=== PATIENT | female | born 1935 | race Caucasian/White ===

== ENCOUNTER → 2017-10-14 | Outpatient (CLI) | payer MEDICARE, BC ==
[2017-10-14 10:17] LABS: AUTOMATED NEUTROPHIL # 1.6 TH/MM3 (1.8-7.7); BASOPHIL % 0.6 % (0.0-2.0); EOSINOPHIL % 1.6 % (0.0-4.0); HEMATOCRIT 38.4 % (35.0-46.0); HEMOGLOBIN 13.1 GM/DL (11.6-15.3); LYMPH % 25.8 % (9.0-44.0); LYMPHOCYTE # 0.7 TH/MM3 (1.0-4.8); MEAN CELL VOLUME 90.5 FL (80.0-100.0); MEAN CORPUSCULAR HGB CONC 34.2 % (32.0-36.0); MEAN PLATELET VOLUME 8.3 FL (7.0-11.0); MONO % 12.9 % (0.0-8.0); MONOCYTE # 0.3 TH/MM3 (0-0.9); NEUT % 59.1 % (16.0-70.0); PLATELET COUNT 135 TH/MM3 (150-450); RED BLOOD COUNT 4.24 MIL/MM3 (4.00-5.30); RED CELL DISTRIBUTION WIDTH 13.3 % (11.6-17.2); WHITE BLOOD COUNT 2.7 TH/MM3 (4.0-11.0)
[2017-10-14 10:29] LABS: ALBUMIN 3.7 GM/DL (3.4-5.0); ALT (GPT) 13 U/L (10-53); AST (GOT) 15 U/L (15-37); BLOOD UREA NITROGEN 14 MG/DL (7-18); CALCIUM 8.9 MG/DL (8.5-10.1); CHLORIDE 104 MEQ/L (98-107); CHOLESTEROL 215 MG/DL (120-200); CREATININE 0.96 MG/DL (0.50-1.00); GLOMERULAR FILTRATION RATE 56 ML/MIN (>89); GLUCOSE,FASTING 84 MG/DL (74-99); SODIUM (NA) 139 MEQ/L (136-145)
[2017-10-14 10:38] LABS: ALKALINE PHOSPHATASE 90 U/L (45-117); CHOLESTEROL/ HDL RATIO 3.53 RATIO; FREE T4 1.04 NG/DL (0.76-1.46); HDL CHOLESTEROL 60.9 MG/DL (40.0-60.0); LDL CHOLESTEROL 134 MG/DL (0-99); TOTAL BILIRUBIN ADULT 0.6 MG/DL (0.2-1.0); TOTAL PROTEIN 7.5 GM/DL (6.4-8.2); TRIGLYCERIDES 101 MG/DL (42-150)
[2017-10-14 16:10] LABS: HEMOGLOBIN A1C 5.2 % (4.3-6.0)
== END ==
LOC: PLAB 06:58
PROVIDERS: ATTEND Family Medicine
DX: E78.2 Mixed hyperlipidemia (principal); I10 Essential (primary) hypertension; E03.8 Other specified hypothyroidism; E10.8 Type 1 diabetes mellitus with unspecified complications; Z79.899 Other long term (current) drug therapy
CPT/HCPCS: 36415; 80053; 80061; 83036; 84439; 84443; 84480; 84482; 85025

== ENCOUNTER 2017-11-09 13:27 | Inpatient (IN) | payer MEDICARE, BC ==
[2017-11-09] VITALS (8 sets, daily range): BP systolic 115–135; BP diastolic 80–95; PULSE 69–78; RESP 18; TEMP 97.6; O2SAT 95–99
[~2017-11-09] VITALS: Ht 154.9 cm; Wt 53.3 kg
[2017-11-09] MEDS ORDERED: ASPIRIN 81 MG CHEW TAB PO ONE (13:45)
[2017-11-09] MEDS ORDERED: SODIUM CHLORIDE 0.9% FLUSH 10 ML FLUSH IVF PRN (13:45)
--- NOTE | 2017-11-09 13:50 | RADRPT ---
EXAM DATE/TIME: 11/09/2017 13:39 [place] COMPARISON: No previous studies available for comparison. INDICATIONS : Chest pain MEDICAL HISTORY : Cardiovascular disease. A-fib SURGICAL HISTORY : CABG. ENCOUNTER: Initial ACUITY: 1 day PAIN SCORE: 0/10 LOCATION: chest FINDINGS: There is ill-defined non-consolidative infiltrate in the retrocardiac left lower lung. The right carlee g is clear. Both hemidiaphragms are well delineated. The heart is normal in size. Evidence of prio r median sternotomy with intact sternal wire sutures stop CONCLUSION: Non-consolidative infiltrates in the left lower lung. Franki Perez MD on November 09, 2017 at 13:47 Board Certified Radiologist. This report was verified electronically.
[2017-11-09 14:21] LABS: AUTOMATED NEUTROPHIL # 1.3 TH/MM3 (1.8-7.7); BASOPHIL % 0.4 % (0.0-2.0); EOSINOPHIL # 0.1 TH/MM3 (0-0.4); EOSINOPHIL % 2.6 % (0.0-4.0); HEMATOCRIT 33.1 % (35.0-46.0); HEMOGLOBIN 11.3 GM/DL (11.6-15.3); LYMPH % 43.1 % (9.0-44.0); LYMPHOCYTE # 1.4 TH/MM3 (1.0-4.8); MEAN CELL VOLUME 89.9 FL (80.0-100.0); MEAN CORPUSCULAR HEMOGLOBIN 30.7 PG (27.0-34.0); MEAN CORPUSCULAR HGB CONC 34.1 % (32.0-36.0); MEAN PLATELET VOLUME 8.1 FL (7.0-11.0); MONO % 13.7 % (0.0-8.0); MONOCYTE # 0.4 TH/MM3 (0-0.9); NEUT % 40.2 % (16.0-70.0); PLATELET COUNT 280 TH/MM3 (150-450); RED BLOOD COUNT 3.68 MIL/MM3 (4.00-5.30); RED CELL DISTRIBUTION WIDTH 13.5 % (11.6-17.2); WHITE BLOOD COUNT 3.2 TH/MM3 (4.0-11.0)
[2017-11-09 14:39] LABS: INTERNATIONAL NORMALIZED RATIO 1.6 RATIO; PROTHROMBIN TIME - PATIENT 16.1 SEC (9.8-11.6)
[2017-11-09 14:46] LABS: ALBUMIN 3.1 GM/DL (3.4-5.0); AST (GOT) 24 U/L (15-37); BICARBONATE 27.6 MEQ/L (21.0-32.0); BLOOD UREA NITROGEN 17 MG/DL (7-18); CALCIUM 8.3 MG/DL (8.5-10.1); CHLORIDE 105 MEQ/L (98-107); CREATININE 1.05 MG/DL (0.50-1.00); GLOMERULAR FILTRATION RATE 50 ML/MIN (>89); GLUCOSE,RANDOM 104 MG/DL (74-106); SODIUM (NA) 140 MEQ/L (136-145)
[2017-11-09 14:51] LABS: ALKALINE PHOSPHATASE 106 U/L (45-117); ALT (GPT) 23 U/L (10-53); TOTAL BILIRUBIN ADULT 0.4 MG/DL (0.2-1.0); TOTAL PROTEIN 6.8 GM/DL (6.4-8.2); TROPONIN I 0.27 NG/ML (0.02-0.05)
[2017-11-09] MEDS ORDERED: MORPHINE SULFATE 2 MG/ML SYRINGE IV PUSH ONE (15:45)
[2017-11-09] MEDS ORDERED: ENOXAPARIN SODIUM 60 MG/0.6 ML SYRINGE SQ ONE (15:45)
--- NOTE | 2017-11-09 16:07 | PD ---
HPI Chief Complaint: Cardiac Complaint Time Seen by Provider: 13:35 Travel History International Travel<30 days: No Contact w/Intl Traveler<30days: No Traveled to known affect area: No History of Present Illness HPI Patient is an 81 year old female who comes in complaining of chest pain. She says the pain started this morning and feels like a pressure in her chest. She was seen at [facility] last week and had a cardiac stent placed. She says she has been feeling fine since then and did not have this pain until this morning. She says she has had associated nausea and vomiting as well as diaphoresis. She denies any difficulty breathing. She denies cough or leg swelling. She took a Plavix prior to coming in, but no Aspirin. She was given nitro by EMS and says this improved her pain. Severity is moderate. PFSH Past Medical History Anemia: Yes Atrial Fibrillation: Yes Cardiac Catheterization: Yes High Cholesterol: Yes Hypertension: Yes Thyroid Disease: Yes Influenza Vaccination: Yes Past Surgical History Cardiac Surgery: Yes (stents, aortic valve replacement) Social History Alcohol Use: Yes (occas) Tobacco Use: No Substance Use: No Allergies-Medications (Allergen,Severity, Reaction): Coded Allergies: No Known Allergies (Unverified , 11/09/17) Reported Meds & Prescriptions Reported Meds & Active Scripts Active Reported Warfarin 5 Mg Tab 5 Mg PO DAILY Metoprolol Tartrate 25 Mg Tab 25 Mg PO BID Review of Systems Except as stated in HPI: all other systems reviewed are Neg General / Constitutional: No: Fever, Chills HENT: No: Headaches, Lightheadedness Cardiovascular: Positive: Chest Pain or Discomfort Respiratory: No: Shortness of Breath Gastrointestinal: Positive: Nausea, Vomiting, No: Abdominal Pain Musculoskeletal: No: Myalgias, Edema Skin: No Rash, No Change in Pigmentation Neurologic: No: Weakness, Dizziness Physical Exam Narrative GENERAL: Awake and alert, in no acute distress. SKIN: No wounds or signs of infection. HEAD: Atraumatic. Normocephalic. EYES: Pupils equal and round. No scleral icterus. ENT: Mucous membranes pink and moist. NECK: Trachea midline. No JVD. CARDIOVASCULAR: Regular rate and rhythm. RESPIRATORY: No accessory muscle use. Clear to auscultation. Breath sounds equal bilaterally. GASTROINTESTINAL: Abdomen soft, non-tender, nondistended. MUSCULOSKELETAL: Extremities without clubbing, cyanosis, or edema. No obvious deformities. NEUROLOGICAL: Awake and alert. No obvious cranial nerve deficits. Motor grossly within normal limits. Five out of 5 muscle strength in the arms and legs. Normal speech. PSYCHIATRIC: Appropriate mood and affect; insight and judgment normal. Data Data Last Documented VS Vital Signs Date Time Temp Pulse Resp B/P (MAP) Pulse Ox O2 Delivery O2 Flow Rate FiO2 11/09/17 13:29 69 18 125/88 (100) 97 Orders Orders Ckmb (Isoenzyme) Profile (11/09/17 13:35) Complete Blood Count With Diff (11/09/17 13:35) Comprehensive Metabolic Panel (11/09/17 13:35) Prothrombin Time / Inr (Pt) (11/09/17 13:35) Act Partial Throm Time (Ptt) (11/09/17 13:35) Troponin I (11/09/17 13:35) Chest, Single Ap (11/09/17 13:35) Ecg Monitoring (11/09/17 13:35) Bilateral Bp Monitoring (11/09/17 13:35) Iv Access Insert/Monitor (11/09/17 13:35) Oximetry (11/09/17 13:35) Oxygen Administration (11/09/17 13:35) Aspirin Chew (Aspirin Chew) (11/09/17 13:45) Sodium Chloride 0.9% Flush (Ns Flush) (11/09/17 13:45) Morphine Inj (Morphine Inj) (11/09/17 15:45) Enoxaparin Inj (Lovenox Inj) (11/09/17 15:45) Consult Cardiology (11/09/17 ) Electrocardiogram (11/09/17 13:33) (Hub Use Only)Inp Phy Cons/Ref (11/09/17 ) Admit Order (Ed Use Only) (11/09/17 ) Labs Laboratory Tests Test 11/09/17 13:42 White Blood Count 3.2 TH/MM3 Red Blood Count 3.68 MIL/MM3 Hemoglobin 11.3 GM/DL Hematocrit 33.1 % Mean Corpuscular Volume 89.9 FL Mean Corpuscular Hemoglobin 30.7 PG Mean Corpuscular Hemoglobin Concent 34.1 % Red Cell Distribution Width 13.5 % Platelet Count 280 TH/MM3 Mean Platelet Volume 8.1 FL Neutrophils (%) (Auto) 40.2 % Lymphocytes (%) (Auto) 43.1 % Monocytes (%) (Auto) 13.7 % Eosinophils (%) (Auto) 2.6 % Basophils (%) (Auto) 0.4 % Neutrophils # (Auto) 1.3 TH/MM3 Lymphocytes # (Auto) 1.4 TH/MM3 Monocytes # (Auto) 0.4 TH/MM3 Eosinophils # (Auto) 0.1 TH/MM3 Basophils # (Auto) 0.0 TH/MM3 CBC Comment DIFF FINAL Differential Comment Prothrombin Time 16.1 SEC Prothromb Time International Ratio 1.6 RATIO Activated Partial Thromboplast Time 29.6 SEC Blood Urea Nitrogen 17 MG/DL Creatinine 1.05 MG/DL Random Glucose 104 MG/DL Total Protein 6.8 GM/DL Albumin 3.1 GM/DL Calcium Level 8.3 MG/DL Alkaline Phosphatase 106 U/L Aspartate Amino Transf (AST/SGOT) 24 U/L Alanine Aminotransferase (ALT/SGPT) 23 U/L Total Bilirubin 0.4 MG/DL Sodium Level 140 MEQ/L Potassium Level 4.4 MEQ/L Chloride Level 105 MEQ/L Carbon Dioxide Level 27.6 MEQ/L Anion Gap 7 MEQ/L Estimat Glomerular Filtration Rate 50 ML/MIN Total Creatine Kinase 31 U/L Troponin I 0.27 NG/ML MDM Medical Decision Making Medical Screen Exam Complete: Yes Emergency Medical Condition: Yes Medical Record Reviewed: Yes Interpretation(s) ECG shows LBBB Differential Diagnosis ACS vs NSTEMI vs STEMI Narrative Course Patient is an 81 year old female who comes in complaining of chest pain. IV established, labs sent, patient connected to the social work therapist. Labs show a troponin of 0.27. Patient did recently have a cardiac cath and stenting, so it is unclear if this is new or improving. I spoke with Dr. Alexander of cardiology who looked up records from [facility] and said her Troponin was 2 while there, so this is likely improving. However, she suggests trending the troponin and giving Lovenox right now. Patient given Aspirin and Lovenox. Admitted to Dr. Hall, consult placed to Dr. Abrams (patient's mixer whipped topping). Diagnosis Primary Impression: Chest pain Qualified Codes: R07.9 - Chest pain, unspecified Additional Impression: Elevated troponin Admitting Information Admitting Physician Requests: Admit Tiffanie Naranjo MD November 09, 2017 16:07
[2017-11-09] MEDS ORDERED: MORPHINE SULFATE 4 MG/ML INJ IV PUSH ONE (16:30)
[2017-11-09] MEDS ORDERED: LACTULOSE SYRUP 20 GM/30 ML CUP PO PRN (16:45)
[2017-11-09] MEDS ORDERED: BISACODYL 10 MG SUPP RECTAL PRN (16:45)
[2017-11-09] MEDS ORDERED: MAGNESIUM HYDROXIDE SUSP 30 ML CUP PO PRN (16:45)
[2017-11-09] MEDS ORDERED: NALOXONE HCL 0.4 MG/ML AMP IV PUSH PRN (16:45)
[2017-11-09] MEDS ORDERED: SODIUM CHLORIDE 0.9% FLUSH 10 ML FLUSH IV FLUSH PRN (16:45)
[2017-11-09] MEDS ORDERED: SENNOSIDES 8.6 MG TAB PO PRN (16:45)
[2017-11-09] MEDS ORDERED: ENOXAPARIN SODIUM 60 MG/0.6 ML SYRINGE SQ SCH (17:00)
--- NOTE | 2017-11-09 17:46 | EKG ---
Date Performed: 11/09/2017 Time Performed: 13:33:46 PTAGE: 81 years EKG: Sinus rhythm WITH FIRST DEGREE AV BLOCK LEFT AXIS DEVIATION NONSPECIFIC INTRAVENTRICULAR CONDUCTION DELAY NONSPEC IFIC ST/T CHANGES ABNORMAL ECG NO PREVIOUS TRACING DOCTOR: Boyd Banks Interpretating Date/Time 11/09/2017 17:45:29
[2017-11-09] MEDS ORDERED: ONDANSETRON ODT 4 MG TAB PO ONE (18:45)
[2017-11-09] MEDS ORDERED: METO25TA3 PO (19:58)
[2017-11-09] MEDS ORDERED: WARF-23 PO (19:59)
[2017-11-09] MEDS ORDERED: PROP150T PO (20:01)
[2017-11-09] MEDS ORDERED: PLAV75TA29 PO (20:02)
[2017-11-09] MEDS ORDERED: NITROGLYCERIN 0.4 MG SL 25 TABS/BTL SL PRN (20:45)
[2017-11-09] MEDS ORDERED: MORPHINE SULFATE 4 MG/ML INJ IV PRN (21:00)
[2017-11-09] MEDS: PROPAFENONE HCL 150 MG TAB PO SCH (21:26)
[2017-11-09] MEDS: METOPROLOL TARTRATE 25 MG TAB PO SCH (21:26)
[2017-11-09] MEDS: DOCUSATE SODIUM 50 MG/SENNA 8.6 MG TAB PO SCH (21:26)
[2017-11-09] MEDS: SODIUM CHLORIDE 0.9% FLUSH 10 ML FLUSH IV FLUSH SCH (21:26)
[2017-11-10] VITALS (25 sets, daily range): BP systolic 88–128; BP diastolic 58–91; PULSE 68–80; RESP 16–18; TEMP 97.6–98; O2SAT 95–97
[2017-11-10] MEDS ORDERED: ENOXAPARIN SODIUM 60 MG/0.6 ML SYRINGE SQ SCH (04:00)
[2017-11-10 04:30] LABS: BASOPHIL % 0.4 % (0.0-2.0); EOSINOPHIL % 0.1 % (0.0-4.0); HEMATOCRIT 40.1 % (35.0-46.0); HEMOGLOBIN 13.5 GM/DL (11.6-15.3); LYMPHOCYTE # 0.7 TH/MM3 (1.0-4.8); MEAN CELL VOLUME 90.4 FL (80.0-100.0); MEAN CORPUSCULAR HEMOGLOBIN 30.4 PG (27.0-34.0); MEAN CORPUSCULAR HGB CONC 33.6 % (32.0-36.0); MEAN PLATELET VOLUME 8.1 FL (7.0-11.0); MONO % 7.4 % (0.0-8.0); MONOCYTE # 0.2 TH/MM3 (0-0.9); NEUT % 69.1 % (16.0-70.0); PLATELET COUNT 299 TH/MM3 (150-450); RED BLOOD COUNT 4.43 MIL/MM3 (4.00-5.30); RED CELL DISTRIBUTION WIDTH 13.5 % (11.6-17.2); WHITE BLOOD COUNT 2.9 TH/MM3 (4.0-11.0)
[2017-11-10 04:40] LABS: INTERNATIONAL NORMALIZED RATIO 1.6 RATIO; PROTHROMBIN TIME - PATIENT 16.3 SEC (9.8-11.6)
[2017-11-10 05:07] LABS: ALBUMIN 3.6 GM/DL (3.4-5.0); ALKALINE PHOSPHATASE 131 U/L (45-117); ALT (GPT) 34 U/L (10-53); AST (GOT) 258 U/L (15-37); BICARBONATE 24.5 MEQ/L (21.0-32.0); BLOOD UREA NITROGEN 26 MG/DL (7-18); CALCIUM 8.9 MG/DL (8.5-10.1); CHLORIDE 103 MEQ/L (98-107); CREATININE 1.11 MG/DL (0.50-1.00); GLOMERULAR FILTRATION RATE 47 ML/MIN (>89); GLUCOSE,RANDOM 103 MG/DL (74-106); SODIUM (NA) 138 MEQ/L (136-145); TOTAL BILIRUBIN ADULT 0.6 MG/DL (0.2-1.0)
[2017-11-10] MEDS: PROPAFENONE HCL 150 MG TAB PO SCH ×2 (06:51→14:25)
[2017-11-10] MEDS: ONDANSETRON ODT 4 MG TAB PO PRN (06:53)
[2017-11-10] MEDS ORDERED: HEPARIN SODIUM - IV 10,000 UNITS/10 ML VIAL ONE (07:27)
[2017-11-10] MEDS ORDERED: MIDAZOLAM HCL 2 MG/2 ML VIAL ONE (07:27)
[2017-11-10] MEDS ORDERED: HEPARIN-NS/PF INJ 500 ML ONE (07:36)
--- NOTE | 2017-11-10 08:00 | MB ---
cc: Eliel Abrams MD DATE: 11/10/2017 HISTORY OF PRESENT ILLNESS: Ms. Mcgill is an 79-year-old white female with a history of aortic valve replacement, recent anterior wall myocardial infarction and LAD stenting. She developed substernal chest pressure yesterday morning and was brought to [facility]. She had nausea, vomiting and diaphoresis. She took Plavix, but no aspirin prior to arrival. The patient's pain improved with nitroglycerin and was of moderate severity. She has had continuing chest discomfort and is ruling in for a myocardial infarction with significantly elevated troponin. PAST MEDICAL HISTORY: 1. Positive for aortic valve replacement for severe aortic insufficiency in 2014 using a bioprosthetic valve. 2. Recent anterior wall myocardial infarction and placement of a Resolute 2.5 x [address] Field at [facility]. 3. History of atrial fibrillation, dyslipidemia, hypertension, thyroid disease, anemia. MEDICATIONS: Include: 1. Metoprolol. 2. Warfarin. 3. Plavix. 4. Aspirin. ALLERGIES: NONE. SOCIAL HISTORY: The patient does not smoke. She drinks alcohol socially. FAMILY HISTORY: Positive for heart disease. REVIEW OF SYSTEMS: Otherwise negative. PHYSICAL EXAMINATION: VITAL SIGNS: Blood pressure 128/91, pulse 76 and regular. HEENT: Negative. NECK: 2+ carotid strokes. No bruits. LUNGS: Clear. HEART: Regular with a 1/6 systolic murmur. No gallop. ABDOMEN: Soft. No bruits. EXTREMITIES: Without edema. 2+ distal pulses. NEUROLOGIC: Grossly nonfocal. LABORATORY DATA: EKG was reviewed and showed sinus rhythm with left axis and first degree AV block and a bundle branch block. LABORATORY DATA: Hemoglobin 13.5, potassium 4.6, creatinine 1.1. Troponin 0.27, 5.69 and 32.1. DIAGNOSES: 1. Acute coronary syndrome. 2. Acute myocardial infarction. 3. Coronary artery disease, recent anterior wall myocardial infarction and LAD stenting. 4. Status post aortic valve replacement for aortic insufficiency. DISPOSITION: Ms. Mcgill will undergo emergent cardiac catheterization and coronary intervention. She understands the risks and benefits, and wishes to proceed. Eliel Abrams MD OQ/DL , 07:40 AM , 07:59 AM [facility]
--- NOTE | 2017-11-10 08:04 | EKG ---
Date Performed: 11/09/2017 Time Performed: 22:41:26 PTAGE: 81 years EKG: Sinus rhythm with borderline 1st degree A-V block Left axis deviation Nonspecific intraventricular conduction del ay Lateral T wave changes are nonspecific Diffuse nonspecific ST abnormality Abnormal ECG NO PREVIOUS TRACING DOCTOR: Boyd Banks Interpretating Date/Time 11/10/2017 08:02:30
[2017-11-10] MEDS: DOCUSATE SODIUM 50 MG/SENNA 8.6 MG TAB PO SCH ×2 (09:00→21:00)
[2017-11-10] MEDS: SODIUM CHLORIDE 0.9% FLUSH 10 ML FLUSH IV FLUSH SCH ×2 (09:00→22:02)
[2017-11-10] MEDS ORDERED: ASPIRIN EC 325 MG TABEC PO SCH (09:00)
[2017-11-10] MEDS ORDERED: CLOPIDOGREL 75 MG TAB PO SCH (09:00)
[2017-11-10] MEDS ORDERED: TIROFIBAN INFUSION INJ 250 ML IV ONE (09:40)
[2017-11-10] MEDS ORDERED: PRASUGREL 10 MG TAB ONE (09:40)
[2017-11-10] MEDS ORDERED: ASPIRIN 81 MG CHEW TAB ONE (09:47)
[2017-11-10] MEDS: TIROFIBAN INFUSION INJ 250 ML IV SCH (09:49)
[2017-11-10] MEDS ORDERED: ONDANSETRON HCL 4 MG/2 ML VIAL ONE (09:52)
[2017-11-10] MEDS: METOPROLOL TARTRATE 25 MG TAB PO SCH (10:22)
[2017-11-10] MEDS ORDERED: PRASUGREL 10 MG TAB PO ONE ×2 (11:15→12:30)
[2017-11-10] MEDS ORDERED: IOHEXOL 350 MG/ML 100 ML BTL (for Cath Lab) OTHER ONE (14:56)
[2017-11-10] MEDS ORDERED: WARFARIN SOD 5 MG TAB PO SCH (16:00)
--- NOTE | 2017-11-10 16:17 | CATHPROC ---
[employer] HIS Report Study Information Study Number Admission Scheduled Start Study Start [id number] Nov 09 2017 4:08PM 11/10/2017 Nov 10 2017 7:03AM [place] [facility] Cardiac Catheterization Admit Source Facility Department Emergency department [facility] - Medical Science Liaison Physician and Clinical Staff Initial Eliel Bills Investment Associate Vikash Casas,SABINE Recorder Rohini Argueta,ENGINEERING TECHNICIAN PARKING TECH2 Scrub Maira Guerra,RT(R) Procedures Performed Procedure Location (Site) Vessel Name Angiogram LV LV Ventricle Coronary Angiograms LCA Left Coronary Coronary Angiograms RCA Right Coronary PTCA DIAG1 Prox Left Coronary PTCA LAD Mid Left Coronary PTCA LAD Prox Left Coronary PTCA Lft Main Ost Left Coronary Wire insertion Fem Art (right) Femoral Art Equipment Time Sql Server Consultant Description Size Mfg Part Number Used/Scraped WIRE, BALANCE MIDDLEWEIGHT [id number] 07:55 [employer] 190CM Used 190CM *[id number] WIRE, HI TORQUE ALLSTAR [id number] 08:07 [employer] 190CM Used 190CM *[id number] WIRE, HI TORQUE ALLSTAR [id number] 08:12 [employer] 190CM Used 190CM *[id number] WIRE, WHISPER W/HYDROCOAT [id number] 08:30 [employer] 190CM Used 190CM *[id number] WIRE, WHISPER W/HYDROCOAT [id number] 08:58 [employer] 190CM Used 190CM *[id number] WIRE, WHISPER W/HYDROCOAT [id number] 08:42 [employer] 190CM Used 190CM *[id number] WIRE, WHISPER W/HYDROCOAT [id number] 08:45 [employer] 190CM Used 190CM *[id number] TRANSDUCER, TRUWAVE [id number] 07:06 HANNA AGUILAR * Used W/STOCKCOCK *[id number] 08:19 [employer] WIRE, LUGE 182CM 182CM Used *[id number] [phone] *9851315 534-545T *[id number] 534-548T *5670211 534-520T *2544615 534-552S *[id number] [phone] *[id number] [phone] *[id number] 09:32 DAIG/[facility] MEDICAL ANGIOSEAL, FR6 VIP FR 6 Used *[id number] [id number] 07:24 MALLINCKRODT SYRINGE, ANGIOMAT 150ML 150ML *[id number]/233437 Used 2SUB [id number] 07:06 MEDLINE IND[employer]RIES PACK, CCL CUSTOM * Used *[id number] 07:06 MEDLINE PACER PEN, SKIN DUAL W/ RULER * Used *[id number] 10:30 MEDTRONIC BALLOON, 1.5 X 12MM EUPHORA 12MM Used *[id number] 08:36 MEDTRONIC BALLOON, 1.5 X 6MM EUPHORA 6MM Used *4064834 [id number] 09:00 MEDTR[employer] BALLOON, 2.5 X 12MM EUPHORA 12MM Used *[id number] BALLOON, 2.75 X 12MM NC [id number] 09:13 MEDTRONIC 12MM Used EUPHORA *[id number] 08:53 [employer] MEDICAL 30 MARIA ELENA INDEFLATOR Used *[id number] 07:56 [employer] MEDICAL SHEATH, FR6.5 PRELUDE 11CM FR 6.5 038ACT Used *[id number] 07:06 [employer] MEDICAL WIRE, 3MMJ .035 180CM 180CM Used *5428789 [id number] 08:09 [employer] WIRE, 3MMJ .035 180CM 180CM Used *[id number] 09:28 [employer] WIRE, 3MMJ .035 180CM 180CM Used *[id number] PROBE COVER, STERILE [id number] 07:06 [employer] MEDICAL * Used ULTRASOUND W/ GEL *[id number] 07:06 NAMIC MANIFOLD, 4 PORT * Used *[id number] [id number] 07:06 NAMIC TUBING, HIGH PRESSURE 48" 48" Used *[id number] 07:06 NYCOMED OMNIPAQUE, 350 MG, 150ML 150ML [id number] Used 09:27 [employer]COMED OMNIPAQUE, 350 MG, 150ML 150ML [id number] Used 09:26 NYCOMED OMNIPAQUE, 350 MG, 50ML 50ML [id number] Used [id number] 07:06 [employer] BLANKET,WARM AIR CCL * Used *[id number] [id number] 07:06 [employer] MEDICAL SHEATH, FR5 TERUMO (10CM) FR 5 Used *[id number] WIRE, RUNTHROUGH NS FLOPPY [id number] 08:14 [employer] MEDICAL 180CM Used .014 180CM *[id number] EXPORTAP Scrap: Physician 07:54 MEDTRONIC CATHETER, EXPORT ASPIRATON *[id number] choice CATHETER, DUAL ACCESS/TWIN Scrap: Staff 08:51 V[employer]ULAR [employer]UTIONS * 5200 *[id number] PASS Error Equipment Model, Serial, Lot Number and Expiration Data Description Model Number Serial Number Lot Number Expiration Date ANGIOSEAL, FR6 VIP [id number] 04-22-2018 BALLOON, 2.75 X 12MM WI [id number] 08-29-2019 EUPHORA CATHETER, EXPORT ASPIRATON [id number] 06-11-2019 History: Current Medications Medication Dosage/Unit Route Frequency Last Date/Time Taken LOPRESSOR Coumadin History: Allergies Allergy Reaction No Known Allergies History: Risk Factors Family History of Hypertension Dyslipidemia Previous UT Previous Heart Failure Premature CAD Yes Yes Yes Yes No Prior Valve Prior PCI Prior PCIDate Prior CABG Surgery Yes Yes 10/29/2017 No Cerebrovascular Peripheral Artery Chronic Lung On Dialysis Diabetes Disease Disease Disease No No No No No History: Symptoms/Diagnosis Selection Items Chest pain History: CV Disease Selection Items Known CAD UT History: Stress Tests Stress or Imaging Studies Performed No History: Arrhythmias Selection Items Atrial fibrillation History: UT/CV Data Previous Valve Replacement Date 06/02/2015 History: Other Current Smoker No Labs Hgb (g/dl) Hct (%) WBC (l/cumm) Platelets (thousands) 11.60-17.00 35.00-51.00 4.00-11.00 150.00-450.00 13.5 40.1 2.9 299 Glucose (mg/dl) BUN (mg/dl) Creatinine (mg/dl) BUN:Creatinine (1:x) 74.00-106.00 7.00-18.00 0.50-1.30 10.00-20.00 103 26 1.1 23.6 Na (meq/l) K (meq/l) 136.00-145.00 3.50-5.10 138 4.6 PT (sec) INR (PTT:PT) 9.80-11.60 0.90-1.10 16.3 1.6 Troponin I (ng/ml) CPK (u/l) CPK-MB (ng/ML) 0.02-0.05 26.00-308.00 0.50-3.60 32.1 31 Not Drawn Medication Medication Total Dose (Bolus/Oral) Medication Total Dosage/Unit 1% XYLOCAINE 20 mL AGGRASTAT BOLUS 25 mL ASPIRIN 162 mg EFFIENT 60 mg FENTANYL 75 mcg HEPARIN 3000 units OXYGEN 2 l/min VERSED 2 mg Medications (Bolus/Oral) Medication Time Given Dosage/Unit Administered By Reason 1% XYLOCAINE 11/10/2017 7:43:48 AM 20 mL Eliel Abrams 20 mL 1% XYLOCAINE given in lab by Eliel Abrams in Right Groin via Subcutaneous. VERSED 11/10/2017 7:44:34 AM 1 mg Vikash Casas 1 mg VERSED given in lab by Vikash Casas RN in Left Antecubital via Peripheral IV. Ordered by Eliel Douglas. FENTANYL 11/10/2017 7:44:50 AM 50 mcg Vikash Casas 50 mcg FENTANYL given in lab by Vikash Casas RN in Left Antecubital via Peripheral IV. Ordered by Eliel Abrams. OXYGEN 11/10/2017 7:53:31 AM 2 l/min Vikash Casas 2 l/min OXYGEN given in lab by Vikash Casas RN via Nasal. Ordered by Eliel Abrams. HEPARIN 11/10/2017 7:54:26 AM 3000 units Vikash Casas 3000 units HEPARIN given in lab by Vikash Casas RN in Left Antecubital via Peripheral IV. Ordered by Eliel Abrams. VERSED 11/10/2017 8:09:12 AM 0.5 mg Vikash Casas 0.5 mg VERSED given in lab by Vikash Casas RN in Left Antecubital via Peripheral IV. Ordered by Eliel Vang. VERSED 11/10/2017 8:38:37 AM 0.5 mg Vikash Casas 0.5 mg VERSED given in lab by Vikash Casas RN in Left Antecubital via Peripheral IV. Ordered by Eliel Vang. FENTANYL 11/10/2017 8:39:53 AM 25 mcg Vikash Casas 25 mcg FENTANYL given in lab by Ferlitto, Vikash, RN in Left Antecubital via Peripheral IV. Ordered by Eliel Abrams. EFFIENT 11/10/2017 9:42:47 AM 60 mg Vikash Casas 60 mg EFFIENT given in lab by Vikash Casas RN via Oral. Ordered by Eliel Abrams. ASPIRIN 11/10/2017 9:43:55 AM 162 mg Vikash Casas 162 mg ASPIRIN given in lab by Vikash Casas RN via Oral. Ordered by Eliel Abrams. AGGRASTAT BOLUS 11/10/2017 9:48:12 AM 25 mL Viaksh Casas 25 mL AGGRASTAT BOLUS given in lab by Vikash Casas RN in Left Antecubital via Peripheral IV. Order ed by Eliel Abrams. Medication (Drip) Medication Time Given Dosage/Unit Concentration/Unit Diluent (ml) Solutio n AGGRASTAT DRIP 11/10/2017 9:49:50 AM 0.076 mcg/kg/min 12.5 mg 250 NaCl .9 0.076 mcg/kg/min AGGRASTAT DRIP given in lab by Vikash Casas RN in Left Antecubital via Peripheral IV. Pump/Drip Flow = 4.5 ml/hr using NaCl .9 with a concentration of 12.5 mg in 250 ml. Ordered by Eliel Abrams. renal dose Departed On. IV Solutions 11/10/2017 7:31:19 AM 0 mL (IV) 500 NaCl .9 Patient arrived on IV Solutions in Right Antecubital via Peripheral IV. Pump/Drip Flow = 20 ml/hr usi ng NaCl .9. Initial Case Assessment Cardiovascular HR Rhythm NIBP Chest Pain 77 sr 135/93 2 Circulatory - Right Pulses Dorsalis Pedis Femoral 2 3 Scale (0,1,2,3,4,d) Circulatory - Left Pulses Dorsalis Pedis Femoral 1 3 Scale (0,1,2,3,4,d) Neurological State Oriented to time-place- Alert Moves all extremities person Respiration - General Respiration Rate SpO2 (%) (B/min) 18 95 Final Case Assessment Cardiovascular HR Rhythm NIBP Chest Pain 72 sr 109/80 0 Circulatory - Right Pulses Dorsalis Pedis Femoral 2 3 Scale (0,1,2,3,4,d) Circulatory - Left Pulses Dorsalis Pedis Femoral 1 3 Scale (0,1,2,3,4,d) Neurological State Oriented to time-place- Alert Moves all extremities person Respiration - General Respiration Rate SpO2 (%) (B/min) 18 100 Chronological Log Time Study Chronological Log 7:23:36 Patient arrived via Bed. 7:23:37 Patient Name, D.O.B, / Armband Verified By R.N. 7:23:39 Consent signed by the physician and the patient and verified by the Medical Science Liaison staff. 7:23:40 Pre-op and post- op instructions given; patient acknowledges understanding of instructions. 7:23:41 Verbal Stimulation=2 Physical Stimulation=2 Airway=2 Respiration=2 TOTAL=8. (0=absent, 1=rivera ited, 2=present) 7:23:56 Presedation assessment performed by Medical Science Liaison RN. 7:23:59 Patient has been NPO for More than 6Hrs. 7:24:01 Skin Breakdown-none 7:24:40 [place] Prominences Protected Vitals capture started with the following parameters, Patient=Adult, Interval=5 min, Initial Pre mluye=393 mmHg, 7:27:18 Deflation Rate=5 mmHg, Cuff placed on Right Arm 7:28:25 HR=78 bpm, TYME=549/93 mmhg, SpO2=95.0 %, Resp=14 B/min 7:30:55 Reference ECG taken 7:31:18 A # 20 IV was noted in the Antecubital (left). Grade = 0 7:31:19 Patient arrived on IV Solutions in Right Antecubital via Peripheral IV. Pump/Drip Flow = 20 ml/hr using NaCl .9. 7:31:20 A # 20 IV was noted in the Forearm (left). Grade = 0 7:31:27 History and physical on the chart or being dictated. Assessment: Initial Case, HR=77 BPM, Rhythm=sr, IHXN=956/93 mmhg, Chest Pain=2 Right Pulses: Ed Ped=2, Femoral=3 7:31:28 Left Pulses: Ed Ped=1, Femoral=3 Neurological: State=Alert, Ox3, CRAIN Respiration: Resp=18 B/min, SpO2=95 % 7:32:50 HR=76 bpm, QTTV=922/84 mmhg, SpO2=96.0 %, Resp=15 B/min 7:33:23 MD arrived. 7:34:04 Bilateral groins prepped with 2% chlorhexidine, and draped after a 3 minute waiting time. 7:37:49 HR=77 bpm, SWUQ=055/89 mmhg, SpO2=95 %, Resp=11 B/min 7:42:48 HR=76 bpm, UKYU=510/80 mmhg, SpO2=94.0 %, Resp=15 B/min, Pain=2, Carranza=2 Time Out. Correct patient, correct procedure, correct physician, labs, allergies, and equipment verified with label paster 7:43:26 team present. Fire risk assesment completed (see hard stop sheet for coding). Time Out Concu rred by MD and individual staff in procedure. 7:43:46 Case Start 7:43:48 20 mL 1% XYLOCAINE given in lab by Eliel Abrams in Right Groin via Subcutaneous. 7:44:34 1 mg VERSED given in lab by Vikash Casas RN in Left Antecubital via Peripheral IV. Ordere d by Eliel Abrams. 7:44:45 Access site was Right Femoral Artery. 7:44:50 50 mcg FENTANYL given in lab by Vikash Casas, SABINE in Left Antecubital via Peripheral IV. Or dered by Eliel Abrams. A SHEATH, FR5 TERUMO (10CM) FR 5 was advanced into the Fem Art (right) using the Percutaneous te chnique. 7:44:55 Ultrasound guided access. 7:45:42 Activated Clotting Time Drawn A JL 4.0 INFINITI CATHETER FR 5 was advanced over a wire. OMNIPAQUE, 350 MG, 150ML 150ML was use d for 7:45:52 injections. Unable to cannulate. 7:47:51 HR=80 bpm, WXAP=707/75 mmhg, SpO2=96 %, Resp=12 B/min After removing the current catheter a AL 1 INFINITI CATHETER FR 5 was advanced over a WIRE, 3MMJ .035 180CM 7:48:00 180CM. 7:49:28 ACT (Normal Range 90-180) = 164 7:49:51 Pressure channel 1 zeroed. Recorded Pressure: Ao, HR=79, Condition=Condition 1 7:50:11 (Aorta) Ao 118/72/92 7:50:22 The LCA was injected and visualized at various angles. OMNIPAQUE, 350 MG, 150ML 150ML used. After removing the current catheter a AR MOD INFINITI CATHETER FR 5 was advanced over a WIRE, 3M MJ .035 180CM 7:51:36 180CM. 7:52:14 The RCA was injected and visualized at various angles. OMNIPAQUE, 350 MG, 150ML 150ML used. 7:52:46 HR=74 bpm, BLQI=136/80 mmhg, SpO2=93.0 %, Resp=13 B/min 7:53:01 Catheter was removed 7:53:31 2 l/min OXYGEN given in lab by Vikash Casas, SABINE via Nasal. Ordered by Eliel Abrams. 7:54:26 3000 units HEPARIN given in lab by Vikash Casas, ASBINE in Left Antecubital via Peripheral IV. Ordered by Eliel Abrams. A SHEATH, FR6.5 PRELUDE 11CM FR 6.5 was exchanged in the Fem Art (right). This was necessary in order to 7:55:46 accomodate a larger catheter. A XBLAD 3.5 GUIDE CATHETER FR 6 was advanced over a wire. OMNIPAQUE, 350 MG, 150ML 150ML was use d for 7:56:12 injections. 7:57:47 HR=80 bpm, LTZE=602/75 mmhg, SpO2=99.0 %, Resp=13 B/min 7:57:57 A WIRE, BALANCE MIDDLEWEIGHT 190CM 190CM was inserted via Fem Art (right). 8:02:48 HR=80 bpm, QJGZ=851/73 mmhg, SpO2=99.0 %, Resp=9 B/min 8:06:28 Wire removed 8:06:32 A WIRE, 3MMJ .035 180CM 180CM was inserted via Fem Art (right). 8:06:41 Wire removed 8:07:49 HR=79 bpm, HYWF=956/80 mmhg, YpW5=298.0 %, Resp=6 B/min After removing the current catheter a AL 1 GUIDE CATHETER FR 6 was advanced over a WIRE, 3MMJ .0 35 180CM 8:08:48 180CM. 8:09:12 0.5 mg VERSED given in lab by Vikash Casas, SABINE in Left Antecubital via Peripheral IV. Orde red by Eliel Abrams. 8:10:36 Catheter was removed A XBLAD 3.5 GUIDE CATHETER FR 6 was advanced over a wire. OMNIPAQUE, 350 MG, 150ML 150ML was use d for 8:10:44 injections. 8:12:32 A WIRE, HI TORQUE ALLSTAR 190CM 190CM was inserted via Fem Art (right). 8:12:48 HR=79 bpm, SLAJ=747/80 mmhg, SpO2=99.0 %, Resp=15 B/min 8:14:47 A WIRE, RUNTHROUGH NS FLOPPY .014 180CM 180CM was inserted via Fem Art (right). 8:17:26 Runthrough Wire removed for reshaping and readvanced. 8:17:47 HR=79 bpm, BWNI=587/82 mmhg, SpO2=98.0 %, Resp=12 B/min 8:18:47 Wire removed 8:19:13 A WIRE, LUGE 182CM 182CM was inserted via Fem Art (right). 8:21:01 Wire removed for reshaping and readvanced 8:22:50 HR=77 bpm, XMRY=164/80 mmhg, SpO2=98.0 %, Resp=14 B/min, Carranza=2 8:27:49 HR=77 bpm, MJLF=534/80 mmhg, SpO2=97.0 %, Resp=14 B/min 8:31:11 Wire removed 8:31:14 A WIRE, WHISPER W/HYDROCOAT 190CM 190CM was inserted via Fem Art (right). 8:32:50 HR=76 bpm, OZQE=781/80 mmhg, SpO2=97.0 %, Resp=13 B/min 8:37:51 HR=74 bpm, YGFU=289/84 mmhg, OuZ1=022.0 %, Resp=6 B/min 8:38:37 0.5 mg VERSED given in lab by Vikash Casas RN in Left Antecubital via Peripheral IV. Orde red by Eliel Abrams. 8:39:53 25 mcg FENTANYL given in lab by Vikash Casas RN in Left Antecubital via Peripheral IV. Or dered by Eliel Abrams. 8:41:47 Wire removed whisper 8:42:50 HR=77 bpm, VGMM=824/81 mmhg, SpO2=99.0 %, Resp=14 B/min 8:44:30 A WIRE, WHISPER W/HYDROCOAT 190CM 190CM was inserted via Fem Art (right). 8:47:54 HR=76 bpm, VATX=558/79 mmhg, SpO2=98.0 %, Resp=15 B/min A BALLOON, 1.5 X 12MM EUPHORA 12MM was inserted over WIRE, BALANCE MIDDLEWEIGHT 190CM 190CM via the 8:50:55 LAD Prox. A BALLOON, 1.5 X 12MM EUPHORA 12MM over a WIRE, WHISPER W/HYDROCOAT 190CM 190CM in the LAD Prox was 8:52:00 inflated using a 30 MARIA ELENA INDEFLATOR at 17 maria elena for 11 sec. A BALLOON, 1.5 X 12MM EUPHORA 12MM over a WIRE, WHISPER W/HYDROCOAT 190CM 190CM in the LAD Prox was 8:52:16 inflated using a 30 MARIA ELENA INDEFLATOR at 17 maria elena for 10 sec. A BALLOON, 1.5 X 12MM EUPHORA 12MM over a WIRE, WHISPER W/HYDROCOAT 190CM 190CM in the LAD Prox was 8:52:20 inflated using a 30 MARIA ELENA INDEFLATOR at 17 maria elena for 8 sec. A BALLOON, 1.5 X 12MM EUPHORA 12MM over a WIRE, WHISPER W/HYDROCOAT 190CM 190CM in the LAD Prox was 8:52:34 inflated using a 30 MARIA ELENA INDEFLATOR at 17 maria elena for 6 sec. 8:52:51 HR=73 bpm, ZXOH=834/79 mmhg, FsA0=365.0 %, Resp=12 B/min 8:52:58 Reperfusion noted. 8:53:37 Balloon Removed. A BALLOON, 2.5 X 12MM EUPHORA 12MM was inserted over WIRE, WHISPER W/HYDROCOAT 190CM 190CM via t he 8:54:48 LAD Prox. A BALLOON, 2.5 X 12MM EUPHORA 12MM over a WIRE, WHISPER W/HYDROCOAT 190CM 190CM in the LAD Prox was 8:54:49 inflated using a 30 MARIA ELENA INDEFLATOR at 12 maria elena for 15 sec. A BALLOON, 2.5 X 12MM EUPHORA 12MM over a WIRE, WHISPER W/HYDROCOAT 190CM 190CM in the LAD Prox was 8:55:31 inflated using a 30 MARIA ELENA INDEFLATOR at 12 maria elena for 11 sec. A BALLOON, 2.5 X 12MM EUPHORA 12MM over a WIRE, WHISPER W/HYDROCOAT 190CM 190CM in the LAD Prox was 8:57:40 inflated using a 30 MARIA ELENA INDEFLATOR at 17 maria elena for 12 sec. 8:57:54 HR=74 bpm, VFLA=465/81 mmhg, IyZ2=780.0 %, Resp=13 B/min 8:58:17 Balloon Removed. 8:58:36 A WIRE, WHISPER W/HYDROCOAT 190CM 190CM was inserted via Fem Art (right). Advanced to diag 8:58:40 Activated Clotting Time Drawn A BALLOON, 1.5 X 12MM EUPHORA 12MM was inserted over WIRE, WHISPER W/HYDROCOAT 190CM 190CM via t he 9:02:11 DIAG1 Prox. A BALLOON, 1.5 X 12MM EUPHORA 12MM over a WIRE, WHISPER W/HYDROCOAT 190CM 190CM in the DIAG1 Pro x 9:02:49 was inflated using a 30 MARIA ELENA INDEFLATOR at 17 maria elena for 13 sec. 9:02:55 HR=71 bpm, JPGN=016/79 mmhg, JyR3=659.0 %, Resp=16 B/min 9:03:26 Balloon Removed. A BALLOON, 2.5 X 12MM EUPHORA 12MM was inserted over WIRE, WHISPER W/HYDROCOAT 190CM 190CM via t he 9:04:13 DIAG1 Prox. A BALLOON, 2.5 X 12MM EUPHORA 12MM over a WIRE, WHISPER W/HYDROCOAT 190CM 190CM in the DIAG1 Pro x 9:04:44 was inflated using a 30 MARIA ELENA INDEFLATOR at 17 maria elena for 7 sec. A BALLOON, 2.5 X 12MM EUPHORA 12MM over a WIRE, WHISPER W/HYDROCOAT 190CM 190CM in the DIAG1 Pro x 9:05:15 was inflated using a 30 MARIA ELENA INDEFLATOR at 17 maria elena for 20 sec. A BALLOON, 2.5 X 12MM EUPHORA 12MM over a WIRE, WHISPER W/HYDROCOAT 190CM 190CM in the DIAG1 Pro x 9:07:23 was inflated using a 30 MARIA ELENA INDEFLATOR at 17 maria elena for 16 sec. A BALLOON, 2.5 X 12MM EUPHORA 12MM over a WIRE, WHISPER W/HYDROCOAT 190CM 190CM in the DIAG1 Pro x 9:07:43 was inflated using a 30 MARIA ELENA INDEFLATOR at 17 maria elena for 13 sec. 9:07:54 HR=71 bpm, OEZX=530/82 mmhg, OzD3=241.0 %, Resp=14 B/min 9:12:57 HR=71 bpm, EVXJ=122/75 mmhg, CtR0=855.0 %, Resp=10 B/min A BALLOON, 2.75 X 12MM NC EUPHORA 12MM was inserted over WIRE, WHISPER W/HYDROCOAT 190CM 190CM v ia 9:14:15 the Lft Main Ost. A BALLOON, 2.75 X 12MM NC EUPHORA 12MM over a WIRE, WHISPER W/HYDROCOAT 190CM 190CM in the Lft M ain 9:14:33 Ost was inflated using a 30 MARIA ELENA INDEFLATOR at 10 maria elena for 12 sec. A BALLOON, 2.75 X 12MM NC EUPHORA 12MM over a WIRE, WHISPER W/HYDROCOAT 190CM 190CM in the Lft M ain 9:15:58 Ost was inflated using a 30 MARIA ELENA INDEFLATOR at 25 maria elena for 25 sec. A BALLOON, 2.75 X 12MM NC EUPHORA 12MM over a WIRE, WHISPER W/HYDROCOAT 190CM 190CM in the LAD M id 9:17:03 was inflated using a 30 MARIA ELENA INDEFLATOR at 2 maria elena for 2 sec. A BALLOON, 2.75 X 12MM NC EUPHORA 12MM over a WIRE, WHISPER W/HYDROCOAT 190CM 190CM in the LAD M id 9:17:26 was inflated using a 30 MARIA ELENA INDEFLATOR at 2 maria elena for 7 sec. A BALLOON, 2.75 X 12MM NC EUPHORA 12MM over a WIRE, WHISPER W/HYDROCOAT 190CM 190CM in the LAD P luna 9:17:32 was inflated using a 30 MARIA ELENA INDEFLATOR at 2 maria elena for 3 sec. 9:18:35 HR=71 bpm, YOOZ=276/78 mmhg, KuD5=972.0 %, Resp=16 B/min A BALLOON, 2.75 X 12MM NC EUPHORA 12MM over a WIRE, WHISPER W/HYDROCOAT 190CM 190CM in the t M ain 9:18:46 Ost was inflated using a 30 MARIA ELENA INDEFLATOR at 25 maria elena for 15 sec. 9:22:57 HR=71 bpm, QPEU=027/82 mmhg, YaQ0=550.0 %, Resp=12 B/min 9:24:43 Balloon Removed. 9:24:59 Wires removed 9:25:21 Catheter was removed A PIGTAIL ANG. INFINITI CATHETER FR 5 was advanced over a wire. OMNIPAQUE, 350 MG, 50ML 50ML was used for 9:26:11 injections. 9:27:56 HR=71 bpm, PZOA=268/78 mmhg, TpK2=157.0 %, Resp=15 B/min 9:28:22 The previous wire was exchanged for a WIRE, 3MMJ .035 180CM 180CM. Recorded Pressure: LV, HR=75, Condition=Condition 1 9:30:03 (Left Ventricle) LV 110/20/26 9:31:11 The LV was injected at 10 cc/sec for a total of 30. OMNIPAQUE, 350 MG, 50ML 50ML used. Recorded Pressure: LV, Ao, HR=73, Condition=Condition 1 9:31:18 (Left Ventricle) LV 97/15/23, (Aorta) Ao 97/53/72 9:32:13 Catheter was removed 9:32:32 An injection in the Fem Art (right) was made through the SHEATH, FR6.5 PRELUDE 11CM FR 6.5. 9:32:42 Access site prepped with Betadine for closure device. 9:32:55 HR=73 bpm, JSRF=157/72 mmhg, RqC0=588.0 %, Resp=8 B/min 9:33:07 ANGIOSEAL, FR6 VIP FR 6 placement in the Fem Art (right) 9:34:51 Case End 9:37:56 HR=72 bpm, LTOH=663/80 mmhg, GgT2=858.0 %, Resp=18 B/min 9:42:47 60 mg EFFIENT given in lab by Vikash Casas RN via Oral. Ordered by Eliel Abrams. 9:43:55 162 mg ASPIRIN given in lab by Vikash Casas RN via Oral. Ordered by Eliel Abrams. Assessment: Final Case, HR=72 BPM, Rhythm=sr, KWFV=893/80 mmhg, Chest Pain=0 Right Pulses: Ed Ped=2, Femoral=3 9:45:31 Left Pulses: Ed Ped=1, Femoral=3 Neurological: State=Alert, Ox3, CRAIN Respiration: Resp=18 B/min, KhM9=242 % 9:45:39 Sterile dressing applied to site 9:45:40 No case complications noted. 9:45:41 Cine recording checked. 9:45:46 Implantable Device card placed in patient's chart. 25 mL AGGRASTAT BOLUS given in lab by Vikash Casas RN in Left Antecubital via Peripheral IV. Ordered by Aliza 9:48:12 Eliel. 0.076 mcg/kg/min AGGRASTAT DRIP given in lab by Vikash Casas RN in Left Antecubital via Perip heral IV. Pump/Drip 9:49:50 Flow = 4.5 ml/hr using NaCl .9 with a concentration of 12.5 mg in 250 ml. Ordered by Eliel Abrams. renal dose Departed On. 9:52:38 Patient moved to bed 9:52:38 Patient nauseated, vomited 9:59:09 Patient transported to [facility]. End Study - Contrast Media Used In Study Contrast Total Opened (mL) Total Used (mL) Total Wasted (mL) Omnipaque 200 200 0 End Study - Maximum Contrast Load Max Contrast Load (mL) 225.4 End Study - Radiation Exposure Fluoro Time (minutes) 46.4 End Study - Sheaths Sheaths Pulled By Sheath Hold Time (min) Eliel Abrams End Study - Patient Disposition Complications Transferred To Interventional Outcome No Telemetry Bed successful
[2017-11-10] MEDS ORDERED: TIROFIBAN BOLUS IV ONE (16:30)
[2017-11-10] MEDS ORDERED: MISC INFORMATION XX ONE (16:30)
--- NOTE | 2017-11-10 16:52 | MA ---
cc: Eliel Abrams MD DATE: 11/10/2017 INDICATIONS: 1. Acute coronary syndrome. 2. Non-ST elevation myocardial infarction, coronary artery disease, history of LAD stenting. 3. Class IV angina. PROCEDURES PERFORMED: 1. Retrograde left heart catheterization with left ventriculography and selective coronary angiography. 2. Angioplasty of the left anterior descending coronary artery (technically very difficult). 3. Angioplasty of the second diagonal artery. 4. Moderate sedation. ACCESS SITE: Right femoral artery. EQUIPMENT USED: 5-Mongolian pigtail catheter, 5-Mongolian JL4, 5-Mongolian AR1 coronary artery catheters, XB 3.5 LAD guide, All-Star wire, Whisper wire in the LAD and second diagonal branch, 1.5 mm balloon, 2.5 mm balloon, 2.75 x 12 mm noncompliant balloon at 25 atmospheres in-stent. MEDICATIONS: Versed IV, fentanyl IV, heparin IV, Aggrastat IV bolus and IV drip, Effient p.o. CONTRAST: Omnipaque 200 mL. COMPLICATIONS: None. ESTIMATED BLOOD LOSS: Less than 10 mL. METHOD OF HEMOSTASIS: Angio-Seal closure. RESULTS: A. HEMODYNAMICS: Heart rate 70 beats per minute. Left ventricular end-diastolic pressure 20 mmHg. Left ventricle 100/20. Aorta 100/53/72. B. LEFT VENTRICULOGRAPHY: Left ventricular ejection fraction: 75%. Wall Motion: Anterior apical and inferoapical akinesis, moderate to severe mitral regurgitation. C. CORONARY ANGIOGRAPHY: Left main coronary artery patent. Left anterior descending artery is totally occluded in-stent in the proximal portion. First diagonal artery totally occluded. Second diagonal artery totally occluded. Mid-LAD has 40% stenosis. Left circumflex artery is patent. OM1 patent. Right coronary artery is a dominant vessel, which is patent. PDA patent. PLV patent. RESULTS OF INTERVENTION: Stenosis in the LAD: 22 mm long, in-stent thrombosis. Pre FRANCHESKA. flow 0. Post FRANCHESKA flow 3. Post-stenosis 0. This was a type C lesion. Stenosis in the second diagonal artery: 100%, lesion length 5 mm. Pre FRANCHESKA flow 0. Post FRANCHESKA flow 3. Post-stenosis 0. Type C lesion. This procedure was extremely difficult given the patient's artificial valve, which made the cannulation of the left main coronary artery very difficult. The subsequent wiring of the totally occluded LAD was also extremely difficult. Multiple wires were tried before the LAD and second diagonal artery could be wired. DIAGNOSES: 1. Coronary artery disease with in-stent thrombosis of the proximal left anterior descending coronary artery. 2. Severe left ventricular dysfunction consistent with ischemic cardiomyopathy. 3. Difficult but successful angioplasty of the proximal left anterior descending coronary artery. 4. Successful angioplasty of the second diagonal artery. DISPOSITION: Ms. Mcgill will be monitored on telemetry after her procedure. We will continue platelet inhibition with Aggrastat, Effient and baby aspirin. We will continue post-TX care. We will continue therapy for her left ventricular systolic dysfunction. I will see her back for followup in our office after discharge. MD HARRY Varela/KATHIE , 04:08 PM , 04:51 PM JENS
--- NOTE | 2017-11-10 18:03 | HHI.HP ---
History of Present Illness Primary Care Physician Diomedes Hall, DO Admission Diagnosis Elevated troponin Diagnoses: (1) Chest pain History of Present Illness pt admitted with cp and sob 1week post stent Review of Systems Cardiovascular: COMPLAINS OF: Chest pain Past Family Social History Allergies: Coded Allergies: No Known Allergies (Unverified , 11/09/17) Past Medical History cad htn hld stent Past Surgical History stent AVR Reported Medications Reported Meds & Active Scripts Active Reported Plavix (Clopidogrel Bisulfate) 75 Mg Tab 75 Mg PO DAILY Propafenone (Propafenone HCl) 150 Mg Tab 150 Mg PO Q8HR Warfarin 5 Mg Tab 5 Mg PO DAILY Metoprolol Tartrate 25 Mg Tab 25 Mg PO BID Active Ordered Medications Inpatient Medications Aspirin (Aspirin Chew) 81 mg DAILY PO ; Start 11/11/17 at 09:00 Aspirin (Ecotrin Ec) 325 mg DAILY PO Last administered on 11/10/17at 10:22; Start 11/10/17 at 09:00; Stop 11/10/17 at 16:25; Status DC Bisacodyl (Dulcolax Supp) 10 mg DAILY PRN RECTAL SEVERE CONSITIPATION; Start at 16:45 Carvedilol (Coreg) 6.25 mg BID PO ; Start 11/10/17 at 21:00 Clopidogrel Bisulfate (Plavix) 75 mg DAILY PO Last administered on 11/10/17at 10 :22; Start 11/10/17 at 09:00; Stop 11/10/17 at 16:25; Status DC Enoxaparin Sodium (Lovenox Inj) 50 mg Q12H SQ Last administered on 11/10/17at 04 :24; Start 11/10/17 at 04:00; Stop 11/10/17 at 16:25; Status DC Lactulose (Lactulose Liq) 30 ml DAILY PRN PO SEVERE CONSITIPATION; Start at 16:45 Lisinopril (Prinivil) 2.5 mg DAILY PO ; Start 11/11/17 at 09:00 Magnesium Hydroxide (Milk Of Magnesia Liq) 30 ml Q12H PRN PO Mild constipation ; Start 11/09/17 at 16:45 Metoprolol Tartrate (Lopressor) 25 mg BID PO Last administered on 11/10/17at 10: 22; Start 11/09/17 at 21:00; Stop 11/10/17 at 16:28; Status DC Miscellaneous Information 1 ONCE ONCE XX ; Start 11/10/17 at 16:30; Stop at 16:36; Status DC Morphine Sulfate (Morphine Inj) 2 mg Q4H PRN IV ANGINA Last administered on at 21:11; Start 11/09/17 at 21:00 Naloxone HCl (Narcan Inj) 0.4 mg UNSCH PRN IV PUSH SEE LABEL COMMENTS; Start at 16:45 Nitroglycerin (Nitrostat Sl) 0.4 mg Q5M PRN SL CHEST PAIN; Start 11/09/17 at 20 :45 Ondansetron HCl (Zofran Odt) 4 mg Q6H PRN PO NAUSEA OR VOMITING Last administered on 11/10/17at 06:53; Start 11/10/17 at 06:45 Patient Medication Teaching (Coumadin Booklet) 1 ONCE ONCE OTHER Last administered on 11/09/17at 21:26; Start 11/09/17 at 20:45; Stop 11/09/17 at 20:46 ; Status DC Prasugrel (Effient) 5 mg DAILY PO ; Start 11/11/17 at 09:00 Pravastatin Sodium (Pravachol) 10 mg HS PO ; Start 11/10/17 at 21:00 Propafenone HCl (Rythmol) 150 mg Q8HR PO Last administered on 11/10/17at 14:25; Start 11/09/17 at 22:00; Stop 11/10/17 at 16:25; Status DC Senna/Docusate Sodium (Coretta-Colace) 1 tab BID PO Last administered on at 21:26; Start 11/09/17 at 21:00 Sennosides (Senokot) 17.2 mg Q12H PRN PO Moderate constipation; Start 11/09/17 at 16:45 Sodium Chloride (NS Flush) 2 ml BID IV FLUSH Last administered on 11/09/17at 21: 26; Start 11/09/17 at 21:00 Tirofiban/Sodium Chloride 250 ml @ 8.928 mls/ hr Q24H IV ; Start 11/10/17 at 16 :28 Tirofiban/Sodium Chloride 1250 mcg/ Syringe / Bag 25 ml @ 300 mls/hr BOLUS ONCE IV ; Start 11/10/17 at 16:30; Stop 11/10/17 at 16:37; Status DC Warfarin Sodium (Coumadin) 5 mg DAILY@1600 PO ; Start 11/10/17 at 16:00; Stop at 16:25; Status DC Family History both parents are Social History occasional drinker non smoker Physical Exam Vital Signs Vital Signs Date Time Temp Pulse Resp B/P (MAP) Pulse Ox O2 Delivery O2 Flow Rate FiO2 11/10/17 17:00 78 11/10/17 16:00 77 11/10/17 15:00 70 11/10/17 15:00 97.6 70 18 99/68 (78) 97 11/10/17 14:00 72 11/10/17 13:00 68 11/10/17 12:00 70 11/10/17 11:16 98.0 69 16 106/68 (81) 97 11/10/17 11:00 69 11/10/17 10:04 97.6 69 16 111/74 (86) 97 11/10/17 07:00 77 11/10/17 06:00 76 11/10/17 05:00 80 11/10/17 04:05 74 16 128/91 (103) 95 11/10/17 04:00 78 11/10/17 03:00 80 11/10/17 02:00 76 11/10/17 01:00 76 11/10/17 00:00 76 11/09/17 23:00 77 11/09/17 23:00 76 18 128/91 (103) 95 11/09/17 22:00 76 11/09/17 21:00 74 11/09/17 20:00 74 11/09/17 19:00 71 11/09/17 19:00 97.6 72 18 115/88 (97) 96 11/09/17 18:30 Physical Exam GENERAL: This is a well-nourished, well-developed patient, in no apparent distress. SKIN: No rashes, ecchymoses or lesions. Cool and dry. HEAD: Atraumatic. Normocephalic. No temporal or scalp tenderness. EYES: Pupils equal round and reactive. Extraocular motions intact. No scleral icterus. No injection or drainage. ENT: Nose without bleeding, purulent drainage or septal hematoma. Throat without erythema, tonsillar hypertrophy or exudate. Uvula midline. Airway patent. NECK: Trachea midline. No JVD or lymphadenopathy. Supple, nontender, no meningeal signs. CARDIOVASCULAR: ir Regular rate and rhythm without murmurs, gallops, or rubs. RESPIRATORY: Clear to auscultation. Breath sounds equal bilaterally. No wheezes , rales, or rhonchi. GASTROINTESTINAL: Abdomen soft, non-tender, nondistended. No hepato-splenomegaly , or palpable masses. No guarding. MUSCULOSKELETAL: Extremities without clubbing, cyanosis, or edema. No joint tenderness, effusion, or edema noted. No calf tenderness. Negative Homans sign bilaterally. NEUROLOGICAL: Awake and alert. Cranial nerves II through XII intact. Motor and sensory grossly within normal limits. Five out of 5 muscle strength in all muscle groups. Normal speech. Laboratory Laboratory Tests Test 11/09/17 21:40 11/10/17 04:19 Troponin I 5.69 32.10 White Blood Count 2.9 Red Blood Count 4.43 Hemoglobin 13.5 Hematocrit 40.1 Mean Corpuscular Volume 90.4 Mean Corpuscular Hemoglobin 30.4 Mean Corpuscular Hemoglobin Concent 33.6 Red Cell Distribution Width 13.5 Platelet Count 299 Mean Platelet Volume 8.1 Neutrophils (%) (Auto) 69.1 Lymphocytes (%) (Auto) 23.0 Monocytes (%) (Auto) 7.4 Eosinophils (%) (Auto) 0.1 Basophils (%) (Auto) 0.4 Neutrophils # (Auto) 2.0 Lymphocytes # (Auto) 0.7 Monocytes # (Auto) 0.2 Eosinophils # (Auto) 0.0 Basophils # (Auto) 0.0 CBC Comment DIFF FINAL Differential Comment Prothrombin Time 16.3 Prothromb Time International Ratio 1.6 Blood Urea Nitrogen 26 Creatinine 1.11 Random Glucose 103 Total Protein 8.0 Albumin 3.6 Calcium Level 8.9 Alkaline Phosphatase 131 Aspartate Amino Transf (AST/SGOT) 258 Alanine Aminotransferase (ALT/SGPT) 34 Total Bilirubin 0.6 Sodium Level 138 Potassium Level 4.6 Chloride Level 103 Carbon Dioxide Level 24.5 Anion Gap 11 Estimat Glomerular Filtration Rate 47 Result Diagram: 11/10/17 0419 11/10/17 0419 Imaging Last Impressions Chest X-Ray 11/09/17 0446 Signed Impressions: Service Date/Time: Thursday, November 09, 2017 13:39 - CONCLUSION: Non- consolidative infiltrates in the left lower lung. Franki Perez MD Course went to cath today for stent Caprini VTE Risk Assessment Caprini VTE Risk Assessment: No/Low Risk (score <= 1) Caprini Risk Assessment Model Point Value = 1 Point Value = 2 Point Value = 3 Point Value = 5 Age 41-60 Minor surgery BMI > 25 kg/m2 Swollen legs Varicose veins or History of unexplained or recurrent spontaneous Oral contraceptives or hormone replacement Sepsis (< 1 month) Serious lung disease, including pneumonia (< 1 month) Abnormal pulmonary function Acute myocardial infarction Congestive heart failure (< 1 month) History of inflammatory bowel disease Medical patient at bed rest Age 61-74 Arthroscopic surgery Major open surgery (> 45 min) Laparoscopic surgery (> 45 min) Malignancy Confined to bed (> 72 hours) Immobilizing plaster cast Central venous access Age >= 75 History of VTE Family history of VTE Factor V Leiden Prothrombin [id number] Lupus anticoagulant Anticardiolipin antibodies Elevated serum homocysteine Heparin-induced thrombocytopenia Other congenital or acquired thrombophilia Stroke (< 1 month) Elective arthroplasty Hip, pelvis, or leg fracture Acute spinal cord injury (< 1 month) Prophylaxis Regimen Total Risk Factor Score Risk Level Prophylaxis Regimen 0-1 Low Early ambulation 2 Moderate Order ONE of the following: *Sequential Compression Device (SCD) *Heparin 5000 units SQ BID 3-4 Higher Order ONE of the following medications: *Heparin 5000 units SQ TID *Enoxaparin/Lovenox 40 mg SQ daily (WT < 150 kg, CrCl > 30 mL/min) *Enoxaparin/Lovenox 30 mg SQ daily (WT < 150 kg, CrCl > 10-29 mL/min) *Enoxaparin/Lovenox 30 mg SQ BID (WT < 150 kg, CrCl > 30 mL/min) AND/OR *Sequential Compression Device (SCD) 5 or more Highest Order ONE of the following medications: *Heparin 5000 units SQ TID (Preferred with Epidurals) *Enoxaparin/Lovenox 40 mg SQ daily (WT < 150 kg, CrCl > 30 mL/min) *Enoxaparin/Lovenox 30 mg SQ daily (WT < 150 kg, CrCl > 10-29 mL/min) *Enoxaparin/Lovenox 30 mg SQ BID (WT < 150 kg, CrCl > 30 mL/min) AND *Sequential Compression Device (SCD) Assessment and Plan Assessment and Plan cad cp stented today will follow over night Discussed Condition With patient Diomedes Hall DO November 10, 2017 18:03
[2017-11-10 21:52] LABS: BASOPHIL % 0.3 % (0.0-2.0); HEMATOCRIT 36.2 % (35.0-46.0); LYMPH % 16.8 % (9.0-44.0); LYMPHOCYTE # 0.7 TH/MM3 (1.0-4.8); MEAN CELL VOLUME 90.3 FL (80.0-100.0); MEAN CORPUSCULAR HGB CONC 33.2 % (32.0-36.0); MEAN PLATELET VOLUME 8.5 FL (7.0-11.0); MONO % 9.7 % (0.0-8.0); MONOCYTE # 0.4 TH/MM3 (0-0.9); NEUT % 73.2 % (16.0-70.0); PLATELET COUNT 291 TH/MM3 (150-450); RED BLOOD COUNT 4.01 MIL/MM3 (4.00-5.30); RED CELL DISTRIBUTION WIDTH 13.3 % (11.6-17.2)
[2017-11-10] MEDS: PRAVASTATIN SOD 10 MG TAB PO SCH (22:00)
[2017-11-10] MEDS: CARVEDILOL 3.125 MG TAB PO SCH (22:01)
[2017-11-10] MEDS: ACETAMIN 325 MG/BUTALBITAL 50 MG/CAFFEINE 40 MG TAB PO PRN (22:02)
[2017-11-11] VITALS (24 sets, daily range): BP systolic 89–118; BP diastolic 54–76; PULSE 70–126; RESP 14–18; TEMP 97.6–98.6; O2SAT 95–100
[2017-11-11] MEDS ORDERED: DIGOXIN 0.5 MG/2 ML VIAL IV PUSH SCH (03:00)
[2017-11-11 06:32] LABS: AUTOMATED NEUTROPHIL # 2.9 TH/MM3 (1.8-7.7); BASOPHIL % 0.6 % (0.0-2.0); EOSINOPHIL % 0.6 % (0.0-4.0); HEMATOCRIT 29.7 % (35.0-46.0); LYMPH % 23.2 % (9.0-44.0); MEAN CORPUSCULAR HEMOGLOBIN 30.7 PG (27.0-34.0); MEAN CORPUSCULAR HGB CONC 33.7 % (32.0-36.0); MEAN PLATELET VOLUME 8.2 FL (7.0-11.0); MONO % 10.7 % (0.0-8.0); MONOCYTE # 0.5 TH/MM3 (0-0.9); NEUT % 64.9 % (16.0-70.0); PLATELET COUNT 237 TH/MM3 (150-450); RED BLOOD COUNT 3.27 MIL/MM3 (4.00-5.30); RED CELL DISTRIBUTION WIDTH 13.4 % (11.6-17.2); WHITE BLOOD COUNT 4.5 TH/MM3 (4.0-11.0)
[2017-11-11 07:21] LABS: CHOLESTEROL/ HDL RATIO 3.14 RATIO; CREATININE 1.04 MG/DL (0.50-1.00); HDL CHOLESTEROL 39.4 MG/DL (40.0-60.0)
[2017-11-11] MEDS: ACETAMIN 325 MG/BUTALBITAL 50 MG/CAFFEINE 40 MG TAB PO PRN (07:37)
[2017-11-11 07:41] LABS: INTERNATIONAL NORMALIZED RATIO 2.1 RATIO; PROTHROMBIN TIME - PATIENT 21.6 SEC (9.8-11.6)
--- NOTE | 2017-11-11 09:26 | HHI.PR ---
Subjective Remarks Todd CP, SOB, Dressing to right groin soft w/o drainage or redness. Objective Vital Signs Date Time Temp Pulse Resp B/P (MAP) Pulse Ox O2 Delivery O2 Flow Rate FiO2 11/11/17 07:43 98.6 81 14 106/71 (83) 100 11/11/17 07:00 77 11/11/17 04:00 78 16 95 11/11/17 04:00 72 11/11/17 02:00 70 11/11/17 01:00 70 11/11/17 00:00 72 11/11/17 00:00 72 16 11/11/17 00:00 72 11/10/17 23:28 16 11/10/17 23:00 76 11/10/17 22:00 76 11/10/17 21:00 72 11/10/17 20:42 73 16 88/58 (68) 95 91/64 (73) 11/10/17 20:00 74 11/10/17 20:00 70 11/10/17 19:00 68 11/10/17 18:00 77 11/10/17 17:00 78 11/10/17 16:00 77 11/10/17 15:00 70 11/10/17 15:00 97.6 70 18 99/68 (78) 97 11/10/17 14:00 72 11/10/17 13:00 68 11/10/17 12:00 70 11/10/17 11:16 98.0 69 16 106/68 (81) 97 11/10/17 11:00 69 11/10/17 10:04 97.6 69 16 111/74 (86) 97 I/O 11/10/17 11/10/17 11/10/17 11/11/17 11/11/17 11/11/17 07:00 15:00 23:00 07:00 15:00 23:00 Intake Total 200 ml 1200 ml 240 ml Output Total 300 ml 400 ml 200 ml Balance -100 ml 800 ml 40 ml Intake Oral 200 ml 1200 ml 240 ml Output Urine Total 300 ml 400 ml 200 ml # Bowel Movements 0 Result Diagram: 11/11/17 0625 11/11/17 0625 Imaging Last 72 hours Impressions Chest X-Ray 11/09/17 8335 Signed Impressions: Service Date/Time: Thursday, November 09, 2017 13:39 - CONCLUSION: Non- consolidative infiltrates in the left lower lung. Franki Perez MD Procedures Cardiac cath with stent on 11/10/17 Objective Remarks GENERAL: This is a well-nourished, well-developed patient, in no apparent distress. EYES: Pupils equal round and reactive ENT: Airway patent. NECK: Trachea midline. No JVD or lymphadenopathy. Supple, nontender CARDIOVASCULAR: Regular rate S1,S2 no murmurs, gallops, or rubs, no edema RESPIRATORY: Clear to auscultation. Breath sounds equal bilaterally. No wheezes , rales, or rhonchi. NEUROLOGICAL: Awake and alert ,Normal speech, CRAIN Medications and IVs Current Medications Medications (Trade) Dose Ordered Sig/Starla Route Start Time Stop Time Status Last Admin (NS Flush) 2 ml UNSCH PRN IV FLUSH 11/09/17 16:45 (NS Flush) 2 ml BID IV FLUSH 11/09/17 21:00 11/10/17 22:02 (Narcan Inj) 0.4 mg UNSCH PRN IV PUSH 11/09/17 16:45 (Coretta-Colace) 1 tab BID PO 11/09/17 21:00 11/09/17 21:26 (Milk Of Magnesia Liq) 30 ml Q12H PRN PO 11/09/17 16:45 (Senokot) 17.2 mg Q12H PRN PO 11/09/17 16:45 (Dulcolax Supp) 10 mg DAILY PRN RECTAL 11/09/17 16:45 (Lactulose Liq) 30 ml DAILY PRN PO 11/09/17 16:45 (Nitrostat Sl) 0.4 mg Q5M PRN SL 11/09/17 20:45 (Morphine Inj) 2 mg Q4H PRN IV 11/09/17 21:00 11/09/17 21:11 (Zofran Odt) 4 mg Q6H PRN PO 11/10/17 06:45 11/10/17 06:53 (Aspirin Chew) 81 mg DAILY PO 11/11/17 09:00 (Coreg) 6.25 mg BID PO 11/10/17 21:00 11/10/17 22:01 (Prinivil) 2.5 mg DAILY PO 11/11/17 09:00 (Pravachol) 10 mg HS PO 11/10/17 21:00 11/10/17 22:00 Tirofiban/Sodium Chloride 250 ml @ 8.928 mls/ hr Q24H IV 11/10/17 16:28 (Effient) 5 mg DAILY PO 11/11/17 09:00 (Fioricet 325-50-40) 2 tab Q4H PRN PO 11/10/17 21:45 11/11/17 07:37 Assessment and Plan Problem List: (1) Chest pain ICD Codes: R07.9 - Chest pain, unspecified Plan: S/P cardiac cath with angioplasty 11/10/17 Follw cardiology recommendations ASA. Effient, cardiac rehab consult. (2) Afib ICD Codes: I48.91 - Unspecified atrial fibrillation Plan: Rate controlled, Cont metoprolol (3) HTN (hypertension) ICD Codes: I10 - Essential (primary) hypertension Plan: Controlled, cont home medications Assessment and Plan 11/11/17- S/P cardiac cath for NSTEMI, Denies any CP, SOB, sat's maintained on room air. B/P controlled. DC in am if cleared by cardiology Kayleen Aranda November 11, 2017 09:26
[2017-11-11] MEDS: CARVEDILOL 3.125 MG TAB PO SCH ×3 (09:46→21:28)
[2017-11-11] MEDS: LISINOPRIL 5 MG TAB PO SCH (09:46)
[2017-11-11] MEDS: SODIUM CHLORIDE 0.9% FLUSH 10 ML FLUSH IV FLUSH SCH ×2 (09:46→20:34)
[2017-11-11] MEDS: PRASUGREL 5 MG TAB PO SCH (09:46)
[2017-11-11] MEDS: ASPIRIN 81 MG CHEW TAB PO SCH (09:46)
[2017-11-11] MEDS: DOCUSATE SODIUM 50 MG/SENNA 8.6 MG TAB PO SCH ×2 (09:46→20:33)
--- NOTE | 2017-11-11 16:16 | RADRPT ---
EXAM DATE: 11/11/2017 4:08 PM EDT AGE/SEX: 81 years / Female INDICATIONS: Altered mental status. CLINICAL DATA: This is the patient's initial encounter. Patient reports that signs and symptoms have been present for 1 day and indicates a pain score of 0/10. MEDICAL/SURGICAL HISTORY: Cardiovascular disease. Hypertension. Anemia. None. RADIATION DOSE: 56.35 CTDI (mGy) COMPARISON: No prior [facility] exams available for comparison. TECHNIQUE: CT of the head without contrast. Using automated exposure control and adjustment of the mA and/or kV according to patient size, radiation dose was kept as low as reasonably achievable to ob tain optimal diagnostic quality images. FINDINGS: Cerebrum: The CSF spaces are mildly enlarged. No evidence of midline shift, mass lesion, hemorrhage or acute infarction. No extraaxial fluid collections are seen. Posterior Fossa: The cerebellum and brainstem are intact. The 4th ventricle is midline. The cerebe llopontine angle is unremarkable. Extracranial: The visualized portion of the orbits is intact. Skull: The calvaria is intact. No evidence of skull fracture. CONCLUSION: No evidence of acute infarct, hemorrhage, mass or edema. Aging brain with volume loss. Electronically signed by: Fly Devries MD 11/11/2017 4:15 PM EDT
[2017-11-11] MEDS: TIROFIBAN INFUSION INJ 250 ML IV SCH (16:28)
--- NOTE | 2017-11-11 16:47 | EKG ---
Date Performed: 11/10/2017 Time Performed: 16:49:44 PTAGE: 81 years EKG: Sinus rhythm with borderline 1st degree A-V block. Left axis deviation IV conduction defect Possible anterior inf arct - age undetermined Abnormal ECG PREVIOUS TRACING : 11/09/2017 22.41 Since the previous tracing, no significant change noted DOCTOR: Venecia Vera Interpretating Date/Time 11/11/2017 16:46:38
--- NOTE | 2017-11-11 16:48 | EKG ---
Date Performed: 11/11/2017 Time Performed: 05:57:10 PTAGE: 81 years EKG: Sinus rhythm with borderline 1st degree A-V block Left axis deviation RBBB with left anterior fascicular block [place] t[place] T wave changes are nonspecific Abnormal ECG PREVIOUS TRACING : 11/10/2017 16.49 Since the previous tracing, no significant change noted DOCTOR: Venecia Vera Interpretating Date/Time 11/11/2017 16:46:51
--- NOTE | 2017-11-11 18:12 | PD.CARD.PN ---
Subjective Subjective Remarks No CP or SOB, ambulating in the room Objective Medications Current Medications Medications (Trade) Dose Ordered Sig/Starla Route Start Time Stop Time Status Last Admin (NS Flush) 2 ml UNSCH PRN IV FLUSH 11/09/17 16:45 (NS Flush) 2 ml BID IV FLUSH 11/09/17 21:00 11/11/17 09:46 (Narcan Inj) 0.4 mg UNSCH PRN IV PUSH 11/09/17 16:45 (Coretta-Colace) 1 tab BID PO 11/09/17 21:00 11/11/17 09:46 (Milk Of Magnesia Liq) 30 ml Q12H PRN PO 11/09/17 16:45 (Senokot) 17.2 mg Q12H PRN PO 11/09/17 16:45 (Dulcolax Supp) 10 mg DAILY PRN RECTAL 11/09/17 16:45 (Lactulose Liq) 30 ml DAILY PRN PO 11/09/17 16:45 (Nitrostat Sl) 0.4 mg Q5M PRN SL 11/09/17 20:45 (Morphine Inj) 2 mg Q4H PRN IV 11/09/17 21:00 11/09/17 21:11 (Zofran Odt) 4 mg Q6H PRN PO 11/10/17 06:45 11/10/17 06:53 (Aspirin Chew) 81 mg DAILY PO 11/11/17 09:00 11/11/17 09:46 (Coreg) 6.25 mg BID PO 11/10/17 21:00 11/11/17 09:46 (Prinivil) 2.5 mg DAILY PO 11/11/17 09:00 11/11/17 09:46 (Pravachol) 10 mg HS PO 11/10/17 21:00 11/10/17 22:00 Tirofiban/Sodium Chloride 250 ml @ 8.928 mls/ hr Q24H IV 11/10/17 16:28 (Effient) 5 mg DAILY PO 11/11/17 09:00 11/11/17 09:46 (Fioricet 325-50-40) 2 tab Q4H PRN PO 11/10/17 21:45 11/11/17 07:37 Vital Signs / I&O Vital Signs Date Time Temp Pulse Resp B/P (MAP) Pulse Ox O2 Delivery O2 Flow Rate FiO2 11/11/17 16:00 84 11/11/17 15:15 97.8 82 16 94/54 (67) 100 11/11/17 15:00 80 11/11/17 14:00 78 11/11/17 13:00 79 11/11/17 12:00 80 11/11/17 11:00 97.6 81 16 118/76 (90) 100 11/11/17 11:00 83 11/11/17 10:00 80 11/11/17 09:00 78 11/11/17 08:00 78 11/11/17 07:43 98.6 81 14 106/71 (83) 100 11/11/17 07:00 77 11/11/17 04:00 78 16 95 11/11/17 04:00 72 11/11/17 02:00 70 11/11/17 01:00 70 11/11/17 00:00 72 11/11/17 00:00 72 16 11/11/17 00:00 72 11/10/17 23:28 16 11/10/17 23:00 76 11/10/17 22:00 76 11/10/17 21:00 72 11/10/17 20:42 73 16 88/58 (68) 95 91/64 (73) 11/10/17 20:00 74 11/10/17 20:00 70 11/10/17 19:00 68 I/O 11/10/17 11/10/17 11/10/17 11/11/17 11/11/17 11/11/17 07:00 15:00 23:00 07:00 15:00 23:00 Intake Total 200 ml 1200 ml 240 ml Output Total 300 ml 400 ml 200 ml Balance -100 ml 800 ml 40 ml Intake Oral 200 ml 1200 ml 240 ml Output Urine Total 300 ml 400 ml 200 ml # Bowel Movements 0 Physical Exam GENERAL: In NAD. SKIN: Warm and dry. HEAD: Normocephalic. EYES: No scleral icterus. No injection or drainage. NECK: Supple, trachea midline. No JVD or lymphadenopathy. CARDIOVASCULAR: Regular rate and rhythm without murmurs, gallops, or rubs. RESPIRATORY: Breath sounds equal bilaterally. No accessory muscle use. GASTROINTESTINAL: Abdomen soft, non-tender, nondistended. MUSCULOSKELETAL: No cyanosis, or edema. Groin stable. Laboratory Laboratory Tests Test 11/10/17 21:13 11/11/17 06:25 11/11/17 07:22 White Blood Count 4.0 TH/MM3 4.5 TH/MM3 Red Blood Count 4.01 MIL/MM3 3.27 MIL/MM3 Hemoglobin 12.0 GM/DL 10.0 GM/DL Hematocrit 36.2 % 29.7 % Mean Corpuscular Volume 90.3 FL 91.0 FL Mean Corpuscular Hemoglobin 30.0 PG 30.7 PG Mean Corpuscular Hemoglobin Concent 33.2 % 33.7 % Red Cell Distribution Width 13.3 % 13.4 % Platelet Count 291 TH/MM3 237 TH/MM3 Mean Platelet Volume 8.5 FL 8.2 FL Neutrophils (%) (Auto) 73.2 % 64.9 % Lymphocytes (%) (Auto) 16.8 % 23.2 % Monocytes (%) (Auto) 9.7 % 10.7 % Eosinophils (%) (Auto) 0.0 % 0.6 % Basophils (%) (Auto) 0.3 % 0.6 % Neutrophils # (Auto) 3.0 TH/MM3 2.9 TH/MM3 Lymphocytes # (Auto) 0.7 TH/MM3 1.0 TH/MM3 Monocytes # (Auto) 0.4 TH/MM3 0.5 TH/MM3 Eosinophils # (Auto) 0.0 TH/MM3 0.0 TH/MM3 Basophils # (Auto) 0.0 TH/MM3 0.0 TH/MM3 CBC Comment DIFF FINAL DIFF FINAL Differential Comment Blood Urea Nitrogen 31 MG/DL Creatinine 1.04 MG/DL Random Glucose 90 MG/DL Calcium Level 8.0 MG/DL Sodium Level 138 MEQ/L Potassium Level 4.1 MEQ/L Chloride Level 107 MEQ/L Carbon Dioxide Level 23.0 MEQ/L Anion Gap 8 MEQ/L Estimat Glomerular Filtration Rate 51 ML/MIN Total Creatine Kinase 1372 U/L Creatine Kinase MB 120.8 NG/ML Creatine Kinase MB % 8.8 % Triglycerides Level 93 MG/DL Cholesterol Level 124 MG/DL LDL Cholesterol 66 MG/DL HDL Cholesterol 39.4 MG/DL Cholesterol/HDL Ratio 3.14 RATIO Prothrombin Time 21.6 SEC Prothromb Time International Ratio 2.1 RATIO Imaging Last [address] 11/11/17 0000 Signed Impressions: CONCLUSION: Assessment and Plan Problem List: (1) ACS (acute coronary syndrome) ICD Codes: I24.9 - Acute ischemic heart disease, unspecified (2) CAD (coronary artery disease) ICD Codes: I25.10 - Atherosclerotic heart disease of [place] coronary artery without angina pectoris (3) Coronary stent thrombosis ICD Codes: T82.867A - Thrombosis due to cardiac prosthetic devices, implants and grafts, initial encounter (4) Cardiomyopathy ICD Codes: I42.9 - Cardiomyopathy, unspecified (5) HTN (hypertension) ICD Codes: I10 - Essential (primary) hypertension Assessment and Plan Continue antiplatelet therapy with Prasugrel and baby ASA. Hold warfarin at this time, risk of recurrent stent thrombosis or major bleeding is much higher than the risk of ischemic stroke at this time. Continue tx for CHF. Increase activity, PT. Eliel Abrams MD November 11, 2017 18:12
[2017-11-11] MEDS: PRAVASTATIN SOD 10 MG TAB PO SCH (20:33)
[2017-11-11] MEDS ORDERED: SODIUM CHLORID 0.9% 500 ML INJ 500 ML IV ONE (23:15)
[2017-11-11] MEDS ORDERED: DIGOXIN 0.5 MG/2 ML VIAL IV PUSH ONE (23:15)
[2017-11-12] VITALS (28 sets, daily range): BP systolic 81–104; BP diastolic 48–78; PULSE 76–128; RESP 14–18; TEMP 97.7–98.8; O2SAT 96–100
[2017-11-12 02:52] LABS: INTERNATIONAL NORMALIZED RATIO 1.5 RATIO; PROTHROMBIN TIME - PATIENT 14.7 SEC (9.8-11.6)
[2017-11-12] MEDS: DIGOXIN 0.5 MG/2 ML VIAL IV PUSH SCH ×3 (03:51→11:00)
--- NOTE | 2017-11-12 07:24 | HHI.PR ---
Subjective Remarks Todd GUZMÁN, SOB this am Spouse at bedside. IV digoxin given for rapid rate. Objective Vital Signs Date Time Temp Pulse Resp B/P (MAP) Pulse Ox O2 Delivery O2 Flow Rate FiO2 11/12/17 05:52 124 11/12/17 05:00 120 11/12/17 04:00 115 11/12/17 04:00 98.0 120 18 81/54 (63) 98 11/12/17 04:00 Nasal Cannula 2.00 11/12/17 03:00 126 11/12/17 02:00 120 11/12/17 01:00 122 11/12/17 00:00 124 11/12/17 00:00 98.1 128 18 94/53 (67) 96 11/12/17 00:00 Nasal Cannula 2.00 11/11/17 23:00 122 11/11/17 22:00 122 11/11/17 21:26 92/58 (69) 11/11/17 21:00 126 11/11/17 20:00 118 11/11/17 20:00 Room Air 11/11/17 20:00 98.0 94 18 89/60 (70) 100 11/11/17 19:00 90 11/11/17 18:00 90 11/11/17 17:00 84 11/11/17 16:00 84 11/11/17 15:15 97.8 82 16 94/54 (67) 100 11/11/17 15:00 80 11/11/17 14:00 78 11/11/17 13:00 79 11/11/17 12:00 80 11/11/17 11:00 97.6 81 16 118/76 (90) 100 11/11/17 11:00 83 11/11/17 10:00 80 11/11/17 09:00 78 11/11/17 08:00 78 11/11/17 07:43 98.6 81 14 106/71 (83) 100 I/O 11/11/17 11/11/17 11/11/17 11/12/17 11/12/17 11/12/17 07:00 15:00 23:00 07:00 15:00 23:00 Intake Total 240 ml 800 ml Output Total 200 ml 300 ml Balance 40 ml 500 ml Intake Oral 240 ml 800 ml Output Urine Total 200 ml 300 ml Result Diagram: 11/11/1762411/11/17624 Procedures Cardiac cath with stent on 11/10/17 Objective Remarks GENERAL: This is a well-nourished, well-developed patient, in no apparent distress. EYES: Pupils equal round and reactive ENT: Airway patent. NECK: Trachea midline. No JVD or lymphadenopathy. Supple, nontender CARDIOVASCULAR: increased hr S1,S2 no murmurs, no edema RESPIRATORY: Clear to auscultation. Breath sounds equal bilaterally. No wheezes , rales, or rhonchi. NEUROLOGICAL: Awake and alert ,Normal speech, CRAIN Medications and IVs Current Medications Medications (Trade) Dose Ordered Sig/Starla Route Start Time Stop Time Status Last Admin (NS Flush) 2 ml UNSCH PRN IV FLUSH 11/09/17 16:45 (NS Flush) 2 ml BID IV FLUSH 11/09/17 21:00 11/11/17 20:34 (Narcan Inj) 0.4 mg UNSCH PRN IV PUSH 11/09/17 16:45 (Coretta-Colace) 1 tab BID PO 11/09/17 21:00 11/11/17 20:33 (Milk Of Magnesia Liq) 30 ml Q12H PRN PO 11/09/17 16:45 (Senokot) 17.2 mg Q12H PRN PO 11/09/17 16:45 (Dulcolax Supp) 10 mg DAILY PRN RECTAL 11/09/17 16:45 (Lactulose Liq) 30 ml DAILY PRN PO 11/09/17 16:45 (Nitrostat Sl) 0.4 mg Q5M PRN SL 11/09/17 20:45 (Morphine Inj) 2 mg Q4H PRN IV 11/09/17 21:00 11/09/17 21:11 (Zofran Odt) 4 mg Q6H PRN PO 11/10/17 06:45 11/10/17 06:53 (Aspirin Chew) 81 mg DAILY PO 11/11/17 09:00 11/11/17 09:46 (Coreg) 6.25 mg BID PO 11/10/17 21:00 11/11/17 21:28 (Prinivil) 2.5 mg DAILY PO 11/11/17 09:00 11/11/17 09:46 (Pravachol) 10 mg HS PO 11/10/17 21:00 11/11/17 20:33 Tirofiban/Sodium Chloride 250 ml @ 8.928 mls/ hr Q24H IV 11/10/17 16:28 (Effient) 5 mg DAILY PO 11/11/17 09:00 11/11/17 09:46 (Fioricet 325-50-40) 2 tab Q4H PRN PO 11/10/17 21:45 11/11/17 07:37 (Lanoxin Inj) 0.25 mg Q4H IV PUSH 11/12/17 03:00 11/12/17 11:01 11/12/17 06:08 Assessment and Plan Problem List: (1) Chest pain ICD Codes: R07.9 - Chest pain, unspecified Plan: S/P cardiac cath with angioplasty 11/10/17 Follw cardiology recommendations ASA. Effient, cardiac rehab consult. (2) Afib ICD Codes: I48.91 - Unspecified atrial fibrillation Plan: Coumadin stopped for now Metoprolol, Digoxin for rate control (3) HTN (hypertension) ICD Codes: I10 - Essential (primary) hypertension Plan: Controlled, cont home medications Assessment and Plan 11/11/17- S/P cardiac cath for NSTEMI, Denies any CP, SOB, sat's maintained on room air. B/P controlled. DC in am if cleared by cardiology 11/12/17- afib rvr HR in 120's this am. IV digoxin started. B/P little low this am. Had episode of some confusion yesterday, CT head negative. labs pending this am. Denies Cp, SOB. DC when cleared by cardiology Kayleen Aranda November 12, 2017 07:24
[2017-11-12] MEDS: DOCUSATE SODIUM 50 MG/SENNA 8.6 MG TAB PO SCH ×2 (09:00→21:11)
[2017-11-12] MEDS: SODIUM CHLORIDE 0.9% FLUSH 10 ML FLUSH IV FLUSH SCH ×2 (09:00→21:14)
[2017-11-12] MEDS: CARVEDILOL 3.125 MG TAB PO SCH ×2 (09:00→21:00)
[2017-11-12] MEDS: SODIUM CHLOR 0.9% 1000 ML INJ 1,000 ML IV SCH ×2 (09:00→23:00)
[2017-11-12 09:31] LABS: AUTOMATED NEUTROPHIL # 3.9 TH/MM3 (1.8-7.7); BASOPHIL % 0.2 % (0.0-2.0); EOSINOPHIL % 0.6 % (0.0-4.0); HEMATOCRIT 26.9 % (35.0-46.0); HEMOGLOBIN 9.1 GM/DL (11.6-15.3); LYMPH % 10.4 % (9.0-44.0); LYMPHOCYTE # 0.5 TH/MM3 (1.0-4.8); MEAN CELL VOLUME 91.3 FL (80.0-100.0); MEAN CORPUSCULAR HEMOGLOBIN 30.7 PG (27.0-34.0); MEAN CORPUSCULAR HGB CONC 33.7 % (32.0-36.0); MEAN PLATELET VOLUME 8.5 FL (7.0-11.0); MONO % 8.1 % (0.0-8.0); MONOCYTE # 0.4 TH/MM3 (0-0.9); NEUT % 80.7 % (16.0-70.0); PLATELET COUNT 177 TH/MM3 (150-450); RED BLOOD COUNT 2.95 MIL/MM3 (4.00-5.30); RED CELL DISTRIBUTION WIDTH 13.5 % (11.6-17.2); WHITE BLOOD COUNT 4.8 TH/MM3 (4.0-11.0)
[2017-11-12] MEDS: ASPIRIN 81 MG CHEW TAB PO SCH (09:38)
[2017-11-12] MEDS: AMIODARONE 200 MG TAB PO SCH ×2 (09:38→21:11)
[2017-11-12] MEDS: PRASUGREL 5 MG TAB PO SCH (09:38)
[2017-11-12 10:00] LABS: BICARBONATE 22.6 MEQ/L (21.0-32.0); CALCIUM 7.8 MG/DL (8.5-10.1); CREATININE 0.92 MG/DL (0.50-1.00); MAGNESIUM 2.1 MG/DL (1.5-2.5)
--- NOTE | 2017-11-12 14:56 | EKG ---
Date Performed: 11/11/2017 Time Performed: 22:48:30 PTAGE: 81 years EKG: Atrial fibrillation with rapid ventricular response Left anterior fascicular block Possible anterior infarct - age undetermined Left ventricular hypertrophy Lateral T wave changes are probably due to ventricular hypertrophy Abnormal ECG Compared to prior electrocardiogram, Atrial fibrillation has replaced Sinus rhythm . DOCTOR: Vidal Augustin Interpretating Date/Time 11/12/2017 14:54:44
--- NOTE | 2017-11-12 16:06 | PD.CARD.PN ---
Subjective Subjective Remarks No CP or SOB, new onset a fib w RVR, started on amio and dig Objective Medications Current Medications Medications (Trade) Dose Ordered Sig/Starla Route Start Time Stop Time Status Last Admin (NS Flush) 2 ml UNSCH PRN IV FLUSH 11/09/17 16:45 (NS Flush) 2 ml BID IV FLUSH 11/09/17 21:00 11/11/17 20:34 (Narcan Inj) 0.4 mg UNSCH PRN IV PUSH 11/09/17 16:45 (Coretta-Colace) 1 tab BID PO 11/09/17 21:00 11/11/17 20:33 (Milk Of Magnesia Liq) 30 ml Q12H PRN PO 11/09/17 16:45 (Senokot) 17.2 mg Q12H PRN PO 11/09/17 16:45 (Dulcolax Supp) 10 mg DAILY PRN RECTAL 11/09/17 16:45 (Lactulose Liq) 30 ml DAILY PRN PO 11/09/17 16:45 (Nitrostat Sl) 0.4 mg Q5M PRN SL 11/09/17 20:45 (Morphine Inj) 2 mg Q4H PRN IV 11/09/17 21:00 11/09/17 21:11 (Zofran Odt) 4 mg Q6H PRN PO 11/10/17 06:45 11/10/17 06:53 (Aspirin Chew) 81 mg DAILY PO 11/11/17 09:00 11/12/17 09:38 (Coreg) 6.25 mg BID PO 11/10/17 21:00 11/11/17 21:28 (Prinivil) 2.5 mg DAILY PO 11/11/17 09:00 Future hold 11/11/17 09:46 (Pravachol) 10 mg HS PO 11/10/17 21:00 11/11/17 20:33 Tirofiban/Sodium Chloride 250 ml @ 8.928 mls/ hr Q24H IV 11/10/17 16:28 (Effient) 5 mg DAILY PO 11/11/17 09:00 11/12/17 09:38 (Fioricet 325-50-40) 2 tab Q4H PRN PO 11/10/17 21:45 11/11/17 07:37 Sodium Chloride 1,000 ml @ 88 mls/hr [id number] IV 11/12/17 09:00 11/12/17 09:00 (Cordarone) 400 mg BID PO 11/12/17 09:00 11/17/17 08:59 11/12/17 09:38 (Cordarone) 200 mg DAILY PO 11/17/17 09:00 Vital Signs / I&O Vital Signs Date Time Temp Pulse Resp B/P (MAP) Pulse Ox O2 Delivery O2 Flow Rate FiO2 11/12/17 14:00 92 11/12/17 13:00 106 11/12/17 12:00 108 11/12/17 11:00 98.8 103 14 92/52 (65) 100 11/12/17 11:00 87 11/12/17 10:00 104 11/12/17 09:00 104 11/12/17 08:00 96 Room Air 11/12/17 08:00 78 11/12/17 07:15 98.7 100 18 83/48 (60) 96 11/12/17 07:00 78 11/12/17 05:52 124 11/12/17 05:00 120 11/12/17 04:00 115 11/12/17 04:00 98.0 120 18 81/54 (63) 98 11/12/17 04:00 Nasal Cannula 2.00 11/12/17 03:00 126 11/12/17 02:00 120 11/12/17 01:00 122 11/12/17 00:00 124 11/12/17 00:00 98.1 128 18 94/53 (67) 96 11/12/17 00:00 Nasal Cannula 2.00 11/11/17 23:00 122 11/11/17 22:00 122 11/11/17 21:26 92/58 (69) 11/11/17 21:00 126 11/11/17 20:00 118 11/11/17 20:00 Room Air 11/11/17 20:00 98.0 94 18 89/60 (70) 100 11/11/17 19:00 90 11/11/17 18:00 90 11/11/17 17:00 84 I/O 11/11/17 11/11/17 11/11/17 11/12/17 11/12/17 11/12/17 07:00 15:00 23:00 07:00 15:00 23:00 Intake Total 240 ml 800 ml Output Total 200 ml 300 ml Balance 40 ml 500 ml Intake Oral 240 ml 800 ml Output Urine Total 200 ml 300 ml Physical Exam GENERAL: In NAD. SKIN: Warm and dry. HEAD: Normocephalic. EYES: No scleral icterus. No injection or drainage. NECK: Supple, trachea midline. No JVD or lymphadenopathy. CARDIOVASCULAR: Irregular, without murmurs, gallops, or rubs. RESPIRATORY: Breath sounds equal bilaterally. No accessory muscle use. GASTROINTESTINAL: Abdomen soft, non-tender, nondistended. MUSCULOSKELETAL: No cyanosis, or edema. Groin stable. Laboratory Laboratory Tests Test 11/12/17 02:16 11/12/17 08:02 11/12/17 09:02 Prothrombin Time 14.7 SEC Prothromb Time International Ratio 1.5 RATIO Blood Urea Nitrogen 24 MG/DL Creatinine 0.92 MG/DL Random Glucose 115 MG/DL Calcium Level 7.8 MG/DL Magnesium Level 2.1 MG/DL Sodium Level 139 MEQ/L Potassium Level 3.7 MEQ/L Chloride Level 106 MEQ/L Carbon Dioxide Level 22.6 MEQ/L Anion Gap 10 MEQ/L Estimat Glomerular Filtration Rate 58 ML/MIN White Blood Count 4.8 TH/MM3 Red Blood Count 2.95 MIL/MM3 Hemoglobin 9.1 GM/DL Hematocrit 26.9 % Mean Corpuscular Volume 91.3 FL Mean Corpuscular Hemoglobin 30.7 PG Mean Corpuscular Hemoglobin Concent 33.7 % Red Cell Distribution Width 13.5 % Platelet Count 177 TH/MM3 Mean Platelet Volume 8.5 FL Neutrophils (%) (Auto) 80.7 % Lymphocytes (%) (Auto) 10.4 % Monocytes (%) (Auto) 8.1 % Eosinophils (%) (Auto) 0.6 % Basophils (%) (Auto) 0.2 % Neutrophils # (Auto) 3.9 TH/MM3 Lymphocytes # (Auto) 0.5 TH/MM3 Monocytes # (Auto) 0.4 TH/MM3 Eosinophils # (Auto) 0.0 TH/MM3 Basophils # (Auto) 0.0 TH/MM3 CBC Comment DIFF FINAL Differential Comment Assessment and Plan Problem List: (1) ACS (acute coronary syndrome) ICD Codes: I24.9 - Acute ischemic heart disease, unspecified (2) CAD (coronary artery disease) ICD Codes: I25.10 - Atherosclerotic heart disease of [place] coronary artery without angina pectoris (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 Continue amio loading and digoxin for rate control. Continue antiplatelet therapy with Prasugrel and baby ASA. Hold warfarin at this time, risk of recurrent stent thrombosis or major bleeding is much higher than the risk of ischemic stroke at this time. Continue tx for CHF, hold meds due to hypotension. Increase activity, PT. Eliel Abrams MD November 12, 2017 16:06
[2017-11-12] MEDS: TIROFIBAN INFUSION INJ 250 ML IV SCH (16:28)
[2017-11-12] MEDS: PRAVASTATIN SOD 10 MG TAB PO SCH (21:11)
[2017-11-13] VITALS (26 sets, daily range): BP systolic 100–116; BP diastolic 62–79; PULSE 74–94; RESP 16–19; TEMP 98–99; O2SAT 95–98
[2017-11-13] MEDS: SODIUM CHLOR 0.9% 1000 ML INJ 1,000 ML IV SCH ×2 (07:44→19:06)
--- NOTE | 2017-11-13 08:22 | HHI.PR ---
Subjective Remarks Todd CP, SOB, no reported event throughout night BP still on low side. Objective Vital Signs Date Time Temp Pulse Resp B/P (MAP) Pulse Ox O2 Delivery O2 Flow Rate FiO2 11/13/17 06:00 85 11/13/17 05:00 94 11/13/17 04:16 99.0 92 18 112/64 (80) 96 11/13/17 04:13 86 11/13/17 04:13 86 11/13/17 02:00 90 11/13/17 01:00 88 11/12/17 23:30 Room Air 11/12/17 23:02 98.0 85 16 104/72 (83) 98 11/12/17 22:43 85 11/12/17 22:00 Nasal Cannula 1.00 11/12/17 22:00 80 11/12/17 21:10 86/58 (67) 11/12/17 21:00 77 11/12/17 19:45 Nasal Cannula 2.00 11/12/17 19:45 97.7 77 18 92/53 (66) 100 11/12/17 18:00 78 11/12/17 17:00 76 11/12/17 16:01 76 11/12/17 15:00 98.6 78 16 95/48 (64) 100 11/12/17 15:00 80 11/12/17 14:00 92 11/12/17 13:00 106 11/12/17 12:00 108 11/12/17 11:00 98.8 103 14 92/52 (65) 100 11/12/17 11:00 87 11/12/17 10:00 104 11/12/17 09:00 104 I/O 11/12/17 11/12/17 11/12/17 11/13/17 11/13/17 11/13/17 07:00 15:00 23:00 07:00 15:00 23:00 Intake Total 360 ml 1532 ml Balance 360 ml 1532 ml Intake Oral 360 ml 240 ml IV Total 1292 ml # Voids 1 2 Result Diagram: 11/12/17 0902 11/12/17 0802 Imaging Last [address] 11/11/17 0000 Signed Impressions: CONCLUSION: No evidence of acute infarct, hemorrhage, mass or edema. Aging brain with volume loss. Procedures Cardiac cath with stent on 11/10/17 Objective Remarks GENERAL: This is a well-nourished, well-developed patient, in no apparent distress. EYES: Pupils equal round and reactive ENT: Airway patent. NECK: Trachea midline. No JVD or lymphadenopathy. Supple, nontender CARDIOVASCULAR: regular rate hr S1,S2 no murmurs, no edema RESPIRATORY: Clear to auscultation. Breath sounds equal bilaterally. No wheezes , rales, or rhonchi. NEUROLOGICAL: Awake and alert ,Normal speech, CRAIN Medications and IVs Current Medications Medications (Trade) Dose Ordered Sig/Starla Route Start Time Stop Time Status Last Admin (NS Flush) 2 ml UNSCH PRN IV FLUSH 11/09/17 16:45 (NS Flush) 2 ml BID IV FLUSH 11/09/17 21:00 11/12/17 21:14 (Narcan Inj) 0.4 mg UNSCH PRN IV PUSH 11/09/17 16:45 (Coretta-Colace) 1 tab BID PO 11/09/17 21:00 11/12/17 21:11 (Milk Of Magnesia Liq) 30 ml Q12H PRN PO 11/09/17 16:45 (Senokot) 17.2 mg Q12H PRN PO 11/09/17 16:45 (Dulcolax Supp) 10 mg DAILY PRN RECTAL 11/09/17 16:45 (Lactulose Liq) 30 ml DAILY PRN PO 11/09/17 16:45 (Nitrostat Sl) 0.4 mg Q5M PRN SL 11/09/17 20:45 (Morphine Inj) 2 mg Q4H PRN IV 11/09/17 21:00 11/09/17 21:11 (Zofran Odt) 4 mg Q6H PRN PO 11/10/17 06:45 11/10/17 06:53 (Aspirin Chew) 81 mg DAILY PO 11/11/17 09:00 11/12/17 09:38 (Coreg) 6.25 mg BID PO 11/10/17 21:00 11/11/17 21:28 (Prinivil) 2.5 mg DAILY PO 11/11/17 09:00 Future hold 11/11/17 09:46 (Pravachol) 10 mg HS PO 11/10/17 21:00 11/12/17 21:11 Tirofiban/Sodium Chloride 250 ml @ 8.928 mls/ hr Q24H IV 11/10/17 16:28 (Effient) 5 mg DAILY PO 11/11/17 09:00 11/12/17 09:38 (Fioricet 325-50-40) 2 tab Q4H PRN PO 11/10/17 21:45 11/11/17 07:37 Sodium Chloride 1,000 ml @ 88 mls/hr [id number] IV 11/12/17 09:00 11/12/17 23:00 (Cordarone) 400 mg BID PO 11/12/17 09:00 11/17/17 08:59 11/12/17 21:11 (Cordarone) 200 mg DAILY PO 11/17/17 09:00 Assessment and Plan Problem List: (1) Chest pain ICD Codes: R07.9 - Chest pain, unspecified Plan: S/P cardiac cath with angioplasty 11/10/17 Follw cardiology recommendations ASA. Effient, cardiac rehab consult. (2) Afib ICD Codes: I48.91 - Unspecified atrial fibrillation Plan: Coumadin stopped for now Metoprolol, Digoxin for rate control (3) HTN (hypertension) ICD Codes: I10 - Essential (primary) hypertension Plan: Controlled, cont home medications Assessment and Plan 11/11/17- S/P cardiac cath for NSTEMI, Denies any CP, SOB, sat's maintained on room air. B/P controlled. DC in am if cleared by cardiology 11/12/17- afib rvr HR in 120's this am. IV digoxin started. B/P little low this am. Had episode of some confusion yesterday, CT head negative. labs pending this am. Denies Cp, SOB. DC when cleared by cardiology 11/13/17- HR regular, she was started on Digoxin and amiodarone yesterday.B/P on low side, Meds adjusted with Bp parameters. IVF 88/hr will dc after bag complete information technology manager consulted for acute rehab, where she can have cardiac monitoring. PT OT eval. DC when cleared by cardiology and arrangements made. Kayleen Aranda November 13, 2017 08:22
[2017-11-13] MEDS: LISINOPRIL 5 MG TAB PO SCH (09:00)
[2017-11-13] MEDS: SODIUM CHLORIDE 0.9% FLUSH 10 ML FLUSH IV FLUSH SCH ×2 (09:00→21:32)
[2017-11-13] MEDS: PRASUGREL 5 MG TAB PO SCH (09:52)
[2017-11-13] MEDS: CARVEDILOL 3.125 MG TAB PO SCH ×2 (09:52→21:32)
[2017-11-13] MEDS: AMIODARONE 200 MG TAB PO SCH ×2 (09:53→21:32)
[2017-11-13] MEDS: DOCUSATE SODIUM 50 MG/SENNA 8.6 MG TAB PO SCH ×2 (09:53→21:32)
[2017-11-13] MEDS: ASPIRIN 81 MG CHEW TAB PO SCH (09:53)
--- NOTE | 2017-11-13 15:13 | PD.CARD.PN ---
Subjective Subjective Remarks No CP or SOB, new onset a fib w RVR, started on amio and dig, now converted to SR, mild fatigue Objective Medications Current Medications Medications (Trade) Dose Ordered Sig/Starla Route Start Time Stop Time Status Last Admin (NS Flush) 2 ml UNSCH PRN IV FLUSH 11/09/17 16:45 (NS Flush) 2 ml BID IV FLUSH 11/09/17 21:00 11/13/17 09:00 (Narcan Inj) 0.4 mg UNSCH PRN IV PUSH 11/09/17 16:45 (Coretta-Colace) 1 tab BID PO 11/09/17 21:00 11/13/17 09:53 (Milk Of Magnesia Liq) 30 ml Q12H PRN PO 11/09/17 16:45 (Senokot) 17.2 mg Q12H PRN PO 11/09/17 16:45 (Dulcolax Supp) 10 mg DAILY PRN RECTAL 11/09/17 16:45 (Lactulose Liq) 30 ml DAILY PRN PO 11/09/17 16:45 (Nitrostat Sl) 0.4 mg Q5M PRN SL 11/09/17 20:45 (Morphine Inj) 2 mg Q4H PRN IV 11/09/17 21:00 11/09/17 21:11 (Zofran Odt) 4 mg Q6H PRN PO 11/10/17 06:45 11/10/17 06:53 (Aspirin Chew) 81 mg DAILY PO 11/11/17 09:00 11/13/17 09:53 (Coreg) 6.25 mg BID PO 11/10/17 21:00 11/13/17 09:52 (Prinivil) 2.5 mg DAILY PO 11/11/17 09:00 Future hold 11/11/17 09:46 (Pravachol) 10 mg HS PO 11/10/17 21:00 11/12/17 21:11 Tirofiban/Sodium Chloride 250 ml @ 8.928 mls/ hr Q24H IV 11/10/17 16:28 (Effient) 5 mg DAILY PO 11/11/17 09:00 11/13/17 09:52 (Fioricet 325-50-40) 2 tab Q4H PRN PO 11/10/17 21:45 11/11/17 07:37 Sodium Chloride 1,000 ml @ 88 mls/hr [id number] IV 11/12/17 09:00 11/13/17 07:44 (Cordarone) 400 mg BID PO 11/12/17 09:00 11/17/17 08:59 11/13/17 09:53 (Cordarone) 200 mg DAILY PO 11/17/17 09:00 Vital Signs / I&O Vital Signs Date Time Temp Pulse Resp B/P (MAP) Pulse Ox O2 Delivery O2 Flow Rate FiO2 11/13/17 07:36 98.0 85 16 101/62 (75) 98 11/13/17 07:00 86 11/13/17 06:00 85 11/13/17 05:00 94 11/13/17 04:16 99.0 92 18 112/64 (80) 96 11/13/17 04:13 86 11/13/17 04:13 86 11/13/17 02:00 90 11/13/17 01:00 88 11/12/17 23:30 Room Air 11/12/17 23:02 98.0 85 16 104/72 (83) 98 11/12/17 22:43 85 11/12/17 22:00 Nasal Cannula 1.00 11/12/17 22:00 80 11/12/17 21:10 86/58 (67) 11/12/17 21:00 77 11/12/17 19:45 Nasal Cannula 2.00 11/12/17 19:45 97.7 77 18 92/53 (66) 100 11/12/17 18:00 78 11/12/17 17:00 76 11/12/17 16:01 76 I/O 11/12/17 11/12/17 11/12/17 11/13/17 11/13/17 11/13/17 07:00 15:00 23:00 07:00 15:00 23:00 Intake Total 360 ml 1532 ml Balance 360 ml 1532 ml Intake Oral 360 ml 240 ml IV Total 1292 ml # Voids 1 2 Physical Exam GENERAL: In NAD. SKIN: Warm and dry. HEAD: Normocephalic. EYES: No scleral icterus. No injection or drainage. NECK: Supple, trachea midline. No JVD or lymphadenopathy. CARDIOVASCULAR: Regular, without murmurs, gallops, or rubs. RESPIRATORY: Breath sounds equal bilaterally. No accessory muscle use. GASTROINTESTINAL: Abdomen soft, non-tender, nondistended. MUSCULOSKELETAL: No cyanosis, or edema. Groin stable. 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 Continue antiplatelet therapy with Prasugrel and baby ASA. Hold warfarin at this time, risk of recurrent stent thrombosis or major bleeding is much higher than the risk of ischemic stroke at this time. Continue tx for CHF; hold CHF meds due to hypotension if necessary. Increase activity, PT. Anticipate discharge soon if remains stable. Will schedule f/u with me soon after discharge. Eliel Abrams MD November 13, 2017 15:13
[2017-11-13] MEDS: TIROFIBAN INFUSION INJ 250 ML IV SCH (16:28)
[2017-11-13] MEDS: ONDANSETRON ODT 4 MG TAB PO PRN (19:13)
[2017-11-13] MEDS: PRAVASTATIN SOD 10 MG TAB PO SCH (21:31)
[2017-11-14] VITALS (25 sets, daily range): BP systolic 94–112; BP diastolic 61–73; PULSE 73–98; RESP 16–19; TEMP 97.8–98.8; O2SAT 96–99
[2017-11-14] MEDS: SODIUM CHLORIDE 0.9% FLUSH 10 ML FLUSH IV FLUSH SCH ×2 (09:00→20:59)
[2017-11-14] MEDS: PRASUGREL 5 MG TAB PO SCH ×2 (09:00→09:30)
--- NOTE | 2017-11-14 09:08 | HHI.PR ---
Subjective Remarks No reported event throughout night Todd CP, SOB Objective Vital Signs Date Time Temp Pulse Resp B/P (MAP) Pulse Ox O2 Delivery O2 Flow Rate FiO2 11/14/17 06:00 82 11/14/17 05:00 82 11/14/17 04:00 80 11/14/17 03:45 98.6 83 18 109/73 (85) 96 11/14/17 03:00 86 11/14/17 02:06 82 11/14/17 01:27 84 11/14/17 00:00 82 11/13/17 23:54 98.5 85 18 105/69 (81) 95 11/13/17 23:00 79 11/13/17 22:00 86 11/13/17 21:00 86 11/13/17 20:00 86 11/13/17 19:43 96 Room Air 11/13/17 19:43 98.7 83 19 116/79 (91) 96 11/13/17 19:00 84 11/13/17 18:00 86 11/13/17 17:00 90 11/13/17 16:00 82 11/13/17 15:00 86 11/13/17 15:00 98.8 82 16 100/64 (76) 95 11/13/17 14:00 76 11/13/17 13:00 74 11/13/17 12:00 76 11/13/17 11:00 86 11/13/17 10:00 88 I/O 11/13/17 11/13/17 11/13/17 11/14/17 11/14/17 11/14/17 07:00 15:00 23:00 07:00 15:00 23:00 Intake Total 1532 ml 850 ml 240 ml Output Total 620 ml 550 ml Balance 1532 ml 230 ml -310 ml Intake Oral 240 ml 850 ml 240 ml IV Total 1292 ml Output Urine Total 620 ml 550 ml # Voids 2 Result Diagram: 11/12/1790111/12/17801 Procedures Cardiac cath with stent on 11/10/17 Objective Remarks GENERAL: This is a well-nourished, well-developed patient, in no apparent distress. EYES: Pupils equal round and reactive ENT: Airway patent. NECK: Trachea midline. No JVD or lymphadenopathy. Supple, nontender CARDIOVASCULAR: regular rate hr S1,S2 no murmurs, no edema RESPIRATORY: Clear to auscultation. Breath sounds equal bilaterally. No wheezes , rales, or rhonchi. NEUROLOGICAL: Awake and alert ,Normal speech, CRAIN Medications and IVs Current Medications Medications (Trade) Dose Ordered Sig/Starla Route Start Time Stop Time Status Last Admin (NS Flush) 2 ml UNSCH PRN IV FLUSH 11/09/17 16:45 (NS Flush) 2 ml BID IV FLUSH 11/09/17 21:00 11/13/17 21:32 (Narcan Inj) 0.4 mg UNSCH PRN IV PUSH 11/09/17 16:45 (Coretta-Colace) 1 tab BID PO 11/09/17 21:00 11/13/17 21:32 (Milk Of Magnesia Liq) 30 ml Q12H PRN PO 11/09/17 16:45 11/13/17 19:13 (Senokot) 17.2 mg Q12H PRN PO 11/09/17 16:45 (Dulcolax Supp) 10 mg DAILY PRN RECTAL 11/09/17 16:45 (Lactulose Liq) 30 ml DAILY PRN PO 11/09/17 16:45 (Nitrostat Sl) 0.4 mg Q5M PRN SL 11/09/17 20:45 (Morphine Inj) 2 mg Q4H PRN IV 11/09/17 21:00 11/09/17 21:11 (Zofran Odt) 4 mg Q6H PRN PO 11/10/17 06:45 11/13/17 19:13 (Aspirin Chew) 81 mg DAILY PO 11/11/17 09:00 11/13/17 09:53 (Prinivil) 2.5 mg DAILY PO 11/11/17 09:00 Future hold 11/11/17 09:46 (Pravachol) 10 mg HS PO 11/10/17 21:00 11/13/17 21:31 Tirofiban/Sodium Chloride 250 ml @ 8.928 mls/ hr Q24H IV 11/10/17 16:28 (Effient) 5 mg DAILY PO 11/11/17 09:00 11/13/17 09:52 (Fioricet 325-50-40) 2 tab Q4H PRN PO 5/21/18 21:45 11/11/17 07:37 Sodium Chloride 1,000 ml @ 88 mls/hr [id number] IV 11/12/17 09:00 11/13/17 19:06 (Cordarone) 400 mg BID PO 11/12/17 09:00 11/17/17 08:59 11/13/17 21:32 (Cordarone) 200 mg DAILY PO 11/17/17 09:00 (Coreg) 3.125 mg BID PO 11/13/17 21:00 11/13/17 21:32 Assessment and Plan Problem List: (1) Chest pain ICD Codes: R07.9 - Chest pain, unspecified Plan: S/P cardiac cath with angioplasty 11/10/17 Follw cardiology recommendations ASA. Effient, cardiac rehab consult. (2) Afib ICD Codes: I48.91 - Unspecified atrial fibrillation Plan: Coumadin stopped for now Metoprolol, Digoxin for rate control (3) HTN (hypertension) ICD Codes: I10 - Essential (primary) hypertension Plan: Controlled, cont home medications Assessment and Plan 11/11/17- S/P cardiac cath for NSTEMI, Denies any CP, SOB, sat's maintained on room air. B/P controlled. DC in am if cleared by cardiology 11/12/17- afib rvr HR in 120's this am. IV digoxin started. B/P little low this am. Had episode of some confusion yesterday, CT head negative. labs pending this am. Denies Cp, SOB. DC when cleared by cardiology 11/13/17- HR regular, she was started on Digoxin and amiodarone yesterday.B/P on low side, Meds adjusted with Bp parameters. IVF 88/hr will dc after bag complete outlet manager consulted for acute rehab, where she can have cardiac monitoring. PT OT eval. DC when cleared by cardiology and arrangements made. 11/14/17- No complaints this am, VSS afebrile. NSR rate controlled. PT/OT eval complete referral to [facility]. DC once arrangement made and cleared with cardiology. Kayleen Aranda November 14, 2017 09:08
[2017-11-14] MEDS: LISINOPRIL 5 MG TAB PO SCH (09:25)
[2017-11-14] MEDS: ASPIRIN 81 MG CHEW TAB PO SCH (09:25)
[2017-11-14] MEDS: DOCUSATE SODIUM 50 MG/SENNA 8.6 MG TAB PO SCH ×2 (09:25→20:59)
[2017-11-14] MEDS: CARVEDILOL 3.125 MG TAB PO SCH ×2 (09:25→20:58)
[2017-11-14] MEDS: AMIODARONE 200 MG TAB PO SCH ×2 (09:25→20:58)
[2017-11-14] MEDS: SODIUM CHLOR 0.9% 1000 ML INJ 1,000 ML IV SCH ×2 (09:30→20:58)
[2017-11-14] MEDS: PRAVASTATIN SOD 10 MG TAB PO SCH (20:58)
[2017-11-15] VITALS (31 sets, daily range): BP systolic 98–117; BP diastolic 57–86; PULSE 77–104; RESP 16–18; TEMP 97.4–98.9; O2SAT 98–100
[2017-11-15] MEDS: SODIUM CHLOR 0.9% 1000 ML INJ 1,000 ML IV SCH ×2 (05:32→17:28)
--- NOTE | 2017-11-15 07:40 | HHI.PR ---
Subjective Remarks resting quietly pt had afib with rate 105-110 last pm Objective Vital Signs Date Time Temp Pulse Resp B/P (MAP) Pulse Ox O2 Delivery O2 Flow Rate FiO2 11/15/17 06:14 85 11/15/17 05:24 87 11/15/17 04:00 82 11/15/17 03:37 97.6 83 18 103/76 (85) 99 11/15/17 03:00 77 11/15/17 02:00 86 11/15/17 01:00 82 11/15/17 00:00 82 11/14/17 23:17 98.8 88 18 94/69 (77) 97 11/14/17 23:00 81 11/14/17 22:00 86 11/14/17 21:00 94 11/14/17 20:00 86 11/14/17 19:23 97.8 79 19 104/72 (83) 99 11/14/17 19:23 Room Air 11/14/17 19:00 82 11/14/17 15:00 98.7 98 16 109/61 (77) 98 11/14/17 14:00 74 11/14/17 13:00 86 11/14/17 12:00 76 11/14/17 11:00 80 11/14/17 11:00 98.6 79 16 109/65 (80) 98 11/14/17 10:00 84 11/14/17 09:00 84 11/14/17 08:00 84 I/O 11/14/17 11/14/17 11/14/17 11/15/17 11/15/17 11/15/17 07:00 15:00 23:00 07:00 15:00 23:00 Intake Total 240 ml 1720 ml 1240 ml Output Total 550 ml 900 ml 350 ml Balance -310 ml 820 ml 890 ml Intake Oral 240 ml 720 ml 240 ml IV Total 1000 ml 1000 ml Output Urine Total 550 ml 900 ml 350 ml # Bowel Movements 2 Result Diagram: 11/12/17 0902 11/12/17 0802 Imaging Last Impressions Head CT 11/11/17 0000 Signed Impressions: CONCLUSION: No evidence of acute infarct, hemorrhage, mass or edema. Aging brain with volume loss. Chest X-Ray 11/09/17 1335 Signed Impressions: Service Date/Time: Thursday, November 09, 2017 13:39 - CONCLUSION: Non- consolidative infiltrates in the left lower lung. Franki Perez MD Procedures Cardiac cath with stent on 11/10/17 Other Results GENERAL: Well-nourished, well-developed patient. SKIN: Warm and dry. HEAD: Normocephalic. EYES: No scleral icterus. No injection or drainage. NECK: Supple, trachea midline. No JVD or lymphadenopathy. CARDIOVASCULAR: Regular rate and rhythm without murmurs, gallops, or rubs. RESPIRATORY: Breath sounds equal bilaterally. No accessory muscle use. GASTROINTESTINAL: Abdomen soft, non-tender, nondistended. EXTREMITIES: No cyanosis, or edema. NEUROLOGICAL: Awake, alert, and oriented x 3. Non-foca mild confusion l. Objective Remarks GENERAL: Well-nourished, well-developed patient. SKIN: Warm and dry. HEAD: Normocephalic. EYES: No scleral icterus. No injection or drainage. NECK: Supple, trachea midline. No JVD or lymphadenopathy. CARDIOVASCULAR: Regular rate and rhythm without murmurs, gallops, or rubs. RESPIRATORY: Breath sounds equal bilaterally. No accessory muscle use. GASTROINTESTINAL: Abdomen soft, non-tender, nondistended. EXTREMITIES: No cyanosis, or edema. NEUROLOGICAL: Awake, alert, and oriented x 3. Non-focal.mild confusion Medications and IVs Inpatient Medications Acetaminophen/ Butalbital/ Caffeine (Fioricet 325-50-40) 2 tab Q4H PRN PO PAIN Last administered on 11/11/17at 07:37; Start 11/10/17 at 21:45 Amiodarone HCl (Cordarone) 200 mg DAILY PO ; Start 11/17/17 at 09:00 Aspirin (Aspirin Chew) 81 mg DAILY PO Last administered on 11/14/17at 09:25; Start 11/11/17 at 09:00 Aspirin (Ecotrin Ec) 325 mg DAILY PO Last administered on 11/10/17at 10:22; Start 11/10/17 at 09:00; Stop 11/10/17 at 16:25; Status DC Bisacodyl (Dulcolax Supp) 10 mg DAILY PRN RECTAL SEVERE CONSITIPATION; Start at 16:45 Carvedilol (Coreg) 3.125 mg BID PO Last administered on 11/14/17at 20:58; Start 11/13/17 at 21:00 Clopidogrel Bisulfate (Plavix) 75 mg DAILY PO Last administered on 11/10/17at 10 :22; Start 11/10/17 at 09:00; Stop 11/10/17 at 16:25; Status DC Digoxin (Lanoxin Inj) 0.25 mg Q4H IV PUSH Last administered on 11/12/17at 06:08 ; Start 11/12/17 at 03:00; Stop 11/12/17 at 11:03; Status DC Enoxaparin Sodium (Lovenox Inj) 50 mg Q12H SQ Last administered on 11/10/17at 04 :24; Start 11/10/17 at 04:00; Stop 11/10/17 at 16:25; Status DC Lactulose (Lactulose Liq) 30 ml DAILY PRN PO SEVERE CONSITIPATION Last administered on 11/14/17 09:26; Start 11/09/17 at 16:45 Lisinopril (Prinivil) 2.5 mg DAILY PO Last administered on 11/14/17at 09:25; Start 11/11/17 at 09:00; Status Future hold Magnesium Hydroxide (Milk Of Magnesia Liq) 30 ml Q12H PRN PO Mild constipation Last administered on 11/13/17at 19:13; Start 11/09/17 at 16:45 Metoprolol Tartrate (Lopressor) 25 mg BID PO Last administered on 11/10/17at 10: 22; Start 11/09/17 at 21:00; Stop 11/10/17 at 16:28; Status DC Miscellaneous Information 1 ONCE ONCE XX ; Start 11/10/17 at 16:30; Stop at 16:36; Status DC Morphine Sulfate (Morphine Inj) 2 mg Q4H PRN IV ANGINA Last administered on at 21:11; Start 11/09/17 at 21:00 Naloxone HCl (Narcan Inj) 0.4 mg UNSCH PRN IV PUSH SEE LABEL COMMENTS; Start at 16:45 Nitroglycerin (Nitrostat Sl) 0.4 mg Q5M PRN SL CHEST PAIN; Start 11/09/17 at 20 :45 Ondansetron HCl (Zofran Odt) 4 mg Q6H PRN PO NAUSEA OR VOMITING Last administered on 11/13/17 19:13; Start 11/10/17 at 06:45 Patient Medication Teaching (Coumadin Booklet) 1 ONCE ONCE OTHER Last administered on 11/09/17 21:26; Start 11/09/17 at 20:45; Stop 11/09/17 at 20:46 ; Status DC Prasugrel (Effient) 5 mg DAILY PO Last administered on 11/14/17 09:30; Start 11/11/17 at 09:00 Pravastatin Sodium (Pravachol) 10 mg HS PO Last administered on 11/14/17at 20:58 ; Start 11/10/17 at 21:00 Propafenone HCl (Rythmol) 150 mg Q8HR PO Last administered on 11/10/17at 14:25; Start 11/09/17 at 22:00; Stop 11/10/17 at 16:25; Status DC Senna/Docusate Sodium (Coretta-Colace) 1 tab BID PO Last administered on at 09:25; Start 11/09/17 at 21:00 Sennosides (Senokot) 17.2 mg Q12H PRN PO Moderate constipation; Start 11/09/17 at 16:45 Sodium Chloride 1,000 ml @ 88 mls/hr [id number] IV Last administered on at 05:32; Start 11/12/17 at 09:00 Sodium Chloride (NS Flush) 2 ml BID IV FLUSH Last administered on 11/13/17at 21: 32; Start 11/09/17 at 21:00 Tirofiban/Sodium Chloride 250 ml @ 8.928 mls/ hr Q24H IV ; Start 11/10/17 at 16 :28 Tirofiban/Sodium Chloride 1250 mcg/ Syringe / Bag 25 ml @ 300 mls/hr BOLUS ONCE IV ; Start 11/10/17 at 16:30; Stop 11/10/17 at 16:37; Status DC Warfarin Sodium (Coumadin) 5 mg DAILY@1600 PO ; Start 11/10/17 at 16:00; Stop at 16:25; Status DC Assessment and Plan Problem List: (1) Chest pain ICD Codes: R07.9 - Chest pain, unspecified Plan: asses inr will atempt placement to rehab with telemetry due to patients afib and rvr episodes Assessment and Plan cad cp stented today will follow over night Discharge Planning rehab with telemetry Diomedes Hall DO November 15, 2017 07:40
[2017-11-15] MEDS: SODIUM CHLORIDE 0.9% FLUSH 10 ML FLUSH IV FLUSH SCH ×2 (09:00→21:00)
[2017-11-15] MEDS: PRASUGREL 5 MG TAB PO SCH (09:27)
[2017-11-15] MEDS: DOCUSATE SODIUM 50 MG/SENNA 8.6 MG TAB PO SCH ×2 (09:27→21:00)
[2017-11-15] MEDS: ASPIRIN 81 MG CHEW TAB PO SCH (09:27)
[2017-11-15] MEDS: AMIODARONE 200 MG TAB PO SCH ×2 (09:27→21:23)
[2017-11-15] MEDS: CARVEDILOL 3.125 MG TAB PO SCH ×2 (09:27→21:23)
[2017-11-15] MEDS: LISINOPRIL 5 MG TAB PO SCH (09:28)
--- NOTE | 2017-11-15 10:38 | PD.CARD.PN ---
Subjective Subjective Remarks NO COMPLAINTS OF CHEST PAIN OR SOB Objective Medications Current Medications Medications (Trade) Dose Ordered Sig/Starla Route Start Time Stop Time Status Last Admin (NS Flush) 2 ml UNSCH PRN IV FLUSH 11/09/17 16:45 (NS Flush) 2 ml BID IV FLUSH 11/09/17 21:00 11/13/17 21:32 (Narcan Inj) 0.4 mg UNSCH PRN IV PUSH 11/09/17 16:45 (Coretta-Colace) 1 tab BID PO 11/09/17 21:00 11/15/17 09:27 (Milk Of Magnesia Liq) 30 ml Q12H PRN PO 11/09/17 16:45 11/13/17 19:13 (Senokot) 17.2 mg Q12H PRN PO 11/09/17 16:45 (Dulcolax Supp) 10 mg DAILY PRN RECTAL 11/09/17 16:45 (Lactulose Liq) 30 ml DAILY PRN PO 11/09/17 16:45 11/14/17 09:26 (Nitrostat Sl) 0.4 mg Q5M PRN SL 11/09/17 20:45 (Morphine Inj) 2 mg Q4H PRN IV 11/09/17 21:00 11/09/17 21:11 (Zofran Odt) 4 mg Q6H PRN PO 11/10/17 06:45 11/13/17 19:13 (Aspirin Chew) 81 mg DAILY PO 11/11/17 09:00 11/15/17 09:27 (Prinivil) 2.5 mg DAILY PO 11/11/17 09:00 Future hold 11/15/17 09:28 (Pravachol) 10 mg HS PO 11/10/17 21:00 11/14/17 20:58 Tirofiban/Sodium Chloride 250 ml @ 8.928 mls/ hr Q24H IV 11/10/17 16:28 (Effient) 5 mg DAILY PO 11/11/17 09:00 11/15/17 09:27 (Fioricet 325-50-40) 2 tab Q4H PRN PO 11/10/17 21:45 11/11/17 07:37 Sodium Chloride 1,000 ml @ 88 mls/hr [id number] IV 11/12/17 09:00 11/15/17 05:32 (Cordarone) 400 mg BID PO 11/12/17 09:00 11/17/17 08:59 11/15/17 09:27 (Cordarone) 200 mg DAILY PO 11/17/17 09:00 (Coreg) 3.125 mg BID PO 11/13/17 21:00 11/15/17 09:27 Vital Signs / I&O Vital Signs Date Time Temp Pulse Resp B/P (MAP) Pulse Ox O2 Delivery O2 Flow Rate FiO2 11/15/17 09:15 98.0 89 17 108/57 (74) 99 11/15/17 09:15 Room Air 98 11/15/17 06:14 85 11/15/17 05:24 87 11/15/17 04:00 82 11/15/17 03:37 97.6 83 18 103/76 (85) 99 11/15/17 03:00 77 11/15/17 02:00 86 11/15/17 01:00 82 11/15/17 00:00 82 11/14/17 23:17 98.8 88 18 94/69 (77) 97 11/14/17 23:00 81 11/14/17 22:00 86 11/14/17 21:00 94 11/14/17 20:00 86 11/14/17 19:23 97.8 79 19 104/72 (83) 99 11/14/17 19:23 Room Air 11/14/17 19:00 82 11/14/17 15:00 98.7 98 16 109/61 (77) 98 11/14/17 14:00 74 11/14/17 13:00 86 11/14/17 12:00 76 11/14/17 11:00 80 11/14/17 11:00 98.6 79 16 109/65 (80) 98 I/O 11/14/17 11/14/17 11/14/17 11/15/17 11/15/17 11/15/17 07:00 15:00 23:00 07:00 15:00 23:00 Intake Total 240 ml 1720 ml 1240 ml Output Total 550 ml 900 ml 350 ml Balance -310 ml 820 ml 890 ml Intake Oral 240 ml 720 ml 240 ml IV Total 1000 ml 1000 ml Output Urine Total 550 ml 900 ml 350 ml # Bowel Movements 2 Physical Exam NAD ANICTERIC FLAT JVD, NO BRUIT LUNGS CLEAR ABD SOFT EXTREMITIES WITHOUT EDEMA Assessment and Plan Problem List: (1) ACS (acute coronary syndrome) ICD Codes: I24.9 - Acute ischemic heart disease, unspecified Plan: STABLE CARDIAC STATUS S/P PCI LAD PLAN: OUTLINED BY DR. AMBRIZ. MEDICATIONS REVIEWED, CONTINUE SAME CHAIR, AMBULATE TOLERATED (2) CAD (coronary artery disease) ICD Codes: I25.10 - Atherosclerotic heart disease of [place] coronary artery without angina pectoris (3) Coronary stent thrombosis ICD Codes: T82.867A - Thrombosis due to cardiac prosthetic devices, implants and grafts, initial encounter (4) Cardiomyopathy ICD Codes: I42.9 - Cardiomyopathy, unspecified (5) HTN (hypertension) ICD Codes: I10 - Essential (primary) hypertension Brent Ivey MD November 15, 2017 10:38
[2017-11-15] MEDS: TIROFIBAN INFUSION INJ 250 ML IV SCH (16:28)
[2017-11-15] MEDS: PRAVASTATIN SOD 10 MG TAB PO SCH (21:23)
[2017-11-16] VITALS (16 sets, daily range): BP systolic 96–127; BP diastolic 63–83; PULSE 76–102; RESP 18; TEMP 97–97.8; O2SAT 97–99
[2017-11-16] MEDS: SODIUM CHLOR 0.9% 1000 ML INJ 1,000 ML IV SCH (03:56)
[2017-11-16 07:32] LABS: INTERNATIONAL NORMALIZED RATIO 1.1 RATIO; PROTHROMBIN TIME - PATIENT 10.9 SEC (9.8-11.6)
[2017-11-16] MEDS: DOCUSATE SODIUM 50 MG/SENNA 8.6 MG TAB PO SCH (07:59)
[2017-11-16] MEDS: PRASUGREL 5 MG TAB PO SCH (07:59)
[2017-11-16] MEDS: AMIODARONE 200 MG TAB PO SCH (07:59)
[2017-11-16] MEDS: LISINOPRIL 5 MG TAB PO SCH (08:00)
[2017-11-16] MEDS: ASPIRIN 81 MG CHEW TAB PO SCH (08:00)
[2017-11-16] MEDS: CARVEDILOL 3.125 MG TAB PO SCH (08:00)
[2017-11-16] MEDS: SODIUM CHLORIDE 0.9% FLUSH 10 ML FLUSH IV FLUSH SCH (08:02)
[2017-11-16] MEDS ORDERED: AMIO200T PO (09:05)
[2017-11-16] MEDS ORDERED: CARV3.125 PO (09:05)
[2017-11-16] MEDS ORDERED: ASPI81 PO (09:05)
[2017-11-16] MEDS ORDERED: LISI-519 PO (09:06)
[2017-11-16] MEDS ORDERED: PRAS5TAB PO (09:06)
[2017-11-16] MEDS ORDERED: PRAV10TA PO (09:06)
--- NOTE | 2017-11-16 09:11 | HHI.DS ---
Discharge Summary Admission Date November 09, 2017 at 16:08 Admitting Diagnosis Elevated troponin (1) CAD (coronary artery disease) ICD Codes: I25.10 - Atherosclerotic heart disease of [place] coronary artery without angina pectoris (2) Afib ICD Codes: I48.91 - Unspecified atrial fibrillation (3) Coronary stent thrombosis ICD Codes: T82.867A - Thrombosis due to cardiac prosthetic devices, implants and grafts, initial encounter Procedures Cardiac cath with stent on 11/10/17 Brief History pt admitted with cp and sob 1week post stent CBC/BMP: 11/12/17 0902 11/12/17 0802 Significant Findings Laboratory Tests Test 11/16/17 06:40 PE at Discharge GENERAL: Well-nourished, well-developed patient. SKIN: Warm and dry. HEAD: Normocephalic. EYES: No scleral icterus. No injection or drainage. NECK: Supple, trachea midline. No JVD or lymphadenopathy. CARDIOVASCULAR: Regular rate and rhythm without murmurs, gallops, or rubs. RESPIRATORY: Breath sounds equal bilaterally. No accessory muscle use. GASTROINTESTINAL: Abdomen soft, non-tender, nondistended. EXTREMITIES: No cyanosis, or edema. NEUROLOGICAL: Awake, alert, and oriented x 3. Non-focal.mild confusion Hospital Course pt admitted with chest pain cardiology consulted taken to cath where she was restented post proceedure she had a few bouts of afib rvr which have been controlled medicaly she will dc it inpatient hospital rehab with telemetry in stable condition Pt Condition on Discharge: Stable Discharge Disposition: Rehab Inpatient Discharge Instructions DIET: Follow Instructions for: Heart Healthy Diet Activities you can perform: Regular-No Restrictions Additional Activity Instructio: telemetry Diomedes Herrera DO November 16, 2017 09:11
--- NOTE | 2017-11-16 11:21 | PD.CARD.PN ---
Subjective Subjective Remarks FEELS BETTER. SOME NASAL CONGESTION NO COMPLAINTS OF CHEST PAIN OR SOB Objective Medications Current Medications Medications (Trade) Dose Ordered Sig/Starla Route Start Time Stop Time Status Last Admin (NS Flush) 2 ml UNSCH PRN IV FLUSH 11/09/17 16:45 (NS Flush) 2 ml BID IV FLUSH 11/09/17 21:00 11/16/17 08:02 (Narcan Inj) 0.4 mg UNSCH PRN IV PUSH 11/09/17 16:45 (Coretta-Colace) 1 tab BID PO 11/09/17 21:00 11/16/17 07:59 (Milk Of Magnesia Liq) 30 ml Q12H PRN PO 11/09/17 16:45 11/13/17 19:13 (Senokot) 17.2 mg Q12H PRN PO 11/09/17 16:45 (Dulcolax Supp) 10 mg DAILY PRN RECTAL 11/09/17 16:45 (Lactulose Liq) 30 ml DAILY PRN PO 11/09/17 16:45 11/14/17 09:26 (Nitrostat Sl) 0.4 mg Q5M PRN SL 11/09/17 20:45 (Morphine Inj) 2 mg Q4H PRN IV 11/09/17 21:00 11/09/17 21:11 (Zofran Odt) 4 mg Q6H PRN PO 11/10/17 06:45 11/13/17 19:13 (Aspirin Chew) 81 mg DAILY PO 11/11/17 09:00 11/16/17 08:00 (Prinivil) 2.5 mg DAILY PO 11/11/17 09:00 Future hold 11/16/17 08:00 (Pravachol) 10 mg HS PO 11/10/17 21:00 11/15/17 21:23 Tirofiban/Sodium Chloride 250 ml @ 8.928 mls/ hr Q24H IV 11/10/17 16:28 (Effient) 5 mg DAILY PO 11/11/17 09:00 11/16/17 07:59 (Fioricet 325-50-40) 2 tab Q4H PRN PO 11/10/17 21:45 11/11/17 07:37 Sodium Chloride 1,000 ml @ 88 mls/hr [id number] IV 11/12/17 09:00 11/16/17 03:56 (Cordarone) 400 mg BID PO 11/12/17 09:00 11/17/17 08:59 11/16/17 07:59 (Cordarone) 200 mg DAILY PO 11/17/17 09:00 (Coreg) 3.125 mg BID PO 11/13/17 21:00 11/16/17 08:00 Vital Signs / I&O Vital Signs Date Time Temp Pulse Resp B/P (MAP) Pulse Ox O2 Delivery O2 Flow Rate FiO2 11/16/17 08:01 97.0 102 18 127/63 (84) 99 11/16/17 08:01 99 Nasal Cannula 2.00 11/16/17 06:00 90 11/16/17 05:00 86 11/16/17 04:03 85 18 115/83 (94) 97 11/16/17 04:00 84 11/16/17 03:00 78 11/16/17 02:00 88 11/16/17 01:00 80 11/16/17 00:00 86 11/15/17 23:40 78 16 99/66 (77) 99 11/15/17 23:00 84 11/15/17 22:00 88 11/15/17 21:20 115/71 (86) 11/15/17 21:00 90 11/15/17 20:20 98.9 103 18 98/72 (81) 98 11/15/17 20:20 98 Room Air 11/15/17 20:00 84 11/15/17 19:00 104 11/15/17 18:00 96 11/15/17 17:00 80 11/15/17 16:00 86 11/15/17 15:31 97.9 98 17 117/86 (96) 100 11/15/17 15:00 86 11/15/17 14:00 86 11/15/17 13:00 86 11/15/17 12:00 82 11/15/17 11:47 97.4 82 17 113/77 (89) 99 I/O 11/15/17 11/15/17 11/15/17 11/16/17 11/16/17 11/16/17 07:00 15:00 23:00 07:00 15:00 23:00 Intake Total 1240 ml 1400 ml 1240 ml Output Total 350 ml 720 ml 800 ml Balance 890 ml 680 ml 440 ml Intake Oral 240 ml 420 ml 240 ml IV Total 1000 ml 980 ml 1000 ml Output Urine Total 350 ml 720 ml 800 ml # Bowel Movements 1 1 Physical Exam NAD ANICTERIC FLAT JVD, NO BRUIT LUNGS CLEAR ABD SOFT EXTREMITIES WITHOUT EDEMA Laboratory Laboratory Tests Test 11/16/17 06:40 Prothrombin Time 10.9 SEC Prothromb Time International Ratio 1.1 RATIO Assessment and Plan Problem List: (1) ACS (acute coronary syndrome) ICD Codes: I24.9 - Acute ischemic heart disease, unspecified (2) CAD (coronary artery disease) ICD Codes: I25.10 - Atherosclerotic heart disease of [place] coronary artery without angina pectoris (3) Coronary stent thrombosis ICD Codes: T82.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
[2017-11-17] MEDS ORDERED: AMIODARONE 200 MG TAB PO SCH (09:00)
== END 2017-11-16 13:13 | DRG 251 ==
LOC: NEPE 13:27 → NEDA 16:08 → HCIS 18:51
PROVIDERS: ADMIT Family Medicine; ATTEND Family Medicine
PROC: 4A023N7 Measurement of Cardiac Sampling and Pressure, Left Heart, Percutaneous Approach (ICD-10-PCS; 2017-11-10)
PROC: B2111ZZ Fluoroscopy of Multiple Coronary Arteries using Low Osmolar Contrast (ICD-10-PCS; 2017-11-10)
PROC: B2151ZZ Fluoroscopy of Left Heart using Low Osmolar Contrast (ICD-10-PCS; 2017-11-10)
PROC: 02713ZZ Dilation of Coronary Artery, Two Arteries, Percutaneous Approach (ICD-10-PCS; principal; 2017-11-10 07:45)
DX: I22.2 Subsequent non-ST elevation (NSTEMI) myocardial infarction (principal); I11.0 Hypertensive heart disease with heart failure; T82.867A Thrombosis due to cardiac prosthetic devices, implants and grafts, initial encounter; I50.9 Heart failure, unspecified; I48.91 Unspecified atrial fibrillation; D64.9 Anemia, unspecified; I34.0 Nonrheumatic mitral (valve) insufficiency; E07.9 Disorder of thyroid, unspecified; Z95.3 Presence of xenogenic heart valve; I21.09 ST elevation (STEMI) myocardial infarction involving other coronary artery of anterior wall; I25.119 Atherosclerotic heart disease of native coronary artery with unspecified angina pectoris; I25.5 Ischemic cardiomyopathy; E78.5 Hyperlipidemia, unspecified; E78.00 Pure hypercholesterolemia, unspecified; R09.81 Nasal congestion; Z95.5 Presence of coronary angioplasty implant and graft; Z79.01 Long term (current) use of anticoagulants
CPT/HCPCS: 70450; 71045; 80048; 80053; 80061; 82550; 82552; 83735; 84484; 85002; 85025; 85610; 85730; 92920; 93005; 93458; 99152; 99153; 99285; C1725; C1760; C1769; C1887; C1893; G0269; J1160; J1644; J1650; J2250; J2270; J2405; J3010; J3246; J7030; J7040; Q9967

== ENCOUNTER 2017-12-12 06:49 | Emergency (ER) | payer BC, MEDICARE ==
[~2017-12-12] VITALS: Ht 157.5 cm; Wt 50.0 kg
[~2017-12-12 06:49] MED LIST: AMIO200T PO; ASPI81 PO; CARV3.125 PO; LISI-519 PO; PRAS5TAB PO; PRAV10TA PO
[2017-12-12 06:58] VITALS: BP 135/89; PULSE 79; RESP 16; TEMP 97.5; O2SAT 97
[2017-12-12] MEDS ORDERED: SODIUM CHLORIDE 0.9% FLUSH 10 ML FLUSH IVF PRN (08:00)
--- NOTE | 2017-12-12 08:01 | PD ---
HPI Chief Complaint: Respiratory Symptoms Time Seen by Provider: 07:40 Travel History International Travel<30 days: No Contact w/Intl Traveler<30days: No Traveled to known affect area: No History of Present Illness HPI The patient was seen and examined in the presence of the nurse. This patient complains of shortness of breath. Duration is one day. Severity is moderate. She does not have any chest pain or pressure or tightness or heaviness. No fever or productive cough. She has a rare dry cough and occasional congestion in the nose. She had a recent cardiac stenting. She reports compliance of medications. No alleviating factors. No exacerbating factors. PFSH Past Medical History Anemia: Yes Atrial Fibrillation: Yes Cancer: No Cardiac Catheterization: Yes Cardiovascular Problems: Yes High Cholesterol: Yes Diabetes: No Endocrine: Yes Genitourinary: No Hypertension: Yes Immune Disorder: No Musculoskeletal: No Neurologic: No Psychiatric: No Reproductive: No Respiratory: No Thyroid Disease: Yes Past Surgical History Cardiac Surgery: Yes (stents, aortic valve replacement) Other Surgery: Yes Social History Alcohol Use: Yes (occas) Tobacco Use: No Substance Use: No Allergies-Medications (Allergen,Severity, Reaction): Coded Allergies: No Known Allergies (Unverified , 12/12/17) Reported Meds & Prescriptions Reported Meds & Active Scripts Active Lasix (Furosemide) 20 Mg Tab 20 Mg PO DAILY Pravastatin 10 Mg Tab 10 Mg PO HS MDD 10 mg 30 Days Effient (Prasugrel) 5 Mg Tab 5 Mg PO DAILY MDD 5 30 Days one daily Lisinopril 5 Mg Tab 2.5 Mg PO DAILY 30 Days one half daily Tgt Aspirin (Aspirin) 81 Mg Chw 81 Mg PO DAILY 30 Days one daily Coreg (Carvedilol) 3.125 Mg Tab 3.125 Mg PO BID MDD 6.250 30 Days Amiodarone (Amiodarone HCl) 200 Mg Tab 200 Mg PO DAILY MDD 200 30 Days Review of Systems General / Constitutional: No: Fever Eyes: No: Visual changes HENT: No: Headaches Cardiovascular: No: Chest Pain or Discomfort Respiratory: Positive: Shortness of Breath Gastrointestinal: No: Abdominal Pain Genitourinary: No: Dysuria Musculoskeletal: No: Pain Skin: No Rash Neurologic: No: Weakness Psychiatric: No: Depression Endocrine: No: Polydipsia Hematologic/Lymphatic: No: Easy Bruising Physical Exam Narrative GENERAL: Thin well-developed patient in no apparent distress. SKIN: Focused skin assessment reveals no rash and nodules. Skin is Warm and dry. HEAD: Atraumatic. Normocephalic. EYES: Pupils equal and round. No scleral icterus. No injection or drainage. ENT: No nasal bleeding or discharge. Mucous membranes pink and moist. NECK: Trachea midline. No JVD. CARDIOVASCULAR: Regular rate and rhythm. No murmur appreciated. RESPIRATORY: Slight accessory muscle use. Clear to auscultation. Breath sounds equal bilaterally. GASTROINTESTINAL: Abdomen soft, non-tender, nondistended. Hepatic and splenic margins not palpable. MUSCULOSKELETAL: No obvious deformities. No clubbing. No cyanosis. No pitting edema. NEUROLOGICAL: Awake and alert. No obvious cranial nerve deficits. Motor grossly within normal limits. Normal speech. PSYCHIATRIC: Appropriate mood and affect; insight and judgment normal. Data Data Last Documented VS Vital Signs Date Time Temp Pulse Resp B/P (MAP) Pulse Ox O2 Delivery O2 Flow Rate FiO2 12/12/17 12:00 75 16 130/84 (99) 95 Nasal Cannula 2.00 12/12/17 06:58 97.5 Orders Orders Complete Blood Count With Diff (12/12/17 07:54) Basic Metabolic Panel (Bmp) (12/12/17 07:54) Ckmb (Isoenzyme) Profile (12/12/17 07:54) Troponin I (12/12/17 07:54) Iv Access Insert/Monitor (12/12/17 07:54) Electrocardiogram (12/12/17 07:54) Ecg Monitoring (12/12/17 07:54) Oximetry (12/12/17 07:54) Chest, Single Ap (12/12/17 07:54) Sodium Chloride 0.9% Flush (Ns Flush) (12/12/17 08:00) Furosemide Inj (Lasix Inj) (12/12/17 11:45) Labs Laboratory Tests Test 12/12/17 08:00 White Blood Count 3.5 TH/MM3 Red Blood Count 3.75 MIL/MM3 Hemoglobin 11.7 GM/DL Hematocrit 35.4 % Mean Corpuscular Volume 94.4 FL Mean Corpuscular Hemoglobin 31.2 PG Mean Corpuscular Hemoglobin Concent 33.0 % Red Cell Distribution Width 16.8 % Platelet Count 161 TH/MM3 Mean Platelet Volume 10.2 FL Neutrophils (%) (Auto) 64.9 % Lymphocytes (%) (Auto) 21.1 % Monocytes (%) (Auto) 9.4 % Eosinophils (%) (Auto) 4.0 % Basophils (%) (Auto) 0.6 % Neutrophils # (Auto) 2.3 TH/MM3 Lymphocytes # (Auto) 0.7 TH/MM3 Monocytes # (Auto) 0.3 TH/MM3 Eosinophils # (Auto) 0.1 TH/MM3 Basophils # (Auto) 0.0 TH/MM3 CBC Comment AUTO DIFF Differential Comment AUTO DIFF CONFIRMED Platelet Estimate NORMAL Platelet Morphology Comment NORMAL Ovalocytes 1+ Acanthocytes OCC Blood Urea Nitrogen 31 MG/DL Creatinine 1.07 MG/DL Random Glucose 93 MG/DL Calcium Level 8.0 MG/DL Sodium Level 146 MEQ/L Potassium Level 4.5 MEQ/L Chloride Level 115 MEQ/L Carbon Dioxide Level 21.9 MEQ/L Anion Gap 9 MEQ/L Estimat Glomerular Filtration Rate 49 ML/MIN Total Creatine Kinase 64 U/L Troponin I 0.02 NG/ML MDM Medical Decision Making Medical Screen Exam Complete: Yes Emergency Medical Condition: Yes Medical Record Reviewed: Yes Differential Diagnosis Pulmonary edema, pneumonia, ACS Narrative Course I have reviewed the patient's electronic medical record. Reviewed her heart catheterization report as well as discharge summary from last month IV placed and labs sent I reviewed her EKG which shows sinus rhythm and no ST elevation I reviewed her chest X ray which shows a hint of pulmonary edema but mild She does have a bit of leg edema also mild She is on a diuretic and has from recent catheterization report cardiomyopathy She has had no chest symptoms in terms of tightness or pressure or heaviness to suggest ACS Cardiac enzymes are normal CBC and metabolic studies noted. Potassium is 4.5 She takes DAISHA inhibitor as well so I am going to give her low dose of Lasix for 1 week without potassium replacement Give her 40 mg IV Lasix here. She is diuresing a bit. Saturations are excellent on room air Stable for outpatient follow-up Diagnosis Primary Impression: Shortness of breath Additional Impression: Pulmonary edema Qualified Codes: J81.0 - Acute pulmonary edema Additional Instructions: The patient was advised to follow up with their physician and return if they worsen. Med/Other Pt SpecificInfo: Prescription(s) given Scripts Furosemide (Lasix) 20 Mg Tab 20 MG PO DAILY, #7 TAB 0 Refills Prov: Sreedhar Morris MD 12/12/17 Disposition: 01 DISCHARGE HOME Condition: Stable Sreedhar Morris MD Dec 12, 2017 08:01
[2017-12-12 08:06] VITALS: O2SAT 99
[2017-12-12 08:23] LABS: AUTOMATED NEUTROPHIL # 2.3 TH/MM3 (1.8-7.7); BASOPHIL % 0.6 % (0.0-2.0); EOSINOPHIL # 0.1 TH/MM3 (0-0.4); HEMATOCRIT 35.4 % (35.0-46.0); HEMOGLOBIN 11.7 GM/DL (11.6-15.3); LYMPH % 21.1 % (9.0-44.0); LYMPHOCYTE # 0.7 TH/MM3 (1.0-4.8); MEAN CELL VOLUME 94.4 FL (80.0-100.0); MEAN CORPUSCULAR HEMOGLOBIN 31.2 PG (27.0-34.0); MEAN PLATELET VOLUME 10.2 FL (7.0-11.0); MONO % 9.4 % (0.0-8.0); MONOCYTE # 0.3 TH/MM3 (0-0.9); NEUT % 64.9 % (16.0-70.0); PLATELET COUNT 161 TH/MM3 (150-450); RED BLOOD COUNT 3.75 MIL/MM3 (4.00-5.30); RED CELL DISTRIBUTION WIDTH 16.8 % (11.6-17.2); WHITE BLOOD COUNT 3.5 TH/MM3 (4.0-11.0)
--- NOTE | 2017-12-12 09:11 | RADRPT ---
EXAM DATE: 12/12/2017 8:29 AM EDT AGE/SEX: 82 years / Female INDICATIONS: Short of breath. CLINICAL DATA: This is the patient's initial encounter. Patient reports that signs and symptoms have been present for 3 days and indicates a pain score of 0/10. MEDICAL/SURGICAL HISTORY: . Cardiovascular disease. Hypertension. Anemia. CABG. COMPARISON: [facility] – [place], CHEST SINGLE AP, 11/09/2017. . FINDINGS: The patient is status post sternotomy. The heart size is normal. Increased density at the bases bilat erally being worse on the left. There is blunting of the left costophrenic angle. There is silhouetti ng of the left hemidiaphragm. There is some overall mild prominence of interstitium. CONCLUSION: Mild prominence of the interstitium likely related to pulmonary venous hypertension versus mild edema . Increased density at the bases bilaterally being worse at the left likely related to a combination of atelectasis and/or consolidation. Some degree of left effusion is likely present. Electronically signed by: Baljeet Todd MD 12/12/2017 9:10 AM EDT
[2017-12-12 09:20] LABS: ACANTHOCYTES OCC (NORMAL); OVALOCYTES 1+ (NORMAL)
[2017-12-12 10:00] VITALS: BP 128/80; PULSE 78; RESP 16; O2SAT 91
[2017-12-12 10:15] LABS: BICARBONATE 21.9 MEQ/L (21.0-32.0); CREATININE 1.07 MG/DL (0.50-1.00)
[2017-12-12 10:16] LABS: TROPONIN I 0.02 NG/ML (0.02-0.05)
[2017-12-12] MEDS ORDERED: FUROSEMIDE 40 MG/4 ML VIAL IV PUSH ONE (11:45)
[2017-12-12 12:00] VITALS: BP 130/84; PULSE 75; RESP 16; O2SAT 95
[2017-12-12] MEDS ORDERED: FURO1TAB62 PO (12:21)
--- NOTE | 2017-12-13 17:26 | EKG ---
Date Performed: 12/12/2017 Time Performed: 08:04:26 PTAGE: 82 years EKG: Normal Sinus rhythm Left axis deviation Nonspecific ST-T wave changes Compared to PREVIOUS TRACING , patient is no longer in atrial fibrillation. PREVIOUS TRACIN 018 22.48.30 DOCTOR: Camden Diego Interpretating Date/Time 12/13/2017 17:25:09
== END 2017-12-12 15:19 | disposition home or self-care (01) ==
LOC: NEPE 06:49
DX: J81.0 Acute pulmonary edema (principal); E78.00 Pure hypercholesterolemia, unspecified; I10 Essential (primary) hypertension
CPT/HCPCS: 71045; 80048; 82550; 84484; 85025; 93005; 96374; 99285; J1940

== ENCOUNTER 2018-02-02 11:04 | Inpatient (IN) ==
--- NOTE | 2018-02-02 11:41 | XR ---
EXAM DATE: 02/02/2018 11:38 AM EDT AGE/SEX: 82 years / Female INDICATIONS: Shortness of breath. CLINICAL DATA: This is the patient's initial encounter. Patient reports that signs and symptoms have been present for 1 day and indicates a pain score of 0/10. MEDICAL/SURGICAL HISTORY: . Cardiovascular disease. Hypertension. Anemia CABG. COMPARISON: [facility] – [place], CHEST SINGLE AP, 12/12/2017. . FINDINGS: A single AP view of the chest demonstrates the lungs to be symmetrically aerated without evidence of mass, infiltrate or effusion. Sternal wires previous bypass are noted. The cardiomediastinal contours are unremarkable. Osseous structures are intact. CONCLUSION: Negative for an acute process Electronically signed by: Uriel Guzman MD 02/02/2018 11:40 AM EDT
[2018-02-02] MEDS ORDERED: Vancomycin Inj 1,000 MG in Sodium Chlor 0.9% Inj 250 ML IV.SIG ONE (11:48)
[2018-02-02] MEDS ORDERED: Piperacil/Tazo 3.375 GM Premix 50 ML IV.SIG ONE (11:48)
--- NOTE | 2018-02-02 11:48 | ED ---
HPI General Chief complaint: Shortness of Breath/Dyspnea Stated complaint: sent by Physician/irr heart beat Time Seen by Provider: 02/02/18 11:19 History of Present Illness HPI narrative: Patient presents to the emergency department with a 2 day history of shortness of breath. Patient was at a routine cardiology appointment today and was sent down from the cardiology clinic secondary to dyspnea hypoxia. Had one episode of vomiting today, but denies chest pain, recent travel, lower extremity edema, abdominal pain, diarrhea, fever or chills. states the patient has had a slight cough over the past couple of days. Patient is a full code. Related Data Home Medications Medication Instructions Recorded Confirmed amiodarone 200 mg PO DAILY 02/02/18 02/02/18 carvedilol [Coreg] 6.25 mg PO BID 02/02/18 02/02/18 furosemide [Lasix] 20 mg PO DAILY 02/02/18 02/02/18 hydrochlorothiazide 12.5 mg PO DAILY 02/02/18 02/02/18 levothyroxine 50 mcg PO DAILY 02/02/18 02/02/18 lisinopril 5 mg PO DAILY 02/02/18 02/02/18 potassium chloride [Klor-Con 10] 10 meq PO BID 02/02/18 02/02/18 prasugrel 5 mg PO DAILY 02/02/18 02/02/18 pravastatin 20 mg PO BID 02/02/18 02/02/18 trazodone 50 mg PO DAILY 02/02/18 02/02/18 Allergies Allergy/AdvReac Type Severity Reaction Status Date / Time No Known Allergies Allergy Unverified 12/12/17 07:04 Review of Systems ROS: all other systems reviewed are negative [facility] Social History Social History Second Hand Smoke Exposure: Yes Smoking Status: Former smoker How Often Do You Have a Drink Containing Alcohol: Never Recent Travel in [facility] within the Last 8 Weeks: No Recent Out of Country Travel within the Last 8 Weeks: No Immunization History Tetanus Immunization: <5 Years Exam Narrative Exam Narrative: GENERAL: Respiratory distress SKIN: Focused skin assessment warm/dry. HEAD: Atraumatic. Normocephalic. EYES: Pupils equal and round. No scleral icterus. No injection or drainage. ENT: No nasal bleeding or discharge. Mucous membranes pink and moist. NECK: Trachea midline. No JVD. CARDIOVASCULAR: Regular rate and rhythm. No murmur appreciated. RESPIRATORY: Tachypnea. Clear to auscultation. Breath sounds equal bilaterally. GASTROINTESTINAL: Abdomen soft, non-tender, nondistended. Hepatic and splenic margins not palpable. MUSCULOSKELETAL: No obvious deformities. No clubbing. No cyanosis. No edema. NEUROLOGICAL: Awake and alert. No obvious cranial nerve deficits. Motor grossly within normal limits. Normal speech. PSYCHIATRIC: Appropriate mood and affect; insight and judgment normal. Course Initial Documented Vital Signs Temperature 96.8 F L 02/02/18 11:15 Pulse Rate 79 02/02/18 11:15 Respiratory Rate 20 02/02/18 11:15 Blood Pressure 102/66 02/02/18 11:15 Pulse Oximetry 94 L 02/02/18 11:15 Last Documented Vital Signs Temperature 98.3 F 02/02/18 16:00 Pulse Rate 72 02/02/18 16:00 Respiratory Rate 18 02/02/18 16:00 Blood Pressure 111/57 L 02/02/18 16:00 Pulse Oximetry 98 02/02/18 16:00 Critical Care Time Critical Care Time: Yes Total Critical Care Time: 35 Attestation: Aggregate critical care time was 35 minutes. Time to perform other separately billable procedures was not included in the critical care time. My time did not include minutes spent treating any other patients simultaneously or on activities that did not directly contribute to the patient's treatment. The services I provided to this patient were to treat and/or prevent clinically significant deterioration that could result in: , cardiac arrest, increased morbidity, respiratory failure I provided critical care services requiring my management, as noted below: Chart data review, documentation time, medication orders and management, vital sign assessments/reviewing monitor data, ordering and reviewing lab tests, ordering and interpreting/reviewing x-rays and diagnostic studies, care of the patient and discussion of the patient with the admitting physicians. Medical Decision Making MDM Narrative Medical decision making narrative: Patient presents to the emergency department with respiratory distress. Patient's room air O2 sat was reportedly in the 60s in triage. Patient placed on a dairy department manager, continuous pulse ox, and IV access was obtained. Respiratory was called immediately to place patient on BiPAP and her sats increased to 96-100% on 100 FiO2. Labs, EKG, chest x-ray and ABG ordered. While on BiPAP patient had an episode of vomiting was given 4 mg IV Zofran. Per nursing staff emesis was purplish in color, which patient attributed to taking Pepto. patient given 1gram IV vancomycin and 3.375g IV zosyn for possible sepsis. Labs: Increase BUN, Creatinine, lactate; cbc-decrease wbc, PLT; abg-Increased pH , decreased CO2, increased O2 CXR-No acute process 1320: ECHO at bedside. Repeat ECG done as first one was poor quality-> SR, rate 80, QTc 498, left axis, STD II, III, avF, V4-V6, TWI in I, avL 1326: Dr Abrams consulted, aware of patient; doesn't think it's ACS, believe she's dehydrated 2/2 stating she has had decrease po intake. Will come evaluate patient. 1400: Admitted to ICU, Dr Ramirez at bedside. CTA chest: CONCLUSION:1. Eccentric focal filling defect in an isolated left lower lobe proximal subsegmental pulmonary artery branch, this is most consistent with a subacute to chronic etiology.2. Mild positive fluid balance.3. Moderate coronary artery calcifications.4. Severe T8 compression fracture of unknown chronicity given lack of recent prior exams. Differential Diagnosis Differential Diagnosis: ACS, CHF, sepsis, pneumonia, pulmonary edema, pleural effusion, PE Lab Data Result diagrams: 02/02/18 11:23 02/02/18 11:23 Lab Results 02/02/18 02/02/18 02/02/18 Range/Units 11:23 11:23 11:23 WBC 3.4 L (4.0-11.0) th/mm3 RBC 4.21 (4.00-5.30) mil/mm3 Hgb 12.7 (11.6-15.3) gm/dL Hct 38.5 (35.0-46.0) % MCV 91.5 (80.0-100.0) fL MCH 30.2 (27.0-34.0) pg MCHC 33.0 (32.0-36.0) % RDW 15.4 (11.6-17.2) % Plt Count 148 L (150-450) th/mm3 MPV 8.9 (7.0-11.0) fL Neut % (Auto) 57.7 (16.0-70.0) % Lymph % (Auto) 28.5 (9.0-44.0) % [place] % (Auto) 12.5 H (0.0-8.0) % Eos % (Auto) 0.6 (0.0-4.0) % Baso % (Auto) 0.7 (0.0-2.0) % Neut # (Auto) 1.9 (1.8-7.7) th/mm3 Lymph # (Auto) 1.0 (1.0-4.8) th/mm3 [place] # (Auto) 0.4 (0.0-0.9) th/mm3 Eos # (Auto) 0.0 (0.0-0.4) th/mm3 Baso # (Auto) 0.0 (0.0-0.2) th/mm3 WBC Differential . Differential Comment Auto diff final PT 9.9 (9.8-11.6) sec INR 1.0 Ratio APTT 23.8 L (24.3-30.1) sec D-Dimer Quant (PE/DVT) 7.05 H (0.00-0.50) mg/L FEU Puncture Site Patient Temperature O2 Saturation (90-100) % ABG pH (7.380-7.420) ABG pCO2 (38-42) mmHg ABG pO2 (61-120) mmHg ABG HCO3 (22-26) mmol/L ABG O2 Content (12.0-20.0) Vol % ABG Base Excess (-2-2) mmol/L ABG Methemoglobin (0-2) % Mukund Test Hemoglobin (12.0-16.0) G/DL Carboxyhemoglobin (0-4) % O2 Delivery Device Liter Flow L/M Inspired O2 % Critical Value Sodium 138 (136-145) meq/L Potassium 3.8 (3.5-5.1) meq/L Chloride 104 (98-107) meq/L Carbon Dioxide 24.0 (21.0-32.0) meq/L Anion Gap 10 (5-15) meq/L BUN 29 H (7-18) mg/dL Creatinine 1.50 H (0.50-1.00) mg/dL Estimated GFR 33 L (>89) mL/min POC Glucose (68-110) mg/dl Random Glucose 117 H (74-106) mg/dL Lactic Acid (0.4-2.0) mmol/L Calcium 8.8 (8.5-10.1) mg/dL Magnesium 2.1 (1.5-2.5) mg/dL Total Bilirubin 0.5 (0.2-1.0) mg/dL AST 23 (15-37) U/L ALT 14 (10-53) U/L Alkaline Phosphatase 73 (45-117) U/L Total Creatine Kinase 33 (26-192) U/L Troponin I 0.04 (0.02-0.05) ng/mL B-Natriuretic Peptide (0-100) pg/mL Total Protein 7.2 (6.4-8.2) g/dL Albumin 3.5 (3.4-5.0) g/dL TSH (0.358-3.740) uIU/mL 02/02/18 02/02/18 02/02/18 Range/Units 11:23 11:30 12:07 WBC (4.0-11.0) th/mm3 RBC (4.00-5.30) mil/mm3 Hgb (11.6-15.3) gm/dL Hct (35.0-46.0) % MCV (80.0-100.0) fL MCH (27.0-34.0) pg MCHC (32.0-36.0) % RDW (11.6-17.2) % Plt Count (150-450) th/mm3 MPV (7.0-11.0) fL Neut % (Auto) (16.0-70.0) % Lymph % (Auto) (9.0-44.0) % [place] % (Auto) (0.0-8.0) % Eos % (Auto) (0.0-4.0) % Baso % (Auto) (0.0-2.0) % Neut # (Auto) (1.8-7.7) th/mm3 Lymph # (Auto) (1.0-4.8) th/mm3 [place] # (Auto) (0.0-0.9) th/mm3 Eos # (Auto) (0.0-0.4) th/mm3 Baso # (Auto) (0.0-0.2) th/mm3 WBC Differential Differential Comment PT (9.8-11.6) sec INR Ratio APTT (24.3-30.1) sec D-Dimer Quant (PE/DVT) (0.00-0.50) mg/L FEU Puncture Site Left brachial Patient Temperature 98.6 O2 Saturation 99 (90-100) % ABG pH 7.81 H* (7.380-7.420) ABG pCO2 11 L* (38-42) mmHg ABG pO2 262 H (61-120) mmHg ABG HCO3 18 L (22-26) mmol/L ABG O2 Content 17.2 (12.0-20.0) Vol % ABG Base Excess -1.3 (-2-2) mmol/L ABG Methemoglobin 0.4 (0-2) % Mukund Test Hemoglobin 12.0 (12.0-16.0) G/DL Carboxyhemoglobin 1.2 (0-4) % O2 Delivery Device Non rebreather mask Liter Flow 15.00 L/M Inspired O2 100 % Critical Value Yes Sodium (136-145) meq/L Potassium (3.5-5.1) meq/L Chloride (98-107) meq/L Carbon Dioxide (21.0-32.0) meq/L Anion Gap (5-15) meq/L BUN (7-18) mg/dL Creatinine (0.50-1.00) mg/dL Estimated GFR (>89) mL/min POC Glucose (68-110) mg/dl Random Glucose (74-106) mg/dL Lactic Acid 3.2 H (0.4-2.0) mmol/L Calcium (8.5-10.1) mg/dL Magnesium (1.5-2.5) mg/dL Total Bilirubin (0.2-1.0) mg/dL AST (15-37) U/L ALT (10-53) U/L Alkaline Phosphatase (45-117) U/L Total Creatine Kinase (26-192) U/L Troponin I (0.02-0.05) ng/mL B-Natriuretic Peptide 443 H (0-100) pg/mL Total Protein (6.4-8.2) g/dL Albumin (3.4-5.0) g/dL TSH (0.358-3.740) uIU/mL 02/02/18 02/02/18 02/02/18 Range/Units 15:48 16:21 16:21 WBC (4.0-11.0) th/mm3 RBC (4.00-5.30) mil/mm3 Hgb (11.6-15.3) gm/dL Hct (35.0-46.0) % MCV (80.0-100.0) fL MCH (27.0-34.0) pg MCHC (32.0-36.0) % RDW (11.6-17.2) % Plt Count (150-450) th/mm3 MPV (7.0-11.0) fL Neut % (Auto) (16.0-70.0) % Lymph % (Auto) (9.0-44.0) % [place] % (Auto) (0.0-8.0) % Eos % (Auto) (0.0-4.0) % Baso % (Auto) (0.0-2.0) % Neut # (Auto) (1.8-7.7) th/mm3 Lymph # (Auto) (1.0-4.8) th/mm3 [place] # (Auto) (0.0-0.9) th/mm3 Eos # (Auto) (0.0-0.4) th/mm3 Baso # (Auto) (0.0-0.2) th/mm3 WBC Differential Differential Comment PT (9.8-11.6) sec INR Ratio APTT (24.3-30.1) sec D-Dimer Quant (PE/DVT) (0.00-0.50) mg/L FEU Puncture Site Left brachial Patient Temperature 98.6 O2 Saturation 97 (90-100) % ABG pH 7.63 H* (7.380-7.420) ABG pCO2 19 L* (38-42) mmHg ABG pO2 154 H (61-120) mmHg ABG HCO3 20 L (22-26) mmol/L ABG O2 Content 14.3 (12.0-20.0) Vol % ABG Base Excess -1.5 (-2-2) mmol/L ABG Methemoglobin 1.3 (0-2) % Mukund Test Present Hemoglobin 10.2 L (12.0-16.0) G/DL Carboxyhemoglobin 0.9 (0-4) % O2 Delivery Device Nasal cannula Liter Flow 2.00 L/M Inspired O2 28 % Critical Value Yes Sodium (136-145) meq/L Potassium (3.5-5.1) meq/L Chloride (98-107) meq/L Carbon Dioxide (21.0-32.0) meq/L Anion Gap (5-15) meq/L BUN (7-18) mg/dL Creatinine (0.50-1.00) mg/dL Estimated GFR (>89) mL/min POC Glucose (68-110) mg/dl Random Glucose (74-106) mg/dL Lactic Acid 2.6 H (0.4-2.0) mmol/L Calcium (8.5-10.1) mg/dL Magnesium (1.5-2.5) mg/dL Total Bilirubin (0.2-1.0) mg/dL AST (15-37) U/L ALT (10-53) U/L Alkaline Phosphatase (45-117) U/L Total Creatine Kinase (26-192) U/L Troponin I (0.02-0.05) ng/mL B-Natriuretic Peptide (0-100) pg/mL Total Protein (6.4-8.2) g/dL Albumin (3.4-5.0) g/dL TSH 3.090 (0.358-3.740) uIU/mL 02/02/18 Range/Units 17:11 WBC (4.0-11.0) th/mm3 RBC (4.00-5.30) mil/mm3 Hgb (11.6-15.3) gm/dL Hct (35.0-46.0) % MCV (80.0-100.0) fL MCH (27.0-34.0) pg MCHC (32.0-36.0) % RDW (11.6-17.2) % Plt Count (150-450) th/mm3 MPV (7.0-11.0) fL Neut % (Auto) (16.0-70.0) % Lymph % (Auto) (9.0-44.0) % [place] % (Auto) (0.0-8.0) % Eos % (Auto) (0.0-4.0) % Baso % (Auto) (0.0-2.0) % Neut # (Auto) (1.8-7.7) th/mm3 Lymph # (Auto) (1.0-4.8) th/mm3 [place] # (Auto) (0.0-0.9) th/mm3 Eos # (Auto) (0.0-0.4) th/mm3 Baso # (Auto) (0.0-0.2) th/mm3 WBC Differential Differential Comment PT (9.8-11.6) sec INR Ratio APTT (24.3-30.1) sec D-Dimer Quant (PE/DVT) (0.00-0.50) mg/L FEU Puncture Site Patient Temperature O2 Saturation (90-100) % ABG pH (7.380-7.420) ABG pCO2 (38-42) mmHg ABG pO2 (61-120) mmHg ABG HCO3 (22-26) mmol/L ABG O2 Content (12.0-20.0) Vol % ABG Base Excess (-2-2) mmol/L ABG Methemoglobin (0-2) % Mukund Test Hemoglobin (12.0-16.0) G/DL Carboxyhemoglobin (0-4) % O2 Delivery Device Liter Flow L/M Inspired O2 % Critical Value Sodium (136-145) meq/L Potassium (3.5-5.1) meq/L Chloride (98-107) meq/L Carbon Dioxide (21.0-32.0) meq/L Anion Gap (5-15) meq/L BUN (7-18) mg/dL Creatinine (0.50-1.00) mg/dL Estimated GFR (>89) mL/min POC Glucose 90 (68-110) mg/dl Random Glucose (74-106) mg/dL Lactic Acid (0.4-2.0) mmol/L Calcium (8.5-10.1) mg/dL Magnesium (1.5-2.5) mg/dL Total Bilirubin (0.2-1.0) mg/dL AST (15-37) U/L ALT (10-53) U/L Alkaline Phosphatase (45-117) U/L Total Creatine Kinase (26-192) U/L Troponin I (0.02-0.05) ng/mL B-Natriuretic Peptide (0-100) pg/mL Total Protein (6.4-8.2) g/dL Albumin (3.4-5.0) g/dL TSH (0.358-3.740) uIU/mL Imaging Data Radiologist's impression: Venous Doppler Study 02/02/18 00:00 CONCLUSION: Negative exam. No sonographic or Doppler findings of deep venous thrombosis Chest X-Ray 02/02/18 11:19 CONCLUSION: Negative for an acute process Chest CTA 02/02/18 13:38 CONCLUSION: 1. Eccentric focal filling defect in an isolated left lower lobe proximal subsegmental pulmonary artery branch, this is most consistent with a subacute to chronic etiology. 2. Mild positive fluid balance. 3. Moderate coronary artery calcifications. 4. Severe T8 compression fracture of unknown chronicity given lack of recent prior exams. ECG Data Attestation: I personally reviewed and interpreted this ECG as follows: (poor quality ecg-Sinus rhythm, rate 79, indeterminate axis, biphasic T in V3, Q-wave in lead aVL, T-wave inversion in lead V2 through V6) Discharge Plan Discharge Disposition Patient Disposition: 30 Still Patient Discharge Condition Condition: Critical Discharge Details Diagnosis: Acute respiratory distress Physicians Team ED Provider: Naya Ortiz Primary Care Provider: Diomedes Hall Attending Provider: Ap Chun Other Providers: Eliel Abrams Status ED Status: Left Department Discharge Information Discharge Date/Time: 02/02/18 15:17
[2018-02-02 12:00] LABS: Baso % (Auto) 0.7 % (0.0-2.0); Eos % (Auto) 0.6 % (0.0-4.0); Hematocrit 38.5 % (35.0-46.0); Hemoglobin 12.7 gm/dL (11.6-15.3); Lymph % (Auto) 28.5 % (9.0-44.0); Mean Corpuscular Hemoglobin 30.2 pg (27.0-34.0); Mean Corpuscular Volume 91.5 fL (80.0-100.0); Mean Platelet Volume 8.9 fL (7.0-11.0); Mono # (Auto) 0.4 th/mm3 (0.0-0.9); Mono % (Auto) 12.5 % (0.0-8.0); Neut # (Auto) 1.9 th/mm3 (1.8-7.7); Neut % (Auto) 57.7 % (16.0-70.0); Platelet Count 148 th/mm3 (150-450); Red Blood Count 4.21 mil/mm3 (4.00-5.30); Red Cell Distribution Width 15.4 % (11.6-17.2); White Blood Count 3.4 th/mm3 (4.0-11.0)
[2018-02-02 12:18] LABS: Alanine Aminotransferase 14 U/L (10-53); Albumin 3.5 g/dL (3.4-5.0); Anion Gap 10 meq/L (5-15); Aspartate Aminotransferase 23 U/L (15-37); Blood Urea Nitrogen 29 mg/dL (7-18); Calcium 8.8 mg/dL (8.5-10.1); Chloride 104 meq/L (98-107); Glomerular Filtration Rate 33 mL/min (>89); Glucose,Random 117 mg/dL (74-106); Magnesium 2.1 mg/dL (1.5-2.5); Potassium 3.8 meq/L (3.5-5.1); Sodium 138 meq/L (136-145)
[2018-02-02 12:21] LABS: Activated Partial Thrombo Time 23.8 sec (24.3-30.1); Prothrombin Time 9.9 sec (9.8-11.6)
[2018-02-02 12:22] LABS: Alkaline Phosphatase 73 U/L (45-117); Total Protein 7.2 g/dL (6.4-8.2); Troponin I 0.04 ng/mL (0.02-0.05)
[2018-02-02 12:24] LABS: ABG Base Excess -1.3 mmol/L (-2-2); ABG PCO2 11 mmHg (38-42); ABG PO2 262 mmHg (61-120)
[2018-02-02 12:28] LABS: D-Dimer 7.05 mg/L FEU (0.00-0.50)
[2018-02-02 12:33] LABS: Creatine Kinase 33 U/L (26-192)
[2018-02-02] MEDS ORDERED: Sodium Chlor 0.9% Inj 250 ML IV.SIG ONE (12:55)
[2018-02-02] MEDS ORDERED: Sod Chloride 0.9% Inj 1,000 ML IV.SIG ONE (13:37)
[2018-02-02] MEDS ORDERED: Bisacodyl 10 MG Supp RECTAL PRN (13:48)
[2018-02-02] MEDS ORDERED: Dextrose 50% in Water 50 ML Vial IV.PUSH PRN (13:52)
--- NOTE | 2018-02-02 14:40 | ECHRPT ---
Indication: SOB CONCLUSIONS The left ventricular systolic function is mildly reduced with an estimated ejection fraction in the range of 45- 50%. Distal anteroseptal akinesis, otherwise no wall motion abnormalities Moderate mitral valve regurgitation. Mild aortic valve regurgitation. Mild elevation of aortic valve gradients, probable close to normal range for bioprosthetic. There is mild to moderate tricuspid valve regurgitation. BP: / HR: Rhythm: Sinus MEASUREMENTS (Male / Female) Normal Values Technical Quality:Fair 2D ECHO LV Diastolic Diameter PLAX 5.9 cm 4.2 - 5.9 / 3.9 - 5.3 cm LV Systolic Diameter PLAX 4.4 cm IVS Diastolic Thickness 0.7 cm 0.6 - 1.0 / 0.6 - 0.9 cm LVPW Diastolic Thickness 0.6 cm 0.6 - 1.0 / 0.6 - 0.9 cm LV Relative Wall Thickness 0.2 RV Internal Dim ED PLAX 2.3 cm LVOT Diameter 2.0 cm Aortic Root Diameter 3.2 cm LA Systolic Diameter LX 3.7 cm 3.0 - 4.0 / 2.7 - 3.8 cm DOPPLER AV Peak Velocity 261.0 cm/s AV Peak Gradient 27.2 mmHg AV Mean Gradient 15.0 mmHg AV Velocity Time Integral 58.0 cm AI Peak Velocity 262.0 cm/s AI Peak Gradient 27.5 mmHg AI Pressure Half Time 241.0 ms LVOT Peak Velocity 55.6 cm/s LVOT Peak Gradient 1.2 mmHg LVOT Velocity Time Integral 11.6 cm AV Area Cont Eq vti 0.6 cm AV Area Cont Eq pk 0.7 cm Mitral E Point Velocity 97.7 cm/s LV E' Lateral Velocity 4.2 cm/s Mitral E to LV E' Lateral Ratio 23.3 LV E' Septal Velocity 3.0 cm/s Mitral E to LV E' Septal Ratio 32.1 TR Peak Velocity 340.7 cm/s TR Peak Gradient 46.4 mmHg Right Atrial Pressure 10.0 mmHg Pulmonary Artery Systolic Pressu 56.4 mmHg Right Ventricular Systolic Press 56.4 mmHg PV Peak Velocity 46.6 cm/s PV Peak Gradient 0.9 mmHg FINDINGS LEFT VENTRICLE Normal left ventricular size. Wall thickness is normal. The left ventricular systolic function is mildly reduced with an estimated ejection fraction in the range of 45- 50%. Distal anteroseptal akinesis, otherwise no wall motion abnormalities RIGHT VENTRICLE Gross normal right ventricular size and systolic function. LEFT ATRIUM The left atrial size is [id number] dilated. RIGHT ATRIUM The right atrial size is mildly dilated. ATRIAL SEPTUM No atrial level shunt is demonstrated by color flow Doppler interrogation. AORTA The aortic root and proximal ascending aorta are normal in size on limited imaging. MITRAL VALVE Structurally normal mitral valve. Moderate mitral valve regurgitation. No mitral valve stenosis. AORTIC VALVE Aortic valve bioprosthesis not well visualized Mild aortic valve regurgitation. Mild elevation of gradients, probable close to normal range for bioprosthetic. TRICUSPID VALVE Grossly normal There is mild to moderate tricuspid valve regurgitation. The estimated pulmonary arterial pressure is 56.4 mmHg. PULMONARY VALVE No pulmonary valve regurgitation or stenosis. VESSELS The inferior vena cava is normal in size. PERICARDIUM No pericardial effusion. Brian Spence DO (Electronically Signed) Final Date:02 February 2018 14:39
--- NOTE | 2018-02-02 14:44 | CT ---
EXAM DATE: 02/02/2018 2:25 PM EDT AGE/SEX: 82 years / Female INDICATIONS: Shortness of breath. CLINICAL DATA: This is the patient's initial encounter. Patient reports that signs and symptoms have been present for 1 day and indicates a pain score of 0/10. MEDICAL/SURGICAL HISTORY: Cardiovascular disease. None. RADIATION DOSE: 5.73 CTDI (mGy) COMPARISON: POI, CTA CHEST, 02/02/2015. . TECHNIQUE: Volumetric scanning was performed using a multi-row detector CT scanner during bolus infu laila of 50 ml Visipaque 320 (iodixanol) nonionic water-soluble contrast as a single exam dose. The d kyler was post processed with a variety of visualization algorithms including full volume maximum inten sity projection and sliding thin slab reformation. Using automated exposure control and adjustment o f the mA and/or kV according to patient size, radiation dose was kept as low as reasonably achievable to obtain optimal diagnostic quality images. DICOM format image data is available electronically fo r review and comparison. FINDINGS: Pulmonary Arteries: There is an eccentric focal filling defect in an isolated left lower lobe proxim al subsegmental pulmonary artery branch. Remaining pulmonary artery branches are patent. Main pulmona ry artery is normal in caliber. Lung: Mild intralobular septal thickening particularly at the lung bases. Minimal groundglass opacit ies at the lung bases. Mild focal airspace consolidation in the medial left lung base. Pleura: Trace right-sided pleural effusion. Mediastinum: Moderate coronary artery calcifications. Heart is otherwise unremarkable. Subcentimeter right hilar lymph nodes and mediastinal lymph nodes. Osseous Structures: Severe T8 compression fracture of unknown chronicity given lack of recent prior e xams. Other: Small hiatal hernia in the upper abdomen. Some cortical scarring in the visualized left kidne y. CONCLUSION: 1. Eccentric focal filling defect in an isolated left lower lobe proximal subsegmental pulmonary art suzanne branch, this is most consistent with a subacute to chronic etiology. 2. Mild positive fluid balance. 3. Moderate coronary artery calcifications. 4. Severe T8 compression fracture of unknown chronicity given lack of recent prior exams. Electronically signed by: Johnathan Brooks MD 02/02/2018 2:42 PM EDT
--- NOTE | 2018-02-02 15:29 | ECG ---
Date Performed: 02/02/2018 Time Performed: 13:16:40 PTAGE: 82 years EKG: Sinus rhythm LEFT ANTERIOR FASCICULAR BLOCK LATERAL MYOCARDIAL INFARCTION ST DEPRESSION, CONSIDER SUBENDOCARDIAL INJURY ABNORMAL ECG Compared to prior electrocardiogram, ST T-wave changes are more marked. PREVIOUS TRACING : 12/12/2017 08.04 DOCTOR: Vidal Augustin Interpretating Date/Time 02/02/2018 15:28:13
--- NOTE | 2018-02-02 15:32 | US ---
EXAM DATE: 02/02/2018 3:14 PM EDT AGE/SEX: 82 years / Female INDICATIONS: Bilateral leg swelling. CLINICAL DATA: This is the patient's initial encounter. Patient reports that signs and symptoms have been present for 4 - 6 days and indicates a pain score of 2/10. MEDICAL/SURGICAL HISTORY: . Bilateral leg swelling. None. COMPARISON: No prior exams available for comparison. TECHNIQUE: Venous ultrasound of both lower extremities was performed from the inguinal ligament to t he proximal calf. Real-time, color Doppler and spectral tracing, compression and augmentation techni ques were used. FINDINGS: Right Leg: Normal compression of the deep venous system from the inguinal region to the proximal denise f. No echogenic clot is seen. Normal response of the venous system to augmentation and respiration. Left Leg: Normal compression of the deep venous system from the inguinal region to the proximal calf . No echogenic clot is seen. Normal response of the venous system to augmentation and respiration. Other: None. CONCLUSION: Negative exam. No sonographic or Doppler findings of deep venous thrombosis Electronically signed by: Dwian Babb MD 02/02/2018 3:31 PM EDT
[2018-02-02 16:07] LABS: ABG Base Excess -1.5 mmol/L (-2-2); ABG PCO2 19 mmHg (38-42); ABG PO2 154 mmHG (61-120)
--- NOTE | 2018-02-02 16:13 | MH ---
cc: Ap Chun MD DATE OF ADMISSION: 02/02/2018 HISTORY OF PRESENT ILLNESS: The patient is an 82-year-old female with a past medical history of aortic valve replacement, coronary artery disease, and hypertension, who was seen in cardiology clinic by Dr. Abrams today for a followup, and the patient became short of breath and had one episode of emesis. She denied any chest pain, orthopnea, PND, or edema of lower extremities. In addition, she denies any nausea, vomiting, or abdominal pain. She was sent to the ER for further evaluation and management of her symptoms. On arrival, she was hypotensive with a systolic blood pressure in the 80s, and her laboratory data significant for mild acute kidney injury with creatinine level 1.50, lactic acidosis with lactic acid level 3.2 and elevated BNP 443. The patient had an ABG done on a nonrebreather mask, which showed a pH of 7.81, CO2 of 11, PaO2 of 262, bicarbonate 18, saturations 99%. The patient was initially placed on BiPAP with improvement of her oxygenation, and she was weaned off BiPAP and placed on a nasal cannula with a saturation of 96% on 2 liters oxygen. A chest x-ray in the ED showed no acute disease. She also had an elevated D-dimer at 7.05. She underwent a CT angiogram of the chest, which showed eccentric focal-filling defect and isolated left lower lobe proximal subsegmental pulmonary artery branch consistent with subacute chronic etiology, moderate coronary artery calcifications, and severe T8 compression fracture with unknown chronicity. In the ED, she was given 1 liter bolus of normal saline, vancomycin, and Zosyn. Also, echocardiogram was performed, which showed an EF of 45% to 50%, moderate mitral valve regurgitation, mild to moderate tricuspid regurgitation, and a bioprosthetic valve. PAST MEDICAL HISTORY: Significant for coronary artery disease, hypertension, aortic valve replacement. PAST SURGICAL HISTORY: Previous cardiac catheterization, previous aortic valve replacement. ALLERGIES: NO KNOWN DRUG ALLERGIES. SOCIAL HISTORY: Nonsmoker, nondrinker. FAMILY HISTORY: Noncontributory to present illness. HOME MEDICATIONS: 1. Pravastatin. 2. Lisinopril. 3. Amiodarone. 4. Hydrochlorothiazide. 5. Coreg. 6. Lasix. 7. Potassium chloride. 8. Levothyroxine. 9. Prasugrel. REVIEW OF SYSTEMS: As per HPI. Rest of review of systems limited, as the patient is a poor historian. PHYSICAL EXAMINATION: GENERAL: An 82-year-old female lying in bed, in mild distress, with borderline low blood pressure. VITAL SIGNS: Temperature 96.8, pulse of 73, respiratory rate of 17, blood pressure 96/58, saturation 98-100% on 2 liters oxygen. HEENT: Atraumatic, normocephalic. Pupils are equal, round, reactive to light and accommodation. Extraocular muscles intact. Conjunctivae pink. Nonicteric sclerae. Oral mucosa within normal. NECK: Supple. No JVD. No thyromegaly. Trachea midline. CARDIOVASCULAR: Regular rate and rhythm. Normal S1, S2. No murmurs, rubs, or gallops noted. PULMONARY: Bilateral equal air entry. No rales or wheezing. ABDOMEN: Soft, nontender. No distention. Positive bowel sounds. EXTREMITIES: No cyanosis, clubbing, or edema. NEUROLOGIC: No focal sensory deficits. LABORATORY DATA: Sodium 138, potassium 3.8, chloride 104, CO2 of 24, BUN 29, creatinine 1.50, glucose 117. Lactic acid 3.2. LFTs within normal. Troponin 0.04. BNP 443. WBC 3.4, hemoglobin 12.7, hematocrit 38, platelet count 148,000. INR 1, PT 9.9, PTT 23.8. D-dimer 7.05. RADIOGRAPHIC STUDIES: A chest x-ray shows no acute disease. CT angiogram of the chest showed a concentric focal-filling defect in isolated left lower lobe proximal subsegmental pulmonary artery branch consistent with subacute chronic etiology, moderate coronary calcifications, severe T8 compression fracture. Echo showed EF of 45-50%, bioprosthetic aortic valve, mild to moderate TR, and moderate MR. ASSESSMENT: 1. Acute hypoxemic respiratory failure. 2. Status post aortic valve replacement. 3. History of coronary artery disease. 4. Hypertension. 5. Hypothyroidism. 6. Mild acute kidney injury. RECOMMENDATIONS: 1. Monitor neuro status closely and avoid any sedatives. 2. Continue with oxygen and maintain sats above 92%. 3. Bronchodilators in the form of DuoNeb q.4 plus q.2 p.r.n. for shortness of breath. 4. CTA of the chest reviewed. 5. Monitor heart rate and blood pressure closely, and maintain MAP greater than 65 mmHg. 6. Serial lactic acid. Monitor until clear. Consult Dr. Abrams. The patient is known to him. Hold antihypertensive medications for now. The patient is on lisinopril, amiodarone, hydrochlorothiazide, Coreg, and Lasix at home. Continue with Prasugrel 5 mg daily. 7. Echocardiogram showed an EF of 45%-50% bioprosthetic aortic valve. She was given 1 liter bolus of normal saline. We will place on an NSAID 75 mL an hour. 8. Start a p.o. cardiac diet. 9. Monitor renal function, I's and O's and electrolyte replacement per protocol. IV fluids as stated above. 10. The patient was given vancomycin and Zosyn in the ED. We will hold on any further antibiotics, as there are no signs of an infectious process. We will check urinalysis with culture, if indicated, and sputum culture. Followup on blood cultures. 11. Place on Protonix 40 mg for gastrointestinal prophylaxis. 12. Place on sliding scale insulin with Accu-Cheks for glycemic control. We will obtain a baseline TSH level in the presence of history of hypothyroidism. She is on Synthroid 50 mcg daily at home. 13. Monitor CBC and coags. 14. I will obtain Doppler ultrasound of lower extremity to rule out deep venous thrombosis. 15. Gastrointestinal prophylaxis with Pepcid and DVT prophylaxis with sequential compression devices and heparin subcutaneous. 16. Further recommendations will be based on hospital course. MD GILBERTO Glasgow/vinay , 02:59 PM , 03:14 PM
[2018-02-02] MEDS: Insulin NovoLIN Regular Correctional Sugar Inj SQ SCH (17:12)
[2018-02-02 21:16] LABS: ABG Base Excess -1.2 mmol/L (-2-2); ABG PCO2 31 mmHg (38-42); ABG PO2 100 mmHG (61-120)
[2018-02-02] MEDS: Sod Chloride 0.9% Inj 1,000 ML IV.CONT SCH (21:59)
[2018-02-02] MEDS: Senna/Docusate Sodium 8.6/50 MG Tablet PO SCH (21:59)
[2018-02-03] MEDS: Insulin NovoLIN Regular Correctional Sugar Inj SQ SCH ×4 (00:26→20:00)
[2018-02-03] MEDS ORDERED: Sodium Chlor 0.9% Inj 250 ML IV.SIG ONE (00:40)
[2018-02-03 01:22] LABS: Calcium 7.8 mg/dL (8.5-10.1); Carbon Dioxide 25.5 meq/L (21.0-32.0); Potassium 3.1 meq/L (3.5-5.1); Troponin I 0.07 ng/mL (0.02-0.05)
[2018-02-03 01:52] LABS: Bilirubin,Urine Negative (Negative); Clarity,Urine Clear (Clear); Color,Urine Yellow (Yellw/Straw); Glucose,Urine (UA) Negative (Negative); Hyaline Casts,Urine 1 /lpf (0-3); Leukocyte Esterase,Urine Negative (Negative); Nitrite,Urine Negative (Negative); Specific Gravity,Urine 1.032 (1.002-1.035)
[2018-02-03] MEDS ORDERED: Chlorhexidine Gluconate 2% 1 Pack (2 Cloths) TOPICAL PRN (04:00)
[2018-02-03] MEDS: Pantoprazole Inj 40 MG Vial IV.PUSH SCH ×2 (06:20→08:21)
[2018-02-03] MEDS: Sod Chloride 0.9% Inj 1,000 ML IV.CONT SCH (06:21)
[2018-02-03] MEDS: Chlorhexidine Gluconate 2% 1 Pack (2 Cloths) TOPICAL SCH (06:21)
[2018-02-03 07:47] LABS: Baso % (Auto) 0.8 % (0.0-2.0); Eos % (Auto) 1.7 % (0.0-4.0); Hematocrit 27.8 % (35.0-46.0); Hemoglobin 9.4 gm/dL (11.6-15.3); Lymph # (Auto) 0.7 th/mm3 (1.0-4.8); Lymph % (Auto) 29.6 % (9.0-44.0); Mean Corpuscular Hemoglobin 31.1 pg (27.0-34.0); Mean Corpuscular Volume 91.6 fL (80.0-100.0); Mean Platelet Volume 8.8 fL (7.0-11.0); Mono # (Auto) 0.3 th/mm3 (0.0-0.9); Mono % (Auto) 15.2 % (0.0-8.0); Neut # (Auto) 1.2 th/mm3 (1.8-7.7); Neut % (Auto) 52.7 % (16.0-70.0); Platelet Count 101 th/mm3 (150-450); Red Blood Count 3.03 mil/mm3 (4.00-5.30); Red Cell Distribution Width 15.7 % (11.6-17.2); White Blood Count 2.2 th/mm3 (4.0-11.0)
[2018-02-03] MEDS: Senna/Docusate Sodium 8.6/50 MG Tablet PO SCH ×2 (08:20→20:00)
[2018-02-03] MEDS ORDERED: Potassium Chloride 25 MEQ Effervescent Tablet PO PRN (09:23)
[2018-02-03] MEDS ORDERED: Potassium Chlor 40 mEq Premix 40 MEQ/100 ML PIGGYBACK IV.SIG PRN ×2 (09:23)
[2018-02-03] MEDS ORDERED: Potassium Phosphate 500 MG Soluble Tablet PO PRN ×2 (09:23)
[2018-02-03] MEDS ORDERED: Magnesium Oxide 400 MG Tablet PO PRN (09:23)
[2018-02-03] MEDS ORDERED: Potassium Phosphate Inj 30 MMOL in Sodium Chlor 0.9% Inj 250 ML IV.SIG PRN (09:23)
[2018-02-03] MEDS ORDERED: Magnesium Sulfate Inj 4 GM in Sodium Chlor 0.9% Inj 92 ML IV.SIG PRN (09:23)
[2018-02-03] MEDS ORDERED: Magnesium Sulfate Inj 2 GM in Sodium Chlor 0.9% Inj 96 ML IV.SIG PRN (09:23)
[2018-02-03] MEDS ORDERED: Sodium Phosphate Inj 30 MMOL in Sodium Chlor 0.9% Inj 250 ML IV.SIG PRN (09:23)
[2018-02-03] MEDS ORDERED: Potassium Chlor 20 mEq Premix 20 MEQ/100 ML PIGGYBACK IV.SIG PRN (09:23)
--- NOTE | 2018-02-03 09:38 | P.PNCC ---
Subjective Subjective Remarks/Hospital Course: The patient is an 82-year-old female with a past medical history of aortic valve replacement, coronary artery disease, and hypertension, who was seen in cardiology clinic by Dr. Abrams today for a followup, and the patient became short of breath and had one episode of emesis. She denied any chest pain, orthopnea, PND, or edema of lower extremities. In addition, she denies any nausea, vomiting, or abdominal pain. She was sent to the ER for further evaluation and management of her symptoms. On arrival, she was hypotensive with a systolic blood pressure in the 80s, and her laboratory data significant for mild acute kidney injury with creatinine level 1.50, lactic acidosis with lactic acid level 3.2 and elevated BNP 443. The patient had an ABG done on a nonrebreather mask, which showed a pH of 7.81, CO2 of 11, PaO2 of 262, bicarbonate 18, saturations 99%. The patient was initially placed on BiPAP with improvement of her oxygenation, and she was weaned off BiPAP and placed on a nasal cannula with a saturation of 96% on 2 liters oxygen. A chest x-ray in the ED showed no acute disease. She also had an elevated D-dimer at 7.05. She underwent a CT angiogram of the chest, which showed eccentric focal-filling defect and isolated left lower lobe proximal subsegmental pulmonary artery branch consistent with subacute chronic etiology , moderate coronary artery calcifications, and severe T8 compression fracture with unknown chronicity. In the ED, she was given 1 liter bolus of normal saline, vancomycin, and Zosyn. Also, echocardiogram was performed, which showed an EF of 45% to 50%, moderate mitral valve regurgitation, mild to moderate tricuspid regurgitation, and a bioprosthetic valve. 02/03 Patient is lying in be din NAD. Afebrile Objective Vital Signs / I&O: Vital Signs 02/02/18 11:15 02/02/18 11:22 02/02/18 11:44 Temperature 96.8 F L Pulse Rate 79 79 78 Respiratory Rate 20 18 18 Blood Pressure 102/66 102/66 Pulse Oximetry 94 L 98 98 02/02/18 12:20 02/02/18 12:50 02/02/18 13:37 Temperature Pulse Rate 78 72 Respiratory Rate 24 19 Blood Pressure 84/53 L 87/53 L Pulse Oximetry 98 100 100 02/02/18 14:07 02/02/18 14:42 02/02/18 15:30 Temperature 98.3 F Pulse Rate 75 73 73 Respiratory Rate 17 17 18 Blood Pressure 106/54 L 96/58 L 130/99 H Pulse Oximetry 98 100 99 02/02/18 16:00 02/02/18 17:00 02/02/18 18:00 Temperature 98.3 F Pulse Rate 72 106 H 102 H Respiratory Rate 18 16 18 Blood Pressure 111/57 L 101/65 101/66 Pulse Oximetry 98 94 L 96 02/02/18 19:00 02/02/18 20:00 02/02/18 21:00 Temperature 98.8 F Pulse Rate 77 76 79 Respiratory Rate 26 H 17 24 Blood Pressure 107/58 L 101/62 87/55 L Pulse Oximetry 100 100 100 02/02/18 21:22 02/02/18 22:00 02/02/18 23:00 Temperature Pulse Rate 77 77 74 Respiratory Rate 16 19 19 Blood Pressure 92/58 L 86/51 L Pulse Oximetry 100 100 100 02/03/18 00:00 02/03/18 01:00 02/03/18 02:00 Temperature 98.6 F Pulse Rate 73 70 74 Respiratory Rate 17 14 16 Blood Pressure 78/49 L 88/54 L 97/57 L Pulse Oximetry 100 100 100 02/03/18 03:00 02/03/18 04:00 02/03/18 05:00 Temperature 98.1 F Pulse Rate 70 69 69 Respiratory Rate 16 14 14 Blood Pressure 82/53 L 88/51 L 92/53 L Pulse Oximetry 100 100 100 02/03/18 06:00 02/03/18 07:00 02/03/18 08:00 Temperature 98.3 F Pulse Rate 69 70 68 Respiratory Rate 15 14 12 Blood Pressure 74/48 L 86/53 L 87/50 L Pulse Oximetry 100 100 100 02/03/18 08:22 Temperature Pulse Rate 70 Respiratory Rate 17 Blood Pressure Pulse Oximetry 98 Intake & Output 02/02/18 02/03/18 02/03/18 18:59 06:59 18:59 Output Total 350 / 350 Balance -350 / -350 Weight 52.163 kg 47.9 kg Output: Urine Amount (Catheter) 350 / 350 Straight 350 / 350 Other: # Bowel Movements 0 Result Diagrams: 02/03/18 04:50 02/03/18 00:19 Other Results: Laboratory Results - last 12 hr 02/03/18 02/03/18 02/03/18 00:19 00:20 01:00 WBC RBC Hgb Hct MCV MCH MCHC RDW Plt Count MPV Neut % (Auto) Lymph % (Auto) [place] % (Auto) Eos % (Auto) Baso % (Auto) Neut # (Auto) Lymph # (Auto) [place] # (Auto) Eos # (Auto) Baso # (Auto) WBC Differential Differential Comment Sodium 145 Potassium 3.1 L Chloride 111 H Carbon Dioxide 25.5 Anion Gap 9 BUN 27 H Creatinine 1.23 H Estimated GFR 42 L POC Glucose 86 Random Glucose 83 Calcium 7.8 L D Troponin I 0.07 H Urine Color Yellow Urine Clarity Clear Urine pH 6.0 Ur Specific [place] 1.032 Urine Protein Negative Urine Glucose (UA) Negative Urine Ketones Negative Urine Occult Blood Negative Urine Nitrate Negative Urine Bilirubin Negative Urine Urobilinogen Less than 2 Ur Leukocyte Esterase Negative Urine RBC 1 Urine WBC 1 Hyaline Casts 1 Micro UA Comment Cath-culture not ind Urine Culture Comments Cath-cult not ind 02/03/18 02/03/18 02/03/18 04:50 05:37 06:50 WBC 2.2 L RBC 3.03 L Hgb 9.4 L D Hct 27.8 L MCV 91.6 MCH 31.1 MCHC 34.0 RDW 15.7 Plt Count 101 L D MPV 8.8 Neut % (Auto) 52.7 Lymph % (Auto) 29.6 [place] % (Auto) 15.2 H Eos % (Auto) 1.7 Baso % (Auto) 0.8 Neut # (Auto) 1.2 L Lymph # (Auto) 0.7 L [place] # (Auto) 0.3 Eos # (Auto) 0.0 Baso # (Auto) 0.0 WBC Differential . Differential Comment Auto diff final Sodium Potassium Chloride Carbon Dioxide Anion Gap BUN Creatinine Estimated GFR POC Glucose 86 Random Glucose Calcium Troponin I 0.08 H Urine Color Urine Clarity Urine pH Ur Specific [place] Urine Protein Urine Glucose (UA) Urine Ketones Urine Occult Blood Urine Nitrate Urine Bilirubin Urine Urobilinogen Ur Leukocyte Esterase Urine RBC Urine WBC Hyaline Casts Micro UA Comment Urine Culture Comments Imaging: Venous Doppler Study 02/02/18 00:00 CONCLUSION: Negative exam. No sonographic or Doppler findings of deep venous thrombosis Chest X-Ray 02/02/18 11:19 CONCLUSION: Negative for an acute process Chest CTA 02/02/18 13:38 CONCLUSION: 1. Eccentric focal filling defect in an isolated left lower lobe proximal subsegmental pulmonary artery branch, this is most consistent with a subacute to chronic etiology. 2. Mild positive fluid balance. 3. Moderate coronary artery calcifications. 4. Severe T8 compression fracture of unknown chronicity given lack of recent prior exams. Objective Remarks: GENERAL: Patient is 82 yo lying in bed in NAD SKIN: Warm and dry. HEAD: Normocephalic. EYES: No scleral icterus. No injection or drainage. NECK: Supple, trachea midline. No JVD or lymphadenopathy. CARDIOVASCULAR: Regular rate and rhythm without murmurs, gallops, or rubs. RESPIRATORY: Breath sounds equal bilaterally. No accessory muscle use. GASTROINTESTINAL: Abdomen soft, non-tender, nondistended. MUSCULOSKELETAL: No cyanosis, or edema. Neuro: awake and alert Assessment and Plan - Assessment and Plan Plan: 1. Acute hypoxemic respiratory failure. 2. Status post aortic valve replacement. 3. History of coronary artery disease. 4. Hypertension. 5. Hypothyroidism. 6. Mild acute kidney injury. 7. Pancytopenia Plan Neuro: Monitor neuro status closely and avoid any sedatives. Pulm: Continue with oxygen and maintain sats above 92%. Bronchodilators CTA chest: Eccentric focal filling defect in an isolated left lower lobe proximal subsegmental pulmonary artery branch, this is most consistent with a subacute to chronic etiology. Doppler US LE negative for DVT CV: Monitor heart rate and blood pressure closely, and maintain MAP > 65 mmHg. Lactic acid: 2.6 yesterday from 3.[address] Abrams. Continue Prasugrel 5 mg daily, ASA 81mg daily. Echo: EF of 45%-50% bioprosthetic aortic valve. On NS@75ml/hr GI : On p.o. cardiac diet. on Protonix 40 mg for GI prophylaxis. : Monitor renal function, electrolytes replacement per protocol. Will need K replacement today. Renal function is improving with Cr: 1.23 from 1.50 Change IVF to 1/2NS@42ml/hr ID: Given vancomycin and Zosyn in the ED. Hold off on further abx- no signs of an infectious process. Followup on blood cultures 8/13: NGTD Endo: SSI with Accu-Cheks for glycemic TSH: 3.0 Heme: Monitor CBC and coags. Heme eval for pancytopenia GI prophylaxis with Pepcid DVT prophylaxis with SCD Level 2
[2018-02-03] MEDS ORDERED: Sodium Chloride 0.45 % Inj 1,000 ML IV.CONT SCH (09:45)
[2018-02-03] MEDS: Potassium Chlor 20 mEq Premix 20 MEQ/100 ML PIGGYBACK IV.SIG PRN ×4 (10:40→17:19)
[2018-02-03] MEDS ORDERED: Sodium Chlor 0.9% Inj 500 ML IV.SIG ONE ×2 (12:00→14:15)
--- NOTE | 2018-02-03 15:53 | P.CONCA ---
<Yohana Malave - Last Filed: 02/03/18 15:09> History of Present Illness Service: Cardiology Consult date: 02/03/18 Requesting Physician: Ap Chun Reason for Consult: Coronary artery disease, AVR Primary Care Provider: Diomedes Hall DO Chief Complaint: Hypotension, nausea & vomiting History of Present Illness: This is a very pleasant 82-year-old female known to Dr. Abrams. Patient was seen in office on 02-02-2018 for a hospital follow-up. On assessment she was hypotensive with shortness of breath, nausea and vomiting. 12-lead EKG was also done in office which showed patient to be in atrial fibrillation at a controlled rate. She was then brought down to the emergency department for further evaluation. She has a history of atrial fibrillation, coronary artery disease, shortness of breath, aortic valve replaced, aortic insufficiency, mitral regurgitation, hyperlipidemia, hypothyroidism and nonrheumatic tricuspid insufficiency. The history was obtained by reviewing medical records and speaking with the patient. While in the emergency department she received 1 L bolus of normal saline, vancomycin and Zosyn. 2D echo was also performed which showed an EF of 45-50%. She currently denies any chest pain, pressure, palpitations, dizziness or shortness of breath. She states that she is feeling much better now. Review of Systems General: Patient denies fevers, chills, and recent travel. HEENT: Patient denies headache, sore throat, difficulty swallowing. Cardiovascular: Patient denies chest pain, dizziness. Denies sensation of heart beating rapidly or irregularly. No syncope. Respiratory: Denies shortness of breath or inspirational chest discomfort. Denies coughing wheezing or hemoptysis. GI: Patient denies nausea, vomiting, diarrhea, abdominal pain, bloody stools. Musculoskeletal: Patient denies joint pain or edema. Denies calf pain or edema. Neurovascular: Patient denies numbness, tingling, weakness in extremities. Denies headache. Endocrine: Denies polyuria and polydipsia. Hematologic: Denies easy bruising. Skin: Denies rash or itching. PMFSH - History History Provided By: Patient - Medical History Medical History: Medical History (Last Updated 02/03/18 @ 15:33 by MAHESH Leon) Atrial fibrillation Cataract Chest pain High cholesterol Hypothyroidism Macular degeneration Mitral regurgitation - Family History Family History: Family History (Last Updated 02/03/18 @ 15:34 by MAHESH Leon) Father Family history of acute myocardial infarction - Tobacco History Second Hand Smoke Exposure: Yes Tobacco Use In Past 30 Days: No Smoking Status: Former smoker Tobacco Type: Cigarettes - Alcohol History How Often Do You Have a Drink Containing Alcohol: Monthly or less - Substance Use History Substance History: No History of Abuse - Travel History Recent Travel in the [place] Within the Last 8 Weeks: No Recent Travel Out of the Country Within the Last 8 Weeks: No - Immunization History Tetanus Immunization: <5 Years Medications and Allergies Allergies Allergy/AdvReac Type Severity Reaction Status Date / Time No Known Allergies Allergy Unverified 12/12/17 07:04 Home Medications Medication Instructions Recorded Confirmed Type amiodarone 200 mg PO DAILY 02/02/18 02/02/18 History carvedilol [Coreg] 6.25 mg PO BID 02/02/18 02/02/18 History furosemide [Lasix] 20 mg PO DAILY 02/02/18 02/02/18 History hydrochlorothiazide 12.5 mg PO DAILY 02/02/18 02/02/18 History levothyroxine 50 mcg PO DAILY 02/02/18 02/02/18 History lisinopril 5 mg PO DAILY 02/02/18 02/02/18 History potassium chloride [Klor-Con 10] 10 meq PO BID 02/02/18 02/02/18 History prasugrel 5 mg PO DAILY 02/02/18 02/02/18 History pravastatin 20 mg PO BID 02/02/18 02/02/18 History trazodone 50 mg PO DAILY 02/02/18 02/02/18 History Active Medications: Active Medications Al Hydroxide/Mg Hydroxide (Milk Of Magnhector Liq) 30 ml PO Q12H PRN PRN Reason: Mild Constipation Albuterol (Duoneb Neb (Prn)) 1 ampul NEB Q2HR NEB PRN PRN Reason: DYSPNEA Albuterol (Duoneb Neb (Starla)) 1 ampul NEB Q4HR NEB [facility] Last Admin: 02/03/18 12:14 Dose: 1 ampul Aspirin (Ecotrin) 81 mg PO DAILY [facility] Last Admin: 02/03/18 08:20 Dose: 81 mg Bisacodyl (Dulcolax Supp) 10 mg RECTAL DAILY PRN PRN Reason: SEVERE CONSITIPATION Chlorhexidine Gluconate (Chlorhexidine 2% Cloth) 3 pack TOPICAL DAILY@0400 [facility] Stop: 02/08/18 03:59 Last Admin: 02/03/18 06:21 Dose: Not Given Chlorhexidine Gluconate (Chlorhexidine 2% Cloth) 3 pack TOPICAL DAILY@0400 PRN PRN Reason: Extra cloth needed Stop: 02/08/18 03:59 Dextrose (D50w Vial) 50 ml IV.PUSH UNSCH PRN PRN Reason: PER HYPOGLYCEMIA PROTOCOL Glucagon (Glucagon Inj) 1 mg OTHER PRN PRN PRN Reason: for Hypoglycemia Protocol Magnesium Sulfate Inj 4 gm/ (Sodium Chloride) 100 mls @ 50 mls/hr IV.SIG UNSCH PRN PRN Reason: For Magnesium 0.9 - 1.1 mg/dL Magnesium Sulfate Inj 2 gm/ (Sodium Chloride) 100 mls @ 50 mls/hr IV.SIG UNSCH PRN PRN Reason: For Magnesium 1.2 - 1.6 mg/dL Potassium Chloride (Kcl 20 Meq Premix Inj) 20 meq in 100 mls @ 50 mls/hr IV.SIG Q2H PRN PRN Reason: For Potassium 3.3 - 3.5 mEq/L Potassium Chloride (Kcl 40 Meq Premix Inj) 40 meq in 100 mls @ 25 mls/hr IV.SIG UNSCH PRN PRN Reason: For Potassium 3.3 - 3.5 mEq/L Potassium Chloride (Kcl 20 Meq Premix Inj) 20 meq in 100 mls @ 50 mls/hr IV.SIG Q2H PRN PRN Reason: For Potassium 2.8 - 3.2 mEq/L Last Admin: 02/03/18 13:19 Dose: 50 mls/hr Sodium Phosphate 30 mmol/ (Sodium Chloride) 260 mls @ 42 mls/hr IV.SIG UNSCH PRN PRN Reason: For Phosphorus < 2.5 mg/dL Potassium Chloride (Kcl 40 Meq Premix Inj) 40 meq in 100 mls @ 25 mls/hr IV.SIG Q2H PRN PRN Reason: For Potassium 2.8 - 3.2 mEq/L Potassium Phosphate 30 mmol/ (Sodium Chloride) 260 mls @ 42 mls/hr IV.SIG UNSCH PRN PRN Reason: SEE LABEL COMMENTS Sodium Chloride (1/2 Normal Saline Inj) 1,000 mls @ 42 mls/hr IV.CONT .[id number] [facility] Last Admin: 02/03/18 10:40 Dose: 42 mls/hr Insulin Human Regular (Novolin R Correctional Sugar Inj) 0 units SQ Q6HR [facility]; Protocol Last Admin: 02/03/18 11:00 Dose: Not Given Lactulose (Lactulose Liq) 30 ml PO DAILY PRN PRN Reason: SEVERE CONSITIPATION Magnesium Oxide (Mag-Ox) 800 mg PO UNSCH PRN PRN Reason: For Magnesium 1.2 - 1.6 mg/dL Pantoprazole Sodium (Protonix Inj) 40 mg IV.PUSH DAILY [facility] Last Admin: 02/03/18 08:21 Dose: 40 mg Potassium Bicarb/Potassium Chloride (K-Lyte Cl Eff) 50 meq PO UNSCH PRN PRN Reason: For Potassium 3.3 - 3.5 mEq/L Potassium Phosphate (K-Phos Original) 2,000 mg PO Q4H PRN PRN Reason: Phosphorus Less Than 2.5 mg/dL Potassium Phosphate (K-Phos Original) 2,000 mg PO UNSCH PRN PRN Reason: SEE LABEL COMMENTS Prasugrel (Effient) 5 mg PO DAILY [facility] Last Admin: 02/03/18 08:20 Dose: 5 mg Senna/Docusate Sodium (Coretta-Colace) 1 tab PO BID [facility] Last Admin: 02/03/18 08:20 Dose: 1 tab Sennosides (Senokot) 17.2 mg PO Q12H PRN PRN Reason: Moderate Constipation Exam Vital signs: Vital Signs 02/02/18 15:30 02/02/18 16:00 02/02/18 17:00 Temperature 98.3 F 98.3 F Pulse Rate 73 72 106 H Respiratory Rate 18 18 16 Blood Pressure 130/99 H 111/57 L 101/65 Pulse Oximetry 99 98 94 L 02/02/18 18:00 02/02/18 19:00 02/02/18 20:00 Temperature 98.8 F Pulse Rate 102 H 77 76 Respiratory Rate 18 26 H 17 Blood Pressure 101/66 107/58 L 101/62 Pulse Oximetry 96 100 100 02/02/18 21:00 02/02/18 21:22 02/02/18 22:00 Temperature Pulse Rate 79 77 77 Respiratory Rate 24 16 19 Blood Pressure 87/55 L 92/58 L Pulse Oximetry 100 100 100 02/02/18 23:00 02/03/18 00:00 02/03/18 01:00 Temperature 98.6 F Pulse Rate 74 73 70 Respiratory Rate 19 17 14 Blood Pressure 86/51 L 78/49 L 88/54 L Pulse Oximetry 100 100 100 02/03/18 02:00 02/03/18 03:00 02/03/18 04:00 Temperature 98.1 F Pulse Rate 74 70 69 Respiratory Rate 16 16 14 Blood Pressure 97/57 L 82/53 L 88/51 L Pulse Oximetry 100 100 100 02/03/18 05:00 02/03/18 06:00 02/03/18 07:00 Temperature Pulse Rate 69 69 70 Respiratory Rate 14 15 14 Blood Pressure 92/53 L 74/48 L 86/53 L Pulse Oximetry 100 100 100 02/03/18 08:00 02/03/18 08:22 02/03/18 09:00 Temperature 98.3 F Pulse Rate 68 70 75 Respiratory Rate 12 17 22 Blood Pressure 87/50 L 80/50 L Pulse Oximetry 100 98 100 02/03/18 10:00 02/03/18 11:00 02/03/18 12:00 Temperature 98.2 F Pulse Rate 75 75 78 Respiratory Rate 17 19 22 Blood Pressure 86/53 L 82/51 L 86/56 L Pulse Oximetry 97 100 100 02/03/18 12:14 02/03/18 13:00 Temperature Pulse Rate 76 78 Respiratory Rate 15 23 Blood Pressure 101/68 Pulse Oximetry 99 Intake & Output 02/02/18 02/03/18 02/03/18 18:59 06:59 18:59 Intake Total 1100 / 1100 Output Total 350 / 350 Balance -350 / -350 1100 / 1100 Weight 52.163 kg 47.9 kg Intake: IV 1100 / 1100 NS Inj 1,000 ML @ 84 mls/hr IV. 1000 / 1000 CONT .[id number] [facility] Rx#:[id number] KCl 20 mEq Premix Inj 20 meq In 100 / 100 100 ml @ 50 mls/hr IV.SIG Q2H PRN Rx#:[id number] Output: Urine Amount (Catheter) 350 / 350 Straight 350 / 350 Other: # Bowel Movements 0 Narrative: GENERAL: Patient is in no apparent distress. Patient speaks in clear complete sentences. Patient is pleasant. HEENT: Head is atraumatic and normocephalic. Neck is supple without lymphadenopathy and trachea is midline. No JVD or carotid bruits. CARDIOVASCULAR: Regular rate and rhythm without murmurs, gallops, or rubs. RESPIRATORY: Clear to auscultation. Breath sounds equal bilaterally. No wheezes , rales, or rhonchi. Chest wall is nontender. No use of accessory muscles. GASTROINTESTINAL: Abdomen is nontender, nondistended. Abdomen soft. No obvious pulsatile mass or bruit. No CVA tenderness. Strong femoral pulses bilaterally. Normal bowel sounds in all quadrants. MUSCULOSKELETAL: Patient is moving upper and lower extremities freely. No calf tenderness or edema, no Homans sign. Strong pulses in upper and lower extremities. NEUROLOGICAL: Patient is alert and oriented. Cranial nerves 2-12 are grossly intact. No focal deficits and speech is clear. SKIN: No rash and turgor is normal. Results 02/03/18 04:50 02/03/18 00:19 Cardiac Enzymes 02/02/18 02/03/18 02/03/18 Range/Units 19:18 00:19 06:50 Troponin I 0.07 H 0.07 H 0.08 H (0.02-0.05) ng/mL CBC 02/03/18 Range/Units 04:50 WBC 2.2 L (4.0-11.0) th/mm3 RBC 3.03 L (4.00-5.30) mil/mm3 Hgb 9.4 L D (11.6-15.3) gm/dL Hct 27.8 L (35.0-46.0) % Plt Count 101 L D (150-450) th/mm3 Neut # (Auto) 1.2 L (1.8-7.7) th/mm3 Lymph # (Auto) 0.7 L (1.0-4.8) th/mm3 Dillon # (Auto) 0.3 (0.0-0.9) th/mm3 Eos # (Auto) 0.0 (0.0-0.4) th/mm3 Baso # (Auto) 0.0 (0.0-0.2) th/mm3 Comprehensive Metabolic Panel 02/03/18 Range/Units 00:19 Sodium 145 (136-145) meq/L Potassium 3.1 L (3.5-5.1) meq/L Chloride 111 H (98-107) meq/L Carbon Dioxide 25.5 (21.0-32.0) meq/L BUN 27 H (7-18) mg/dL Creatinine 1.23 H (0.50-1.00) mg/dL Calcium 7.8 L D (8.5-10.1) mg/dL Intake and Output 02/03/18 02/03/18 02/03/18 06:59 14:59 22:59 Intake Total 1100 / 1100 Output Total 350 / 350 Balance -350 / -350 1100 / 1100 Intake: IV 1100 / 1100 NS Inj 1,000 ML @ 84 mls/hr IV. 1000 / 1000 CONT .[id number] [facility] Rx#:[id number] KCl 20 mEq Premix Inj 20 meq In 100 / 100 100 ml @ 50 mls/hr IV.SIG Q2H PRN Rx#:[id number] Output: Urine Amount (Catheter) 350 / 350 Straight 350 / 350 Other: # Bowel Movements 0 Weight 47.9 kg - Imaging and Cardiology Echo: report reviewed - EKG Interpretation EKG: sinus rhythm Assessment and Plan - Assessment (1) Hypotension Code(s): I95.9 - Hypotension, unspecified Status: Acute (2) History of aortic valve replacement Code(s): Z95.2 - Presence of prosthetic heart valve Status: Acute (3) Acute kidney injury Code(s): N17.9 - Acute kidney failure, unspecified Status: Acute - Plan Patient no acute distress at this time. Patient sinus rhythm on monitor. Vital signs stable. 2D echo showed 45-50% EF, moderate mitral valve regurgitation, mild or aortic valve regurgitation and [id number] tricuspid valve regurgitation. Continue with current cardiac treatment plan. We will follow patient during hospitalization. Will follow up with patient in office after discharge. Patient was seen and evaluated by Dr. Abrams who participated in care, management and decision-making. <Eliel Abrams - Last Filed: 02/03/18 18:12> History of Present Illness Primary Care Provider: Diomedes Hall DO [facility] - Medical History Medical History: Medical History (Last Updated 02/03/18 @ 15:33 by MAHESH Leon) Atrial fibrillation Cataract Chest pain High cholesterol Hypothyroidism Macular degeneration Mitral regurgitation - Family History Family History: Family History (Last Updated 02/03/18 @ 15:34 by MAHESH Leon) Father Family history of acute myocardial infarction Medications and Allergies Active Medications: Active Medications Al Hydroxide/Mg Hydroxide (Milk Of Magnhector Liq) 30 ml PO Q12H PRN PRN Reason: Mild Constipation Albuterol (Duoneb Neb (Prn)) 1 ampul NEB Q2HR NEB PRN PRN Reason: DYSPNEA Albuterol (Duoneb Neb (Starla)) 1 ampul NEB Q4HR NEB [facility] Last Admin: 02/03/18 16:25 Dose: 1 ampul Aspirin (Ecotrin) 81 mg PO DAILY [facility] Last Admin: 02/03/18 08:20 Dose: 81 mg Bisacodyl (Dulcolax Supp) 10 mg RECTAL DAILY PRN PRN Reason: SEVERE CONSITIPATION Chlorhexidine Gluconate (Chlorhexidine 2% Cloth) 3 pack TOPICAL DAILY@0400 [facility] Stop: 02/08/18 03:59 Last Admin: 02/03/18 06:21 Dose: Not Given Chlorhexidine Gluconate (Chlorhexidine 2% Cloth) 3 pack TOPICAL DAILY@0400 PRN PRN Reason: Extra cloth needed Stop: 02/08/18 03:59 Dextrose (D50w Vial) 50 ml IV.PUSH UNSCH PRN PRN Reason: PER HYPOGLYCEMIA PROTOCOL Glucagon (Glucagon Inj) 1 mg OTHER PRN PRN PRN Reason: for Hypoglycemia Protocol Magnesium Sulfate Inj 4 gm/ (Sodium Chloride) 100 mls @ 50 mls/hr IV.SIG UNSCH PRN PRN Reason: For Magnesium 0.9 - 1.1 mg/dL Magnesium Sulfate Inj 2 gm/ (Sodium Chloride) 100 mls @ 50 mls/hr IV.SIG UNSCH PRN PRN Reason: For Magnesium 1.2 - 1.6 mg/dL Potassium Chloride (Kcl 20 Meq Premix Inj) 20 meq in 100 mls @ 50 mls/hr IV.SIG Q2H PRN PRN Reason: For Potassium 3.3 - 3.5 mEq/L Potassium Chloride (Kcl 40 Meq Premix Inj) 40 meq in 100 mls @ 25 mls/hr IV.SIG UNSCH PRN PRN Reason: For Potassium 3.3 - 3.5 mEq/L Potassium Chloride (Kcl 20 Meq Premix Inj) 20 meq in 100 mls @ 50 mls/hr IV.SIG Q2H PRN PRN Reason: For Potassium 2.8 - 3.2 mEq/L Last Admin: 02/03/18 17:19 Dose: 50 mls/hr Sodium Phosphate 30 mmol/ (Sodium Chloride) 260 mls @ 42 mls/hr IV.SIG UNSCH PRN PRN Reason: For Phosphorus < 2.5 mg/dL Potassium Chloride (Kcl 40 Meq Premix Inj) 40 meq in 100 mls @ 25 mls/hr IV.SIG Q2H PRN PRN Reason: For Potassium 2.8 - 3.2 mEq/L Potassium Phosphate 30 mmol/ (Sodium Chloride) 260 mls @ 42 mls/hr IV.SIG UNSCH PRN PRN Reason: SEE LABEL COMMENTS Sodium Chloride (1/2 Normal Saline Inj) 1,000 mls @ 42 mls/hr IV.CONT .[id number] [facility] Last Admin: 02/03/18 10:40 Dose: 42 mls/hr Insulin Human Regular (Novolin R Correctional Sugar Inj) 0 units SQ Q6HR [facility]; Protocol Last Admin: 02/03/18 11:00 Dose: Not Given Lactulose (Lactulose Liq) 30 ml PO DAILY PRN PRN Reason: SEVERE CONSITIPATION Magnesium Oxide (Mag-Ox) 800 mg PO UNSCH PRN PRN Reason: For Magnesium 1.2 - 1.6 mg/dL Pantoprazole Sodium (Protonix Inj) 40 mg IV.PUSH DAILY [facility] Last Admin: 02/03/18 08:21 Dose: 40 mg Potassium Bicarb/Potassium Chloride (K-Lyte Cl Eff) 50 meq PO UNSCH PRN PRN Reason: For Potassium 3.3 - 3.5 mEq/L Potassium Phosphate (K-Phos Original) 2,000 mg PO Q4H PRN PRN Reason: Phosphorus Less Than 2.5 mg/dL Potassium Phosphate (K-Phos Original) 2,000 mg PO UNSCH PRN PRN Reason: SEE LABEL COMMENTS Prasugrel (Effient) 5 mg PO DAILY [facility] Last Admin: 02/03/18 08:20 Dose: 5 mg Senna/Docusate Sodium (Coretta-Colace) 1 tab PO BID [facility] Last Admin: 02/03/18 08:20 Dose: 1 tab Sennosides (Senokot) 17.2 mg PO Q12H PRN PRN Reason: Moderate Constipation Exam Vital signs: Vital Signs 02/02/18 19:00 02/02/18 20:00 02/02/18 21:00 Temperature 98.8 F Pulse Rate 77 76 79 Respiratory Rate 26 H 17 24 Blood Pressure 107/58 L 101/62 87/55 L Pulse Oximetry 100 100 100 02/02/18 21:22 02/02/18 22:00 02/02/18 23:00 Temperature Pulse Rate 77 77 74 Respiratory Rate 16 19 19 Blood Pressure 92/58 L 86/51 L Pulse Oximetry 100 100 100 02/03/18 00:00 02/03/18 01:00 02/03/18 02:00 Temperature 98.6 F Pulse Rate 73 70 74 Respiratory Rate 17 14 16 Blood Pressure 78/49 L 88/54 L 97/57 L Pulse Oximetry 100 100 100 02/03/18 03:00 02/03/18 04:00 02/03/18 05:00 Temperature 98.1 F Pulse Rate 70 69 69 Respiratory Rate 16 14 14 Blood Pressure 82/53 L 88/51 L 92/53 L Pulse Oximetry 100 100 100 02/03/18 06:00 02/03/18 07:00 02/03/18 08:00 Temperature 98.3 F Pulse Rate 69 70 68 Respiratory Rate 15 14 12 Blood Pressure 74/48 L 86/53 L 87/50 L Pulse Oximetry 100 100 100 02/03/18 08:22 02/03/18 09:00 02/03/18 10:00 Temperature Pulse Rate 70 75 75 Respiratory Rate 17 22 17 Blood Pressure 80/50 L 86/53 L Pulse Oximetry 98 100 97 02/03/18 11:00 02/03/18 12:00 02/03/18 12:14 Temperature 98.2 F Pulse Rate 75 78 76 Respiratory Rate 19 22 15 Blood Pressure 82/51 L 86/56 L Pulse Oximetry 100 100 02/03/18 13:00 02/03/18 14:00 02/03/18 15:00 Temperature Pulse Rate 78 85 90 Respiratory Rate 23 20 19 Blood Pressure 101/68 95/65 L 95/62 L Pulse Oximetry 99 99 98 02/03/18 16:00 02/03/18 16:27 Temperature 98.3 F Pulse Rate 89 99 H Respiratory Rate 16 17 Blood Pressure 99/68 L Pulse Oximetry 98 Intake & Output 02/02/18 02/03/18 02/03/18 18:59 06:59 18:59 Intake Total 1300 / 1300 Output Total 350 / 350 Balance -350 / -350 1300 / 1300 Weight 115 lb 105 lb 9.623 oz Intake: IV 1300 / 1300 NS Inj 1,000 ML @ 84 mls/hr IV. 1000 / 1000 CONT .[id number] [facility] Rx#:[id number] KCl 20 mEq Premix Inj 20 meq In 300 / 300 100 ml @ 50 mls/hr IV.SIG Q2H PRN Rx#:[id number] Output: Urine Amount (Catheter) 350 / 350 Straight 350 / 350 Other: # Bowel Movements 0 Results 02/03/18 04:50 02/03/18 00:19 Cardiac Enzymes 02/02/18 02/03/18 02/03/18 Range/Units 19:18 00:19 06:50 Troponin I 0.07 H 0.07 H 0.08 H (0.02-0.05) ng/mL CBC 02/03/18 Range/Units 04:50 WBC 2.2 L (4.0-11.0) th/mm3 RBC 3.03 L (4.00-5.30) mil/mm3 Hgb 9.4 L D (11.6-15.3) gm/dL Hct 27.8 L (35.0-46.0) % Plt Count 101 L D (150-450) th/mm3 Neut # (Auto) 1.2 L (1.8-7.7) th/mm3 Lymph # (Auto) 0.7 L (1.0-4.8) th/mm3 Dillon # (Auto) 0.3 (0.0-0.9) th/mm3 Eos # (Auto) 0.0 (0.0-0.4) th/mm3 Baso # (Auto) 0.0 (0.0-0.2) th/mm3 Comprehensive Metabolic Panel 02/03/18 Range/Units 00:19 Sodium 145 (136-145) meq/L Potassium 3.1 L (3.5-5.1) meq/L Chloride 111 H (98-107) meq/L Carbon Dioxide 25.5 (21.0-32.0) meq/L BUN 27 H (7-18) mg/dL Creatinine 1.23 H (0.50-1.00) mg/dL Calcium 7.8 L D (8.5-10.1) mg/dL Intake and Output 02/03/18 02/03/18 02/03/18 06:59 14:59 22:59 Intake Total 1100 / 1100 200 / 200 Output Total 350 / 350 Balance -350 / -350 1100 / 1100 200 / 200 Intake: IV 1100 / 1100 200 / 200 NS Inj 1,000 ML @ 84 mls/hr IV. 1000 / 1000 CONT .[id number] [facility] Rx#:[id number] KCl 20 mEq Premix Inj 20 meq In 100 / 100 200 / 200 100 ml @ 50 mls/hr IV.SIG Q2H PRN Rx#:[id number] Output: Urine Amount (Catheter) 350 / 350 Straight 350 / 350 Other: # Bowel Movements 0 Weight 105 lb 9.623 oz Assessment and Plan - Assessment (1) Hypotension Code(s): I95.9 - Hypotension, unspecified Status: Acute (2) History of aortic valve replacement Code(s): Z95.2 - Presence of prosthetic heart valve Status: Acute (3) Acute kidney injury Code(s): N17.9 - Acute kidney failure, unspecified Status: Acute - Attending Attestation Patient seen and examined. I reviewed and agree with the evaluation and plan as presented. BP still low, overall symptoms improved. Cardiac enzymes unremarkable. Continue hydration, monitor renal fx. Continue monitoring in the ICU.
--- NOTE | 2018-02-03 19:07 | P.CON ---
History of Present Illness Service: Hematology/oncology Consult date: 02/03/18 Requesting Physician: Ap Chun Reason for Consult: Pancytopenia. Small volume pulmonary embolus. Primary Care Provider: Diomedes Hall DO Chief Complaint: Dizziness, difficulty breathing and nausea. History of Present Illness: Ms. 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 The patient presently lives at home in the [place] area with her second (they have been for 25 years). The patient has 3 adult daughters all of whom live in [place]. Ms. Mcgill reports having noticed progressive fatigue, dizziness and loss of appetite as well as unintended 15 pound weight loss over the past several weeks. She was scheduled to meet with her editorial intern on 02/02/2018. She tells me she woke up feeling weak and tired that morning but went in to see her physician on the insistence of her . Upon arrival at her editorial intern's office the patient was noted on vital sign assessment to have hypotension, she was evaluated by Dr. Abrams and was referred to the emergency department for further workup and management of what appeared to be hypotension and hypoxia. Upon arrival to the emergency department at [facility] the patient was noted indeed to have hypotension with systolic blood pressure in the 80s, she was also hypoxic, she was in respiratory acidosis and lactic acid levels were elevated as well. She was aggressively resuscitated with IV fluids and was treated empirically with IV antibiotics; vancomycin and Zosyn. She was transferred to the critical care unit for monitoring. At the time of presentation the patient was noted to have normal hemoglobin and platelet levels with a slight leukopenia (without neutropenia or lymphocytopenia). After hydration and resuscitation she was noted on CBC performed earlier this morning to have significant worsening of her leukocyte count as well as worsening anemia and thrombus cytopenia. The patient absolute neutrophil count was noted to be 1.2 and absolute lymphocyte count was less than 0.8. Additionally CT angiogram performed in the emergency department revealed no acute intraparenchymal abnormalities but the patient was found to have a little volume subsegmental pulmonary artery thrombosis involving the subsegmental distribution of the left lower lobe pulmonary artery. She was also found to have a subacute compression fracture (with essential flattening) of T8 vertebral body. She tells me she feels improved today. Review of Systems Constitutional: Reports anorexia, Reports body ache(s), Reports fatigue, Reports lack of energy, Reports malaise, Reports weakness, Reports weight loss, Denies chills, Denies weight gain Eyes: Denies blurry vision, Denies change in vision Ears, Nose, Mouth, and Throat: Denies abnormal hearing, Denies change in voice Cardiovascular: Reports leg swelling (When she stands for long present time.), Denies chest pain, Denies shortness of breath Respiratory: Denies change in phlegm color, Denies chest congestion, Denies cough, Denies coughing up blood, Denies shortness of breath, Denies shortness of breath with activity Gastrointestinal: Denies abdominal pain Genitourinary: Denies blood in urine Musculoskeletal: Reports back pain (Chronic back pain.), Denies abnormal walking Skin/Breast: Denies acne Neurologic: Denies abnormal hearing Psychiatric: Reports change in appetite (Loss of appetite), Denies anxiety, Denies behavioral changes Endocrine: Reports cold intolerance Hematologic/Lymphatic: Reports easy bleeding, Reports easy bruising Allergic/Immunologic: Denies GI upset with certain foods PMFSH - History History Provided By: Patient - Medical History Medical History: Medical History (Last Updated 02/03/18 @ 15:33 by MAHESH Leon) Atrial fibrillation Cataract Chest pain High cholesterol Hypothyroidism Macular degeneration Mitral regurgitation - Surgical History Surgical History: Surgical History (Last Updated 02/03/18 @ 19:01 by Gordy Bell MD) Bioprosthetic aortic valve replacement during current hospitalization H/O mitral valve repair History of coronary artery stent placement - Family History Family History: Family History (Last Updated 02/03/18 @ 15:34 by MAHESH Leon) Father Family history of acute myocardial infarction - Tobacco History Second Hand Smoke Exposure: Yes Tobacco Use In Past 30 Days: No Smoking Status: Former smoker Tobacco Type: Cigarettes - Alcohol History How Often Do You Have a Drink Containing Alcohol: Monthly or less - Substance Use History Substance History: No History of Abuse - Travel History Recent Travel in the [place] Within the Last 8 Weeks: No Recent Travel Out of the Country Within the Last 8 Weeks: No - Immunization History Tetanus Immunization: <5 Years Medications and Allergies Active Medications: Active Medications Al Hydroxide/Mg Hydroxide (Milk Of Magnesia Liq) 30 ml PO Q12H PRN PRN Reason: Mild Constipation Albuterol (Duoneb Neb (Prn)) 1 ampul NEB Q2HR NEB PRN PRN Reason: DYSPNEA Albuterol (Duoneb Neb (Starla)) 1 ampul NEB Q4HR NEB STARLA Last Admin: 02/03/18 16:25 Dose: 1 ampul Aspirin (Ecotrin) 81 mg PO DAILY STARLA Last Admin: 02/03/18 08:20 Dose: 81 mg Bisacodyl (Dulcolax Supp) 10 mg RECTAL DAILY PRN PRN Reason: SEVERE CONSITIPATION Chlorhexidine Gluconate (Chlorhexidine 2% Cloth) 3 pack TOPICAL DAILY@0400 STARLA Stop: 02/08/18 03:59 Last Admin: 02/03/18 06:21 Dose: Not Given Chlorhexidine Gluconate (Chlorhexidine 2% Cloth) 3 pack TOPICAL DAILY@0400 PRN PRN Reason: Extra cloth needed Stop: 02/08/18 03:59 Dextrose (D50w Vial) 50 ml IV.PUSH UNSCH PRN PRN Reason: PER HYPOGLYCEMIA PROTOCOL Glucagon (Glucagon Inj) 1 mg OTHER PRN PRN PRN Reason: for Hypoglycemia Protocol Magnesium Sulfate Inj 4 gm/ (Sodium Chloride) 100 mls @ 50 mls/hr IV.SIG UNSCH PRN PRN Reason: For Magnesium 0.9 - 1.1 mg/dL Magnesium Sulfate Inj 2 gm/ (Sodium Chloride) 100 mls @ 50 mls/hr IV.SIG UNSCH PRN PRN Reason: For Magnesium 1.2 - 1.6 mg/dL Potassium Chloride (Kcl 20 Meq Premix Inj) 20 meq in 100 mls @ 50 mls/hr IV.SIG Q2H PRN PRN Reason: For Potassium 3.3 - 3.5 mEq/L Potassium Chloride (Kcl 40 Meq Premix Inj) 40 meq in 100 mls @ 25 mls/hr IV.SIG UNSCH PRN PRN Reason: For Potassium 3.3 - 3.5 mEq/L Potassium Chloride (Kcl 20 Meq Premix Inj) 20 meq in 100 mls @ 50 mls/hr IV.SIG Q2H PRN PRN Reason: For Potassium 2.8 - 3.2 mEq/L Last Admin: 02/03/18 17:19 Dose: 50 mls/hr Sodium Phosphate 30 mmol/ (Sodium Chloride) 260 mls @ 42 mls/hr IV.SIG UNSCH PRN PRN Reason: For Phosphorus < 2.5 mg/dL Potassium Chloride (Kcl 40 Meq Premix Inj) 40 meq in 100 mls @ 25 mls/hr IV.SIG Q2H PRN PRN Reason: For Potassium 2.8 - 3.2 mEq/L Potassium Phosphate 30 mmol/ (Sodium Chloride) 260 mls @ 42 mls/hr IV.SIG UNSCH PRN PRN Reason: SEE LABEL COMMENTS Sodium Chloride (1/2 Normal Saline Inj) 1,000 mls @ 42 mls/hr IV.CONT .[id number] [facility] Last Admin: 02/03/18 10:40 Dose: 42 mls/hr Insulin Human Regular (Novolin R Correctional Sugar Inj) 0 units SQ Q6HR [facility]; Protocol Last Admin: 02/03/18 11:00 Dose: Not Given Lactulose (Lactulose Liq) 30 ml PO DAILY PRN PRN Reason: SEVERE CONSITIPATION Magnesium Oxide (Mag-Ox) 800 mg PO UNSCH PRN PRN Reason: For Magnesium 1.2 - 1.6 mg/dL Pantoprazole Sodium (Protonix Inj) 40 mg IV.PUSH DAILY [facility] Last Admin: 02/03/18 08:21 Dose: 40 mg Potassium Bicarb/Potassium Chloride (K-Lyte Cl Eff) 50 meq PO UNSCH PRN PRN Reason: For Potassium 3.3 - 3.5 mEq/L Potassium Phosphate (K-Phos Original) 2,000 mg PO Q4H PRN PRN Reason: Phosphorus Less Than 2.5 mg/dL Potassium Phosphate (K-Phos Original) 2,000 mg PO UNSCH PRN PRN Reason: SEE LABEL COMMENTS Prasugrel (Effient) 5 mg PO DAILY [facility] Last Admin: 02/03/18 08:20 Dose: 5 mg Senna/Docusate Sodium (Coretta-Colace) 1 tab PO BID [facility] Last Admin: 02/03/18 08:20 Dose: 1 tab Sennosides (Senokot) 17.2 mg PO Q12H PRN PRN Reason: Moderate Constipation Allergies Allergy/AdvReac Type Severity Reaction Status Date / Time No Known Allergies Allergy Unverified 12/12/17 07:04 Home Medications Medication Instructions Recorded Confirmed Type amiodarone 200 mg PO DAILY 02/02/18 02/02/18 History carvedilol [Coreg] 6.25 mg PO BID 02/02/18 02/02/18 History furosemide [Lasix] 20 mg PO DAILY 02/02/18 02/02/18 History hydrochlorothiazide 12.5 mg PO DAILY 02/02/18 02/02/18 History levothyroxine 50 mcg PO DAILY 02/02/18 02/02/18 History lisinopril 5 mg PO DAILY 02/02/18 02/02/18 History potassium chloride [Klor-Con 10] 10 meq PO BID 02/02/18 02/02/18 History prasugrel 5 mg PO DAILY 02/02/18 02/02/18 History pravastatin 20 mg PO BID 02/02/18 02/02/18 History trazodone 50 mg PO DAILY 02/02/18 02/02/18 History Physical Exam Vital signs: Vital Signs 02/02/18 19:00 02/02/18 20:00 02/02/18 21:00 Temperature 98.8 F Pulse Rate 77 76 79 Respiratory Rate 26 H 17 24 Blood Pressure 107/58 L 101/62 87/55 L Pulse Oximetry 100 100 100 02/02/18 21:22 02/02/18 22:00 02/02/18 23:00 Temperature Pulse Rate 77 77 74 Respiratory Rate 16 19 19 Blood Pressure 92/58 L 86/51 L Pulse Oximetry 100 100 100 02/03/18 00:00 02/03/18 01:00 02/03/18 02:00 Temperature 98.6 F Pulse Rate 73 70 74 Respiratory Rate 17 14 16 Blood Pressure 78/49 L 88/54 L 97/57 L Pulse Oximetry 100 100 100 02/03/18 03:00 02/03/18 04:00 02/03/18 05:00 Temperature 98.1 F Pulse Rate 70 69 69 Respiratory Rate 16 14 14 Blood Pressure 82/53 L 88/51 L 92/53 L Pulse Oximetry 100 100 100 02/03/18 06:00 02/03/18 07:00 02/03/18 08:00 Temperature 98.3 F Pulse Rate 69 70 68 Respiratory Rate 15 14 12 Blood Pressure 74/48 L 86/53 L 87/50 L Pulse Oximetry 100 100 100 02/03/18 08:22 02/03/18 09:00 02/03/18 10:00 Temperature Pulse Rate 70 75 75 Respiratory Rate 17 22 17 Blood Pressure 80/50 L 86/53 L Pulse Oximetry 98 100 97 02/03/18 11:00 02/03/18 12:00 02/03/18 12:14 Temperature 98.2 F Pulse Rate 75 78 76 Respiratory Rate 19 22 15 Blood Pressure 82/51 L 86/56 L Pulse Oximetry 100 100 02/03/18 13:00 02/03/18 14:00 02/03/18 15:00 Temperature Pulse Rate 78 85 90 Respiratory Rate 23 20 19 Blood Pressure 101/68 95/65 L 95/62 L Pulse Oximetry 99 99 98 02/03/18 16:00 02/03/18 16:27 02/03/18 17:00 Temperature 98.3 F Pulse Rate 89 99 H 97 H Respiratory Rate 16 17 20 Blood Pressure 99/68 L 100/66 Pulse Oximetry 98 97 02/03/18 18:00 Temperature Pulse Rate 106 H Respiratory Rate 24 Blood Pressure 104/70 Pulse Oximetry 95 Intake & Output 02/02/18 02/03/18 02/03/18 18:59 06:59 18:59 Intake Total 1900 / 1900 Output Total 350 / 350 400 / 400 Balance -350 / -350 1500 / 1500 Weight 52.163 kg 47.9 kg Intake: IV 1300 / 1300 NS Inj 1,000 ML @ 84 mls/hr IV. 1000 / 1000 CONT .[id number] [facility] Rx#:[id number] KCl 20 mEq Premix Inj 20 meq In 300 / 300 100 ml @ 50 mls/hr IV.SIG Q2H PRN Rx#:[id number] Oral 600 / 600 Output: Urine 400 / 400 Urine Amount (Catheter) 350 / 350 Straight 350 / 350 Other: # Bowel Movements 0 0 Narrative: General: Elderly lady, laying in bed, she appears to be somewhat frail. She is awake alert friendly. Appears to be somewhat pale. HEENT: Head atraumatic normal cephalic, conjunctivae are mildly pale, sclerae anicteric. Oral exam: No pharyngeal erythema no thrush, no blisters no masses. Neck: No JVD, no cervical lymphadenopathy. Respiratory: Good air movement bilaterally over the upper and middle lung zones , decreased bibasilar breath sounds. Poor inspiratory effort. Cardiac: Regular rate and rhythm, S1-S2, soft systolic murmur in the aortic area. Abdomen: Thin belly, soft nontender nondistended palpable organ enlargement. Musculoskeletal: Generally atrophic muscles. Skin: No large ecchymosis masses or rashes noted. B[employer]: Generally weak but no focal sensorimotor deficits. Lower extremities: No pretibial edema no calf tenderness. Extremities are generally cool to the touch. - Constitutional no acute distress - Urinary Catheter Management Straight Cath placed during this visit: no Assessment and Plan - Plan Ms. Mcgill is a very pleasant 82-year-old female with the above-noted medical comorbid conditions. She was sent into the emergency department from the office of her editorial intern for further workup and management of difficulty breathing, dizziness and hypotension. At presentation she was confirmed to have hypoxic respiratory failure, hypotension, lactic acidosis and elevated creatinine. She was treated with aggressive IV fluid hydration and empiric antibiotic therapy. Blood cultures are drawn, no growth to date. Hematology is been asked to see her for further workup and management of pancytopenia. Additionally she was found to have on CT angiogram of the thorax small volume pulmonary emboli involving the subsegmental distribution of the left lower lobe pulmonary arteries. Recommendations: 1. Pancytopenia: I requested the hematology lab to prepare a slight for my review. I would like to assess slight for dysplastic or dysmorphic findings. I will empirically order vitamin B12 level, folic acid level and serum protein electro pheresis. Check stool for occult blood and serum iron studies. 2. Low volume left lung pulmonary embolus: No evidence of lower extremity deep venous thrombosis. If there is no contraindication for anticoagulation this ought to be considered. I will discuss the case with the patient's editorial intern. Hematology service to follow along with you.
[2018-02-03 20:31] LABS: % Iron Saturation 12.6 % (20-50)
[2018-02-03 20:56] LABS: Folate 15.9 ng/mL (3.1-17.5)
--- NOTE | 2018-02-03 21:13 | MB ---
cc: Bowen Ibarra MD DATE: 02/03/2018 REASON FOR CONSULTATION: Respiratory insufficiency and respiratory alkalosis. HISTORY OF PRESENT ILLNESS: This is an 82-year-old lady who has had a prior history of coronary artery disease, history of aortic valve replacement and hypertension, was seen at Dr. Abrams's clinic for followup. The patient was noted to be short of breath and apparently had some nausea and vomiting and orthopnea and thus was advised to come to the emergency room. Upon arrival, she was evaluated with a chest x-ray, blood gas study and she was noted to be severely hypotensive and the creatinine was elevated as well as a BNP. The patient had a lactic acid level of 3.2. Blood gases showed a pCO2 of 11 with a pH of 7.8 and a pO2 of 262 on oxygen. She was placed on BiPAP for her dyspnea and this was subsequently weaned off and she has now been placed on oxygen at 2 liters. The patient had IV fluid infusion and she was given IV antibiotics including Zosyn and vancomycin. An echocardiogram was done, which showed evidence of an EF of 50% with moderate mitral valve regurgitation and tricuspid regurgitation with a bioprosthetic valve intact. She has now improved. She is breathing easier. Denies chest pain. No hemoptysis or wheezing. She is orthopneic and has had some leg swelling. PAST SURGICAL HISTORY: Includes cardiac catheterization, history of aortic valve replacement. PAST MEDICAL HISTORY: She has had coronary artery disease and a history of hypertension. No history of diabetes. SOCIAL HISTORY: The patient does not smoke. No history of alcohol use. ALLERGIES: NO DRUG ALLERGIES. SYSTEM REVIEW: The patient lost some weight. She has dizziness, postnasal drip, she has wheezing and orthopnea. She has epigastric distress and abdominal cramping. She has no urinary frequency. She has no joint pains or calf muscle pains and no skin lesions. MEDICATION LIST: Included: 1. Coreg. 2. Hydrochlorothiazide. 3. Lisinopril. 4. Pravastatin. 5. Lasix. 6. Levothyroxine. 7. Prasugrel. PHYSICAL EXAMINATION: GENERAL: This is an elderly averagely built white female in no distress. Mild pallor. No cyanosis or icterus. No clubbing or peripheral edema. VITAL SIGNS: Blood pressure 110/60, pulse is 80, respirations 22, and temperature is 97.2. HEENT: Head is normocephalic. Pupils reactive. Sclerae were injected. Ears, no inflammation. Throat was clear. NECK: No bruits a small venous distention at 45 degrees. Trachea midline. No thyroid enlargement. CHEST: Equal movements with distant breath sounds, occasional crackles at the right base. No wheezes. HEART: Sounds regular S1 and S2. No murmur. No S3. ABDOMEN: Soft, protuberant with mild epigastric tenderness. No organomegaly. Bowel sounds are active. EXTREMITIES: No edema or lesions. Peripheral pulses are diminished. Reflexes are 1 plus. No gross motor deficits NEUROLOGIC: Cranial nerves grossly intact. SKIN: Dry and cool. IMPRESSION: 1. Hypoxemic respiratory failure, resolved. 2. History of aortic valve replacement. 3. Hypertension. 4. History of hypothyroidism. 5. Basilar atelectasis. PLAN: The patient will be maintained on O2 at 2 liters, DuoNeb solution by nebulizer q.i.d. and p.r.n. added. The patient is on anticoagulation, which will be continued per cardiology. We will also get a repeat chest x-ray and a blood gas study in the a.m., a pulmonary function study when she is clinically stable. The patient will be maintained on IV fluids for hydration. Antibiotic therapy will be continued as ordered including Zosyn and vancomycin as started. A CBC done and blood cultures and monitor. Thank you Dr. Chun for this consultation. Bowen Ibarra MD VJD/ct , 07:51 PM , 08:03 PM
[2018-02-03 21:57] LABS: Magnesium 1.7 mg/dL (1.5-2.5); Phosphorus 2.2 mg/dL (2.5-4.9)
[2018-02-04] MEDS: Insulin NovoLIN Regular Correctional Sugar Inj SQ SCH ×4 (00:08→18:20)
[2018-02-04] MEDS: Chlorhexidine Gluconate 2% 1 Pack (2 Cloths) TOPICAL SCH (05:47)
[2018-02-04 07:17] LABS: Baso % (Auto) 0.6 % (0.0-2.0); Eos % (Auto) 1.7 % (0.0-4.0); Hematocrit 30.5 % (35.0-46.0); Hemoglobin 10.4 gm/dL (11.6-15.3); Lymph # (Auto) 0.7 th/mm3 (1.0-4.8); Lymph % (Auto) 24.1 % (9.0-44.0); Mean Corpuscular Hemoglobin 31.2 pg (27.0-34.0); Mean Corpuscular Volume 91.8 fL (80.0-100.0); Mean Platelet Volume 8.9 fL (7.0-11.0); Mono # (Auto) 0.3 th/mm3 (0.0-0.9); Mono % (Auto) 11.2 % (0.0-8.0); Neut # (Auto) 1.7 th/mm3 (1.8-7.7); Neut % (Auto) 62.4 % (16.0-70.0); Platelet Count 100 th/mm3 (150-450); Red Blood Count 3.33 mil/mm3 (4.00-5.30); Red Cell Distribution Width 15.6 % (11.6-17.2); White Blood Count 2.8 th/mm3 (4.0-11.0)
[2018-02-04 07:50] LABS: Calcium 8.2 mg/dL (8.5-10.1); Carbon Dioxide 20.9 meq/L (21.0-32.0)
[2018-02-04] MEDS: Pantoprazole Inj 40 MG Vial IV.PUSH SCH (08:58)
[2018-02-04] MEDS: Senna/Docusate Sodium 8.6/50 MG Tablet PO SCH ×2 (08:59→20:11)
--- NOTE | 2018-02-04 09:28 | P.PNCC ---
Subjective Subjective Remarks/Hospital Course: The patient is an 82-year-old female with a past medical history of aortic valve replacement, coronary artery disease, and hypertension, who was seen in cardiology clinic by Dr. Abrams today for a followup, and the patient became short of breath and had one episode of emesis. She denied any chest pain, orthopnea, PND, or edema of lower extremities. In addition, she denies any nausea, vomiting, or abdominal pain. She was sent to the ER for further evaluation and management of her symptoms. On arrival, she was hypotensive with a systolic blood pressure in the 80s, and her laboratory data significant for mild acute kidney injury with creatinine level 1.50, lactic acidosis with lactic acid level 3.2 and elevated BNP 443. The patient had an ABG done on a nonrebreather mask, which showed a pH of 7.81, CO2 of 11, PaO2 of 262, bicarbonate 18, saturations 99%. The patient was initially placed on BiPAP with improvement of her oxygenation, and she was weaned off BiPAP and placed on a nasal cannula with a saturation of 96% on 2 liters oxygen. A chest x-ray in the ED showed no acute disease. She also had an elevated D-dimer at 7.05. She underwent a CT angiogram of the chest, which showed eccentric focal-filling defect and isolated left lower lobe proximal subsegmental pulmonary artery branch consistent with subacute chronic etiology , moderate coronary artery calcifications, and severe T8 compression fracture with unknown chronicity. In the ED, she was given 1 liter bolus of normal saline, vancomycin, and Zosyn. Also, echocardiogram was performed, which showed an EF of 45% to 50%, moderate mitral valve regurgitation, mild to moderate tricuspid regurgitation, and a bioprosthetic valve. 02/03 Patient is lying in be din NAD. Afebrile 02/04 No events overnight. Awake and alert. Objective Vital Signs / I&O: Vital Signs 02/03/18 10:00 02/03/18 11:00 02/03/18 11:17 Temperature Pulse Rate 75 75 72 Respiratory Rate 17 19 18 Blood Pressure 82/51 L 80/50 L 81/52 L Pulse Oximetry 100 100 100 02/03/18 12:00 02/03/18 12:14 02/03/18 13:00 Temperature 98.2 F Pulse Rate 78 76 78 Respiratory Rate 22 15 23 Blood Pressure 86/56 L 101/68 Pulse Oximetry 100 99 02/03/18 13:03 02/03/18 14:00 02/03/18 15:00 Temperature Pulse Rate 86 86 90 Respiratory Rate 23 20 19 Blood Pressure 101/68 95/66 L 96/62 L Pulse Oximetry 97 99 98 02/03/18 16:00 02/03/18 16:27 02/03/18 17:00 Temperature 98.3 F Pulse Rate 90 99 H 97 H Respiratory Rate 20 17 20 Blood Pressure 99/68 L 100/66 Pulse Oximetry 99 97 02/03/18 18:00 02/03/18 18:01 02/03/18 19:00 Temperature Pulse Rate 106 H 108 H 102 H Respiratory Rate 27 H 27 H 23 Blood Pressure 104/70 104/70 128/78 Pulse Oximetry 93 L 91 L 96 02/03/18 20:00 02/03/18 20:04 02/03/18 21:00 Temperature 97.8 F Pulse Rate 104 H 104 H 102 H Respiratory Rate 37 H 30 H 28 H Blood Pressure 103/67 103/67 113/77 Pulse Oximetry 93 L 98 98 02/03/18 21:01 02/03/18 22:00 02/03/18 23:00 Temperature Pulse Rate 102 H 102 H 100 H Respiratory Rate 16 19 15 Blood Pressure 99/62 L 90/53 L Pulse Oximetry 97 93 L 94 L 02/04/18 00:00 02/04/18 01:00 02/04/18 02:00 Temperature 97.4 F L Pulse Rate 96 H 97 H 93 H Respiratory Rate 21 23 23 Blood Pressure 115/69 107/80 105/75 Pulse Oximetry 92 L 97 98 02/04/18 03:00 02/04/18 04:00 02/04/18 05:00 Temperature 97.8 F Pulse Rate 92 H 90 90 Respiratory Rate 22 22 19 Blood Pressure 106/70 110/73 104/72 Pulse Oximetry 97 95 97 02/04/18 06:00 02/04/18 07:00 02/04/18 08:13 Temperature Pulse Rate 84 81 80 Respiratory Rate 16 23 18 Blood Pressure 101/63 90/59 L Pulse Oximetry 97 96 98 Intake & Output 02/03/18 02/04/18 02/04/18 18:59 06:59 18:59 Intake Total 1900 / 1900 50 / 50 Output Total 400 / 400 300 / 300 Balance 1500 / 1500 -250 / -250 Weight 50.7 kg Intake: IV 1300 / 1300 NS Inj 1,000 ML @ 84 mls/hr IV. 1000 / 1000 CONT .[id number] TAL Rx#:[id number] KCl 20 mEq Premix Inj 20 meq In 300 / 300 100 ml @ 50 mls/hr IV.SIG Q2H PRN Rx#:[id number] Oral 600 / 600 50 / 50 Output: Urine 400 / 400 300 / 300 Other: # Bowel Movements 0 0 Result Diagrams: 02/04/18 06:22 02/04/18 06:22 Other Results: Laboratory Results - last 12 hr 02/03/18 02/04/18 02/04/18 19:27 00:08 01:00 WBC RBC Hgb Hct MCV MCH MCHC RDW Plt Count MPV Neut % (Auto) Lymph % (Auto) [place] % (Auto) Eos % (Auto) Baso % (Auto) Neut # (Auto) Lymph # (Auto) [place] # (Auto) Eos # (Auto) Baso # (Auto) WBC Differential Differential Comment Sodium Potassium Chloride Carbon Dioxide Anion Gap BUN Creatinine Estimated GFR POC Glucose 101 Random Glucose Lactic Acid 2.5 H Calcium Phosphorus 2.2 L Magnesium 1.7 02/04/18 02/04/18 02/04/18 01:00 05:47 06:22 WBC 2.8 L RBC 3.33 L Hgb 10.4 L Hct 30.5 L MCV 91.8 MCH 31.2 MCHC 34.0 RDW 15.6 Plt Count 100 L MPV 8.9 Neut % (Auto) 62.4 Lymph % (Auto) 24.1 [place] % (Auto) 11.2 H Eos % (Auto) 1.7 Baso % (Auto) 0.6 Neut # (Auto) 1.7 L Lymph # (Auto) 0.7 L [place] # (Auto) 0.3 Eos # (Auto) 0.0 Baso # (Auto) 0.0 WBC Differential . Differential Comment Auto diff final Sodium Potassium 4.2 Chloride Carbon Dioxide Anion Gap BUN Creatinine Estimated GFR POC Glucose 108 Random Glucose Lactic Acid Calcium Phosphorus Magnesium 02/04/18 06:22 WBC RBC Hgb Hct MCV MCH MCHC RDW Plt Count MPV Neut % (Auto) Lymph % (Auto) [place] % (Auto) Eos % (Auto) Baso % (Auto) Neut # (Auto) Lymph # (Auto) [place] # (Auto) Eos # (Auto) Baso # (Auto) WBC Differential Differential Comment Sodium 140 Potassium 4.0 Chloride 111 H Carbon Dioxide 20.9 L Anion Gap 8 BUN 22 H Creatinine 0.97 Estimated GFR 55 L POC Glucose Random Glucose 90 Lactic Acid Calcium 8.2 L Phosphorus Magnesium Imaging: Venous Doppler Study 02/02/18 00:00 CONCLUSION: Negative exam. No sonographic or Doppler findings of deep venous thrombosis Chest X-Ray 02/02/18 11:19 CONCLUSION: Negative for an acute process Chest CTA 02/02/18 13:38 CONCLUSION: 1. Eccentric focal filling defect in an isolated left lower lobe proximal subsegmental pulmonary artery branch, this is most consistent with a subacute to chronic etiology. 2. Mild positive fluid balance. 3. Moderate coronary artery calcifications. 4. Severe T8 compression fracture of unknown chronicity given lack of recent prior exams. Objective Remarks: GENERAL: Patient is 82 yo lying in bed in NAD SKIN: Warm and dry. HEAD: Normocephalic. EYES: No scleral icterus. No injection or drainage. NECK: Supple, trachea midline. No JVD or lymphadenopathy. CARDIOVASCULAR: Regular rate and rhythm without murmurs, gallops, or rubs. RESPIRATORY: Breath sounds equal bilaterally. No accessory muscle use. GASTROINTESTINAL: Abdomen soft, non-tender, nondistended. MUSCULOSKELETAL: No cyanosis, or edema. Neuro: awake and alert Assessment and Plan - Assessment and Plan Plan: 1. Acute hypoxemic respiratory failure. 2. Status post aortic valve replacement. 3. History of coronary artery disease. 4. Hypertension. 5. Hypothyroidism. 6. Mild acute kidney injury. 7. Pancytopenia Plan Neuro: Monitor neuro status closely and avoid any sedatives. Pulm: Continue with oxygen and maintain sats above 92%. Bronchodilators CTA chest: Eccentric focal filling defect in an isolated left lower lobe proximal subsegmental pulmonary artery branch, this is most consistent with a subacute to chronic etiology. Doppler US LE negative for DVT CV: Monitor heart rate and blood pressure closely, and maintain MAP > 65 mmHg. Lactic acid: 2.5 Consult, cards is following- Dr. Abrams, on Effient 5 mg daily, ASA 81mg daily. Echo: EF of 45%-50% bioprosthetic aortic valve. d/c IVF GI : On p.o. cardiac diet. on Protonix 40 mg for GI prophylaxis. : Monitor renal function, electrolytes replacement per protocol. Will need K replacement today. Renal function is improving with Cr:0.97 from 1.23 ID: Given vancomycin and Zosyn in the ED. Hold off on further abx- no signs of an infectious process. Followup on blood cultures 02/02: NGTD Endo: SSI with Accu-Cheks for glycemic TSH: 3.0 Heme: Monitor CBC and coags. Heme is following for pancytopenia-Dr. Bell B12, Folate , Iron studies, protein electrophoresis ordered by Marti. GI prophylaxis with Pepcid DVT prophylaxis with SCD Will sign off and transfer care to [facility] Level 2
--- NOTE | 2018-02-04 10:22 | P.PNCA ---
<FriedaYohana N - Last Filed: 02/04/18 10:19> Subjective Interval history: Patient denies any chest pain, pressure, palpitations, dizziness or shortness of breath. Patient sinus rhythm on monitor and states that she feels a lot better. Physical Exam Vital signs: Vital Signs 02/03/18 11:00 02/03/18 11:17 02/03/18 12:00 Temperature 98.2 F Pulse Rate 75 72 78 Respiratory Rate 19 18 22 Blood Pressure 80/50 L 81/52 L 86/56 L Pulse Oximetry 100 100 100 02/03/18 12:14 02/03/18 13:00 02/03/18 13:03 Temperature Pulse Rate 76 78 86 Respiratory Rate 15 23 23 Blood Pressure 101/68 101/68 Pulse Oximetry 99 97 02/03/18 14:00 02/03/18 15:00 02/03/18 16:00 Temperature 98.3 F Pulse Rate 86 90 90 Respiratory Rate 20 19 20 Blood Pressure 95/66 L 96/62 L 99/68 L Pulse Oximetry 99 98 99 02/03/18 16:27 02/03/18 17:00 02/03/18 18:00 Temperature Pulse Rate 99 H 97 H 106 H Respiratory Rate 17 20 27 H Blood Pressure 100/66 104/70 Pulse Oximetry 97 93 L 02/03/18 18:01 02/03/18 19:00 02/03/18 20:00 Temperature 97.8 F Pulse Rate 108 H 102 H 104 H Respiratory Rate 27 H 23 37 H Blood Pressure 104/70 128/78 103/67 Pulse Oximetry 91 L 96 93 L 02/03/18 20:04 02/03/18 21:00 02/03/18 21:01 Temperature Pulse Rate 104 H 102 H 102 H Respiratory Rate 30 H 28 H 16 Blood Pressure 103/67 113/77 Pulse Oximetry 98 98 97 02/03/18 22:00 02/03/18 23:00 02/04/18 00:00 Temperature 97.4 F L Pulse Rate 102 H 100 H 96 H Respiratory Rate 19 15 21 Blood Pressure 99/62 L 90/53 L 115/69 Pulse Oximetry 93 L 94 L 92 L 02/04/18 01:00 02/04/18 02:00 02/04/18 03:00 Temperature Pulse Rate 97 H 93 H 92 H Respiratory Rate 23 23 22 Blood Pressure 107/80 105/75 106/70 Pulse Oximetry 97 98 97 02/04/18 04:00 02/04/18 05:00 02/04/18 06:00 Temperature 97.8 F Pulse Rate 90 90 84 Respiratory Rate 22 19 16 Blood Pressure 110/73 104/72 101/63 Pulse Oximetry 95 97 97 02/04/18 07:00 02/04/18 08:00 02/04/18 08:13 Temperature 98.0 F Pulse Rate 81 83 80 Respiratory Rate 23 23 18 Blood Pressure 90/59 L 105/69 Pulse Oximetry 96 96 98 02/04/18 09:00 Temperature Pulse Rate 88 Respiratory Rate 29 H Blood Pressure 111/75 Pulse Oximetry Intake & Output 02/03/18 02/04/18 02/04/18 18:59 06:59 18:59 Intake Total 1900 / 1900 50 / 50 Output Total 400 / 400 300 / 300 Balance 1500 / 1500 -250 / -250 Weight 50.7 kg Intake: IV 1300 / 1300 NS Inj 1,000 ML @ 84 mls/hr IV. 1000 / 1000 CONT .[id number] TAL Rx#:[id number] KCl 20 mEq Premix Inj 20 meq In 300 / 300 100 ml @ 50 mls/hr IV.SIG Q2H PRN Rx#:[id number] Oral 600 / 600 50 / 50 Output: Urine 400 / 400 300 / 300 Other: # Bowel Movements 0 0 Narrative: GENERAL: This is a well-nourished, well-developed patient, in no apparent distress. Patient speaks in clear complete sentences. Patient is pleasant. HEENT: Head is atraumatic and normocephalic. Neck is supple without lymphadenopathy and trachea is midline. No JVD or carotid bruits. CARDIOVASCULAR: Regular rate and rhythm without murmurs, gallops, or rubs. RESPIRATORY: Clear to auscultation. Breath sounds equal bilaterally. No wheezes , rales, or rhonchi. Chest wall is nontender. No use of accessory muscles. GASTROINTESTINAL: Abdomen is nontender, nondistended. Abdomen soft. No obvious pulsatile mass or bruit. No CVA tenderness. Strong femoral pulses bilaterally. Normal bowel sounds in all quadrants. MUSCULOSKELETAL: Patient is moving upper and lower extremities freely. No calf tenderness or edema, no Homans sign. Strong pulses in upper and lower extremities. NEUROLOGICAL: Patient is alert and oriented. Cranial nerves 2-12 are grossly intact. No focal deficits and speech is clear. SKIN: No rash and turgor is normal. - Urinary Catheter Management Straight Cath placed during this visit: no Assessment and Plan - Assessment (1) Hypotension Code(s): I95.9 - Hypotension, unspecified Status: Acute (2) History of aortic valve replacement Code(s): Z95.2 - Presence of prosthetic heart valve Status: Acute (3) Acute kidney injury Code(s): N17.9 - Acute kidney failure, unspecified Status: Acute - Plan Patient no acute distress at this time. Encourage patient to drink fluids and remain hydrated. Okay to transfer out to stepdown from a cardiac standpoint. Increase activity with physical therapy. 2D echo showed 45-50% EF, moderate mitral valve regurgitation, mild or aortic valve regurgitation and [id number] tricuspid valve regurgitation. Continue with current cardiac treatment plan. We will follow patient during hospitalization. Will follow up with patient in office after discharge. Patient was seen and evaluated by Dr. Abrams who participated in care, management and decision-making. <Eliel Abrams - Last Filed: 02/04/18 16:05> Physical Exam Vital signs: Vital Signs 02/03/18 16:27 02/03/18 17:00 02/03/18 18:00 Temperature Pulse Rate 99 H 97 H 106 H Respiratory Rate 17 20 27 H Blood Pressure 100/66 104/70 Pulse Oximetry 97 93 L 02/03/18 18:01 02/03/18 19:00 02/03/18 20:00 Temperature 97.8 F Pulse Rate 108 H 102 H 104 H Respiratory Rate 27 H 23 37 H Blood Pressure 104/70 128/78 103/67 Pulse Oximetry 91 L 96 93 L 02/03/18 20:04 02/03/18 21:00 02/03/18 21:01 Temperature Pulse Rate 104 H 102 H 102 H Respiratory Rate 30 H 28 H 16 Blood Pressure 103/67 113/77 Pulse Oximetry 98 98 97 02/03/18 22:00 02/03/18 23:00 02/04/18 00:00 Temperature 97.4 F L Pulse Rate 102 H 100 H 96 H Respiratory Rate 19 15 21 Blood Pressure 99/62 L 90/53 L 115/69 Pulse Oximetry 93 L 94 L 92 L 02/04/18 01:00 02/04/18 02:00 02/04/18 03:00 Temperature Pulse Rate 97 H 93 H 92 H Respiratory Rate 23 23 22 Blood Pressure 107/80 105/75 106/70 Pulse Oximetry 97 98 97 02/04/18 04:00 02/04/18 05:00 02/04/18 06:00 Temperature 97.8 F Pulse Rate 90 90 84 Respiratory Rate 22 19 16 Blood Pressure 110/73 104/72 101/63 Pulse Oximetry 95 97 97 02/04/18 07:00 02/04/18 08:00 02/04/18 08:13 Temperature 98.0 F Pulse Rate 81 83 80 Respiratory Rate 23 23 18 Blood Pressure 90/59 L 105/69 Pulse Oximetry 96 96 98 02/04/18 09:00 02/04/18 10:00 02/04/18 10:34 Temperature Pulse Rate 88 93 H 85 Respiratory Rate 29 H 24 18 Blood Pressure 111/75 113/75 Pulse Oximetry 99 02/04/18 11:00 02/04/18 11:01 02/04/18 12:00 Temperature 98.3 F Pulse Rate 86 87 98 H Respiratory Rate 26 H 28 H 27 H Blood Pressure 104/71 104/71 133/83 Pulse Oximetry 88 L 98 97 02/04/18 12:01 02/04/18 13:00 02/04/18 13:19 Temperature Pulse Rate 101 H 92 H 93 H Respiratory Rate 28 H 25 H 25 H Blood Pressure 133/83 108/71 108/71 Pulse Oximetry 99 91 L 88 L 02/04/18 14:00 02/04/18 15:00 02/04/18 15:38 Temperature Pulse Rate 90 88 86 Respiratory Rate 22 17 18 Blood Pressure 103/65 107/83 Pulse Oximetry 100 100 Intake & Output 02/03/18 02/04/18 02/04/18 18:59 06:59 18:59 Intake Total 1900 / 1900 50 / 50 Output Total 400 / 400 300 / 300 Balance 1500 / 1500 -250 / -250 Weight 111 lb 12.39 oz Intake: IV 1300 / 1300 NS Inj 1,000 ML @ 84 mls/hr IV. 1000 / 1000 CONT .[id number] [facility] Rx#:[id number] KCl 20 mEq Premix Inj 20 meq In 300 / 300 100 ml @ 50 mls/hr IV.SIG Q2H PRN Rx#:[id number] Oral 600 / 600 50 / 50 Output: Urine 400 / 400 300 / 300 Other: # Bowel Movements 0 0 - Urinary Catheter Management Straight Cath placed during this visit: no Assessment and Plan - Assessment (1) Hypotension Code(s): I95.9 - Hypotension, unspecified Status: Acute (2) History of aortic valve replacement Code(s): Z95.2 - Presence of prosthetic heart valve Status: Acute (3) Acute kidney injury Code(s): N17.9 - Acute kidney failure, unspecified Status: Acute - Attending Attestation Patient seen and examined. I reviewed and agree with the evaluation and plan as presented. Overall improvement. Transfer out of ICU. Increase activity, PT.
--- NOTE | 2018-02-04 18:42 | P.PN ---
Subjective Interval history: She is feeling better. Off O2 sat 96. Off pressors. No chest pains or fever Physical Exam Vital signs: Vital Signs 02/03/18 19:00 02/03/18 20:00 02/03/18 20:04 Temperature 97.8 F Pulse Rate 102 H 104 H 104 H Respiratory Rate 23 37 H 30 H Blood Pressure 128/78 103/67 103/67 Pulse Oximetry 96 93 L 98 02/03/18 21:00 02/03/18 21:01 02/03/18 22:00 Temperature Pulse Rate 102 H 102 H 102 H Respiratory Rate 28 H 16 19 Blood Pressure 113/77 99/62 L Pulse Oximetry 98 97 93 L 02/03/18 23:00 02/04/18 00:00 02/04/18 01:00 Temperature 97.4 F L Pulse Rate 100 H 96 H 97 H Respiratory Rate 15 21 23 Blood Pressure 90/53 L 115/69 107/80 Pulse Oximetry 94 L 92 L 97 02/04/18 02:00 02/04/18 03:00 02/04/18 04:00 Temperature 97.8 F Pulse Rate 93 H 92 H 90 Respiratory Rate 23 22 22 Blood Pressure 105/75 106/70 110/73 Pulse Oximetry 98 97 95 02/04/18 05:00 02/04/18 06:00 02/04/18 07:00 Temperature Pulse Rate 90 84 81 Respiratory Rate 19 16 23 Blood Pressure 104/72 101/63 90/59 L Pulse Oximetry 97 97 96 02/04/18 08:00 02/04/18 08:13 02/04/18 09:00 Temperature 98.0 F Pulse Rate 83 80 88 Respiratory Rate 23 18 29 H Blood Pressure 105/69 111/75 Pulse Oximetry 96 98 02/04/18 10:00 02/04/18 10:34 02/04/18 11:00 Temperature Pulse Rate 93 H 85 86 Respiratory Rate 24 18 26 H Blood Pressure 113/75 104/71 Pulse Oximetry 99 88 L 02/04/18 11:01 02/04/18 12:00 02/04/18 12:01 Temperature 98.3 F Pulse Rate 87 98 H 101 H Respiratory Rate 28 H 27 H 28 H Blood Pressure 104/71 133/83 133/83 Pulse Oximetry 98 97 99 02/04/18 13:00 02/04/18 13:19 02/04/18 14:00 Temperature Pulse Rate 92 H 93 H 90 Respiratory Rate 25 H 25 H 22 Blood Pressure 108/71 108/71 103/65 Pulse Oximetry 91 L 88 L 100 02/04/18 15:00 02/04/18 15:38 02/04/18 16:00 Temperature 97.9 F Pulse Rate 88 86 86 Respiratory Rate 17 18 16 Blood Pressure 107/83 122/76 Pulse Oximetry 100 99 02/04/18 17:00 02/04/18 18:00 Temperature Pulse Rate 90 99 H Respiratory Rate 14 26 H Blood Pressure 117/89 135/81 Pulse Oximetry 97 98 Intake & Output 02/03/18 02/04/18 02/04/18 18:59 06:59 18:59 Intake Total 1900 / 1900 50 / 50 480 / 480 Output Total 400 / 400 300 / 300 Balance 1500 / 1500 -250 / -250 480 / 480 Weight 50.7 kg Intake: IV 1300 / 1300 NS Inj 1,000 ML @ 84 mls/hr IV. 1000 / 1000 CONT .[id number] TAL Rx#:[id number] KCl 20 mEq Premix Inj 20 meq In 300 / 300 100 ml @ 50 mls/hr IV.SIG Q2H PRN Rx#:[id number] Oral 600 / 600 50 / 50 480 / 480 Output: Urine 400 / 400 300 / 300 Other: # Voids 3 # Bowel Movements 0 0 0 Narrative: GENERAL: This is a well-nourished, elderly female patient, in no apparent distress. HEENT: Head is atraumatic and normocephalic. Neck is supple without lymphadenopathy and trachea is midline. No JVD or carotid bruits. CARDIOVASCULAR: Regular rate and rhythm without murmurs, gallops, or rubs. RESPIRATORY: Clear to auscultation. Breath sounds equal bilaterally. No wheezes , rales, or rhonchi. Chest wall is nontender. No use of accessory muscles. GASTROINTESTINAL: Abdomen is nontender, nondistended. Abdomen soft. No obvious pulsatile mass or bruit. No CVA tenderness. Strong femoral pulses bilaterally. Normal bowel sounds in all quadrants. MUSCULOSKELETAL: Patient is moving upper and lower extremities freely. No calf tenderness or edema, no Homans sign. Strong pulses in upper and lower extremities. NEUROLOGICAL: Patient is alert and oriented. Cranial nerves 2-12 are grossly intact. No focal deficits and speech is clear. SKIN: No rash and turgor is normal. - Urinary Catheter Management Straight Cath placed during this visit: no Results - Labs CBC & Chem 7: 02/04/18 06:22 02/04/18 06:22 Laboratory Results - last 24 hr 02/03/18 02/03/18 02/03/18 19:27 19:27 19:27 WBC RBC Hgb Hct MCV MCH MCHC RDW Plt Count MPV Neut % (Auto) Lymph % (Auto) [place] % (Auto) Eos % (Auto) Baso % (Auto) Neut # (Auto) Lymph # (Auto) [place] # (Auto) Eos # (Auto) Baso # (Auto) WBC Differential Differential Comment Sodium Potassium 4.2 D Chloride Carbon Dioxide Anion Gap BUN Creatinine Estimated GFR POC Glucose Random Glucose Lactic Acid Calcium Phosphorus 2.2 L Magnesium 1.7 Iron 37 L TIBC 293 % Saturation 12.6 L Ferritin 81 Total Protein (PEP) 6.2 L Vitamin B12 241 Folate 15.9 02/04/18 02/04/18 02/04/18 00:08 01:00 01:00 WBC RBC Hgb Hct MCV MCH MCHC RDW Plt Count MPV Neut % (Auto) Lymph % (Auto) [place] % (Auto) Eos % (Auto) Baso % (Auto) Neut # (Auto) Lymph # (Auto) [place] # (Auto) Eos # (Auto) Baso # (Auto) WBC Differential Differential Comment Sodium Potassium 4.2 Chloride Carbon Dioxide Anion Gap BUN Creatinine Estimated GFR POC Glucose 101 Random Glucose Lactic Acid 2.5 H Calcium Phosphorus Magnesium Iron TIBC % Saturation Ferritin Total Protein (PEP) Vitamin B12 Folate 02/04/18 02/04/18 02/04/18 05:47 06:22 06:22 WBC 2.8 L RBC 3.33 L Hgb 10.4 L Hct 30.5 L MCV 91.8 MCH 31.2 MCHC 34.0 RDW 15.6 Plt Count 100 L MPV 8.9 Neut % (Auto) 62.4 Lymph % (Auto) 24.1 [place] % (Auto) 11.2 H Eos % (Auto) 1.7 Baso % (Auto) 0.6 Neut # (Auto) 1.7 L Lymph # (Auto) 0.7 L [place] # (Auto) 0.3 Eos # (Auto) 0.0 Baso # (Auto) 0.0 WBC Differential . Differential Comment Auto diff final Sodium 140 Potassium 4.0 Chloride 111 H Carbon Dioxide 20.9 L Anion Gap 8 BUN 22 H Creatinine 0.97 Estimated GFR 55 L POC Glucose 108 Random Glucose 90 Lactic Acid Calcium 8.2 L Phosphorus Magnesium Iron TIBC % Saturation Ferritin Total Protein (PEP) Vitamin B12 Folate 02/04/18 02/04/18 11:42 17:45 WBC RBC Hgb Hct MCV MCH MCHC RDW Plt Count MPV Neut % (Auto) Lymph % (Auto) [place] % (Auto) Eos % (Auto) Baso % (Auto) Neut # (Auto) Lymph # (Auto) [place] # (Auto) Eos # (Auto) Baso # (Auto) WBC Differential Differential Comment Sodium Potassium Chloride Carbon Dioxide Anion Gap BUN Creatinine Estimated GFR POC Glucose 121 H 90 Random Glucose Lactic Acid Calcium Phosphorus Magnesium Iron TIBC % Saturation Ferritin Total Protein (PEP) Vitamin B12 Folate Microbiology 02/02/18 11:23 Blood - Peripheral Aerobic Blood Culture - Preliminary No growth in 2 days 02/02/18 11:23 Blood - Peripheral Anaerobic Blood Culture - Preliminary No growth in 2 days 02/02/18 11:23 Blood - Peripheral Aerobic Blood Culture - Preliminary No growth in 2 days 02/02/18 11:23 Blood - Peripheral Anaerobic Blood Culture - Preliminary No growth in 2 days Assessment and Plan - Assessment (1) Hyperventilation Code(s): R06.4 - Hyperventilation Status: Acute (2) Acute respiratory distress Code(s): R06.03 - Acute respiratory distress Status: Acute (3) Hypotension Code(s): I95.9 - Hypotension, unspecified Status: Acute (4) History of aortic valve replacement Code(s): Z95.2 - Presence of prosthetic heart valve Status: Acute (5) Acute kidney injury Code(s): N17.9 - Acute kidney failure, unspecified Status: Acute - Plan 1. Will use O2 2 L PRN. 2. Continue antibiotics as ordered 3. Duoneb nebs tid PRN 4. Continue ASA and Effient 5. PFT when stable. 6. Transfer to [facility] if OK with cardiology
[2018-02-04] MEDS: Metoprolol Inj 5 MG/5 ML Vial IV.PUSH PRN (22:52)
[2018-02-04 23:59] LABS: Calcium 8.2 mg/dL (8.5-10.1); Carbon Dioxide 20.5 meq/L (21.0-32.0); Magnesium 1.8 mg/dL (1.5-2.5); Phosphorus 2.2 mg/dL (2.5-4.9); Potassium 3.7 meq/L (3.5-5.1)
[2018-02-05] MEDS: Insulin NovoLIN Regular Correctional Sugar Inj SQ SCH ×4 (00:21→20:20)
[2018-02-05] MEDS ORDERED: dilTIAZem 30 MG Tablet PO SCH (04:00)
[2018-02-05 04:20] LABS: Baso % (Auto) 0.5 % (0.0-2.0); Eos # (Auto) 0.1 th/mm3 (0.0-0.4); Eos % (Auto) 1.6 % (0.0-4.0); Hematocrit 30.8 % (35.0-46.0); Hemoglobin 10.6 gm/dL (11.6-15.3); Lymph # (Auto) 0.6 th/mm3 (1.0-4.8); Lymph % (Auto) 15.6 % (9.0-44.0); Mean Corpuscular HGB Conc 34.5 % (32.0-36.0); Mean Corpuscular Hemoglobin 31.1 pg (27.0-34.0); Mean Corpuscular Volume 90.2 fL (80.0-100.0); Mean Platelet Volume 8.8 fL (7.0-11.0); Mono # (Auto) 0.4 th/mm3 (0.0-0.9); Mono % (Auto) 10.9 % (0.0-8.0); Neut # (Auto) 2.7 th/mm3 (1.8-7.7); Neut % (Auto) 71.4 % (16.0-70.0); Platelet Count 105 th/mm3 (150-450); Red Blood Count 3.42 mil/mm3 (4.00-5.30); Red Cell Distribution Width 15.6 % (11.6-17.2); White Blood Count 3.8 th/mm3 (4.0-11.0)
[2018-02-05 04:44] LABS: Calcium 8.3 mg/dL (8.5-10.1); Carbon Dioxide 17.5 meq/L (21.0-32.0); Phosphorus 2.1 mg/dL (2.5-4.9); Potassium 3.9 meq/L (3.5-5.1)
[2018-02-05] MEDS: Chlorhexidine Gluconate 2% 1 Pack (2 Cloths) TOPICAL SCH (05:32)
[2018-02-05] MEDS: Senna/Docusate Sodium 8.6/50 MG Tablet PO SCH (08:13)
[2018-02-05] MEDS: Pantoprazole Inj 40 MG Vial IV.PUSH SCH (08:13)
[2018-02-05] MEDS: Metoprolol Tartrate 25 MG Tablet PO SCH ×2 (08:14→20:11)
[2018-02-05] MEDS: Metoprolol Inj 5 MG/5 ML Vial IV.PUSH PRN ×2 (11:25→15:45)
--- NOTE | 2018-02-05 11:50 | P.PNCA ---
<Yohana Malave N - Last Filed: 02/05/18 11:46> Subjective Interval history: Patient denies any chest pain, pressure, palpitations, or dizziness. Patient does complain of mild shortness of breath and not feeling well. Currently patient is is in atrial fibrillation from sinus rhythm. Patient stated that her made her very upset this morning and this is when this occurred. Physical Exam Vital signs: Vital Signs 02/04/18 12:00 02/04/18 12:01 02/04/18 13:00 Temperature 98.3 F Pulse Rate 98 H 101 H 92 H Respiratory Rate 27 H 28 H 25 H Blood Pressure 133/83 133/83 108/71 Pulse Oximetry 97 99 91 L 02/04/18 13:19 02/04/18 14:00 02/04/18 15:00 Temperature Pulse Rate 93 H 90 88 Respiratory Rate 25 H 22 17 Blood Pressure 108/71 103/65 107/83 Pulse Oximetry 88 L 100 100 02/04/18 15:38 02/04/18 16:00 02/04/18 17:00 Temperature 97.9 F Pulse Rate 86 86 90 Respiratory Rate 18 16 14 Blood Pressure 122/76 117/89 Pulse Oximetry 99 97 02/04/18 18:00 02/04/18 19:00 02/04/18 20:00 Temperature 97.9 F Pulse Rate 99 H 94 H 96 H Respiratory Rate 26 H 25 H 24 Blood Pressure 135/81 125/88 123/88 Pulse Oximetry 98 99 98 02/04/18 20:54 02/04/18 21:00 02/04/18 22:00 Temperature Pulse Rate 97 H 125 H 144 H Respiratory Rate 16 25 H 30 H Blood Pressure 119/90 103/82 Pulse Oximetry 97 99 93 L 02/04/18 23:00 02/05/18 00:00 02/05/18 01:00 Temperature 97.6 F Pulse Rate 103 H 97 H 94 H Respiratory Rate 26 H 22 26 H Blood Pressure 103/82 103/65 104/70 Pulse Oximetry 93 L 100 98 02/05/18 02:00 02/05/18 03:00 02/05/18 04:00 Temperature 98.1 F Pulse Rate 120 H 116 H 118 H Respiratory Rate 24 26 H 24 Blood Pressure 125/72 108/80 Pulse Oximetry 99 98 100 02/05/18 05:00 02/05/18 06:00 02/05/18 07:00 Temperature Pulse Rate 115 H 112 H 122 H Respiratory Rate 22 26 H 16 Blood Pressure 110/70 112/78 Pulse Oximetry 98 99 99 02/05/18 11:27 Temperature Pulse Rate 103 H Respiratory Rate 16 Blood Pressure Pulse Oximetry Intake & Output 02/04/18 02/05/18 02/05/18 18:59 06:59 18:59 Intake Total 480 / 480 650 / 650 Output Total 300 / 300 Balance 480 / 480 350 / 350 Weight 51.4 kg Intake: IV 600 / 600 KCl 20 mEq Premix Inj 20 meq In 100 / 100 100 ml @ 50 mls/hr IV.SIG Q2H PRN Rx#:[id number] Oral 480 / 480 50 / 50 Output: Urine 300 / 300 Other: # Voids 3 4 # Bowel Movements 0 0 - Constitutional mild distress - Routine HEENT Exam Head: Present: normocephalic Eye: Present: PERRL ENT: Present: mucous membranes moist - Routine Neck Exam Present: full ROM - Routine Respiratory Exam Present: CTA bilaterally - Routine Cardiovascular Exam Present: irregular rhythm. Absent: murmur, gallop, rubs - Routine Abdominal Exam Present: soft, normoactive bowel sounds - Routine Extremities Exam Present: full ROM, pulses intact, normal capillary refill. Absent: edema - Routine Skin Exam Present: intact - Routine Neurological Exam Present: alert, oriented X3 - Detailed Neurological Exam: Coma Scale Eye Opening: Spontaneous Verbal Response: Oriented Motor Response: Obey commands Leeann Coma Scale Total: 15 - Routine Psychiatric Exam Present: normal affect - Urinary Catheter Management Straight Cath placed during this visit: no Assessment and Plan - Assessment (1) Hypotension Code(s): I95.9 - Hypotension, unspecified Status: Acute (2) History of aortic valve replacement Code(s): Z95.2 - Presence of prosthetic heart valve Status: Acute (3) Acute kidney injury Code(s): N17.9 - Acute kidney failure, unspecified Status: Acute - Plan Encourage patient to drink fluids and remain hydrated. Patient currently in atrial fibrillation, continue metoprolol. Increase activity with physical therapy. 2D echo showed 45-50% EF, moderate mitral valve regurgitation, mild or aortic valve regurgitation and qcqs-oh-eaehlaav tricuspid valve regurgitation. Continue with current cardiac treatment plan. We will follow patient during hospitalization. Will follow up with patient in office after discharge. Patient was seen and evaluated by Dr. Abrams who participated in care, management and decision-making. <Eliel Abrams - Last Filed: 02/05/18 18:56> Physical Exam Vital signs: Vital Signs 02/04/18 19:00 02/04/18 20:00 02/04/18 20:54 Temperature 97.9 F Pulse Rate 94 H 96 H 97 H Respiratory Rate 25 H 24 16 Blood Pressure 125/88 123/88 Pulse Oximetry 99 98 97 02/04/18 21:00 02/04/18 22:00 02/04/18 23:00 Temperature Pulse Rate 125 H 144 H 103 H Respiratory Rate 25 H 30 H 26 H Blood Pressure 119/90 103/82 103/82 Pulse Oximetry 99 93 L 93 L 02/05/18 00:00 02/05/18 00:01 02/05/18 01:00 Temperature 97.6 F Pulse Rate 97 H 97 H 94 H Respiratory Rate 22 24 26 H Blood Pressure 103/65 103/65 104/70 Pulse Oximetry 100 99 98 02/05/18 02:00 02/05/18 02:03 02/05/18 03:00 Temperature Pulse Rate 120 H 123 H 116 H Respiratory Rate 24 25 H 26 H Blood Pressure 125/72 125/72 108/80 Pulse Oximetry 99 98 02/05/18 04:00 02/05/18 04:31 02/05/18 05:00 Temperature 98.1 F Pulse Rate 118 H 113 H 115 H Respiratory Rate 24 34 H 22 Blood Pressure 100/78 110/70 Pulse Oximetry 100 100 98 02/05/18 06:00 02/05/18 07:00 02/05/18 08:00 Temperature 98.2 F Pulse Rate 112 H 113 H 132 H Respiratory Rate 26 H 21 29 H Blood Pressure 112/78 112/82 124/76 Pulse Oximetry 99 95 98 02/05/18 09:00 02/05/18 09:01 02/05/18 10:00 Temperature Pulse Rate 122 H 122 H 102 H Respiratory Rate 27 H 29 H 22 Blood Pressure 126/94 H 126/94 H 97/73 L Pulse Oximetry 92 L 94 L 100 02/05/18 10:01 02/05/18 11:00 02/05/18 11:01 Temperature Pulse Rate 102 H 105 H 103 H Respiratory Rate 26 H 24 25 H Blood Pressure 97/73 L 108/68 108/68 Pulse Oximetry 92 L 97 99 02/05/18 11:27 02/05/18 12:00 02/05/18 13:00 Temperature 98.4 F Pulse Rate 103 H 111 H 116 H Respiratory Rate 16 32 H 23 Blood Pressure 105/82 113/82 Pulse Oximetry 92 L 02/05/18 13:15 02/05/18 14:00 02/05/18 14:23 Temperature Pulse Rate 118 H 120 H 116 H Respiratory Rate 24 30 H 31 H Blood Pressure 113/82 131/101 H 131/101 H Pulse Oximetry 69 L 87 L 02/05/18 14:25 02/05/18 15:00 02/05/18 15:41 Temperature Pulse Rate 120 H 122 H 133 H Respiratory Rate 29 H 30 H 20 Blood Pressure 106/86 114/60 Pulse Oximetry 90 L 02/05/18 16:00 02/05/18 16:20 02/05/18 17:00 Temperature 98.3 F Pulse Rate 131 H 124 H 100 H Respiratory Rate 34 H 27 H 35 H Blood Pressure 99/75 L 146/94 H Pulse Oximetry 02/05/18 17:13 02/05/18 18:00 Temperature Pulse Rate 98 H 99 H Respiratory Rate 27 H 28 H Blood Pressure 123/74 117/89 Pulse Oximetry Intake & Output 02/04/18 02/05/18 02/05/18 18:59 06:59 18:59 Intake Total 480 / 480 650 / 650 350 / 350 Output Total 300 / 300 Balance 480 / 480 350 / 350 350 / 350 Weight 113 lb 5.082 oz Intake: IV 600 / 600 KCl 20 mEq Premix Inj 20 meq In 100 / 100 100 ml @ 50 mls/hr IV.SIG Q2H PRN Rx#:[id number] Oral 480 / 480 50 / 50 350 / 350 Output: Urine 300 / 300 Other: # Voids 3 4 3 Date of Last Bowel Movement 02/05/18 # Bowel Movements 0 0 # Incontinent Bowel Movements 6 - Urinary Catheter Management Straight Cath placed during this visit: no Assessment and Plan - Assessment (1) Hypotension Code(s): I95.9 - Hypotension, unspecified Status: Acute (2) History of aortic valve replacement Code(s): Z95.2 - Presence of prosthetic heart valve Status: Acute (3) Acute kidney injury Code(s): N17.9 - Acute kidney failure, unspecified Status: Acute - Attending Attestation Patient seen and examined. I reviewed and agree with the evaluation and plan as presented. Back in AF, continue rate control. Recommend to continue baby ASA and Effient since she suffered acute stent thrombosis in 10/2017. Full anticoagulation with warfarin or NOAC would likely have higher risk than benefit. Continue hydration, monitor renal fx. Increase activity, PT.
--- NOTE | 2018-02-05 12:18 | ECG ---
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
--- NOTE | 2018-02-05 13:25 | P.PNONC ---
Subjective Interval history: Afebrile Patient curled up in bed on left side. She complains of being cold Denies chest pain or shortness of breath Objective Vital Signs/Intake & Output: Vital Signs 02/04/18 14:00 02/04/18 15:00 02/04/18 15:38 Temperature Pulse Rate 90 88 86 Respiratory Rate 22 17 18 Blood Pressure 103/65 107/83 Pulse Oximetry 100 100 02/04/18 16:00 02/04/18 17:00 02/04/18 18:00 Temperature 97.9 F Pulse Rate 86 90 99 H Respiratory Rate 16 14 26 H Blood Pressure 122/76 117/89 135/81 Pulse Oximetry 99 97 98 02/04/18 19:00 02/04/18 20:00 02/04/18 20:54 Temperature 97.9 F Pulse Rate 94 H 96 H 97 H Respiratory Rate 25 H 24 16 Blood Pressure 125/88 123/88 Pulse Oximetry 99 98 97 02/04/18 21:00 02/04/18 22:00 02/04/18 23:00 Temperature Pulse Rate 125 H 144 H 103 H Respiratory Rate 25 H 30 H 26 H Blood Pressure 119/90 103/82 103/82 Pulse Oximetry 99 93 L 93 L 02/05/18 00:00 02/05/18 01:00 02/05/18 02:00 Temperature 97.6 F Pulse Rate 97 H 94 H 120 H Respiratory Rate 22 26 H 24 Blood Pressure 103/65 104/70 125/72 Pulse Oximetry 100 98 99 02/05/18 03:00 02/05/18 04:00 02/05/18 05:00 Temperature 98.1 F Pulse Rate 116 H 118 H 115 H Respiratory Rate 26 H 24 22 Blood Pressure 108/80 110/70 Pulse Oximetry 98 100 98 02/05/18 06:00 02/05/18 07:00 02/05/18 11:27 Temperature Pulse Rate 112 H 122 H 103 H Respiratory Rate 26 H 16 16 Blood Pressure 112/78 Pulse Oximetry 99 99 Intake & Output 02/04/18 02/05/18 02/05/18 18:59 06:59 18:59 Intake Total 480 / 480 650 / 650 Output Total 300 / 300 Balance 480 / 480 350 / 350 Weight 113 lb 5.082 oz Intake: IV 600 / 600 KCl 20 mEq Premix Inj 20 meq In 100 / 100 100 ml @ 50 mls/hr IV.SIG Q2H PRN Rx#:[id number] Oral 480 / 480 50 / 50 Output: Urine 300 / 300 Other: # Voids 3 4 # Bowel Movements 0 0 Result Diagrams: 02/05/18 03:36 02/05/18 03:36 Laboratory Results: Laboratory Results - last 24 hr 02/03/18 02/04/18 02/04/18 19:27 17:45 23:04 WBC RBC Hgb Hct MCV MCH MCHC RDW Plt Count MPV Neut % (Auto) Lymph % (Auto) Johnston % (Auto) Eos % (Auto) Baso % (Auto) Neut # (Auto) Lymph # (Auto) Johnston # (Auto) Eos # (Auto) Baso # (Auto) WBC Differential Differential Comment Sodium 142 Potassium 3.7 Chloride 110 H Carbon Dioxide 20.5 L Anion Gap 12 BUN 19 H Creatinine 1.01 H Estimated GFR 52 L POC Glucose 90 Random Glucose 122 H Calcium 8.2 L Phosphorus 2.2 L Magnesium 1.8 Albumin (PEP) 3.45 L Albumin/Globulin Ratio 1.26 L Oayai-4-Aviaabsdm 0.27 Jvmri-9-Ivhyuivch 0.80 Beta Globulins 0.69 Gamma Globulins 0.99 02/05/18 02/05/18 02/05/18 00:20 03:36 03:36 WBC 3.8 L RBC 3.42 L Hgb 10.6 L Hct 30.8 L MCV 90.2 MCH 31.1 MCHC 34.5 RDW 15.6 Plt Count 105 L MPV 8.8 Neut % (Auto) 71.4 H Lymph % (Auto) 15.6 Johnston % (Auto) 10.9 H Eos % (Auto) 1.6 Baso % (Auto) 0.5 Neut # (Auto) 2.7 Lymph # (Auto) 0.6 L Johnston # (Auto) 0.4 Eos # (Auto) 0.1 Baso # (Auto) 0.0 WBC Differential . Differential Comment Auto diff final Sodium 140 Potassium 3.9 Chloride 110 H Carbon Dioxide 17.5 L Anion Gap 13 BUN 20 H Creatinine 0.98 Estimated GFR 54 L POC Glucose 114 H Random Glucose 131 H Calcium 8.3 L Phosphorus 2.1 L Magnesium 2.0 Albumin (PEP) Albumin/Globulin Ratio Ceiac-0-Levhgabzg Xrwoh-4-Wpyyswudj Beta Globulins Gamma Globulins 02/05/18 02/05/18 05:34 12:07 WBC RBC Hgb Hct MCV MCH MCHC RDW Plt Count MPV Neut % (Auto) Lymph % (Auto) Johnston % (Auto) Eos % (Auto) Baso % (Auto) Neut # (Auto) Lymph # (Auto) Johnston # (Auto) Eos # (Auto) Baso # (Auto) WBC Differential Differential Comment Sodium Potassium Chloride Carbon Dioxide Anion Gap BUN Creatinine Estimated GFR POC Glucose 128 H 113 H Random Glucose Calcium Phosphorus Magnesium Albumin (PEP) Albumin/Globulin Ratio Gkcmh-3-Olwftcija Cwxbw-9-Pqsdyobkl Beta Globulins Gamma Globulins Culture Results: Microbiology 02/02/18 11:23 Aerobic Blood Culture - Preliminary Blood - Peripheral No growth in 3 days Anaerobic Blood Culture - Preliminary No growth in 3 days 02/02/18 11:23 Aerobic Blood Culture - Preliminary Blood - Peripheral No growth in 3 days Anaerobic Blood Culture - Preliminary No growth in 3 days Medications: Active Medications Generic Name Dose Route Start Last Admin Trade Name Freq PRN Reason Stop Dose Admin Al Hydroxide/Mg Hydroxide 30 ml 02/02/18 13:48 02/05/18 06:44 Milk Of Magnesia Liq PO 30 ml Q12H PRN Administration Mild Constipation Albuterol 1 ampul 02/02/18 16:00 02/05/18 11:25 Duoneb Neb (Starla) NEB 1 ampul Q4HR NEB STARLA Administration Aspirin 81 mg 02/02/18 16:00 02/05/18 08:13 Ecotrin PO 81 mg DAILY STARLA Administration Bisacodyl 10 mg 02/02/18 13:48 02/05/18 10:00 Dulcolax Supp RECTAL 10 mg DAILY PRN Administration SEVERE CONSITIPATION Chlorhexidine Gluconate 3 pack 02/03/18 04:00 02/05/18 05:32 Chlorhexidine 2% Cloth TOPICAL 02/08/18 03:59 3 pack DAILY@0400 STARLA Administration Potassium Chloride 20 meq in 100 mls @ 50 mls/hr 02/03/18 09:23 02/04/18 22: 07 Kcl 20 Meq Premix Inj IV.SIG Infused Q2H PRN Infusion For Potassium 2.8 - 3.2 mEq/L Insulin Human Regular 0 units 02/02/18 18:00 08/16/18 05:34 Novolin R Correctional Sugar Inj SQ Not Given Q6HR [facility] Protocol Lactulose 30 ml 02/02/18 13:48 02/05/18 10:00 Lactulose Liq PO 30 ml DAILY PRN Administration SEVERE CONSITIPATION Metoprolol Tartrate 5 mg 02/04/18 22:36 02/05/18 11:25 Lopressor Inj IV.PUSH 5 mg Q4H PRN Administration heart rate >110 Metoprolol Tartrate 12.5 mg 02/05/18 09:00 02/05/18 08:14 Lopressor PO 12.5 mg BID STARLA Administration Pantoprazole Sodium 40 mg 02/02/18 14:00 02/05/18 08:13 Protonix Inj IV.PUSH 40 mg DAILY STARLA Administration Potassium Phosphate 2,000 mg 02/03/18 09:23 02/05/18 08:14 K-Phos Original PO 2,000 mg Q4H PRN Administration Phosphorus Less Than 2.5 mg/dL Prasugrel 5 mg 02/02/18 15:15 02/05/18 08:13 Effient PO 5 mg DAILY STARLA Administration Senna/Docusate Sodium 1 tab 02/02/18 21:00 02/05/18 08:13 Coretta-Colace PO 1 tab BID TSARLA Administration Sennosides 17.2 mg 02/02/18 13:48 02/05/18 06:44 Senokot PO 17.2 mg Q12H PRN Administration Moderate Constipation Objective Remarks: GENERAL: Frail elderly female resting in bed in no acute distress SKIN: Warm and dry. HEAD: Normocephalic. EYES: No scleral icterus. No injection or drainage. NECK: Supple, trachea midline. No JVD or lymphadenopathy. CARDIOVASCULAR: Irregular rhythm RESPIRATORY: Clear but diminished posteriorly GASTROINTESTINAL: Abdomen soft, non-tender, nondistended. EXTREMITIES: No cyanosis, or edema. MUSCULOSKELETAL: Generalized weakness NEUROLOGICAL: Awake and alert. Moving all extremities. No obvious focal deficit. Assessment/Plan (1) Pulmonary embolism Code(s): I26.99 - Other pulmonary embolism without acute cor pulmonale Status : Acute - Plan 82-year-old female admitted with progressive fatigue, weight loss and dizziness admitted with a small burden pulmonary embolism. She also has some pancytopenia. 1. Blood counts improving. The patient overall feels better. Dr. Ray as discussed with Dr. 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 Adding a third anticoagulant would give her an extremely high risk of bleeding. In the current clinical situation it would be best to continue with the current course as she has a relatively small PE clot burden. 2. Continue to monitor blood counts.
[2018-02-05 16:41] LABS: ABG Base Excess -8.6 mmol/L (-2-2); ABG PCO2 21 mmHg (38-42); ABG PO2 94 mmHG (61-120)
--- NOTE | 2018-02-05 16:47 | XR ---
EXAM DATE: 02/05/2018 4:45 PM EDT AGE/SEX: 82 years / Female INDICATIONS: Short of breath. CLINICAL DATA: This is the patient's initial encounter. Patient reports that signs and symptoms have been present for 1 day and indicates a pain score of Nonresponsive. MEDICAL/SURGICAL HISTORY: Non-responsive. Non-responsive. COMPARISON: [facility] [place], CHEST 1V SINGLE AP, 02/02/2018. . FINDINGS: Bibasilar infiltrates are present. Likely associated mild layering effusion. Cardiac contours are anthony ssly unchanged. Sternotomy wires are present. CONCLUSION: Bibasilar infiltrates and effusions. Electronically signed by: Baljeet Cortes MD 02/05/2018 4:46 PM EDT
--- NOTE | 2018-02-05 16:49 | P.PNCC ---
Subjective Subjective Remarks/Hospital Course: The patient is an 82-year-old female with a past medical history of aortic valve replacement, coronary artery disease, and hypertension, who was seen in cardiology clinic by Dr. Abrams today for a followup, and the patient became short of breath and had one episode of emesis. She denied any chest pain, orthopnea, PND, or edema of lower extremities. In addition, she denies any nausea, vomiting, or abdominal pain. She was sent to the ER for further evaluation and management of her symptoms. On arrival, she was hypotensive with a systolic blood pressure in the 80s, and her laboratory data significant for mild acute kidney injury with creatinine level 1.50, lactic acidosis with lactic acid level 3.2 and elevated BNP 443. The patient had an ABG done on a nonrebreather mask, which showed a pH of 7.81, CO2 of 11, PaO2 of 262, bicarbonate 18, saturations 99%. The patient was initially placed on BiPAP with improvement of her oxygenation, and she was weaned off BiPAP and placed on a nasal cannula with a saturation of 96% on 2 liters oxygen. A chest x-ray in the ED showed no acute disease. She also had an elevated D-dimer at 7.05. She underwent a CT angiogram of the chest, which showed eccentric focal-filling defect and isolated left lower lobe proximal subsegmental pulmonary artery branch consistent with subacute chronic etiology , moderate coronary artery calcifications, and severe T8 compression fracture with unknown chronicity. In the ED, she was given 1 liter bolus of normal saline, vancomycin, and Zosyn. Also, echocardiogram was performed, which showed an EF of 45% to 50%, moderate mitral valve regurgitation, mild to moderate tricuspid regurgitation, and a bioprosthetic valve. 02/03 Patient is lying in be din NAD. Afebrile 02/04 No events overnight. Awake and alert. SUBJECTIVE: 02/05: Episode of atrial fibrillation with rapid ventricular response after bowel movement. Going on more short of breath. ABG revealed an acute respiratory alkalosis. Laboratory's pain. Denies abdominal pain. Claims to be short of breath denies chest pain. Objective Vital Signs / I&O: Vital Signs 02/04/18 17:00 02/04/18 18:00 02/04/18 19:00 Temperature Pulse Rate 90 99 H 94 H Respiratory Rate 14 26 H 25 H Blood Pressure 117/89 135/81 125/88 Pulse Oximetry 97 98 99 02/04/18 20:00 02/04/18 20:54 02/04/18 21:00 Temperature 97.9 F Pulse Rate 96 H 97 H 125 H Respiratory Rate 24 16 25 H Blood Pressure 123/88 119/90 Pulse Oximetry 98 97 99 02/04/18 22:00 02/04/18 23:00 02/05/18 00:00 Temperature 97.6 F Pulse Rate 144 H 103 H 97 H Respiratory Rate 30 H 26 H 22 Blood Pressure 103/82 103/82 103/65 Pulse Oximetry 93 L 93 L 100 02/05/18 01:00 02/05/18 02:00 02/05/18 03:00 Temperature Pulse Rate 94 H 120 H 116 H Respiratory Rate 26 H 24 26 H Blood Pressure 104/70 125/72 108/80 Pulse Oximetry 98 99 98 02/05/18 04:00 02/05/18 05:00 02/05/18 06:00 Temperature 98.1 F Pulse Rate 118 H 115 H 112 H Respiratory Rate 24 22 26 H Blood Pressure 110/70 112/78 Pulse Oximetry 100 98 99 02/05/18 07:00 02/05/18 11:27 02/05/18 15:41 Temperature Pulse Rate 122 H 103 H 133 H Respiratory Rate 16 16 20 Blood Pressure Pulse Oximetry 99 Intake & Output 02/04/18 02/05/18 02/05/18 18:59 06:59 18:59 Intake Total 480 / 480 650 / 650 Output Total 300 / 300 Balance 480 / 480 350 / 350 Weight 51.4 kg Intake: IV 600 / 600 KCl 20 mEq Premix Inj 20 meq In 100 / 100 100 ml @ 50 mls/hr IV.SIG Q2H PRN Rx#:[id number] Oral 480 / 480 50 / 50 Output: Urine 300 / 300 Other: # Voids 3 4 Date of Last Bowel Movement 02/05/18 # Bowel Movements 0 0 Result Diagrams: 02/05/18 03:36 02/05/18 03:36 Other Results: Microbiology 02/02/18 11:23 Blood - Peripheral Aerobic Blood Culture - Preliminary No growth in 3 days 02/02/18 11:23 Blood - Peripheral Anaerobic Blood Culture - Preliminary No growth in 3 days 02/02/18 11:23 Blood - Peripheral Aerobic Blood Culture - Preliminary No growth in 3 days 02/02/18 11:23 Blood - Peripheral Anaerobic Blood Culture - Preliminary No growth in 3 days Imaging: Venous Doppler Study 02/02/18 00:00 CONCLUSION: Negative exam. No sonographic or Doppler findings of deep venous thrombosis Chest X-Ray 02/02/18 11:19 CONCLUSION: Negative for an acute process Chest CTA 02/02/18 13:38 CONCLUSION: 1. Eccentric focal filling defect in an isolated left lower lobe proximal subsegmental pulmonary artery branch, this is most consistent with a subacute to chronic etiology. 2. Mild positive fluid balance. 3. Moderate coronary artery calcifications. 4. Severe T8 compression fracture of unknown chronicity given lack of recent prior exams. Objective Remarks: GENERAL: Patient is 82 yo lying in bed in NAD SKIN: Warm and dry. HEAD: Normocephalic. EYES: No scleral icterus. No injection or drainage. NECK: Supple, trachea midline. No JVD or lymphadenopathy. CARDIOVASCULAR: Currently in normal sinus rhythm heart rate 99. S1, S2 no surgery 2/6 systolic murmur RESPIRATORY: Breath sounds equal bilaterally. + accessory muscle use. No wheezes rales rhonchi GASTROINTESTINAL: Abdomen soft, slightly tender to palpation epigastric. No guarding rigidity. MUSCULOSKELETAL: No cyanosis, or edema. Neuro: awake and alert Assessment and Plan - Assessment and Plan Plan: 1. Acute hypoxemic respiratory failure. 2. Status post aortic valve replacement. 3. History of coronary artery disease. History of in stents thrombosis 4. Hypertension. 5. Hypothyroidism. 6. Left lower lobe pulmonary embolism/small 7. Pancytopenia 8. Moderate MR/TR 9. Hypophosphatemia 10. Insomnia Plan Neuro: Monitor neuro status closely and avoid any sedatives. Currently holding trazodone 50 mg at night/home medication. Acetaminophen 650 p.o. every 6 hours as needed fever Pulm: Continue with oxygen and maintain sats above 92%. Currently on 2 L Bronchodilators with albuterol/ipratropium aerosols every 4 hours with albuterol aerosols every 2 hours as needed for dyspnea CTA chest: Eccentric focal filling defect in an isolated left lower lobe proximal subsegmental pulmonary artery branch, this is most consistent with a subacute to chronic etiology. Doppler US LE negative for DVT CV: Monitor heart rate and blood pressure closely, and maintain MAP > 65 mmHg. Lactic acid: 2.5 Consult, cards is following- Dr. Abrams, on Prasugrel 5 mg daily, ASA 81mg daily. Echo: EF of 45%-50% distal kinesis. Bioprosthetic aortic valve. BNP, EKG troponin and CPK are pending. EKG showed A. fib with RVR. Incomplete left anterior fascicular block. GI : On p.o. cardiac diet. on pantoprazole 40 mg for GI prophylaxis. : Monitor renal function, electrolytes replacement per protocol. Will need phosphorus replacement today. Renal function normalizing ID: Given vancomycin and piperacillin/tazobactam in the ED. Hold off on further abx- no signs of an infectious process. Check C. difficile Followup on blood cultures 02/02: NGTD Endo: SSI with Accu-Cheks for glycemic TSH: 3.0. Resume levothyroxine 50 emiliana grams daily/home medication Heme: Monitor CBC and coags. Heme is following for pancytopenia-Dr. Bell B12, Folate , Iron studies, protein electrophoresis essentially within normal limits GI prophylaxis with pantoprazole DVT prophylaxis with SCD Per discussion with cardiology and hematology no anticoagulation with heparin/ TSOAC secondary to high bleeding risk. Continue prasugrel 5 mg daily and aspirin 81 mg daily. Level 2 Code Status: Full code Discussed Condition With: Patient. Care plan discussed and all questions answered.
[2018-02-05] MEDS ORDERED: Potassium Chlor 20 mEq Premix 20 MEQ/100 ML PIGGYBACK IV.SIG PRN ×2 (16:51)
[2018-02-05] MEDS ORDERED: Potassium Chlor 40 mEq Premix 40 MEQ/100 ML PIGGYBACK IV.SIG PRN ×2 (16:51)
[2018-02-05] MEDS ORDERED: Potassium Phosphate 500 MG Soluble Tablet PO PRN ×2 (16:51)
[2018-02-05] MEDS ORDERED: Magnesium Sulfate Inj 4 GM in Sodium Chlor 0.9% Inj 92 ML IV.SIG PRN (16:51)
[2018-02-05] MEDS ORDERED: Magnesium Oxide 400 MG Tablet PO PRN (16:51)
[2018-02-05] MEDS ORDERED: Sodium Phosphate Inj 30 MMOL in Sodium Chlor 0.9% Inj 250 ML IV.SIG PRN (16:51)
[2018-02-05] MEDS ORDERED: Potassium Chloride 25 MEQ Effervescent Tablet PO PRN (16:51)
[2018-02-05] MEDS ORDERED: Magnesium Sulfate Inj 2 GM in Sodium Chlor 0.9% Inj 96 ML IV.SIG PRN (16:51)
[2018-02-05] MEDS ORDERED: Potassium Phosphate Inj 30 MMOL in Sodium Chlor 0.9% Inj 250 ML IV.SIG PRN (16:51)
[2018-02-05] MEDS ORDERED: Digoxin Inj 500 MCG/2 ML Ampul IV.PUSH ONE (17:30)
[2018-02-05] MEDS ORDERED: Amiodarone 200 MG Tablet PO ONE (17:30)
[2018-02-05 17:42] LABS: Hematocrit 37.5 % (35.0-46.0); Hemoglobin 12.6 gm/dL (11.6-15.3); Mean Corpuscular HGB Conc 33.5 % (32.0-36.0); Mean Corpuscular Hemoglobin 30.7 pg (27.0-34.0); Mean Corpuscular Volume 91.7 fL (80.0-100.0); Mean Platelet Volume 9.3 fL (7.0-11.0); Platelet Count 151 th/mm3 (150-450); Red Blood Count 4.09 mil/mm3 (4.00-5.30); Red Cell Distribution Width 15.6 % (11.6-17.2)
[2018-02-05] MEDS ORDERED: Sodium Phosphate Inj 30 MMOL in Sodium Chlor 0.9% Inj 250 ML IV.SIG ONE (18:00)
[2018-02-05 18:05] LABS: Calcium 8.5 mg/dL (8.5-10.1); Carbon Dioxide 19.8 meq/L (21.0-32.0); Phosphorus 3.8 mg/dL (2.5-4.9); Potassium 4.9 meq/L (3.5-5.1)
--- NOTE | 2018-02-05 18:28 | P.PN ---
Subjective Interval history: Had an Episode of Atrial Fib and now HR is at 100. Off O2 sat 97.. No chest pains. Physical Exam Vital signs: Vital Signs 02/04/18 19:00 02/04/18 20:00 02/04/18 20:54 Temperature 97.9 F Pulse Rate 94 H 96 H 97 H Respiratory Rate 25 H 24 16 Blood Pressure 125/88 123/88 Pulse Oximetry 99 98 97 02/04/18 21:00 02/04/18 22:00 02/04/18 23:00 Temperature Pulse Rate 125 H 144 H 103 H Respiratory Rate 25 H 30 H 26 H Blood Pressure 119/90 103/82 103/82 Pulse Oximetry 99 93 L 93 L 02/05/18 00:00 02/05/18 01:00 02/05/18 02:00 Temperature 97.6 F Pulse Rate 97 H 94 H 120 H Respiratory Rate 22 26 H 24 Blood Pressure 103/65 104/70 125/72 Pulse Oximetry 100 98 99 02/05/18 03:00 02/05/18 04:00 02/05/18 05:00 Temperature 98.1 F Pulse Rate 116 H 118 H 115 H Respiratory Rate 26 H 24 22 Blood Pressure 108/80 110/70 Pulse Oximetry 98 100 98 02/05/18 06:00 02/05/18 07:00 02/05/18 11:27 Temperature Pulse Rate 112 H 122 H 103 H Respiratory Rate 26 H 16 16 Blood Pressure 112/78 Pulse Oximetry 99 99 02/05/18 15:41 Temperature Pulse Rate 133 H Respiratory Rate 20 Blood Pressure Pulse Oximetry Intake & Output 02/04/18 02/05/18 02/05/18 18:59 06:59 18:59 Intake Total 480 / 480 650 / 650 Output Total 300 / 300 Balance 480 / 480 350 / 350 Weight 51.4 kg Intake: IV 600 / 600 KCl 20 mEq Premix Inj 20 meq In 100 / 100 100 ml @ 50 mls/hr IV.SIG Q2H PRN Rx#:[id number] Oral 480 / 480 50 / 50 Output: Urine 300 / 300 Other: # Voids 3 4 Date of Last Bowel Movement 02/05/18 # Bowel Movements 0 0 Narrative: GENERAL: This is a well-nourished, elderly female patient, in no apparent distress. HEENT: Head is atraumatic and normocephalic. Neck is supple without lymphadenopathy and trachea is midline. No JVD or carotid bruits. CARDIOVASCULAR: Irregularly Irregular rate and rhythm without murmurs, gallops , or rubs. RESPIRATORY: Breath sounds equal bilaterally.Occ wheezes and Chest wall is nontender. No use of accessory muscles. GASTROINTESTINAL: Abdomen is nontender, nondistended. Abdomen soft. No obvious pulsatile mass or bruit. No CVA tenderness. Strong femoral pulses bilaterally. Normal bowel sounds in all quadrants. MUSCULOSKELETAL: Patient is moving upper and lower extremities freely. No calf tenderness or edema, no Homans sign. NEUROLOGICAL: Patient is alert and oriented. Cranial nerves 2-12 are grossly intact. No focal deficits and speech is clear. SKIN: No rash and turgor is normal. - Urinary Catheter Management Straight Cath placed during this visit: no Results - Labs CBC & Chem 7: 02/05/18 17:21 02/05/18 17:21 Laboratory Results - last 24 hr 02/03/18 02/04/18 02/05/18 19:27 23:04 00:20 WBC RBC Hgb Hct MCV MCH MCHC RDW Plt Count MPV Neut % (Auto) Lymph % (Auto) [place] % (Auto) Eos % (Auto) Baso % (Auto) Neut # (Auto) Lymph # (Auto) [place] # (Auto) Eos # (Auto) Baso # (Auto) WBC Differential Differential Comment Puncture Site Patient Temperature O2 Saturation ABG pH ABG pCO2 ABG pO2 ABG HCO3 ABG O2 Content ABG Base Excess ABG Methemoglobin Mukund Test Hemoglobin Carboxyhemoglobin O2 Delivery Device Liter Flow Inspired O2 Critical Value Sodium 142 Potassium 3.7 Chloride 110 H Carbon Dioxide 20.5 L Anion Gap 12 BUN 19 H Creatinine 1.01 H Estimated GFR 52 L POC Glucose 114 H Random Glucose 122 H Lactic Acid Calcium 8.2 L Phosphorus 2.2 L Magnesium 1.8 Total Creatine Kinase Troponin I B-Natriuretic Peptide Albumin (PEP) 3.45 L Albumin/Globulin Ratio 1.26 L Sufxu-9-Yxgphvdwg 0.27 Yfmoj-6-Zuuwmtfer 0.80 Beta Globulins 0.69 Gamma Globulins 0.99 PEP Pathologist Comment 02/05/18 02/05/18 02/05/18 03:36 03:36 05:34 WBC 3.8 L RBC 3.42 L Hgb 10.6 L Hct 30.8 L MCV 90.2 MCH 31.1 MCHC 34.5 RDW 15.6 Plt Count 105 L MPV 8.8 Neut % (Auto) 71.4 H Lymph % (Auto) 15.6 [place] % (Auto) 10.9 H Eos % (Auto) 1.6 Baso % (Auto) 0.5 Neut # (Auto) 2.7 Lymph # (Auto) 0.6 L [place] # (Auto) 0.4 Eos # (Auto) 0.1 Baso # (Auto) 0.0 WBC Differential . Differential Comment Auto diff final Puncture Site Patient Temperature O2 Saturation ABG pH ABG pCO2 ABG pO2 ABG HCO3 ABG O2 Content ABG Base Excess ABG Methemoglobin Mukund Test Hemoglobin Carboxyhemoglobin O2 Delivery Device Liter Flow Inspired O2 Critical Value Sodium 140 Potassium 3.9 Chloride 110 H Carbon Dioxide 17.5 L Anion Gap 13 BUN 20 H Creatinine 0.98 Estimated GFR 54 L POC Glucose 128 H Random Glucose 131 H Lactic Acid Calcium 8.3 L Phosphorus 2.1 L Magnesium 2.0 Total Creatine Kinase Troponin I B-Natriuretic Peptide Albumin (PEP) Albumin/Globulin Ratio Tfnic-8-Jjajofroe Yhozx-4-Tebbzzixp Beta Globulins Gamma Globulins PEP Pathologist Comment 02/05/18 02/05/18 02/05/18 12:07 16:33 17:21 WBC RBC Hgb Hct MCV MCH MCHC RDW Plt Count MPV Neut % (Auto) Lymph % (Auto) [place] % (Auto) Eos % (Auto) Baso % (Auto) Neut # (Auto) Lymph # (Auto) [place] # (Auto) Eos # (Auto) Baso # (Auto) WBC Differential Differential Comment Puncture Site Left femoral Patient Temperature 98.6 O2 Saturation 95 ABG pH 7.45 H ABG pCO2 21 L* ABG pO2 94 ABG HCO3 15 L* ABG O2 Content 15.0 ABG Base Excess -8.6 L ABG Methemoglobin 1.3 Mukund Test Present Hemoglobin 11.1 L Carboxyhemoglobin 0.9 O2 Delivery Device Nasal cannula Liter Flow 2.00 Inspired O2 21 Critical Value Yes Sodium Potassium Chloride Carbon Dioxide Anion Gap BUN Creatinine Estimated GFR POC Glucose 113 H Random Glucose Lactic Acid Calcium Phosphorus Magnesium Total Creatine Kinase 59 Troponin I B-Natriuretic Peptide Albumin (PEP) Albumin/Globulin Ratio Abfdw-1-Rettjtuxl Flech-2-Gddwvnema Beta Globulins Gamma Globulins PEP Pathologist Comment 02/05/18 02/05/18 02/05/18 17:21 17:21 17:21 WBC 9.0 D RBC 4.09 Hgb 12.6 D Hct 37.5 MCV 91.7 MCH 30.7 MCHC 33.5 RDW 15.6 Plt Count 151 D MPV 9.3 Neut % (Auto) Lymph % (Auto) [place] % (Auto) Eos % (Auto) Baso % (Auto) Neut # (Auto) Lymph # (Auto) [place] # (Auto) Eos # (Auto) Baso # (Auto) WBC Differential Differential Comment Puncture Site Patient Temperature O2 Saturation ABG pH ABG pCO2 ABG pO2 ABG HCO3 ABG O2 Content ABG Base Excess ABG Methemoglobin Mukund Test Hemoglobin Carboxyhemoglobin O2 Delivery Device Liter Flow Inspired O2 Critical Value Sodium Potassium Chloride Carbon Dioxide Anion Gap BUN Creatinine Estimated GFR POC Glucose Random Glucose Lactic Acid Calcium Phosphorus Magnesium Total Creatine Kinase Troponin I 0.06 H B-Natriuretic Peptide 4941 H Albumin (PEP) Albumin/Globulin Ratio Ydcqs-8-Wzaonfogs Vjrct-2-Dolyqbycl Beta Globulins Gamma Globulins PEP Pathologist Comment 02/05/18 02/05/18 17:21 17:21 WBC RBC Hgb Hct MCV MCH MCHC RDW Plt Count MPV Neut % (Auto) Lymph % (Auto) [place] % (Auto) Eos % (Auto) Baso % (Auto) Neut # (Auto) Lymph # (Auto) [place] # (Auto) Eos # (Auto) Baso # (Auto) WBC Differential Differential Comment Puncture Site Patient Temperature O2 Saturation ABG pH ABG pCO2 ABG pO2 ABG HCO3 ABG O2 Content ABG Base Excess ABG Methemoglobin Mukund Test Hemoglobin Carboxyhemoglobin O2 Delivery Device Liter Flow Inspired O2 Critical Value Sodium 140 Potassium 4.9 D Chloride 109 H Carbon Dioxide 19.8 L Anion Gap 11 BUN 24 H Creatinine 1.15 H Estimated GFR 45 L POC Glucose Random Glucose 167 H Lactic Acid 3.6 H Calcium 8.5 Phosphorus 3.8 D Magnesium 2.0 Total Creatine Kinase Troponin I B-Natriuretic Peptide Albumin (PEP) Albumin/Globulin Ratio Dpmfr-4-Fvinvhuda Pvlqg-7-Dcddwibqr Beta Globulins Gamma Globulins PEP Pathologist Comment Microbiology 02/02/18 11:23 Blood - Peripheral Aerobic Blood Culture - Preliminary No growth in 3 days 02/02/18 11:23 Blood - Peripheral Anaerobic Blood Culture - Preliminary No growth in 3 days 02/02/18 11:23 Blood - Peripheral Aerobic Blood Culture - Preliminary No growth in 3 days 02/02/18 11:23 Blood - Peripheral Anaerobic Blood Culture - Preliminary No growth in 3 days - Imaging Impressions Chest X-Ray 02/05/18 16:24 CONCLUSION: Bibasilar infiltrates and effusions. Assessment and Plan - Assessment (1) Hyperventilation Code(s): R06.4 - Hyperventilation Status: Acute (2) Acute respiratory distress Code(s): R06.03 - Acute respiratory distress Status: Acute (3) Hypotension Code(s): I95.9 - Hypotension, unspecified Status: Acute (4) History of aortic valve replacement Code(s): Z95.2 - Presence of prosthetic heart valve Status: Acute (5) Acute kidney injury Code(s): N17.9 - Acute kidney failure, unspecified Status: Acute - Plan 1. Will use O2 2 L PRN. 2. Lasix 20 mg PO 3. Duoneb nebs tid PRN 4. Continue ASA and Effient 5. Chest Xray in am. 6. Amiodarone per Cardiology.
[2018-02-06] MEDS: Chlorhexidine Gluconate 2% 1 Pack (2 Cloths) TOPICAL SCH (03:20)
[2018-02-06 04:39] LABS: Baso % (Auto) 0.3 % (0.0-2.0); Eos % (Auto) 0.1 % (0.0-4.0); Hematocrit 27.4 % (35.0-46.0); Hemoglobin 9.3 gm/dL (11.6-15.3); Lymph # (Auto) 0.7 th/mm3 (1.0-4.8); Lymph % (Auto) 10.1 % (9.0-44.0); Mean Corpuscular Hemoglobin 31.1 pg (27.0-34.0); Mean Corpuscular Volume 91.4 fL (80.0-100.0); Mean Platelet Volume 8.8 fL (7.0-11.0); Mono # (Auto) 0.6 th/mm3 (0.0-0.9); Mono % (Auto) 7.9 % (0.0-8.0); Neut # (Auto) 5.8 th/mm3 (1.8-7.7); Neut % (Auto) 81.6 % (16.0-70.0); Platelet Count 100 th/mm3 (150-450); White Blood Count 7.1 th/mm3 (4.0-11.0)
[2018-02-06 05:11] LABS: Alanine Aminotransferase 23 U/L (10-53); Albumin 2.4 g/dL (3.4-5.0); Alkaline Phosphatase 72 U/L (45-117); Anion Gap 12 meq/L (5-15); Aspartate Aminotransferase 26 U/L (15-37); Blood Urea Nitrogen 21 mg/dL (7-18); Calcium 7.5 mg/dL (8.5-10.1); Carbon Dioxide 19.4 meq/L (21.0-32.0); Chloride 109 meq/L (98-107); Glomerular Filtration Rate 58 mL/min (>89); Glucose,Random 116 mg/dL (74-106); Potassium 3.1 meq/L (3.5-5.1); Sodium 140 meq/L (136-145); Total Protein 5.2 g/dL (6.4-8.2)
[2018-02-06] MEDS: Levothyroxine 50 MCG Tablet PO SCH (05:48)
[2018-02-06] MEDS: Potassium Chlor 20 mEq Premix 20 MEQ/100 ML PIGGYBACK IV.SIG SCH ×2 (05:49→16:34)
--- NOTE | 2018-02-06 07:14 | P.PNCC ---
Subjective Subjective Remarks/Hospital Course: The patient is an 82-year-old female with a past medical history of aortic valve replacement, coronary artery disease, and hypertension, who was seen in cardiology clinic by Dr. Abrams today for a followup, and the patient became short of breath and had one episode of emesis. She denied any chest pain, orthopnea, PND, or edema of lower extremities. In addition, she denies any nausea, vomiting, or abdominal pain. She was sent to the ER for further evaluation and management of her symptoms. On arrival, she was hypotensive with a systolic blood pressure in the 80s, and her laboratory data significant for mild acute kidney injury with creatinine level 1.50, lactic acidosis with lactic acid level 3.2 and elevated BNP 443. The patient had an ABG done on a nonrebreather mask, which showed a pH of 7.81, CO2 of 11, PaO2 of 262, bicarbonate 18, saturations 99%. The patient was initially placed on BiPAP with improvement of her oxygenation, and she was weaned off BiPAP and placed on a nasal cannula with a saturation of 96% on 2 liters oxygen. A chest x-ray in the ED showed no acute disease. She also had an elevated D- dimer at 7.05. She underwent a CT angiogram of the chest, which showed eccentric focal-filling defect and isolated left lower lobe proximal subsegmental pulmonary artery branch consistent with subacute chronic etiology , moderate coronary artery calcifications, and severe T8 compression fracture with unknown chronicity. In the ED, she was given 1 liter bolus of normal saline, vancomycin, and Zosyn. Also, echocardiogram was performed, which showed an EF of 45% to 50%, moderate mitral valve regurgitation, mild to moderate tricuspid regurgitation, and a bioprosthetic valve. 02/03 Patient is lying in be din NAD. Afebrile 02/04 No events overnight. Awake and alert. 02/05: Episode of atrial fibrillation with rapid ventricular response after bowel movement. Going on more short of breath. ABG revealed an acute respiratory alkalosis. Laboratory's pain. Denies abdominal pain. Claims to be short of breath denies chest pain. SUBJECTIVE: 02/06: Afebrile. Currently normal sinus rhythm. Lactic acid cleared. Replacing potassium currently. Complaining of burning infusion set of potassium chloride. We will give more p.o. the present time. Recheck this afternoon. Objective Vital Signs / I&O: Vital Signs 02/05/18 08:00 02/05/18 09:00 02/05/18 09:01 Temperature 98.2 F Pulse Rate 132 H 122 H 122 H Respiratory Rate 29 H 27 H 29 H Blood Pressure 124/76 126/94 H 126/94 H Pulse Oximetry 98 92 L 94 L 02/05/18 10:00 02/05/18 10:01 02/05/18 11:00 Temperature Pulse Rate 102 H 102 H 105 H Respiratory Rate 22 26 H 24 Blood Pressure 97/73 L 97/73 L 108/68 Pulse Oximetry 100 92 L 97 02/05/18 11:01 02/05/18 11:27 02/05/18 12:00 Temperature 98.4 F Pulse Rate 103 H 103 H 111 H Respiratory Rate 25 H 16 32 H Blood Pressure 108/68 105/82 Pulse Oximetry 99 92 L 02/05/18 13:00 02/05/18 13:15 02/05/18 14:00 Temperature Pulse Rate 116 H 118 H 120 H Respiratory Rate 23 24 30 H Blood Pressure 113/82 113/82 131/101 H Pulse Oximetry 69 L 02/05/18 14:23 02/05/18 14:25 02/05/18 15:00 Temperature Pulse Rate 116 H 120 H 122 H Respiratory Rate 31 H 29 H 30 H Blood Pressure 131/101 H 106/86 114/60 Pulse Oximetry 87 L 90 L 02/05/18 15:41 02/05/18 16:00 02/05/18 16:20 Temperature 98.3 F Pulse Rate 133 H 131 H 124 H Respiratory Rate 20 34 H 27 H Blood Pressure 99/75 L 146/94 H Pulse Oximetry 02/05/18 17:00 02/05/18 17:13 02/05/18 18:00 Temperature Pulse Rate 100 H 98 H 99 H Respiratory Rate 35 H 27 H 28 H Blood Pressure 123/74 117/89 Pulse Oximetry 02/05/18 19:00 02/05/18 19:48 02/05/18 19:53 Temperature Pulse Rate 92 H 92 H Respiratory Rate 29 H 18 Blood Pressure 117/75 Pulse Oximetry 98 93 L 02/05/18 20:00 02/05/18 21:00 02/05/18 22:00 Temperature 98.5 F Pulse Rate 90 92 H 87 Respiratory Rate 24 30 H 27 H Blood Pressure 93/62 L 107/68 102/60 Pulse Oximetry 93 L 94 L 94 L 02/05/18 23:00 02/05/18 23:08 02/06/18 00:00 Temperature 98.1 F Pulse Rate 82 83 81 Respiratory Rate 19 20 20 Blood Pressure 90/65 L 95/64 L Pulse Oximetry 96 94 L 02/06/18 01:00 02/06/18 02:00 02/06/18 03:00 Temperature Pulse Rate 79 81 76 Respiratory Rate 22 24 20 Blood Pressure 90/57 L 90/58 L 94/63 L Pulse Oximetry 95 98 99 02/06/18 04:00 02/06/18 05:00 02/06/18 06:00 Temperature 98.8 F Pulse Rate 73 70 80 Respiratory Rate 17 17 29 H Blood Pressure 92/57 L 92/57 L 101/63 Pulse Oximetry 99 100 99 Intake & Output 02/05/18 02/06/18 02/06/18 18:59 06:59 18:59 Intake Total 350 / 350 740 / 740 Output Total 775 / 775 Balance 350 / 350 -35 / -35 Weight 50.3 kg Intake: IV 260 / 260 Sodium Phosphate Inj 30 MMOL In 260 / 260 NS Inj 250 ML @ 40 mls/hr IV. SIG ONCE ONE Rx#:[id number] Oral 350 / 350 480 / 480 Output: Urine 775 / 775 Other: # Voids 3 Date of Last Bowel Movement 02/05/18 02/06/18 # Bowel Movements 3 # Incontinent Bowel Movements 6 0 Result Diagrams: 02/06/18 04:22 02/06/18 04:22 Other Results: Microbiology 02/02/18 11:23 Blood - Peripheral Aerobic Blood Culture - Preliminary No growth in 3 days 02/02/18 11:23 Blood - Peripheral Anaerobic Blood Culture - Preliminary No growth in 3 days 02/02/18 11:23 Blood - Peripheral Aerobic Blood Culture - Preliminary No growth in 3 days 02/02/18 11:23 Blood - Peripheral Anaerobic Blood Culture - Preliminary No growth in 3 days Imaging: Venous Doppler Study 02/02/18 00:00 CONCLUSION: Negative exam. No sonographic or Doppler findings of deep venous thrombosis Chest X-Ray 02/02/18 11:19 CONCLUSION: Negative for an acute process Chest CTA 02/02/18 13:38 CONCLUSION: 1. Eccentric focal filling defect in an isolated left lower lobe proximal subsegmental pulmonary artery branch, this is most consistent with a subacute to chronic etiology. 2. Mild positive fluid balance. 3. Moderate coronary artery calcifications. 4. Severe T8 compression fracture of unknown chronicity given lack of recent prior exams. Chest X-Ray 02/05/18 16:24 CONCLUSION: Bibasilar infiltrates and effusions. Objective Remarks: GENERAL: Patient is 82 yo lying in bed in NAD SKIN: Warm and dry. HEAD: Normocephalic. EYES: No scleral icterus. No injection or drainage. NECK: Supple, trachea midline. No JVD or lymphadenopathy. CARDIOVASCULAR: Currently in normal sinus rhythm S1, S2 no S4. 2/6 systolic murmur RESPIRATORY: Breath sounds equal bilaterally. - accessory muscle use. No wheezes rales rhonchi GASTROINTESTINAL: Abdomen soft, slightly tender to palpation epigastric. No guarding rigidity. MUSCULOSKELETAL: No cyanosis, or edema. Neuro: awake and alert Assessment and Plan - Assessment and Plan Plan: 1. Acute hypoxemic respiratory failure. 2. Status post aortic valve replacement. 3. History of coronary artery disease. History of in stents thrombosis 4. Hypertension. 5. Hypothyroidism. 6. Left lower lobe pulmonary embolism/small 7. Pancytopenia 8. Moderate MR/TR 9. Insomnia 10. Hypopotassemia Plan Neuro: Monitor neuro status closely and avoid any sedatives. Currently holding trazodone 50 mg at night/home medication. Acetaminophen 650 p.o. every 6 hours as needed fever Pulm: Continue with oxygen and maintain sats above 92%. Currently on 2 L Bronchodilators with albuterol/ipratropium aerosols every 4 hours with albuterol aerosols every 2 hours as needed for dyspnea CTA chest: Eccentric focal filling defect in an isolated left lower lobe proximal subsegmental pulmonary artery branch, this is most consistent with a subacute to chronic etiology. Doppler US LE negative for DVT CV: Monitor heart rate and blood pressure closely, and maintain MAP > 65 mmHg. Lactic acid: 2.5 Consult, cards is following- Dr. Abrams, on Prasugrel 5 mg daily, ASA 81mg daily. Echo: EF of 45%-50% distal kinesis. Bioprosthetic aortic valve. BNP, EKG troponin and CPK are pending. EKG showed A. fib with RVR. Incomplete left anterior fascicular block. Continue amiodarone 200 mg daily and metoprolol tartrate 20 mg twice daily GI : On p.o. cardiac diet. on pantoprazole 40 mg for GI prophylaxis. : Monitor renal function, electrolytes replacement per protocol. Will need potassium replacement today. Renal function normalizing ID: Given vancomycin and piperacillin/tazobactam in the ED. Hold off on further abx- no signs of an infectious process. Check C. difficile Followup on blood cultures 02/02: NGTD Endo: SSI with Accu-Cheks for glycemic TSH: 3.0. Resume levothyroxine 50 emiliana grams daily/home medication Heme: Monitor CBC and coags. Heme is following for pancytopenia-Dr. Bell B12, Folate , Iron studies, protein electrophoresis essentially within normal limits GI prophylaxis with pantoprazole DVT prophylaxis with SCD Per discussion with cardiology and hematology no anticoagulation with heparin/ TSOAC secondary to high bleeding risk. Continue prasugrel 5 mg daily and aspirin 81 mg daily. Level 2 follow-up. Patient is stable from a critical care medicine standpoint. Assign care to primary care physician. Will sign off. Call if questions arise.
[2018-02-06] MEDS: Furosemide 20 MG Tablet PO SCH (08:52)
[2018-02-06] MEDS ORDERED: Amiodarone 200 MG Tablet PO SCH (09:00)
--- NOTE | 2018-02-06 10:37 | P.HPFP ---
History of Present Illness Service: Family medicine Primary Care Physician: Diomedes Hall DO Chief Complaint: Dizziness, difficulty breathing and nausea. History of Present Illness: Patient presents to the emergency department with a 2 day history of shortness of breath. Patient was at a routine cardiology appointment and was sent down from the cardiology clinic secondary to dyspnea hypoxia. Had one episode of vomiting b - Diagnosis (1) Acute respiratory distress (2) A-fib (3) History of aortic valve replacement (4) CAD (coronary artery disease) (5) HTN (hypertension) Inpatient Certification: I certify that the inpatient services were ordered in accordance with Medicare regulations governing the order. This includes certification that hospital inpatient services are reasonable and necessary and in the case of services not specified as inpatient-only under 42 CFR 419.22(n), that they are appropriately provided as inpatient services in accordance to with the 2-midnight benchmark under 43 CFR 412.3(e) Estimated Total Length of Stay (Days): 4 Plans for Post Hospital Care: Not yet determined PMFSH - History History Provided By: Patient - Medical History Medical History: Medical History (Last Updated 02/03/18 @ 15:33 by MAHESH Leon) Atrial fibrillation Cataract Chest pain High cholesterol Hypothyroidism Macular degeneration Mitral regurgitation - Surgical History Surgical History: Surgical History (Last Updated 02/03/18 @ 19:01 by Gordy Bell MD) Bioprosthetic aortic valve replacement during current hospitalization H/O mitral valve repair History of coronary artery stent placement - Family History Family History: Family History (Last Updated 02/03/18 @ 15:34 by MAHESH Leon) Father Family history of acute myocardial infarction - Tobacco History Second Hand Smoke Exposure: Yes Tobacco Use In Past 30 Days: No Smoking Status: Former smoker Tobacco Type: Cigarettes - Alcohol History How Often Do You Have a Drink Containing Alcohol: Monthly or less - Substance Use History Substance History: No History of Abuse - Travel History Recent Travel in the [place] Within the Last 8 Weeks: No Recent Travel Out of the Country Within the Last 8 Weeks: No - Immunization History Tetanus Immunization: <5 Years Medications and Allergies Active Medications: Active Medications Acetaminophen (Tylenol Liq) 650 mg PO Q6H PRN PRN Reason: FEVER Al Hydroxide/Mg Hydroxide (Milk Of Magnesia Liq) 30 ml PO Q12H PRN PRN Reason: Mild Constipation Last Admin: 02/05/18 06:44 Dose: 30 ml Albuterol (Duoneb Neb (Prn)) 1 ampul NEB Q2HR NEB PRN PRN Reason: DYSPNEA Albuterol (Duoneb Neb (Starla)) 1 ampul NEB Q6HR WHILE AWAKE NEB [facility] Last Admin: 02/06/18 09:58 Dose: 1 ampul Amiodarone HCl (Cordarone) 200 mg PO DAILY [facility] Last Admin: 02/06/18 08:52 Dose: 200 mg Aspirin (Ecotrin) 81 mg PO DAILY [facility] Last Admin: 02/06/18 08:51 Dose: 81 mg Bisacodyl (Dulcolax Supp) 10 mg RECTAL DAILY PRN PRN Reason: SEVERE CONSITIPATION Last Admin: 02/05/18 10:00 Dose: 10 mg Chlorhexidine Gluconate (Chlorhexidine 2% Cloth) 3 pack TOPICAL DAILY@0400 [facility] Stop: 02/08/18 03:59 Last Admin: 02/06/18 03:20 Dose: 3 pack Chlorhexidine Gluconate (Chlorhexidine 2% Cloth) 3 pack TOPICAL DAILY@0400 PRN PRN Reason: Extra cloth needed Stop: 02/08/18 03:59 Dextrose (D50w Vial) 50 ml IV.PUSH UNSCH PRN PRN Reason: PER HYPOGLYCEMIA PROTOCOL Furosemide (Lasix) 20 mg PO DAILY [facility] Last Admin: 02/06/18 08:52 Dose: 20 mg Glucagon (Glucagon Inj) 1 mg OTHER PRN PRN PRN Reason: for Hypoglycemia Protocol Magnesium Sulfate Inj 4 gm/ (Sodium Chloride) 100 mls @ 50 mls/hr IV.SIG UNSCH PRN PRN Reason: For Magnesium 0.9 - 1.1 mg/dL Magnesium Sulfate Inj 2 gm/ (Sodium Chloride) 100 mls @ 50 mls/hr IV.SIG UNSCH PRN PRN Reason: For Magnesium 1.2 - 1.6 mg/dL Potassium Chloride (Kcl 40 Meq Premix Inj) 40 meq in 100 mls @ 25 mls/hr IV.SIG Q2H PRN PRN Reason: For Potassium 2.8 - 3.2 mEq/L Potassium Chloride (Kcl 20 Meq Premix Inj) 20 meq in 100 mls @ 50 mls/hr IV.SIG Q2H PRN PRN Reason: For Potassium 3.3 - 3.5 mEq/L Potassium Chloride (Kcl 40 Meq Premix Inj) 40 meq in 100 mls @ 25 mls/hr IV.SIG UNSCH PRN PRN Reason: For Potassium 3.3 - 3.5 mEq/L Potassium Chloride (Kcl 20 Meq Premix Inj) 20 meq in 100 mls @ 50 mls/hr IV.SIG Q2H PRN PRN Reason: For Potassium 2.8 - 3.2 mEq/L Potassium Phosphate 30 mmol/ (Sodium Chloride) 260 mls @ 42 mls/hr IV.SIG UNSCH PRN PRN Reason: SEE LABEL COMMENTS Sodium Phosphate 30 mmol/ (Sodium Chloride) 260 mls @ 42 mls/hr IV.SIG UNSCH PRN PRN Reason: For Phosphorus < 2.5 mg/dL Potassium Chloride (Kcl 20 Meq Premix Inj) 20 meq in 100 mls @ 50 mls/hr IV.SIG Q2H [facility] Stop: 02/06/18 10:59 Last Admin: 02/06/18 05:49 Dose: 50 mls/hr Insulin Human Regular (Novolin R Correctional Sugar Inj) 0 units SQ ACHS [facility]; Protocol Last Admin: 02/05/18 20:20 Dose: Not Given Lactulose (Lactulose Liq) 30 ml PO DAILY PRN PRN Reason: SEVERE CONSITIPATION Last Admin: 02/05/18 10:00 Dose: 30 ml Levothyroxine Sodium (Synthroid) 50 mcg PO DAILY@0600 [facility] Last Admin: 02/06/18 05:48 Dose: 50 mcg Magnesium Oxide (Mag-Ox) 800 mg PO UNSCH PRN PRN Reason: For Magnesium 1.2 - 1.6 mg/dL Metoprolol Tartrate (Lopressor) 12.5 mg PO BID [facility] Last Admin: 02/05/18 20:11 Dose: Not Given Miscellaneous (Pill Splitter) 1 each OTHER UNSCH PRN PRN Reason: SEE LABEL COMMENTS Potassium Bicarb/Potassium Chloride (K-Lyte Cl Eff) 50 meq PO UNSCH PRN PRN Reason: For Potassium 3.3 - 3.5 mEq/L Potassium Chloride (Klor-Con 10) 40 meq PO ONCE ONE Stop: 02/06/18 07:07 Potassium Chloride (Klor-Con 10) 10 meq PO BID [facility] Last Admin: 02/06/18 08:52 Dose: 10 meq Potassium Phosphate (K-Phos Original) 2,000 mg PO Q4H PRN PRN Reason: Phosphorus Less Than 2.5 mg/dL Potassium Phosphate (K-Phos Original) 2,000 mg PO UNSCH PRN PRN Reason: SEE LABEL COMMENTS Prasugrel (Effient) 5 mg PO DAILY [facility] Last Admin: 02/06/18 08:51 Dose: 5 mg Pravastatin Sodium (Pravachol) 20 mg PO HS [facility] Last Admin: 02/05/18 20:11 Dose: 20 mg Sennosides (Senokot) 17.2 mg PO Q12H PRN PRN Reason: Moderate Constipation Last Admin: 02/05/18 06:44 Dose: 17.2 mg Allergies Allergy/AdvReac Type Severity Reaction Status Date / Time No Known Allergies Allergy Unverified 12/12/17 07:04 Home Medications Medication Instructions Recorded Confirmed Type amiodarone 200 mg PO DAILY 02/02/18 02/02/18 History carvedilol [Coreg] 6.25 mg PO BID 02/02/18 02/02/18 History furosemide [Lasix] 20 mg PO DAILY 02/02/18 02/02/18 History hydrochlorothiazide 12.5 mg PO DAILY 02/02/18 02/02/18 History levothyroxine 50 mcg PO DAILY 02/02/18 02/02/18 History lisinopril 5 mg PO DAILY 02/02/18 02/02/18 History potassium chloride [Klor-Con 10] 10 meq PO BID 02/02/18 02/02/18 History prasugrel 5 mg PO DAILY 02/02/18 02/02/18 History pravastatin 20 mg PO BID 02/02/18 02/02/18 History trazodone 50 mg PO DAILY 02/02/18 02/02/18 History Exam Vital signs: Vital Signs 02/05/18 11:00 02/05/18 11:01 02/05/18 11:27 Temperature Pulse Rate 105 H 103 H 103 H Respiratory Rate 24 25 H 16 Blood Pressure 108/68 108/68 Pulse Oximetry 97 99 02/05/18 12:00 02/05/18 13:00 02/05/18 13:15 Temperature 98.4 F Pulse Rate 111 H 116 H 118 H Respiratory Rate 32 H 23 24 Blood Pressure 105/82 113/82 113/82 Pulse Oximetry 92 L 02/05/18 14:00 02/05/18 14:23 02/05/18 14:25 Temperature Pulse Rate 120 H 116 H 120 H Respiratory Rate 30 H 31 H 29 H Blood Pressure 131/101 H 131/101 H 106/86 Pulse Oximetry 69 L 87 L 90 L 02/05/18 15:00 02/05/18 15:41 02/05/18 16:00 Temperature 98.3 F Pulse Rate 122 H 133 H 131 H Respiratory Rate 30 H 20 34 H Blood Pressure 114/60 99/75 L Pulse Oximetry 02/05/18 16:20 02/05/18 17:00 02/05/18 17:13 Temperature Pulse Rate 124 H 100 H 98 H Respiratory Rate 27 H 35 H 27 H Blood Pressure 146/94 H 123/74 Pulse Oximetry 02/05/18 18:00 02/05/18 19:00 02/05/18 19:48 Temperature Pulse Rate 99 H 92 H 92 H Respiratory Rate 28 H 29 H 18 Blood Pressure 117/89 117/75 Pulse Oximetry 98 02/05/18 19:53 02/05/18 20:00 02/05/18 21:00 Temperature 98.5 F Pulse Rate 90 92 H Respiratory Rate 24 30 H Blood Pressure 93/62 L 107/68 Pulse Oximetry 93 L 93 L 94 L 02/05/18 22:00 02/05/18 23:00 02/05/18 23:08 Temperature Pulse Rate 87 82 83 Respiratory Rate 27 H 19 20 Blood Pressure 102/60 90/65 L Pulse Oximetry 94 L 96 02/06/18 00:00 02/06/18 01:00 02/06/18 02:00 Temperature 98.1 F Pulse Rate 81 79 81 Respiratory Rate 20 22 24 Blood Pressure 95/64 L 90/57 L 90/58 L Pulse Oximetry 94 L 95 98 02/06/18 03:00 02/06/18 04:00 02/06/18 05:00 Temperature 98.8 F Pulse Rate 76 73 70 Respiratory Rate 20 17 17 Blood Pressure 94/63 L 92/57 L 92/57 L Pulse Oximetry 99 99 100 02/06/18 06:00 02/06/18 09:59 Temperature Pulse Rate 80 79 Respiratory Rate 29 H 16 Blood Pressure 101/63 Pulse Oximetry 99 Intake & Output 02/05/18 02/06/18 02/06/18 18:59 06:59 18:59 Intake Total 350 / 350 740 / 740 Output Total 775 / 775 Balance 350 / 350 -35 / -35 Weight 50.3 kg Intake: IV 260 / 260 Sodium Phosphate Inj 30 MMOL In 260 / 260 NS Inj 250 ML @ 40 mls/hr IV. SIG ONCE ONE Rx#:[id number] Oral 350 / 350 480 / 480 Output: Urine 775 / 775 Other: # Voids 3 Date of Last Bowel Movement 02/05/18 02/06/18 # Bowel Movements 3 # Incontinent Bowel Movements 6 0 - Constitutional no acute distress - Routine HEENT Exam Head: Present: normocephalic Eye: Present: PERRL ENT: Present: mucous membranes moist - Routine Neck Exam Present: supple - Routine Respiratory Exam Present: CTA bilaterally - Routine Cardiovascular Exam Present: S1, S2 - Routine Abdominal Exam Present: soft, normoactive bowel sounds - Routine Skin Exam Present: dry, warm - Routine Neurological Exam Present: alert Oriented, has periods of confusion Results - Labs Result diagrams: 02/06/18 04:22 02/06/18 04:22 Abnormal lab results 02/03/18 02/05/18 02/05/18 Range/Units 19:27 12:07 16:33 RBC (4.00-5.30) mil/mm3 Hgb (11.6-15.3) gm/dL Hct (35.0-46.0) % Plt Count (150-450) th/mm3 Neut % (Auto) (16.0-70.0) % Lymph # (Auto) (1.0-4.8) th/mm3 ABG pH 7.45 H (7.380-7.420) ABG pCO2 21 L* (38-42) mmHg ABG HCO3 15 L* (22-26) mmol/L ABG Base Excess -8.6 L (-2-2) mmol/L Hemoglobin 11.1 L (12.0-16.0) G/DL Potassium (3.5-5.1) meq/L Chloride (98-107) meq/L Carbon Dioxide (21.0-32.0) meq/L BUN (7-18) mg/dL Creatinine (0.50-1.00) mg/dL Estimated GFR (>89) mL/min POC Glucose 113 H (68-110) mg/dl Random Glucose (74-106) mg/dL Lactic Acid (0.4-2.0) mmol/L Calcium (8.5-10.1) mg/dL Troponin I (0.02-0.05) ng/mL B-Natriuretic Peptide (0-100) pg/mL Total Protein (6.4-8.2) g/dL Albumin (3.4-5.0) g/dL Albumin (PEP) 3.45 L (3.50-5.00) gm/dL Albumin/Globulin Ratio 1.26 L (1.39-2.23) 02/05/18 02/05/18 02/05/18 Range/Units 17:21 17:21 17:21 RBC (4.00-5.30) mil/mm3 Hgb (11.6-15.3) gm/dL Hct (35.0-46.0) % Plt Count (150-450) th/mm3 Neut % (Auto) (16.0-70.0) % Lymph # (Auto) (1.0-4.8) th/mm3 ABG pH (7.380-7.420) ABG pCO2 (38-42) mmHg ABG HCO3 (22-26) mmol/L ABG Base Excess (-2-2) mmol/L Hemoglobin (12.0-16.0) G/DL Potassium (3.5-5.1) meq/L Chloride 109 H (98-107) meq/L Carbon Dioxide 19.8 L (21.0-32.0) meq/L BUN 24 H (7-18) mg/dL Creatinine 1.15 H (0.50-1.00) mg/dL Estimated GFR 45 L (>89) mL/min POC Glucose (68-110) mg/dl Random Glucose 167 H (74-106) mg/dL Lactic Acid (0.4-2.0) mmol/L Calcium (8.5-10.1) mg/dL Troponin I 0.06 H (0.02-0.05) ng/mL B-Natriuretic Peptide 4941 H (0-100) pg/mL Total Protein (6.4-8.2) g/dL Albumin (3.4-5.0) g/dL Albumin (PEP) (3.50-5.00) gm/dL Albumin/Globulin Ratio (1.39-2.23) 02/05/18 02/05/18 02/06/18 Range/Units 17:21 20:18 04:22 RBC 3.00 L (4.00-5.30) mil/mm3 Hgb 9.3 L D (11.6-15.3) gm/dL Hct 27.4 L (35.0-46.0) % Plt Count 100 L D (150-450) th/mm3 Neut % (Auto) 81.6 H (16.0-70.0) % Lymph # (Auto) 0.7 L (1.0-4.8) th/mm3 ABG pH (7.380-7.420) ABG pCO2 (38-42) mmHg ABG HCO3 (22-26) mmol/L ABG Base Excess (-2-2) mmol/L Hemoglobin (12.0-16.0) G/DL Potassium (3.5-5.1) meq/L Chloride (98-107) meq/L Carbon Dioxide (21.0-32.0) meq/L BUN (7-18) mg/dL Creatinine (0.50-1.00) mg/dL Estimated GFR (>89) mL/min POC Glucose 141 H (68-110) mg/dl Random Glucose (74-106) mg/dL Lactic Acid 3.6 H (0.4-2.0) mmol/L Calcium (8.5-10.1) mg/dL Troponin I (0.02-0.05) ng/mL B-Natriuretic Peptide (0-100) pg/mL Total Protein (6.4-8.2) g/dL Albumin (3.4-5.0) g/dL Albumin (PEP) (3.50-5.00) gm/dL Albumin/Globulin Ratio (1.39-2.23) 02/06/18 Range/Units 04:22 RBC (4.00-5.30) mil/mm3 Hgb (11.6-15.3) gm/dL Hct (35.0-46.0) % Plt Count (150-450) th/mm3 Neut % (Auto) (16.0-70.0) % Lymph # (Auto) (1.0-4.8) th/mm3 ABG pH (7.380-7.420) ABG pCO2 (38-42) mmHg ABG HCO3 (22-26) mmol/L ABG Base Excess (-2-2) mmol/L Hemoglobin (12.0-16.0) G/DL Potassium 3.1 L D (3.5-5.1) meq/L Chloride 109 H (98-107) meq/L Carbon Dioxide 19.4 L (21.0-32.0) meq/L BUN 21 H (7-18) mg/dL Creatinine (0.50-1.00) mg/dL Estimated GFR 58 L (>89) mL/min POC Glucose (68-110) mg/dl Random Glucose 116 H (74-106) mg/dL Lactic Acid (0.4-2.0) mmol/L Calcium 7.5 L D (8.5-10.1) mg/dL Troponin I (0.02-0.05) ng/mL B-Natriuretic Peptide (0-100) pg/mL Total Protein 5.2 L D (6.4-8.2) g/dL Albumin 2.4 L (3.4-5.0) g/dL Albumin (PEP) (3.50-5.00) gm/dL Albumin/Globulin Ratio (1.39-2.23) Short CBC 02/05/18 02/06/18 Range/Units 17:21 04:22 WBC 9.0 D 7.1 (4.0-11.0) th/mm3 Hgb 12.6 D 9.3 L D (11.6-15.3) gm/dL Hct 37.5 27.4 L (35.0-46.0) % Plt Count 151 D 100 L D (150-450) th/mm3 BMP 02/05/18 02/06/18 17:21 04:22 Sodium 140 140 Potassium 4.9 D 3.1 L D Chloride 109 H 109 H Carbon Dioxide 19.8 L 19.4 L BUN 24 H 21 H Creatinine 1.15 H 0.92 Calcium 8.5 7.5 L D Cardiac Enzymes 02/05/18 02/05/18 Range/Units 17:21 17:21 Total Creatine Kinase 59 (26-192) U/L Troponin I 0.06 H (0.02-0.05) ng/mL Liver Function 02/06/18 Range/Units 04:22 Total Bilirubin 0.6 (0.2-1.0) mg/dL AST 26 (15-37) U/L ALT 23 (10-53) U/L Alkaline Phosphatase 72 (45-117) U/L Albumin 2.4 L (3.4-5.0) g/dL - Imaging Impressions Chest X-Ray 02/05/18 16:24 CONCLUSION: Bibasilar infiltrates and effusions. Caprini VTE Risk Assessment Caprini VTE Risk Assessment: Moderate/High Risk (score >= 2) Caprini Risk Assessment Model: Point Value = 1 Point Value = 2 Point Value = 3 Point Value = 5 Age 41-60 Minor surgery BMI > 25 kg/m2 Swollen legs Varicose veins or History of unexplained or recurrent spontaneous Oral contraceptives or hormone replacement Sepsis (< 1 month) Serious lung disease, including pneumonia (< 1 month) Abnormal pulmonary function Acute myocardial infarction Congestive heart failure (< 1 month) History of inflammatory bowel disease Medical patient at bed rest Age 61-74 Arthroscopic surgery Major open surgery (> 45 min) Laparoscopic surgery (> 45 min) Malignancy Confined to bed (> 72 hours) Immobilizing plaster cast Central venous access Age >= 75 History of VTE Family history of VTE Factor V Leiden Prothrombin [id number] Lupus anticoagulant Anticardiolipin antibodies Elevated serum homocysteine Heparin-induced thrombocytopenia Other congenital or acquired thrombophilia Stroke (< 1 month) Elective arthroplasty Hip, pelvis, or leg fracture Acute spinal cord injury (< 1 month) Prophylaxis Regimen: Total Risk Factor Score Risk Level Prophylaxis Regimen 0-1 Low Early ambulation 2 Moderate Order ONE of the following: *Sequential Compression Device (SCD) *Heparin 5000 units SQ BID 3-4 Higher Order ONE of the following medications: *Heparin 5000 units SQ TID *Enoxaparin/Lovenox 40 mg SQ daily (WT < 150 kg, CrCl > 30 mL/min) *Enoxaparin/Lovenox 30 mg SQ daily (WT < 150 kg, CrCl > 10-29 mL/min) *Enoxaparin/Lovenox 30 mg SQ BID (WT < 150 kg, CrCl > 30 mL/min) AND/OR *Sequential Compression Device (SCD) 5 or more Highest Order ONE of the following medications: *Heparin 5000 units SQ TID (Preferred with Epidurals) *Enoxaparin/Lovenox 40 mg SQ daily (WT < 150 kg, CrCl > 30 mL/min) *Enoxaparin/Lovenox 30 mg SQ daily (WT < 150 kg, CrCl > 10-29 mL/min) *Enoxaparin/Lovenox 30 mg SQ BID (WT < 150 kg, CrCl > 30 mL/min) AND *Sequential Compression Device (SCD) Assessment and Plan - Assessment (1) Acute respiratory distress Code(s): R06.03 - Acute respiratory distress Status: Acute Plan: Sat's maintained on ra, Cont w/ bronchodilators, Pulmonary on case, follow rec's (2) A-fib Code(s): I48.91 - Unspecified atrial fibrillation Plan: Followed by Cardiology Amiodarone,Lopressor- SR currently. Rate controlled asa (3) History of aortic valve replacement Code(s): Z95.2 - Presence of prosthetic heart valve Status: Chronic Plan: Cardiology on case (4) CAD (coronary artery disease) Code(s): I25.10 - Atherosclerotic heart disease of [place] coronary artery without angina pectoris Status: Acute Plan: Hx of stents, cardiology following Effient, asa (5) HTN (hypertension) Code(s): I10 - Essential (primary) hypertension Status: Acute Plan: Cont home medications, Monitor, titrate as needed H&P: Quality - VTE Deep Vein Thrombosis/Pulmonary Embolism Present on Admission: No
--- NOTE | 2018-02-06 12:12 | P.PNCA ---
<MatthewrichardYohana N - Last Filed: 02/06/18 13:04> Subjective Interval history: Patient denies any chest pain, pressure, palpitations, dizziness or edema. She does complain of mild shortness of breath that is improving. Physical Exam Vital signs: Vital Signs 02/05/18 13:00 02/05/18 13:15 02/05/18 14:00 Temperature Pulse Rate 116 H 118 H 120 H Respiratory Rate 23 24 30 H Blood Pressure 113/82 113/82 131/101 H Pulse Oximetry 69 L 02/05/18 14:23 02/05/18 14:25 02/05/18 15:00 Temperature Pulse Rate 116 H 120 H 122 H Respiratory Rate 31 H 29 H 30 H Blood Pressure 131/101 H 106/86 114/60 Pulse Oximetry 87 L 90 L 02/05/18 15:41 02/05/18 16:00 02/05/18 16:20 Temperature 98.3 F Pulse Rate 133 H 131 H 124 H Respiratory Rate 20 34 H 27 H Blood Pressure 99/75 L 146/94 H Pulse Oximetry 02/05/18 17:00 02/05/18 17:13 02/05/18 18:00 Temperature Pulse Rate 100 H 98 H 99 H Respiratory Rate 35 H 27 H 28 H Blood Pressure 123/74 117/89 Pulse Oximetry 02/05/18 19:00 02/05/18 19:48 02/05/18 19:53 Temperature Pulse Rate 92 H 92 H Respiratory Rate 29 H 18 Blood Pressure 117/75 Pulse Oximetry 98 93 L 02/05/18 20:00 02/05/18 21:00 02/05/18 22:00 Temperature 98.5 F Pulse Rate 90 92 H 87 Respiratory Rate 24 30 H 27 H Blood Pressure 93/62 L 107/68 102/60 Pulse Oximetry 93 L 94 L 94 L 02/05/18 23:00 02/05/18 23:08 02/06/18 00:00 Temperature 98.1 F Pulse Rate 82 83 81 Respiratory Rate 19 20 20 Blood Pressure 90/65 L 95/64 L Pulse Oximetry 96 94 L 02/06/18 01:00 02/06/18 02:00 02/06/18 03:00 Temperature Pulse Rate 79 81 76 Respiratory Rate 22 24 20 Blood Pressure 90/57 L 90/58 L 94/63 L Pulse Oximetry 95 98 99 02/06/18 04:00 02/06/18 05:00 02/06/18 06:00 Temperature 98.8 F Pulse Rate 73 70 80 Respiratory Rate 17 17 29 H Blood Pressure 92/57 L 92/57 L 101/63 Pulse Oximetry 99 100 99 02/06/18 09:59 Temperature Pulse Rate 79 Respiratory Rate 16 Blood Pressure Pulse Oximetry Intake & Output 02/05/18 02/06/18 02/06/18 18:59 06:59 18:59 Intake Total 350 / 350 740 / 740 Output Total 775 / 775 Balance 350 / 350 -35 / -35 Weight 50.3 kg Intake: IV 260 / 260 Sodium Phosphate Inj 30 MMOL In 260 / 260 NS Inj 250 ML @ 40 mls/hr IV. SIG ONCE ONE Rx#:[id number] Oral 350 / 350 480 / 480 Output: Urine 775 / 775 Other: # Voids 3 Date of Last Bowel Movement 02/05/18 02/06/18 # Bowel Movements 3 # Incontinent Bowel Movements 6 0 - Constitutional no acute distress - Routine HEENT Exam Head: Present: normocephalic Eye: Present: PERRL - Routine Neck Exam Present: full ROM - Routine Respiratory Exam Present: CTA bilaterally - Routine Cardiovascular Exam Present: S1, S2, murmur. Absent: gallop, rubs - Routine Abdominal Exam Present: soft - Routine Extremities Exam Present: full ROM, pulses intact, normal capillary refill. Absent: cyanosis, clubbing, edema - Routine Skin Exam Present: intact - Routine Neurological Exam Present: oriented X3 - Detailed Neurological Exam: Coma Scale Eye Opening: Spontaneous Verbal Response: Oriented Motor Response: Obey commands [place] Coma Scale Total: 15 - Routine Psychiatric Exam Present: normal affect - Urinary Catheter Management Straight Cath placed during this visit: no Assessment and Plan - Assessment (1) Hypotension Code(s): I95.9 - Hypotension, unspecified Status: Acute (2) History of aortic valve replacement Code(s): Z95.2 - Presence of prosthetic heart valve Status: Chronic (3) Acute kidney injury Code(s): N17.9 - Acute kidney failure, unspecified Status: Acute - Plan Continue to rehydrate. Patient converted back into sinus rhythm, continue metoprolol.. Increase activity with physical therapy. Continue with current cardiac treatment plan and adjust as needed. We will follow patient during hospitalization and follow-up in office post discharge. Patient was seen and evaluated by Dr. Abrams who participated in care, management and decision-making. <Eliel Abrams - Last Filed: 02/06/18 15:14> Physical Exam Vital signs: Vital Signs 02/05/18 15:41 02/05/18 16:00 02/05/18 16:20 Temperature 98.3 F Pulse Rate 133 H 131 H 124 H Respiratory Rate 20 34 H 27 H Blood Pressure 99/75 L 146/94 H Pulse Oximetry 02/05/18 17:00 02/05/18 17:13 02/05/18 18:00 Temperature Pulse Rate 100 H 98 H 99 H Respiratory Rate 35 H 27 H 28 H Blood Pressure 123/74 117/89 Pulse Oximetry 02/05/18 19:00 02/05/18 19:22 02/05/18 19:48 Temperature Pulse Rate 92 H 96 H 92 H Respiratory Rate 31 H 35 H 18 Blood Pressure 117/75 117/75 Pulse Oximetry 98 02/05/18 19:53 02/05/18 20:00 02/05/18 20:43 Temperature 98.5 F Pulse Rate 90 90 Respiratory Rate 24 26 H Blood Pressure 93/62 L 95/68 L Pulse Oximetry 93 L 93 L 02/05/18 21:00 02/05/18 22:00 02/05/18 23:00 Temperature Pulse Rate 92 H 87 82 Respiratory Rate 33 H 27 H 19 Blood Pressure 107/68 102/60 90/65 L Pulse Oximetry 94 L 94 L 96 02/05/18 23:08 02/05/18 23:10 02/06/18 00:00 Temperature 98.1 F Pulse Rate 83 81 81 Respiratory Rate 20 26 H 20 Blood Pressure 90/65 L 95/64 L Pulse Oximetry 94 L 02/06/18 01:00 02/06/18 02:00 02/06/18 03:00 Temperature Pulse Rate 79 81 76 Respiratory Rate 22 24 20 Blood Pressure 90/57 L 90/58 L 94/63 L Pulse Oximetry 95 98 99 02/06/18 04:00 02/06/18 05:00 02/06/18 06:00 Temperature 98.8 F Pulse Rate 73 70 80 Respiratory Rate 17 17 29 H Blood Pressure 92/57 L 92/57 L 101/63 Pulse Oximetry 99 100 99 02/06/18 07:00 02/06/18 08:00 02/06/18 08:58 Temperature Pulse Rate 75 87 74 Respiratory Rate 21 25 H 23 Blood Pressure 103/68 83/62 L Pulse Oximetry 98 100 02/06/18 09:00 02/06/18 09:59 02/06/18 10:00 Temperature Pulse Rate 75 79 82 Respiratory Rate 26 H 16 34 H Blood Pressure 88/59 L Pulse Oximetry 02/06/18 11:00 02/06/18 12:00 02/06/18 13:00 Temperature 97.8 F Pulse Rate 82 82 83 Respiratory Rate 20 27 H 23 Blood Pressure 88/55 L 94/58 L 96/66 L Pulse Oximetry 100 100 100 02/06/18 14:00 Temperature Pulse Rate 85 Respiratory Rate 25 H Blood Pressure 103/67 Pulse Oximetry Intake & Output 02/05/18 02/06/18 02/06/18 18:59 06:59 18:59 Intake Total 350 / 350 740 / 740 100 / 100 Output Total 775 / 775 Balance 350 / 350 -35 / -35 100 / 100 Weight 110 lb 14.28 oz Intake: IV 260 / 260 100 / 100 KCl 20 mEq Premix Inj 20 meq In 100 / 100 100 ml @ 50 mls/hr IV.SIG Q2H TAL Rx#:[id number] Sodium Phosphate Inj 30 MMOL In 260 / 260 NS Inj 250 ML @ 40 mls/hr IV. SIG ONCE ONE Rx#:[id number] Oral 350 / 350 480 / 480 Output: Urine 775 / 775 Other: # Voids 3 Date of Last Bowel Movement 02/05/18 02/06/18 02/06/18 # Bowel Movements 3 # Incontinent Bowel Movements 6 0 - Urinary Catheter Management Straight Cath placed during this visit: no Assessment and Plan - Assessment (1) Hypotension Code(s): I95.9 - Hypotension, unspecified Status: Acute (2) History of aortic valve replacement Code(s): Z95.2 - Presence of prosthetic heart valve Status: Chronic (3) Acute kidney injury Code(s): N17.9 - Acute kidney failure, unspecified Status: Acute - Attending Attestation Patient seen and examined. I reviewed and agree with the evaluation and plan as presented. Back in SR, load with amio to maintain SR. Stay off metoprolol due to hypotension. Full anticoagulation would likely have too high risk of bleeding since we need to continue Effient and baby ASA due to recent LAD stent thrombosis. OK to transfer to tele.
--- NOTE | 2018-02-06 12:50 | ECG ---
Date Performed: 02/05/2018 Time Performed: 16:12:48 PTAGE: 82 years EKG: Atrial fibrillation with rapid ventricular response. Left axis deviation Left anterior fasc icular block Abnormal ECG Since PREVIOUS TRACING , no significant change noted PREVIOUS TRACING DOCTOR: Camden Diego Interpretating Date/Time 02/06/2018 12:49:53
[2018-02-06] MEDS: Metoprolol Tartrate 25 MG Tablet PO SCH (13:02)
[2018-02-06] MEDS: Insulin NovoLIN Regular Correctional Sugar Inj SQ SCH ×4 (13:02→22:58)
[2018-02-06 18:16] LABS: Potassium 4.4 meq/L (3.5-5.1)
[2018-02-06 18:17] LABS: Magnesium 1.8 mg/dL (1.5-2.5)
--- NOTE | 2018-02-06 18:34 | P.PN ---
Subjective Interval history: She is better. Now in sinus Rythm. Off O2 Good output. Physical Exam Vital signs: Vital Signs 02/05/18 19:00 02/05/18 19:22 02/05/18 19:48 Temperature Pulse Rate 92 H 96 H 92 H Respiratory Rate 31 H 35 H 18 Blood Pressure 117/75 117/75 Pulse Oximetry 98 02/05/18 19:53 02/05/18 20:00 02/05/18 20:43 Temperature 98.5 F Pulse Rate 90 90 Respiratory Rate 24 26 H Blood Pressure 93/62 L 95/68 L Pulse Oximetry 93 L 93 L 02/05/18 21:00 02/05/18 22:00 02/05/18 23:00 Temperature Pulse Rate 92 H 87 82 Respiratory Rate 33 H 27 H 19 Blood Pressure 107/68 102/60 90/65 L Pulse Oximetry 94 L 94 L 96 02/05/18 23:08 02/05/18 23:10 02/06/18 00:00 Temperature 98.1 F Pulse Rate 83 81 81 Respiratory Rate 20 26 H 20 Blood Pressure 90/65 L 95/64 L Pulse Oximetry 94 L 02/06/18 01:00 02/06/18 02:00 02/06/18 03:00 Temperature Pulse Rate 79 81 76 Respiratory Rate 22 24 20 Blood Pressure 90/57 L 90/58 L 94/63 L Pulse Oximetry 95 98 99 02/06/18 04:00 02/06/18 05:00 02/06/18 06:00 Temperature 98.8 F Pulse Rate 73 70 80 Respiratory Rate 17 17 29 H Blood Pressure 92/57 L 92/57 L 101/63 Pulse Oximetry 99 100 99 02/06/18 07:00 02/06/18 08:00 02/06/18 08:58 Temperature Pulse Rate 75 87 74 Respiratory Rate 21 25 H 23 Blood Pressure 103/68 83/62 L Pulse Oximetry 98 100 02/06/18 09:00 02/06/18 09:59 02/06/18 10:00 Temperature Pulse Rate 75 79 82 Respiratory Rate 26 H 16 34 H Blood Pressure 88/59 L Pulse Oximetry 02/06/18 11:00 02/06/18 12:00 02/06/18 13:00 Temperature 97.8 F Pulse Rate 82 82 83 Respiratory Rate 20 27 H 23 Blood Pressure 88/55 L 94/58 L 96/66 L Pulse Oximetry 100 100 100 02/06/18 14:00 02/06/18 15:00 02/06/18 16:00 Temperature 98.0 F Pulse Rate 85 83 86 Respiratory Rate 25 H 20 24 Blood Pressure 103/67 90/60 L 92/53 L Pulse Oximetry 100 100 Intake & Output 02/05/18 02/06/18 02/06/18 18:59 06:59 18:59 Intake Total 350 / 350 740 / 740 100 / 100 Output Total 775 / 775 Balance 350 / 350 -35 / -35 100 / 100 Weight 50.3 kg Intake: IV 260 / 260 100 / 100 KCl 20 mEq Premix Inj 20 meq In 100 / 100 100 ml @ 50 mls/hr IV.SIG Q2H TAL Rx#:[id number] Sodium Phosphate Inj 30 MMOL In 260 / 260 NS Inj 250 ML @ 40 mls/hr IV. SIG ONCE ONE Rx#:[id number] Oral 350 / 350 480 / 480 Output: Urine 775 / 775 Other: # Voids 3 Date of Last Bowel Movement 02/05/18 02/06/18 02/06/18 # Bowel Movements 3 # Incontinent Bowel Movements 6 0 Narrative: GENERAL: This is a well-nourished, elderly female patient, in no apparent distress. HEENT: Head is atraumatic and normocephalic. Neck is supple without lymphadenopathy and trachea is midline. No JVD or carotid bruits. CARDIOVASCULAR: Regular rate and rhythm without murmurs, gallops, or rubs. RESPIRATORY: Breath sounds equal bilaterally.Chest wall is nontender. No use of accessory muscles. GASTROINTESTINAL: Abdomen is nontender, nondistended. No organomegaly. Abdomen soft. No CVA tenderness. Strong femoral pulses bilaterally. Normal bowel sounds in all quadrants. MUSCULOSKELETAL: Patient is moving upper and lower extremities freely. No calf tenderness or edema, no Homans sign. NEUROLOGICAL: Patient is alert and oriented. Cranial nerves 2-12 are grossly intact. No focal deficits and speech is clear. SKIN: No rash and turgor is normal. - Urinary Catheter Management Straight Cath placed during this visit: no Results - Labs CBC & Chem 7: 02/06/18 04:22 02/06/18 17:23 Laboratory Results - last 24 hr 02/05/18 02/05/18 02/06/18 20:18 21:00 04:14 WBC RBC Hgb Hct MCV MCH MCHC RDW Plt Count MPV Neut % (Auto) Lymph % (Auto) [place] % (Auto) Eos % (Auto) Baso % (Auto) Neut # (Auto) Lymph # (Auto) [place] # (Auto) Eos # (Auto) Baso # (Auto) WBC Differential Differential Comment Sodium Potassium Chloride Carbon Dioxide Anion Gap BUN Creatinine Estimated GFR POC Glucose 141 H Random Glucose Lactic Acid 1.4 Calcium Magnesium Total Bilirubin AST ALT Alkaline Phosphatase Total Protein Albumin Stl C.difficile Tox PCR Negative St C. diff Tox Epid 027 Negative 02/06/18 02/06/18 02/06/18 04:22 04:22 16:39 WBC 7.1 RBC 3.00 L Hgb 9.3 L D Hct 27.4 L MCV 91.4 MCH 31.1 MCHC 34.0 RDW 15.0 Plt Count 100 L D MPV 8.8 Neut % (Auto) 81.6 H Lymph % (Auto) 10.1 [place] % (Auto) 7.9 Eos % (Auto) 0.1 Baso % (Auto) 0.3 Neut # (Auto) 5.8 Lymph # (Auto) 0.7 L [place] # (Auto) 0.6 Eos # (Auto) 0.0 Baso # (Auto) 0.0 WBC Differential . Differential Comment Auto diff final Sodium 140 Potassium 3.1 L D Chloride 109 H Carbon Dioxide 19.4 L Anion Gap 12 BUN 21 H Creatinine 0.92 Estimated GFR 58 L POC Glucose 114 H Random Glucose 116 H Lactic Acid Calcium 7.5 L D Magnesium Total Bilirubin 0.6 AST 26 ALT 23 Alkaline Phosphatase 72 Total Protein 5.2 L D Albumin 2.4 L Stl C.difficile Tox PCR St C. diff Tox Epid 027 02/06/18 17:23 WBC RBC Hgb Hct MCV MCH MCHC RDW Plt Count MPV Neut % (Auto) Lymph % (Auto) [place] % (Auto) Eos % (Auto) Baso % (Auto) Neut # (Auto) Lymph # (Auto) [place] # (Auto) Eos # (Auto) Baso # (Auto) WBC Differential Differential Comment Sodium Potassium 4.4 D Chloride Carbon Dioxide Anion Gap BUN Creatinine Estimated GFR POC Glucose Random Glucose Lactic Acid Calcium Magnesium 1.8 Total Bilirubin AST ALT Alkaline Phosphatase Total Protein Albumin Stl C.difficile Tox PCR St C. diff Tox Epid 027 Microbiology 02/02/18 11:23 Blood - Peripheral Aerobic Blood Culture - Preliminary No growth in 4 days 02/02/18 11:23 Blood - Peripheral Anaerobic Blood Culture - Preliminary No growth in 4 days 02/02/18 11:23 Blood - Peripheral Aerobic Blood Culture - Preliminary No growth in 4 days 02/02/18 11:23 Blood - Peripheral Anaerobic Blood Culture - Preliminary No growth in 4 days Assessment and Plan - Assessment (1) Hyperventilation Code(s): R06.4 - Hyperventilation Status: Acute (2) Acute respiratory distress Code(s): R06.03 - Acute respiratory distress Status: Acute (3) Hypotension Code(s): I95.9 - Hypotension, unspecified Status: Acute (4) History of aortic valve replacement Code(s): Z95.2 - Presence of prosthetic heart valve Status: Chronic (5) Acute kidney injury Code(s): N17.9 - Acute kidney failure, unspecified Status: Acute - Plan 1. Will D/C O2 2. Labs in am 3. D/C Duoneb nebs 4. Continue ASA and Effient 5. Transfer to tele 6. Up with help.
[2018-02-06] MEDS: Amiodarone 200 MG Tablet PO SCH (19:59)
[2018-02-07] MEDS: Chlorhexidine Gluconate 2% 1 Pack (2 Cloths) TOPICAL SCH (05:58)
[2018-02-07 06:20] LABS: Baso % (Auto) 0.3 % (0.0-2.0); Eos # (Auto) 0.1 th/mm3 (0.0-0.4); Eos % (Auto) 2.6 % (0.0-4.0); Hematocrit 29.6 % (35.0-46.0); Hemoglobin 10.1 gm/dL (11.6-15.3); Lymph # (Auto) 0.7 th/mm3 (1.0-4.8); Lymph % (Auto) 13.5 % (9.0-44.0); Mean Corpuscular HGB Conc 34.1 % (32.0-36.0); Mean Corpuscular Hemoglobin 31.3 pg (27.0-34.0); Mean Corpuscular Volume 91.9 fL (80.0-100.0); Mean Platelet Volume 9.1 fL (7.0-11.0); Mono # (Auto) 0.4 th/mm3 (0.0-0.9); Mono % (Auto) 7.5 % (0.0-8.0); Neut # (Auto) 3.8 th/mm3 (1.8-7.7); Neut % (Auto) 76.1 % (16.0-70.0); Platelet Count 109 th/mm3 (150-450); Red Blood Count 3.22 mil/mm3 (4.00-5.30); Red Cell Distribution Width 15.5 % (11.6-17.2)
[2018-02-07 06:43] LABS: Alanine Aminotransferase 24 U/L (10-53); Albumin 2.5 g/dL (3.4-5.0); Alkaline Phosphatase 78 U/L (45-117); Anion Gap 10 meq/L (5-15); Aspartate Aminotransferase 28 U/L (15-37); Blood Urea Nitrogen 23 mg/dL (7-18); Calcium 7.8 mg/dL (8.5-10.1); Carbon Dioxide 19.5 meq/L (21.0-32.0); Chloride 112 meq/L (98-107); Glomerular Filtration Rate 54 mL/min (>89); Glucose,Random 85 mg/dL (74-106); Magnesium 1.9 mg/dL (1.5-2.5); Phosphorus 2.2 mg/dL (2.5-4.9); Potassium 4.7 meq/L (3.5-5.1); Sodium 141 meq/L (136-145); Total Protein 5.9 g/dL (6.4-8.2)
[2018-02-07] MEDS: Levothyroxine 50 MCG Tablet PO SCH (06:50)
[2018-02-07] MEDS: Amiodarone 200 MG Tablet PO SCH ×2 (09:14→20:53)
[2018-02-07] MEDS: Furosemide 20 MG Tablet PO SCH (09:15)
[2018-02-07] MEDS: Insulin NovoLIN Regular Correctional Sugar Inj SQ SCH ×4 (09:15→20:46)
--- NOTE | 2018-02-07 11:06 | P.PNFP ---
Subjective Interval history: She tells me breathing is improved and no C/O chest pain this AM. Results - Labs Result diagrams: 02/07/18 05:42 02/07/18 05:42 Abnormal lab results 02/06/18 02/07/18 02/07/18 Range/Units 16:39 05:42 05:42 RBC 3.22 L (4.00-5.30) mil/mm3 Hgb 10.1 L (11.6-15.3) gm/dL Hct 29.6 L (35.0-46.0) % Plt Count 109 L (150-450) th/mm3 Neut % (Auto) 76.1 H (16.0-70.0) % Lymph # (Auto) 0.7 L (1.0-4.8) th/mm3 Chloride 112 H (98-107) meq/L Carbon Dioxide 19.5 L (21.0-32.0) meq/L BUN 23 H (7-18) mg/dL Estimated GFR 54 L (>89) mL/min POC Glucose 114 H (68-110) mg/dl Calcium 7.8 L (8.5-10.1) mg/dL Phosphorus 2.2 L D (2.5-4.9) mg/dL Total Protein 5.9 L D (6.4-8.2) g/dL Albumin 2.5 L (3.4-5.0) g/dL Short CBC 02/07/18 Range/Units 05:42 WBC 5.0 (4.0-11.0) th/mm3 Hgb 10.1 L (11.6-15.3) gm/dL Hct 29.6 L (35.0-46.0) % Plt Count 109 L (150-450) th/mm3 [facility] 02/06/18 02/07/18 17:23 05:42 Sodium 141 Potassium 4.4 D 4.7 Chloride 112 H Carbon Dioxide 19.5 L BUN 23 H Creatinine 0.98 Calcium 7.8 L Liver Function 02/07/18 Range/Units 05:42 Total Bilirubin 0.5 (0.2-1.0) mg/dL AST 28 (15-37) U/L ALT 24 (10-53) U/L Alkaline Phosphatase 78 (45-117) U/L Albumin 2.5 L (3.4-5.0) g/dL Physical Exam Vital signs: Vital Signs 02/06/18 12:00 02/06/18 13:00 02/06/18 14:00 Temperature 97.8 F Pulse Rate 82 83 85 Respiratory Rate 27 H 23 25 H Blood Pressure 94/58 L 96/66 L 103/67 Pulse Oximetry 100 100 02/06/18 15:00 02/06/18 16:00 02/06/18 17:00 Temperature 98.0 F Pulse Rate 83 86 84 Respiratory Rate 20 24 29 H Blood Pressure 90/60 L 92/53 L Pulse Oximetry 100 100 100 02/06/18 17:13 02/06/18 18:00 02/06/18 19:00 Temperature Pulse Rate 85 86 86 Respiratory Rate 20 24 24 Blood Pressure 88/55 L 91/68 L 112/71 Pulse Oximetry 100 99 100 02/06/18 19:38 02/06/18 20:00 02/06/18 21:00 Temperature 98.8 F Pulse Rate 89 89 87 Respiratory Rate 18 26 H 22 Blood Pressure 101/63 96/65 L Pulse Oximetry 96 100 100 02/06/18 22:00 02/06/18 23:00 02/07/18 00:00 Temperature Pulse Rate 86 85 85 Respiratory Rate 16 22 21 Blood Pressure 97/64 L 98/67 L 109/69 Pulse Oximetry 100 99 100 02/07/18 01:00 02/07/18 02:00 02/07/18 03:00 Temperature Pulse Rate 85 84 82 Respiratory Rate 21 19 15 Blood Pressure 106/71 108/74 97/62 L Pulse Oximetry 100 99 99 02/07/18 04:00 02/07/18 05:00 02/07/18 06:00 Temperature 98.3 F Pulse Rate 82 81 81 Respiratory Rate 13 11 L 28 H Blood Pressure 105/71 105/69 102/67 Pulse Oximetry 100 100 100 02/07/18 06:38 02/07/18 07:00 02/07/18 08:00 Temperature 97.8 F Pulse Rate 83 81 91 H Respiratory Rate 25 H 23 31 H Blood Pressure 102/67 107/72 106/80 Pulse Oximetry 100 100 100 02/07/18 08:43 02/07/18 09:00 Temperature Pulse Rate 84 Respiratory Rate 21 Blood Pressure 104/69 Pulse Oximetry 100 100 Intake & Output 02/06/18 02/07/18 02/07/18 18:59 06:59 18:59 Intake Total 580 / 580 300 / 300 Output Total 1200 / 1200 1000 / 1000 Balance -620 / -620 -700 / -700 Weight 50.5 kg Intake: IV 100 / 100 100 / 100 KCl 20 mEq Premix Inj 20 meq In 100 / 100 100 ml @ 50 mls/hr IV.SIG Q2H TAL Rx#:[id number] Oral 480 / 480 200 / 200 Output: Urine 1200 / 1200 1000 / 1000 Other: # Voids 4 4 Date of Last Bowel Movement 02/06/18 02/07/18 02/06/18 # Bowel Movements 4 2 # Incontinent Bowel Movements 0 - Constitutional no acute distress - Routine HEENT Exam Head: Present: normocephalic Eye: Present: PERRL, normal accommodation ENT: Present: mucous membranes moist - Routine Neck Exam Present: supple, full ROM - Routine Respiratory Exam Present: CTA bilaterally - Routine Cardiovascular Exam Present: RRR, S1, S2 - Routine Abdominal Exam Present: soft, normoactive bowel sounds - Routine Skin Exam Present: intact - Routine Neurological Exam Present: alert, oriented X3 - Detailed Neurological Exam: Coma Scale Eye Opening: Spontaneous Verbal Response: Oriented Motor Response: Obey commands [place] Coma Scale Total: 15 - Routine Psychiatric Exam Present: normal affect - Urinary Catheter Management Straight Cath placed during this visit: no Assessment and Plan - Assessment (1) Acute respiratory distress Code(s): R06.03 - Acute respiratory distress Status: Acute Plan: Sat's maintained on ra, Cont w/ bronchodilators, Pulmonary on case, follow rec's. Said to be moving to tele today. (2) A-fib Code(s): I48.91 - Unspecified atrial fibrillation Plan: Followed by Cardiology Amiodarone,Lopressor- SR currently. Rate controlled, on asa (3) History of aortic valve replacement Code(s): Z95.2 - Presence of prosthetic heart valve Status: Chronic Plan: Cardiology on case (4) CAD (coronary artery disease) Code(s): I25.10 - Atherosclerotic heart disease of [place] coronary artery without angina pectoris Status: Acute Plan: Hx of stents, cardiology following, on Effient, asa (5) HTN (hypertension) Code(s): I10 - Essential (primary) hypertension Status: Acute Plan: Cont home medications, Monitor, titrate as needed. Well controlled today. - Assessment and Plan Cont to F/U recommendations from Cards and Pulmonary. She is back in NSR and Pulmonary indicates she is stable to move out of ICU. Will monitor closely and make no changes in her regimen here today.
--- NOTE | 2018-02-07 12:54 | P.PNONC ---
Subjective Interval history: Patient reports that she her breathing has improved, still with cough. No other complaints at this time. Objective Vital Signs/Intake & Output: Vital Signs 02/06/18 13:00 02/06/18 14:00 02/06/18 15:00 Temperature Pulse Rate 83 85 83 Respiratory Rate 23 25 H 20 Blood Pressure 96/66 L 103/67 90/60 L Pulse Oximetry 100 100 02/06/18 16:00 02/06/18 17:00 02/06/18 17:13 Temperature 98.0 F Pulse Rate 86 84 85 Respiratory Rate 24 29 H 20 Blood Pressure 92/53 L 88/55 L Pulse Oximetry 100 100 100 02/06/18 18:00 02/06/18 19:00 02/06/18 19:38 Temperature Pulse Rate 86 86 89 Respiratory Rate 24 24 18 Blood Pressure 91/68 L 112/71 Pulse Oximetry 99 100 96 02/06/18 20:00 02/06/18 21:00 02/06/18 22:00 Temperature 98.8 F Pulse Rate 89 87 86 Respiratory Rate 26 H 22 16 Blood Pressure 101/63 96/65 L 97/64 L Pulse Oximetry 100 100 100 02/06/18 23:00 02/07/18 00:00 02/07/18 01:00 Temperature Pulse Rate 85 85 85 Respiratory Rate 22 21 21 Blood Pressure 98/67 L 109/69 106/71 Pulse Oximetry 99 100 100 02/07/18 02:00 02/07/18 03:00 02/07/18 04:00 Temperature 98.3 F Pulse Rate 84 82 82 Respiratory Rate 19 15 13 Blood Pressure 108/74 97/62 L 105/71 Pulse Oximetry 99 99 100 02/07/18 05:00 02/07/18 06:00 02/07/18 06:38 Temperature Pulse Rate 81 81 83 Respiratory Rate 11 L 28 H 25 H Blood Pressure 105/69 102/67 102/67 Pulse Oximetry 100 100 100 02/07/18 07:00 02/07/18 08:00 02/07/18 08:43 Temperature 97.8 F Pulse Rate 81 91 H Respiratory Rate 23 31 H Blood Pressure 107/72 106/80 Pulse Oximetry 100 100 100 02/07/18 09:00 02/07/18 10:00 02/07/18 11:00 Temperature Pulse Rate 84 89 91 H Respiratory Rate 21 18 20 Blood Pressure 104/69 101/68 104/65 Pulse Oximetry 100 100 100 02/07/18 12:00 02/07/18 12:06 Temperature 97.9 F Pulse Rate 92 H 92 H Respiratory Rate 28 H 18 Blood Pressure 106/73 Pulse Oximetry 92 L Intake & Output 02/06/18 02/07/18 02/07/18 18:59 06:59 18:59 Intake Total 580 / 580 300 / 300 Output Total 1200 / 1200 1000 / 1000 Balance -620 / -620 -700 / -700 Weight 50.5 kg Intake: IV 100 / 100 100 / 100 KCl 20 mEq Premix Inj 20 meq In 100 / 100 100 ml @ 50 mls/hr IV.SIG Q2H STARLA Rx#:[id number] Oral 480 / 480 200 / 200 Output: Urine 1200 / 1200 1000 / 1000 Other: # Voids 4 4 Date of Last Bowel Movement 02/06/18 02/07/18 02/06/18 # Bowel Movements 4 2 # Incontinent Bowel Movements 0 Result Diagrams: 02/07/18 05:42 02/07/18 05:42 Laboratory Results: Laboratory Results - last 24 hr 02/06/18 02/06/18 02/07/18 16:39 17:23 05:42 WBC 5.0 RBC 3.22 L Hgb 10.1 L Hct 29.6 L MCV 91.9 MCH 31.3 MCHC 34.1 RDW 15.5 Plt Count 109 L MPV 9.1 Neut % (Auto) 76.1 H Lymph % (Auto) 13.5 [place] % (Auto) 7.5 Eos % (Auto) 2.6 Baso % (Auto) 0.3 Neut # (Auto) 3.8 Lymph # (Auto) 0.7 L [place] # (Auto) 0.4 Eos # (Auto) 0.1 Baso # (Auto) 0.0 WBC Differential . Differential Comment Auto diff final Sodium Potassium 4.4 D Chloride Carbon Dioxide Anion Gap BUN Creatinine Estimated GFR POC Glucose 114 H Random Glucose Calcium Phosphorus Magnesium 1.8 Total Bilirubin AST ALT Alkaline Phosphatase Total Protein Albumin 02/07/18 05:42 WBC RBC Hgb Hct MCV MCH MCHC RDW Plt Count MPV Neut % (Auto) Lymph % (Auto) [place] % (Auto) Eos % (Auto) Baso % (Auto) Neut # (Auto) Lymph # (Auto) [place] # (Auto) Eos # (Auto) Baso # (Auto) WBC Differential Differential Comment Sodium 141 Potassium 4.7 Chloride 112 H Carbon Dioxide 19.5 L Anion Gap 10 BUN 23 H Creatinine 0.98 Estimated GFR 54 L POC Glucose Random Glucose 85 Calcium 7.8 L Phosphorus 2.2 L D Magnesium 1.9 Total Bilirubin 0.5 AST 28 ALT 24 Alkaline Phosphatase 78 Total Protein 5.9 L D Albumin 2.5 L Culture Results: Microbiology 02/02/18 11:23 Aerobic Blood Culture - Final Blood - Peripheral No growth in 5 days Anaerobic Blood Culture - Final No growth in 5 days 02/02/18 11:23 Aerobic Blood Culture - Final Blood - Peripheral No growth in 5 days Anaerobic Blood Culture - Final No growth in 5 days Medications: Active Medications Generic Name Dose Route Start Last Admin Trade Name Freq PRN Reason Stop Dose Admin Al Hydroxide/Mg Hydroxide 30 ml 02/02/18 13:48 02/05/18 06:44 Milk Of Magnesia Liq PO 30 ml Q12H PRN Administration Mild Constipation Albuterol 1 ampul 02/06/18 08:00 02/07/18 09:15 Duoneb Neb (Starla) NEB 1 ampul Q6HR WHILE AWAKE NEB STARLA Administration Amiodarone HCl 200 mg 02/06/18 21:00 02/07/18 09:14 Cordarone PO 200 mg Q12HR STARLA Administration Aspirin 81 mg 02/02/18 16:00 02/07/18 09:15 Ecotrin PO 81 mg DAILY STARLA Administration Bisacodyl 10 mg 02/02/18 13:48 02/05/18 10:00 Dulcolax Supp RECTAL 10 mg DAILY PRN Administration SEVERE CONSITIPATION Chlorhexidine Gluconate 3 pack 02/03/18 04:00 02/07/18 05:58 Chlorhexidine 2% Cloth TOPICAL 02/08/18 03:59 3 pack DAILY@0400 STARLA Administration Furosemide 20 mg 02/06/18 09:00 02/07/18 09:15 Lasix PO 20 mg DAILY STARLA Administration Insulin Human Regular 0 units 02/05/18 21:00 02/07/18 09:15 Novolin R Correctional Sugar Inj SQ Not Given ACHS STARLA Protocol Lactulose 30 ml 02/02/18 13:48 02/05/18 10:00 Lactulose Liq PO 30 ml DAILY PRN Administration SEVERE CONSITIPATION Levothyroxine Sodium 50 mcg 02/06/18 06:00 02/07/18 06:50 Synthroid PO 50 mcg DAILY@0600 STARLA Administration Potassium Chloride 10 meq 02/06/18 09:00 02/07/18 09:15 Klor-Con 10 PO 10 meq BID STARLA Administration Prasugrel 5 mg 02/02/18 15:15 02/07/18 09:14 Effient PO 5 mg DAILY STARLA Administration Pravastatin Sodium 20 mg 02/05/18 21:00 02/06/18 19:59 Pravachol PO 20 mg HS STARLA Administration Sennosides 17.2 mg 02/02/18 13:48 02/05/18 06:44 Senokot PO 17.2 mg Q12H PRN Administration Moderate Constipation Objective Remarks: GENERAL: Elderly female patient, lying in bed, in no acute distress. SKIN: Pale, warm and dry. HEAD: Normocephalic. EYES: No scleral icterus. No injection or drainage. NECK: Supple, trachea midline. No JVD. CARDIOVASCULAR: Regular rate and rhythm without murmurs. RESPIRATORY: Posterior breath sounds with scattered rhonchi, equal bilaterally. No accessory muscle use. + Intermittent cough. GASTROINTESTINAL: Abdomen soft, non-tender, nondistended. EXTREMITIES: No cyanosis, or edema. MUSCULOSKELETAL: Adequate muscle tone. NEUROLOGICAL: No obvious focal deficit. Awake, alert, and oriented x3. PSYCHIATRIC: Appropriate mood and affect; insight and judgment normal. Assessment/Plan (1) Pulmonary embolism Code(s): I26.99 - Other pulmonary embolism without acute cor pulmonale Status : Acute - Plan 82-year-old female admitted with progressive fatigue, weight loss and dizziness admitted with a small burden pulmonary embolism. She also has some pancytopenia. 1. Blood counts continue to improve. Dr. Bell discussed with Dr. 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 Adding a third anticoagulant would give her an extremely high risk of bleeding. In the current clinical situation it would be best to continue with the current course as she has a relatively small PE clot burden. 2. Continue to monitor CBC. 3. Continue supportive care. - Attending Statement The exam, history, and the medical decision-making described in the above note were completed with the assistance of the mid-level provider. I reviewed and agree with the findings presented. I attest that I had a [id number] encounter with the patient on the same day, and personally performed and documented my assessment and findings in the medical record. 82 yoF with PE and pancytopenia. Currently on ASA/effient due to history of occluded stent. Too high risk for dual antiplatelet therapy and full intensity systemic anticoagulation. Low vitamin B12 initiated oral replacement
--- NOTE | 2018-02-07 14:50 | P.PN ---
Subjective Interval history: Awake and no distress. c/O incontinence. Off O2 . No chest pains. Physical Exam Vital signs: Vital Signs 02/06/18 15:00 02/06/18 16:00 02/06/18 17:00 Temperature 98.0 F Pulse Rate 83 86 84 Respiratory Rate 20 24 29 H Blood Pressure 90/60 L 92/53 L Pulse Oximetry 100 100 100 02/06/18 17:13 02/06/18 18:00 02/06/18 19:00 Temperature Pulse Rate 85 86 86 Respiratory Rate 20 24 24 Blood Pressure 88/55 L 91/68 L 112/71 Pulse Oximetry 100 99 100 02/06/18 19:38 02/06/18 20:00 02/06/18 21:00 Temperature 98.8 F Pulse Rate 89 89 87 Respiratory Rate 18 26 H 22 Blood Pressure 101/63 96/65 L Pulse Oximetry 96 100 100 02/06/18 22:00 02/06/18 23:00 02/07/18 00:00 Temperature Pulse Rate 86 85 85 Respiratory Rate 16 22 21 Blood Pressure 97/64 L 98/67 L 109/69 Pulse Oximetry 100 99 100 02/07/18 01:00 02/07/18 02:00 02/07/18 03:00 Temperature Pulse Rate 85 84 82 Respiratory Rate 21 19 15 Blood Pressure 106/71 108/74 97/62 L Pulse Oximetry 100 99 99 02/07/18 04:00 02/07/18 05:00 02/07/18 06:00 Temperature 98.3 F Pulse Rate 82 81 81 Respiratory Rate 13 11 L 28 H Blood Pressure 105/71 105/69 102/67 Pulse Oximetry 100 100 100 02/07/18 06:38 02/07/18 07:00 02/07/18 08:00 Temperature 97.8 F Pulse Rate 83 81 91 H Respiratory Rate 25 H 23 31 H Blood Pressure 102/67 107/72 106/80 Pulse Oximetry 100 100 100 02/07/18 08:43 02/07/18 09:00 02/07/18 10:00 Temperature Pulse Rate 84 89 Respiratory Rate 21 18 Blood Pressure 104/69 101/68 Pulse Oximetry 100 100 100 02/07/18 11:00 02/07/18 12:00 02/07/18 12:06 Temperature 97.9 F Pulse Rate 91 H 92 H 92 H Respiratory Rate 20 28 H 18 Blood Pressure 104/65 106/73 Pulse Oximetry 100 92 L 02/07/18 13:00 02/07/18 14:00 Temperature Pulse Rate 96 H 92 H Respiratory Rate 26 H 20 Blood Pressure 122/85 98/60 L Pulse Oximetry 83 L Intake & Output 02/06/18 02/07/18 02/07/18 18:59 06:59 18:59 Intake Total 580 / 580 300 / 300 Output Total 1200 / 1200 1000 / 1000 Balance -620 / -620 -700 / -700 Weight 50.5 kg Intake: IV 100 / 100 100 / 100 KCl 20 mEq Premix Inj 20 meq In 100 / 100 100 ml @ 50 mls/hr IV.SIG Q2H TAL Rx#:[id number] Oral 480 / 480 200 / 200 Output: Urine 1200 / 1200 1000 / 1000 Other: # Voids 4 4 Date of Last Bowel Movement 02/06/18 02/07/18 02/06/18 # Bowel Movements 4 2 # Incontinent Bowel Movements 0 Narrative: GENERAL: This is a well-nourished, elderly female patient, in no apparent distress. HEENT: Head is atraumatic and normocephalic. Neck is supple without lymphadenopathy and trachea is midline. No JVD or carotid bruits. CARDIOVASCULAR: Regular rate and rhythm without murmurs, gallops, or rubs. RESPIRATORY: Breath sounds equal bilaterally.Occ wheeze . No use of accessory muscles. GASTROINTESTINAL: Abdomen is nontender, nondistended. No organomegaly. Abdomen soft. No CVA tenderness. Strong femoral pulses bilaterally. Normal bowel sounds in all quadrants. MUSCULOSKELETAL: Patient is moving upper and lower extremities freely. No calf tenderness or edema, no Homans sign. NEUROLOGICAL: Patient is alert and oriented. Cranial nerves 2-12 are grossly intact. No focal deficits and speech is clear. SKIN: No rash and turgor is normal. - Urinary Catheter Management Straight Cath placed during this visit: no Results - Labs CBC & Chem 7: 02/07/18 05:42 02/07/18 05:42 Laboratory Results - last 24 hr 02/06/18 02/06/18 02/07/18 16:39 17:23 05:42 WBC 5.0 RBC 3.22 L Hgb 10.1 L Hct 29.6 L MCV 91.9 MCH 31.3 MCHC 34.1 RDW 15.5 Plt Count 109 L MPV 9.1 Neut % (Auto) 76.1 H Lymph % (Auto) 13.5 [place] % (Auto) 7.5 Eos % (Auto) 2.6 Baso % (Auto) 0.3 Neut # (Auto) 3.8 Lymph # (Auto) 0.7 L [place] # (Auto) 0.4 Eos # (Auto) 0.1 Baso # (Auto) 0.0 WBC Differential . Differential Comment Auto diff final Sodium Potassium 4.4 D Chloride Carbon Dioxide Anion Gap BUN Creatinine Estimated GFR POC Glucose 114 H Random Glucose Calcium Phosphorus Magnesium 1.8 Total Bilirubin AST ALT Alkaline Phosphatase Total Protein Albumin 02/07/18 05:42 WBC RBC Hgb Hct MCV MCH MCHC RDW Plt Count MPV Neut % (Auto) Lymph % (Auto) [place] % (Auto) Eos % (Auto) Baso % (Auto) Neut # (Auto) Lymph # (Auto) [place] # (Auto) Eos # (Auto) Baso # (Auto) WBC Differential Differential Comment Sodium 141 Potassium 4.7 Chloride 112 H Carbon Dioxide 19.5 L Anion Gap 10 BUN 23 H Creatinine 0.98 Estimated GFR 54 L POC Glucose Random Glucose 85 Calcium 7.8 L Phosphorus 2.2 L D Magnesium 1.9 Total Bilirubin 0.5 AST 28 ALT 24 Alkaline Phosphatase 78 Total Protein 5.9 L D Albumin 2.5 L Microbiology 02/02/18 11:23 Blood - Peripheral Aerobic Blood Culture - Final No growth in 5 days 02/02/18 11:23 Blood - Peripheral Anaerobic Blood Culture - Final No growth in 5 days 02/02/18 11:23 Blood - Peripheral Aerobic Blood Culture - Final No growth in 5 days 02/02/18 11:23 Blood - Peripheral Anaerobic Blood Culture - Final No growth in 5 days Assessment and Plan - Assessment (1) Hyperventilation Code(s): R06.4 - Hyperventilation Status: Acute (2) Acute respiratory distress Code(s): R06.03 - Acute respiratory distress Status: Acute (3) Hypotension Code(s): I95.9 - Hypotension, unspecified Status: Acute (4) History of aortic valve replacement Code(s): Z95.2 - Presence of prosthetic heart valve Status: Chronic (5) Acute kidney injury Code(s): N17.9 - Acute kidney failure, unspecified Status: Acute - Plan 1. Continue Amiodarone 200 mg BID 2. Labs in am 3. Lasix 20 mg daily 4. Continue ASA and Effient 5. Transfer to tele 6. CXR on Friday
[2018-02-08] MEDS: Levothyroxine 50 MCG Tablet PO SCH (05:18)
[2018-02-08] MEDS: Furosemide 20 MG Tablet PO SCH (08:20)
[2018-02-08] MEDS: Amiodarone 200 MG Tablet PO SCH ×2 (08:21→20:05)
--- NOTE | 2018-02-08 11:08 | P.PNFP ---
Subjective Interval history: Heme/Onc recommendations noted and no new anticoag therapy recommended with low clot burden from PE and risk would be substantial. She is without complaints except chronic cough but is back in AF. Cards is aware. Results - Labs Result diagrams: 02/07/18 05:42 02/07/18 05:42 Physical Exam Vital signs: Vital Signs 02/07/18 12:00 02/07/18 12:06 02/07/18 13:00 Temperature 97.9 F Pulse Rate 92 H 92 H 96 H Respiratory Rate 28 H 18 26 H Blood Pressure 106/73 122/85 Pulse Oximetry 92 L 83 L 02/07/18 14:00 02/07/18 15:00 02/07/18 16:00 Temperature 97.9 F Pulse Rate 92 H 92 H 91 H Respiratory Rate 20 26 H 22 Blood Pressure 98/60 L 112/73 116/79 Pulse Oximetry 100 99 02/07/18 17:00 02/07/18 18:00 02/07/18 18:01 Temperature Pulse Rate 93 H 101 H 101 H Respiratory Rate 17 29 H 23 Blood Pressure 115/72 124/87 Pulse Oximetry 99 79 L 83 L 02/07/18 19:00 02/07/18 20:00 02/07/18 20:55 Temperature 98.5 F Pulse Rate 93 H 94 H 96 H Respiratory Rate 25 H 24 22 Blood Pressure 106/69 110/75 Pulse Oximetry 100 100 98 02/07/18 21:00 02/07/18 22:00 02/07/18 23:00 Temperature Pulse Rate 96 H 98 H 96 H Respiratory Rate 24 23 21 Blood Pressure 119/87 108/66 115/67 Pulse Oximetry 98 98 100 02/08/18 00:00 02/08/18 01:00 02/08/18 02:00 Temperature 98.7 F Pulse Rate 95 H 92 H 96 H Respiratory Rate 18 22 25 H Blood Pressure 108/73 115/77 116/80 Pulse Oximetry 99 98 99 02/08/18 03:00 02/08/18 04:00 02/08/18 04:01 Temperature 98.5 F Pulse Rate 93 H 100 H 100 H Respiratory Rate 23 37 H 28 H Blood Pressure 106/69 129/64 129/64 Pulse Oximetry 99 91 L 89 L 02/08/18 05:00 02/08/18 06:00 02/08/18 07:00 Temperature Pulse Rate 91 H 90 124 H Respiratory Rate 22 19 38 H Blood Pressure 111/72 112/78 Pulse Oximetry 99 99 93 L 02/08/18 07:01 02/08/18 08:00 02/08/18 08:01 Temperature 98.2 F Pulse Rate 125 H 128 H 126 H Respiratory Rate 32 H 29 H 30 H Blood Pressure 94/66 L 126/81 Pulse Oximetry 91 L 93 L 96 02/08/18 08:28 02/08/18 09:00 02/08/18 10:00 Temperature Pulse Rate 131 H 127 H Respiratory Rate 24 25 H Blood Pressure 117/93 H 121/55 L Pulse Oximetry 99 81 L 96 Intake & Output 02/07/18 02/08/18 02/08/18 18:59 06:59 18:59 Intake Total 480 / 480 150 / 150 Output Total 650 / 650 450 / 450 Balance -170 / -170 -300 / -300 Weight 50.2 kg Intake: Oral 480 / 480 150 / 150 Output: Urine 650 / 650 450 / 450 Other: # Voids 5 2 Date of Last Bowel Movement 02/07/18 02/07/18 02/07/18 # Bowel Movements 1 0 - Constitutional no acute distress - Routine HEENT Exam Head: Present: normocephalic ENT: Present: mucous membranes moist - Routine Neck Exam Present: supple, full ROM - Routine Respiratory Exam Present: rhonchi, wheezes, distant breath sounds - Routine Cardiovascular Exam Present: S1, S2, irregularly irregular - Routine Abdominal Exam Present: normoactive bowel sounds - Routine Extremities Exam Present: full ROM - Routine Skin Exam Present: intact - Routine Neurological Exam Present: alert, oriented X3 - Detailed Neurological Exam: Coma Scale Eye Opening: Spontaneous Verbal Response: Oriented Motor Response: Obey commands [place] Coma Scale Total: 15 - Routine Psychiatric Exam Present: normal affect - Urinary Catheter Management Straight Cath placed during this visit: no Assessment and Plan - Assessment (1) Acute respiratory distress Code(s): R06.03 - Acute respiratory distress Status: Acute Plan: Sat's maintained on ra, Cont w/ bronchodilators, Pulmonary on case, follow rec's. S/P PE and Heme consult noted with no new recommendations. (2) A-fib Code(s): I48.91 - Unspecified atrial fibrillation Plan: Followed by Cardiology Amiodarone,Lopressor- Back in AF currently. Rate controlled, on asa (3) History of aortic valve replacement Code(s): Z95.2 - Presence of prosthetic heart valve Status: Chronic Plan: Cardiology on case (4) CAD (coronary artery disease) Code(s): I25.10 - Atherosclerotic heart disease of [place] coronary artery without angina pectoris Status: Acute Plan: Hx of stents, cardiology following, on Effient, asa (5) HTN (hypertension) Code(s): I10 - Essential (primary) hypertension Status: Acute Plan: Cont home medications, Monitor, titrate as needed. BP down again in AF but remains asymptomatic - Assessment and Plan Cont to F/U recommendations from Cards, Hematology and Pulmonary. She is back in AF and Cards aware. Will monitor closely and make no changes in her regimen here today.
[2018-02-08] MEDS: Insulin NovoLIN Regular Correctional Sugar Inj SQ SCH ×3 (14:22→20:05)
--- NOTE | 2018-02-08 15:17 | P.PN ---
Subjective Interval history: Alert and now on O2 at 2 L again. back in Atrial Fib.HR is 125. on PO Amiodarone Physical Exam Vital signs: Vital Signs 02/07/18 16:00 02/07/18 17:00 02/07/18 18:00 Temperature 97.9 F Pulse Rate 91 H 93 H 101 H Respiratory Rate 22 17 29 H Blood Pressure 116/79 115/72 Pulse Oximetry 99 99 79 L 02/07/18 18:01 02/07/18 19:00 02/07/18 20:00 Temperature 98.5 F Pulse Rate 101 H 93 H 94 H Respiratory Rate 23 25 H 24 Blood Pressure 124/87 106/69 110/75 Pulse Oximetry 83 L 100 100 02/07/18 20:55 02/07/18 21:00 02/07/18 22:00 Temperature Pulse Rate 96 H 96 H 98 H Respiratory Rate 22 24 23 Blood Pressure 119/87 108/66 Pulse Oximetry 98 98 98 02/07/18 23:00 02/08/18 00:00 02/08/18 01:00 Temperature 98.7 F Pulse Rate 96 H 95 H 92 H Respiratory Rate 21 18 22 Blood Pressure 115/67 108/73 115/77 Pulse Oximetry 100 99 98 02/08/18 02:00 02/08/18 03:00 02/08/18 04:00 Temperature 98.5 F Pulse Rate 96 H 93 H 100 H Respiratory Rate 25 H 23 37 H Blood Pressure 116/80 106/69 129/64 Pulse Oximetry 99 99 91 L 02/08/18 04:01 02/08/18 05:00 02/08/18 06:00 Temperature Pulse Rate 100 H 91 H 90 Respiratory Rate 28 H 22 19 Blood Pressure 129/64 111/72 112/78 Pulse Oximetry 89 L 99 99 02/08/18 07:00 02/08/18 07:01 02/08/18 08:00 Temperature 98.2 F Pulse Rate 124 H 125 H 128 H Respiratory Rate 38 H 32 H 29 H Blood Pressure 94/66 L Pulse Oximetry 93 L 91 L 93 L 02/08/18 08:01 02/08/18 08:28 02/08/18 09:00 Temperature Pulse Rate 126 H 131 H Respiratory Rate 30 H 24 Blood Pressure 126/81 117/93 H Pulse Oximetry 96 99 81 L 02/08/18 10:00 02/08/18 11:00 02/08/18 11:33 Temperature Pulse Rate 127 H 123 H 114 H Respiratory Rate 25 H 28 H 20 Blood Pressure 121/55 L 116/66 Pulse Oximetry 96 94 L 02/08/18 12:00 02/08/18 13:00 02/08/18 14:00 Temperature 97.5 F L Pulse Rate 119 H 117 H 121 H Respiratory Rate 34 H 27 H 26 H Blood Pressure 102/72 108/63 110/79 Pulse Oximetry 96 97 89 L Intake & Output 02/07/18 02/08/18 02/08/18 18:59 06:59 18:59 Intake Total 480 / 480 150 / 150 Output Total 650 / 650 450 / 450 Balance -170 / -170 -300 / -300 Weight 50.2 kg Intake: Oral 480 / 480 150 / 150 Output: Urine 650 / 650 450 / 450 Other: # Voids 5 2 Date of Last Bowel Movement 02/07/18 02/07/18 02/07/18 # Bowel Movements 1 0 Narrative: GENERAL: This is a well-nourished, elderly female patient, in no apparent distress. HEENT: Head is atraumatic and normocephalic. Neck is supple without lymphadenopathy and trachea is midline. No JVD or carotid bruits. CARDIOVASCULAR: Irregularly irregular, and tachy rate and without murmurs, gallops, or rubs. RESPIRATORY: Breath sounds equal bilaterally.Occ wheeze . No use of accessory muscles. GASTROINTESTINAL: Abdomen is nontender, nondistended. No organomegaly. Abdomen soft. No CVA tenderness. Strong femoral pulses bilaterally. Normal bowel sounds in all quadrants. MUSCULOSKELETAL: Patient is moving upper and lower extremities freely. No calf tenderness or edema, no Homans sign. NEUROLOGICAL: Patient is alert and oriented. No focal deficits and speech is clear. SKIN: No rash and turgor is normal. - Urinary Catheter Management Straight Cath placed during this visit: no Results - Labs CBC & Chem 7: 02/07/18 05:42 02/07/18 05:42 Laboratory Results - last 24 hr 02/07/18 19:42 POC Glucose 99 Assessment and Plan - Assessment (1) Hyperventilation Code(s): R06.4 - Hyperventilation Status: Acute (2) Acute respiratory distress Code(s): R06.03 - Acute respiratory distress Status: Acute (3) Hypotension Code(s): I95.9 - Hypotension, unspecified Status: Acute (4) History of aortic valve replacement Code(s): Z95.2 - Presence of prosthetic heart valve Status: Chronic (5) Acute kidney injury Code(s): N17.9 - Acute kidney failure, unspecified Status: Acute (6) Atrial fibrillation with rapid ventricular response Code(s): I48.91 - Unspecified atrial fibrillation Status: Acute (7) Pulmonary embolism Code(s): I26.99 - Other pulmonary embolism without acute cor pulmonale Status : Acute (8) CAD (coronary artery disease) Code(s): I25.10 - Atherosclerotic heart disease of [place] coronary artery without angina pectoris Status: Acute (9) HTN (hypertension) Code(s): I10 - Essential (primary) hypertension Status: Acute - Plan 1. CO2 2 L PRN 2. CXR ,Labs in am 3. Lasix 20 mg daily 4. Continue ASA and Effient 5. Cardiology to evaluate meds for A Fib 6. Continue observation in C
--- NOTE | 2018-02-09 04:49 | XR ---
EXAM DATE: 02/09/2018 4:24 AM EDT AGE/SEX: 82 years / Female INDICATIONS: Shortness of breath, possible pulmonary disease. CLINICAL DATA: This is the patient's subsequent encounter. Patient reports that signs and symptoms h ave been present for 1 week and indicates a pain score of 0/10. MEDICAL/SURGICAL HISTORY: Cardiovascular disease. None. [place] [facility] [place]. . FINDINGS: A single AP view of the chest demonstrates small bilateral pleural effusions and bibasilar consolidat ions. These are unchanged. Heart is normal in size. Median sternotomy wires noted. CONCLUSION: Unchanged bilateral pleural effusions and bibasilar infiltrates. Electronically signed by: Franki Diamond MD 02/09/2018 4:48 AM EDT
[2018-02-09] MEDS: Levothyroxine 50 MCG Tablet PO SCH (05:07)
[2018-02-09] MEDS: Furosemide 20 MG Tablet PO SCH (08:19)
[2018-02-09] MEDS: Amiodarone 200 MG Tablet PO SCH ×2 (08:19→20:00)
[2018-02-09] MEDS: Insulin NovoLIN Regular Correctional Sugar Inj SQ SCH ×4 (08:20→19:59)
--- NOTE | 2018-02-09 12:13 | P.PNCA ---
<Yohana Malave N - Last Filed: 02/09/18 12:10> Subjective Interval history: Pt denies any chest pain, pressure, palpitations, edema, dizziness or shortness of breath. Pt currently in atrial fib. Pt state she is feeling much better. Physical Exam Vital signs: Vital Signs 02/08/18 13:00 02/08/18 14:00 02/08/18 15:00 Temperature Pulse Rate 117 H 121 H 121 H Respiratory Rate 27 H 26 H 24 Blood Pressure 108/63 110/79 115/80 Pulse Oximetry 97 89 L 95 02/08/18 16:00 02/08/18 17:00 02/08/18 18:00 Temperature 97.8 F Pulse Rate 117 H 118 H 141 H Respiratory Rate 21 21 29 H Blood Pressure 110/74 114/78 Pulse Oximetry 99 99 88 L 02/08/18 18:01 02/08/18 19:00 02/08/18 20:00 Temperature 98.2 F Pulse Rate 136 H 123 H 125 H Respiratory Rate 30 H 25 H 28 H Blood Pressure 116/95 H 91/63 L 96/67 L Pulse Oximetry 92 L 99 02/08/18 20:37 02/08/18 21:00 02/08/18 22:00 Temperature Pulse Rate 112 H 127 H 122 H Respiratory Rate 22 29 H 26 H Blood Pressure 133/81 111/73 Pulse Oximetry 96 97 98 02/08/18 23:00 02/09/18 00:00 02/09/18 01:00 Temperature 98.0 F Pulse Rate 117 H 114 H 120 H Respiratory Rate 21 26 H 29 H Blood Pressure 113/82 124/80 106/66 Pulse Oximetry 98 96 97 02/09/18 02:00 02/09/18 03:00 02/09/18 03:42 Temperature Pulse Rate 121 H 126 H 117 H Respiratory Rate 24 24 20 Blood Pressure 113/75 109/88 Pulse Oximetry 97 97 02/09/18 04:00 02/09/18 05:00 02/09/18 06:00 Temperature 98.5 F Pulse Rate 126 H 126 H 129 H Respiratory Rate 28 H 22 32 H Blood Pressure 112/75 115/77 Pulse Oximetry 97 98 93 L 02/09/18 06:01 02/09/18 07:00 02/09/18 08:00 Temperature 97.8 F Pulse Rate 125 H 125 H 124 H Respiratory Rate 26 H 19 22 Blood Pressure 160/109 H 113/70 107/71 Pulse Oximetry 94 L 96 98 02/09/18 09:00 02/09/18 10:00 02/09/18 10:01 Temperature Pulse Rate 125 H 139 H 133 H Respiratory Rate 20 36 H 36 H Blood Pressure 119/86 111/66 Pulse Oximetry 95 99 02/09/18 11:00 Temperature Pulse Rate 123 H Respiratory Rate 24 Blood Pressure 111/73 Pulse Oximetry 97 Intake & Output 02/08/18 02/09/18 02/09/18 18:59 06:59 18:59 Intake Total 480 / 480 50 / 50 Balance 480 / 480 50 / 50 Weight 47.8 kg Intake: Oral 480 / 480 50 / 50 Other: # Voids 4 2 # Incontinent Voids 1 Date of Last Bowel Movement 02/08/18 02/07/18 02/07/18 # Bowel Movements 1 - Constitutional no acute distress - Routine HEENT Exam Head: Present: normocephalic Eye: Present: PERRL ENT: Present: mucous membranes moist - Routine Neck Exam Present: full ROM - Routine Respiratory Exam Present: CTA bilaterally - Routine Cardiovascular Exam Present: murmur, irregular rhythm. Absent: gallop, rubs - Routine Abdominal Exam Present: soft, normoactive bowel sounds - Routine Extremities Exam Present: full ROM, pulses intact, normal capillary refill. Absent: cyanosis, clubbing, edema - Routine Skin Exam Present: intact - Routine Neurological Exam Present: oriented X3 - Detailed Neurological Exam: Coma Scale Eye Opening: Spontaneous Verbal Response: Oriented Motor Response: Obey commands [place] Coma Scale Total: 15 - Routine Psychiatric Exam Present: normal affect, normal thought process - Urinary Catheter Management Straight Cath placed during this visit: no Assessment and Plan - Assessment (1) Hypotension Code(s): I95.9 - Hypotension, unspecified Status: Resolved (2) History of aortic valve replacement Code(s): Z95.2 - Presence of prosthetic heart valve Status: Chronic (3) Acute kidney injury Code(s): N17.9 - Acute kidney failure, unspecified Status: Acute - Plan Atrial fib on monitor in the 100-120. Increase amiodarone to 400mg PO BID. Increase activity with physical therapy. Continue with current cardiac treatment plan and adjust as needed. We will follow patient during hospitalization and follow-up in office post discharge. Patient was seen and evaluated by Dr. Abrams who participated in care, management and decision-making. <Eliel Abrams - Last Filed: 02/09/18 16:45> Physical Exam Vital signs: Vital Signs 02/08/18 17:00 02/08/18 18:00 02/08/18 18:01 Temperature Pulse Rate 118 H 141 H 136 H Respiratory Rate 21 29 H 30 H Blood Pressure 114/78 116/95 H Pulse Oximetry 99 88 L 02/08/18 19:00 02/08/18 20:00 02/08/18 20:37 Temperature 98.2 F Pulse Rate 123 H 125 H 112 H Respiratory Rate 25 H 28 H 22 Blood Pressure 91/63 L 96/67 L Pulse Oximetry 92 L 99 96 02/08/18 21:00 02/08/18 22:00 02/08/18 23:00 Temperature Pulse Rate 127 H 122 H 117 H Respiratory Rate 29 H 26 H 21 Blood Pressure 133/81 111/73 113/82 Pulse Oximetry 97 98 98 02/09/18 00:00 02/09/18 01:00 02/09/18 02:00 Temperature 98.0 F Pulse Rate 114 H 120 H 121 H Respiratory Rate 26 H 29 H 24 Blood Pressure 124/80 106/66 113/75 Pulse Oximetry 96 97 97 02/09/18 03:00 02/09/18 03:42 02/09/18 04:00 Temperature 98.5 F Pulse Rate 126 H 117 H 126 H Respiratory Rate 24 20 28 H Blood Pressure 109/88 112/75 Pulse Oximetry 97 97 02/09/18 05:00 02/09/18 06:00 02/09/18 06:01 Temperature Pulse Rate 126 H 129 H 125 H Respiratory Rate 22 32 H 26 H Blood Pressure 115/77 160/109 H Pulse Oximetry 98 93 L 94 L 02/09/18 07:00 02/09/18 08:00 02/09/18 08:30 Temperature 97.8 F Pulse Rate 125 H 124 H Respiratory Rate 19 22 Blood Pressure 113/70 107/71 Pulse Oximetry 96 98 93 L 02/09/18 09:00 02/09/18 10:00 02/09/18 10:01 Temperature Pulse Rate 125 H 139 H 133 H Respiratory Rate 20 36 H 36 H Blood Pressure 119/86 111/66 Pulse Oximetry 95 99 02/09/18 11:00 02/09/18 12:00 02/09/18 13:00 Temperature 97.5 F L Pulse Rate 123 H 122 H 122 H Respiratory Rate 24 29 H 26 H Blood Pressure 111/73 98/66 L 109/79 Pulse Oximetry 97 99 86 L 02/09/18 14:00 02/09/18 15:00 02/09/18 16:00 Temperature 98.5 F Pulse Rate 116 H 109 H 122 H Respiratory Rate 26 H 21 31 H Blood Pressure 113/67 105/61 106/72 Pulse Oximetry 100 99 97 02/09/18 16:01 Temperature Pulse Rate 111 H Respiratory Rate 31 H Blood Pressure 106/72 Pulse Oximetry 98 Intake & Output 02/08/18 02/09/18 02/09/18 18:59 06:59 18:59 Intake Total 480 / 480 50 / 50 Balance 480 / 480 50 / 50 Weight 105 lb 6.095 oz Intake: Oral 480 / 480 50 / 50 Other: # Voids 4 2 # Incontinent Voids 1 Date of Last Bowel Movement 02/08/18 02/07/18 02/09/18 # Bowel Movements 1 - Urinary Catheter Management Straight Cath placed during this visit: no Assessment and Plan - Assessment (1) Hypotension Code(s): I95.9 - Hypotension, unspecified Status: Resolved (2) History of aortic valve replacement Code(s): Z95.2 - Presence of prosthetic heart valve Status: Chronic (3) Acute kidney injury Code(s): N17.9 - Acute kidney failure, unspecified Status: Acute - Attending Attestation Patient seen and examined. I reviewed and agree with the evaluation and plan as presented. Back in AF w RVR. Will reload with amiodarone. Continue monitoring. Increase activity.
--- NOTE | 2018-02-09 12:44 | P.PNFP ---
Subjective Interval history: Resting in bed, she denies CP, Palpations Has productive cough, Sat's maintained on 2 liters Denies SOB Results - Labs Result diagrams: 02/07/18 05:42 02/07/18 05:42 Abnormal lab results 02/08/18 02/09/18 Range/Units 19:28 12:05 POC Glucose 123 H 135 H (68-110) mg/dl - Imaging Impressions Chest X-Ray 02/09/18 00:00 CONCLUSION: Unchanged bilateral pleural effusions and bibasilar infiltrates. Physical Exam Vital signs: Vital Signs 02/08/18 13:00 02/08/18 14:00 02/08/18 15:00 Temperature Pulse Rate 117 H 121 H 121 H Respiratory Rate 27 H 26 H 24 Blood Pressure 108/63 110/79 115/80 Pulse Oximetry 97 89 L 95 02/08/18 16:00 02/08/18 17:00 02/08/18 18:00 Temperature 97.8 F Pulse Rate 117 H 118 H 141 H Respiratory Rate 21 21 29 H Blood Pressure 110/74 114/78 Pulse Oximetry 99 99 88 L 02/08/18 18:01 02/08/18 19:00 02/08/18 20:00 Temperature 98.2 F Pulse Rate 136 H 123 H 125 H Respiratory Rate 30 H 25 H 28 H Blood Pressure 116/95 H 91/63 L 96/67 L Pulse Oximetry 92 L 99 02/08/18 20:37 02/08/18 21:00 02/08/18 22:00 Temperature Pulse Rate 112 H 127 H 122 H Respiratory Rate 22 29 H 26 H Blood Pressure 133/81 111/73 Pulse Oximetry 96 97 98 02/08/18 23:00 02/09/18 00:00 02/09/18 01:00 Temperature 98.0 F Pulse Rate 117 H 114 H 120 H Respiratory Rate 21 26 H 29 H Blood Pressure 113/82 124/80 106/66 Pulse Oximetry 98 96 97 02/09/18 02:00 02/09/18 03:00 02/09/18 03:42 Temperature Pulse Rate 121 H 126 H 117 H Respiratory Rate 24 24 20 Blood Pressure 113/75 109/88 Pulse Oximetry 97 97 02/09/18 04:00 02/09/18 05:00 02/09/18 06:00 Temperature 98.5 F Pulse Rate 126 H 126 H 129 H Respiratory Rate 28 H 22 32 H Blood Pressure 112/75 115/77 Pulse Oximetry 97 98 93 L 02/09/18 06:01 02/09/18 07:00 02/09/18 08:00 Temperature 97.8 F Pulse Rate 125 H 125 H 124 H Respiratory Rate 26 H 19 22 Blood Pressure 160/109 H 113/70 107/71 Pulse Oximetry 94 L 96 98 02/09/18 09:00 02/09/18 10:00 02/09/18 10:01 Temperature Pulse Rate 125 H 139 H 133 H Respiratory Rate 20 36 H 36 H Blood Pressure 119/86 111/66 Pulse Oximetry 95 99 02/09/18 11:00 02/09/18 12:00 Temperature 97.5 F L Pulse Rate 123 H 122 H Respiratory Rate 24 29 H Blood Pressure 111/73 98/66 L Pulse Oximetry 97 99 Intake & Output 02/08/18 02/09/18 02/09/18 18:59 06:59 18:59 Intake Total 480 / 480 50 / 50 Balance 480 / 480 50 / 50 Weight 47.8 kg Intake: Oral 480 / 480 50 / 50 Other: # Voids 4 2 # Incontinent Voids 1 Date of Last Bowel Movement 02/08/18 02/07/18 02/07/18 # Bowel Movements 1 - Constitutional no acute distress - Routine HEENT Exam ENT: Present: mucous membranes moist - Routine Neck Exam Present: supple - Routine Respiratory Exam Present: CTA bilaterally, rhonchi - Routine Abdominal Exam Present: soft, normoactive bowel sounds - Routine Extremities Exam Present: pulses intact - Routine Skin Exam Present: dry, warm - Routine Neurological Exam Present: alert, oriented X3 - Routine Psychiatric Exam Present: cooperative - Urinary Catheter Management Straight Cath placed during this visit: no Assessment and Plan - Assessment (1) Acute respiratory distress Code(s): R06.03 - Acute respiratory distress Status: Acute Plan: Sat's maintained on ra, Cont w/ bronchodilators, Pulmonary on case, follow rec's. S/P PE and Heme consult noted with no new recommendations. (2) A-fib Code(s): I48.91 - Unspecified atrial fibrillation Plan: Followed by Cardiology Amiodarone,Lopressor- Back in AF currently. Rate controlled, on asa (3) History of aortic valve replacement Code(s): Z95.2 - Presence of prosthetic heart valve Status: Chronic Plan: Cardiology on case (4) CAD (coronary artery disease) Code(s): I25.10 - Atherosclerotic heart disease of [place] coronary artery without angina pectoris Status: Acute Plan: Hx of stents, cardiology following, on Effient, asa (5) HTN (hypertension) Code(s): I10 - Essential (primary) hypertension Status: Acute Plan: Cont home medications, Monitor, titrate as needed. BP down again in AF but remains asymptomatic - Assessment and Plan Cont to F/U recommendations from Cards, Hematology and Pulmonary. She is back in AF and Cards aware. Will monitor closely and make no changes in her regimen here today. 02/09/18- Seen this am, patient voices she feels good, would like to be able to move oob. She has flipped back to Afib, HR 120-130. cardiology in room as well and will adjust Amiodarone, Cxr completed today unchanged pleural effusion, and bibasilar infiltrates. Will cont with O2 support and bronchodilators. PT activity ordered.
--- NOTE | 2018-02-09 15:54 | P.PNONC ---
Subjective Interval history: Afebrile Patient with cough States "I am not really short of breath, I just have this cough" Hoping to be transferred out of the ICU soon Per [facility], her amiodarone dose has recently been adjusted Objective Vital Signs/Intake & Output: Vital Signs 02/08/18 16:00 02/08/18 17:00 02/08/18 18:00 Temperature 97.8 F Pulse Rate 117 H 118 H 141 H Respiratory Rate 21 21 29 H Blood Pressure 110/74 114/78 Pulse Oximetry 99 99 88 L 02/08/18 18:01 02/08/18 19:00 02/08/18 20:00 Temperature 98.2 F Pulse Rate 136 H 123 H 125 H Respiratory Rate 30 H 25 H 28 H Blood Pressure 116/95 H 91/63 L 96/67 L Pulse Oximetry 92 L 99 02/08/18 20:37 02/08/18 21:00 02/08/18 22:00 Temperature Pulse Rate 112 H 127 H 122 H Respiratory Rate 22 29 H 26 H Blood Pressure 133/81 111/73 Pulse Oximetry 96 97 98 02/08/18 23:00 02/09/18 00:00 02/09/18 01:00 Temperature 98.0 F Pulse Rate 117 H 114 H 120 H Respiratory Rate 21 26 H 29 H Blood Pressure 113/82 124/80 106/66 Pulse Oximetry 98 96 97 02/09/18 02:00 02/09/18 03:00 02/09/18 03:42 Temperature Pulse Rate 121 H 126 H 117 H Respiratory Rate 24 24 20 Blood Pressure 113/75 109/88 Pulse Oximetry 97 97 02/09/18 04:00 02/09/18 05:00 02/09/18 06:00 Temperature 98.5 F Pulse Rate 126 H 126 H 129 H Respiratory Rate 28 H 22 32 H Blood Pressure 112/75 115/77 Pulse Oximetry 97 98 93 L 02/09/18 06:01 02/09/18 07:00 02/09/18 08:00 Temperature 97.8 F Pulse Rate 125 H 125 H 124 H Respiratory Rate 26 H 19 22 Blood Pressure 160/109 H 113/70 107/71 Pulse Oximetry 94 L 96 98 02/09/18 08:30 02/09/18 09:00 02/09/18 10:00 Temperature Pulse Rate 125 H 139 H Respiratory Rate 20 36 H Blood Pressure 119/86 Pulse Oximetry 93 L 95 02/09/18 10:01 02/09/18 11:00 02/09/18 12:00 Temperature 97.5 F L Pulse Rate 133 H 123 H 122 H Respiratory Rate 36 H 24 29 H Blood Pressure 111/66 111/73 98/66 L Pulse Oximetry 99 97 99 02/09/18 13:00 02/09/18 14:00 02/09/18 15:00 Temperature Pulse Rate 122 H 116 H 109 H Respiratory Rate 26 H 26 H 21 Blood Pressure 109/79 113/67 105/61 Pulse Oximetry 86 L 100 99 Intake & Output 02/08/18 02/09/18 02/09/18 18:59 06:59 18:59 Intake Total 480 / 480 50 / 50 Balance 480 / 480 50 / 50 Weight 105 lb 6.095 oz Intake: Oral 480 / 480 50 / 50 Other: # Voids 4 2 # Incontinent Voids 1 Date of Last Bowel Movement 02/08/18 02/07/18 02/07/18 # Bowel Movements 1 Result Diagrams: 02/07/18 05:42 02/07/18 05:42 Laboratory Results: Laboratory Results - last 24 hr 02/08/18 02/09/18 02/09/18 19:28 07:51 12:05 POC Glucose 123 H 101 135 H Culture Results: Microbiology 02/02/18 11:23 Aerobic Blood Culture - Final Blood - Peripheral No growth in 5 days Anaerobic Blood Culture - Final No growth in 5 days 02/02/18 11:23 Aerobic Blood Culture - Final Blood - Peripheral No growth in 5 days Anaerobic Blood Culture - Final No growth in 5 days Imaging Studies: Impressions Chest X-Ray 02/09/18 00:00 CONCLUSION: Unchanged bilateral pleural effusions and bibasilar infiltrates. Medications: Active Medications Generic Name Dose Route Start Last Admin Trade Name Freq PRN Reason Stop Dose Admin Al Hydroxide/Mg Hydroxide 30 ml 02/02/18 13:48 02/05/18 06:44 Milk Of Magnesia Liq PO 30 ml Q12H PRN Administration Mild Constipation Albuterol 1 ampul 02/02/18 13:48 02/09/18 03:42 Duoneb Neb (Prn) NEB 1 ampul Q2HR NEB PRN Administration DYSPNEA Albuterol 1 ampul 02/06/18 08:00 02/09/18 12:53 Duoneb Neb (Starla) NEB Not Given Q6HR WHILE AWAKE NEB STARLA Aspirin 81 mg 02/02/18 16:00 02/09/18 08:19 Ecotrin PO 81 mg DAILY STARLA Administration Bisacodyl 10 mg 02/02/18 13:48 02/05/18 10:00 Dulcolax Supp RECTAL 10 mg DAILY PRN Administration SEVERE CONSITIPATION Cyanocobalamin 1,000 mcg 02/08/18 09:00 02/09/18 08:19 Vitamin B12 PO 1,000 mcg DAILY STARLA Administration Furosemide 20 mg 02/06/18 09:00 02/09/18 08:19 Lasix PO 20 mg DAILY STARLA Administration Ceftriaxone Sodium 1,000 mg/ 100 mls @ 200 mls/hr 02/09/18 13:00 02/09/18 12: 13 Sodium Chloride IV.SIG 200 mls/hr Q24H STARLA Administration Insulin Human Regular 0 units 02/05/18 21:00 02/09/18 12:14 Novolin R Correctional Sugar Inj SQ Not Given ACHS [facility] Protocol Lactulose 30 ml 02/02/18 13:48 02/05/18 10:00 Lactulose Liq PO 30 ml DAILY PRN Administration SEVERE CONSITIPATION Levothyroxine Sodium 50 mcg 02/06/18 06:00 02/09/18 05:07 Synthroid PO 50 mcg DAILY@0600 STARLA Administration Potassium Chloride 10 meq 02/06/18 09:00 02/09/18 08:19 Klor-Con 10 PO 10 meq BID STARLA Administration Prasugrel 5 mg 02/02/18 15:15 02/09/18 08:19 Effient PO 5 mg DAILY STARLA Administration Pravastatin Sodium 20 mg 02/05/18 21:00 02/08/18 20:05 Pravachol PO 20 mg HS STARLA Administration Sennosides 17.2 mg 02/02/18 13:48 02/05/18 06:44 Senokot PO 17.2 mg Q12H PRN Administration Moderate Constipation Objective Remarks: GENERAL: Frail elderly female resting in bed in no acute distress SKIN: Warm and dry. HEAD: Normocephalic. EYES: No scleral icterus. No injection or drainage. NECK: Supple, trachea midline. No JVD or lymphadenopathy. CARDIOVASCULAR: Irregular rhythm RESPIRATORY: Clear but diminished posteriorly GASTROINTESTINAL: Abdomen soft, non-tender, nondistended. EXTREMITIES: No cyanosis, or edema. MUSCULOSKELETAL: Generalized weakness NEUROLOGICAL: Awake and alert. Moving all extremities. No obvious focal deficit. Assessment/Plan (1) Pulmonary embolism Code(s): I26.99 - Other pulmonary embolism without acute cor pulmonale Status : Acute - Plan 82-year-old female admitted with progressive fatigue, weight loss and dizziness admitted with a small burden pulmonary embolism. She also has some pancytopenia. 1. Noted chest x-ray today that shows bilateral pleural effusions and bibasilar infiltrates. The patient is currently getting ceftriaxone once daily. Blood cultures collected on February 02 are negative. 2. Continue anticoagulation with aspirin and Effient. Adding additional anticoagulation would give her too high risk for bleeding. 3. Monitor CBC. Continue supportive care.
[2018-02-09 16:41] LABS: Hematocrit 32.3 % (35.0-46.0); Hemoglobin 10.7 gm/dL (11.6-15.3); Mean Corpuscular HGB Conc 33.3 % (32.0-36.0); Mean Corpuscular Hemoglobin 30.6 pg (27.0-34.0); Mean Corpuscular Volume 91.9 fL (80.0-100.0); Platelet Count 156 th/mm3 (150-450); Red Blood Count 3.51 mil/mm3 (4.00-5.30); Red Cell Distribution Width 15.4 % (11.6-17.2); White Blood Count 3.4 th/mm3 (4.0-11.0)
[2018-02-09 17:11] LABS: Calcium 8.3 mg/dL (8.5-10.1); Carbon Dioxide 22.3 meq/L (21.0-32.0); Potassium 3.8 meq/L (3.5-5.1)
--- NOTE | 2018-02-09 18:09 | P.PN ---
Subjective Interval history: Alert and on O2 2L. HR still >120 and now on Higher dose of Amiodarone Physical Exam Vital signs: Vital Signs 02/08/18 19:00 02/08/18 20:00 02/08/18 20:37 Temperature 98.2 F Pulse Rate 123 H 125 H 112 H Respiratory Rate 25 H 28 H 22 Blood Pressure 91/63 L 96/67 L Pulse Oximetry 92 L 99 96 02/08/18 21:00 02/08/18 22:00 02/08/18 23:00 Temperature Pulse Rate 127 H 122 H 117 H Respiratory Rate 29 H 26 H 21 Blood Pressure 133/81 111/73 113/82 Pulse Oximetry 97 98 98 02/09/18 00:00 02/09/18 01:00 02/09/18 02:00 Temperature 98.0 F Pulse Rate 114 H 120 H 121 H Respiratory Rate 26 H 29 H 24 Blood Pressure 124/80 106/66 113/75 Pulse Oximetry 96 97 97 02/09/18 03:00 02/09/18 03:42 02/09/18 04:00 Temperature 98.5 F Pulse Rate 126 H 117 H 126 H Respiratory Rate 24 20 28 H Blood Pressure 109/88 112/75 Pulse Oximetry 97 97 02/09/18 05:00 02/09/18 06:00 02/09/18 06:01 Temperature Pulse Rate 126 H 129 H 125 H Respiratory Rate 22 32 H 26 H Blood Pressure 115/77 160/109 H Pulse Oximetry 98 93 L 94 L 02/09/18 07:00 02/09/18 08:00 02/09/18 08:30 Temperature 97.8 F Pulse Rate 125 H 124 H Respiratory Rate 19 22 Blood Pressure 113/70 107/71 Pulse Oximetry 96 98 93 L 02/09/18 09:00 02/09/18 10:00 02/09/18 10:01 Temperature Pulse Rate 125 H 139 H 133 H Respiratory Rate 20 36 H 36 H Blood Pressure 119/86 111/66 Pulse Oximetry 95 99 02/09/18 11:00 02/09/18 12:00 02/09/18 13:00 Temperature 97.5 F L Pulse Rate 123 H 122 H 122 H Respiratory Rate 24 29 H 26 H Blood Pressure 111/73 98/66 L 109/79 Pulse Oximetry 97 99 86 L 02/09/18 14:00 02/09/18 15:00 02/09/18 16:00 Temperature 98.5 F Pulse Rate 116 H 109 H 122 H Respiratory Rate 26 H 21 31 H Blood Pressure 113/67 105/61 106/72 Pulse Oximetry 100 99 97 02/09/18 16:01 02/09/18 17:00 Temperature Pulse Rate 111 H 121 H Respiratory Rate 31 H 24 Blood Pressure 106/72 97/71 L Pulse Oximetry 98 96 Intake & Output 02/08/18 02/09/18 02/09/18 18:59 06:59 18:59 Intake Total 480 / 480 50 / 50 Balance 480 / 480 50 / 50 Weight 47.8 kg Intake: Oral 480 / 480 50 / 50 Other: # Voids 4 2 # Incontinent Voids 1 Date of Last Bowel Movement 02/08/18 02/07/18 02/09/18 # Bowel Movements 1 Narrative: GENERAL: This is a well-nourished, elderly female patient, in no apparent distress. HEENT: Head is atraumatic and normocephalic. Neck is supple without lymphadenopathy and trachea is midline. No JVD or carotid bruits. CARDIOVASCULAR: Irregularly irregular, and tachycardic rate and without murmurs, gallops, or rubs. RESPIRATORY: Breath sounds equal bilaterally. Occ wheeze . No use of accessory muscles. GASTROINTESTINAL: Abdomen is nontender, nondistended. No organomegaly. Abdomen soft. No CVA tenderness. Strong femoral pulses bilaterally. Normal bowel sounds in all quadrants. MUSCULOSKELETAL: Patient is moving upper and lower extremities freely. No calf tenderness or edema. NEUROLOGICAL: Patient is alert and oriented. No focal deficits and speech is clear. SKIN: No rash and turgor is normal. - Urinary Catheter Management Straight Cath placed during this visit: no Results - Labs CBC & Chem 7: 02/09/18 15:43 02/09/18 15:43 Laboratory Results - last 24 hr 02/08/18 02/09/18 02/09/18 19:28 07:51 12:05 WBC RBC Hgb Hct MCV MCH MCHC RDW Plt Count MPV Sodium Potassium Chloride Carbon Dioxide Anion Gap BUN Creatinine Estimated GFR POC Glucose 123 H 101 135 H Random Glucose Calcium 02/09/18 02/09/18 02/09/18 15:43 15:43 16:34 WBC 3.4 L RBC 3.51 L Hgb 10.7 L Hct 32.3 L MCV 91.9 MCH 30.6 MCHC 33.3 RDW 15.4 Plt Count 156 D MPV 9.0 Sodium 140 Potassium 3.8 Chloride 106 Carbon Dioxide 22.3 Anion Gap 12 BUN 21 H Creatinine 1.09 H Estimated GFR 48 L POC Glucose 99 Random Glucose 106 Calcium 8.3 L - Imaging Impressions Chest X-Ray 02/09/18 00:00 CONCLUSION: Unchanged bilateral pleural effusions and bibasilar infiltrates. Assessment and Plan - Assessment (1) Hyperventilation Code(s): R06.4 - Hyperventilation Status: Acute (2) Acute respiratory distress Code(s): R06.03 - Acute respiratory distress Status: Acute (3) Hypotension Code(s): I95.9 - Hypotension, unspecified Status: Resolved (4) History of aortic valve replacement Code(s): Z95.2 - Presence of prosthetic heart valve Status: Chronic (5) Acute kidney injury Code(s): N17.9 - Acute kidney failure, unspecified Status: Acute (6) Atrial fibrillation with rapid ventricular response Code(s): I48.91 - Unspecified atrial fibrillation Status: Acute (7) Pulmonary embolism Code(s): I26.99 - Other pulmonary embolism without acute cor pulmonale Status : Acute (8) CAD (coronary artery disease) Code(s): I25.10 - Atherosclerotic heart disease of [place] coronary artery without angina pectoris Status: Acute (9) HTN (hypertension) Code(s): I10 - Essential (primary) hypertension Status: Acute - Plan 1. Continue O2 2 L PRN 2. CBC ,Labs in am 3. Lasix 20 mg daily 4. Continue ASA and Effient 5. Amiodarone 400 mg BID
[2018-02-10] MEDS: Levothyroxine 50 MCG Tablet PO SCH (05:45)
[2018-02-10] MEDS: Furosemide 20 MG Tablet PO SCH (08:07)
[2018-02-10] MEDS: Amiodarone 200 MG Tablet PO SCH ×2 (08:07→20:50)
[2018-02-10] MEDS: Insulin NovoLIN Regular Correctional Sugar Inj SQ SCH ×3 (08:08→16:17)
--- NOTE | 2018-02-10 12:30 | P.PNFP ---
Subjective Interval history: Denies any complaints She voices she is breathing better Denies Cp or palpations. Results - Labs Result diagrams: 02/09/18 15:43 02/09/18 15:43 Abnormal lab results 02/09/18 02/09/18 02/10/18 Range/Units 15:43 15:43 11:48 WBC 3.4 L (4.0-11.0) th/mm3 RBC 3.51 L (4.00-5.30) mil/mm3 Hgb 10.7 L (11.6-15.3) gm/dL Hct 32.3 L (35.0-46.0) % BUN 21 H (7-18) mg/dL Creatinine 1.09 H (0.50-1.00) mg/dL Estimated GFR 48 L (>89) mL/min POC Glucose 140 H (68-110) mg/dl Calcium 8.3 L (8.5-10.1) mg/dL Short CBC 02/09/18 Range/Units 15:43 WBC 3.4 L (4.0-11.0) th/mm3 Hgb 10.7 L (11.6-15.3) gm/dL Hct 32.3 L (35.0-46.0) % Plt Count 156 D (150-450) th/mm3 BMP 02/09/18 15:43 Sodium 140 Potassium 3.8 Chloride 106 Carbon Dioxide 22.3 BUN 21 H Creatinine 1.09 H Calcium 8.3 L Physical Exam Vital signs: Vital Signs 02/09/18 13:00 02/09/18 14:00 02/09/18 15:00 Temperature Pulse Rate 122 H 116 H 109 H Respiratory Rate 26 H 26 H 21 Blood Pressure 109/79 113/67 105/61 Pulse Oximetry 86 L 100 99 02/09/18 16:00 02/09/18 16:01 02/09/18 17:00 Temperature 98.5 F Pulse Rate 122 H 111 H 121 H Respiratory Rate 31 H 31 H 24 Blood Pressure 106/72 106/72 97/71 L Pulse Oximetry 97 98 96 02/09/18 18:00 02/09/18 18:01 02/09/18 19:00 Temperature Pulse Rate 134 H 132 H 121 H Respiratory Rate 25 H 27 H 20 Blood Pressure 109/81 110/81 Pulse Oximetry 91 L 80 L 99 02/09/18 20:00 02/09/18 21:00 02/09/18 21:53 Temperature 98.6 F Pulse Rate 127 H 115 H 123 H Respiratory Rate 35 H 25 H 24 Blood Pressure 120/83 115/77 115/77 Pulse Oximetry 94 L 98 98 02/09/18 22:00 02/09/18 23:00 02/10/18 00:00 Temperature 98.2 F 98.1 F Pulse Rate 123 H 125 H 128 H Respiratory Rate 21 20 34 H Blood Pressure 115/76 118/80 83/50 L Pulse Oximetry 98 98 96 02/10/18 01:00 02/10/18 01:44 02/10/18 02:00 Temperature Pulse Rate 123 H 120 H 114 H Respiratory Rate 27 H 20 25 H Blood Pressure 115/73 115/73 100/69 Pulse Oximetry 95 96 97 02/10/18 03:00 02/10/18 04:00 02/10/18 05:00 Temperature Pulse Rate 116 H 122 H 116 H Respiratory Rate 25 H 24 25 H Blood Pressure 113/77 110/76 105/73 Pulse Oximetry 98 99 98 02/10/18 05:54 02/10/18 06:00 02/10/18 07:00 Temperature Pulse Rate 110 H 107 H 102 H Respiratory Rate 24 23 26 H Blood Pressure 105/73 103/71 107/79 Pulse Oximetry 94 L 97 95 02/10/18 08:00 02/10/18 09:00 02/10/18 09:35 Temperature 97.0 F L Pulse Rate 117 H 123 H 116 H Respiratory Rate 27 H 32 H 23 Blood Pressure 124/87 117/89 Pulse Oximetry 87 L 83 L 97 02/10/18 10:00 02/10/18 11:00 02/10/18 11:01 Temperature Pulse Rate 123 H 106 H 109 H Respiratory Rate 23 22 26 H Blood Pressure 96/64 L 78/56 L 84/67 L Pulse Oximetry 93 L 95 95 02/10/18 12:00 Temperature 96.8 F L Pulse Rate 107 H Respiratory Rate 23 Blood Pressure 89/50 L Pulse Oximetry 97 Intake & Output 02/09/18 02/10/18 02/10/18 18:59 06:59 18:59 Intake Total 580 / 580 Balance 580 / 580 Weight 48.3 kg Intake: IV 100 / 100 Rocephin Inj 1,000 MG In NS Inj 100 / 100 100 ML @ 200 mls/hr IV.SIG Q24H [facility] Rx#:[id number] Oral 480 / 480 Other: # Voids 4 6 Date of Last Bowel Movement 02/09/18 02/09/18 02/09/18 # Bowel Movements 2 1 - Constitutional no acute distress - Routine HEENT Exam Eye: Present: PERRL ENT: Present: mucous membranes moist - Routine Neck Exam Present: supple - Routine Respiratory Exam Present: CTA bilaterally - Routine Cardiovascular Exam Present: S1, S2, irregular rhythm - Routine Abdominal Exam Present: soft, normoactive bowel sounds - Routine Skin Exam Present: dry, warm - Routine Neurological Exam Present: alert, oriented X3 - Routine Psychiatric Exam Present: cooperative - Urinary Catheter Management Straight Cath placed during this visit: no Assessment and Plan - Assessment (1) Acute respiratory distress Code(s): R06.03 - Acute respiratory distress Status: Acute Plan: Sat's maintained on ra, Cont w/ bronchodilators, Pulmonary on case, follow rec's. S/P PE and Heme consult noted with no new recommendations. (2) A-fib Code(s): I48.91 - Unspecified atrial fibrillation Plan: Followed by Cardiology Amiodarone,Lopressor- Back in AF currently. Rate controlled, on asa (3) History of aortic valve replacement Code(s): Z95.2 - Presence of prosthetic heart valve Status: Chronic Plan: Cardiology on case (4) CAD (coronary artery disease) Code(s): I25.10 - Atherosclerotic heart disease of [place] coronary artery without angina pectoris Status: Acute Plan: Hx of stents, cardiology following, on Effient, asa (5) HTN (hypertension) Code(s): I10 - Essential (primary) hypertension Status: Acute Plan: Cont home medications, Monitor, titrate as needed. BP down again in AF but remains asymptomatic - Assessment and Plan Cont to F/U recommendations from Cards, Hematology and Pulmonary. She is back in AF and Cards aware. Will monitor closely and make no changes in her regimen here today. 02/09/18- Seen this am, patient voices she feels good, would like to be able to move oob. She has flipped back to Afib, HR 120-130. cardiology in room as well and will adjust Amiodarone, Cxr completed today unchanged pleural effusion, and bibasilar infiltrates. Will cont with O2 support and bronchodilators. PT activity ordered. 02/10/18- Seen this am, Remains in Afib HR 120's, amiodarone increased yesterday , rec's to continue on Effient and asa, as adding anything else would increase risk of bleeding. Being followed by Pulmonary, cont with O2 support, Bronchodilators,and Iv Rocephin. Transfer from ICU once cleared by Cardiology.
--- NOTE | 2018-02-10 13:30 | P.PNCA ---
<Yohana Malave N - Last Filed: 02/10/18 13:25> Subjective Interval history: Patient denies any chest pain, pressure, palpitations, dizziness, edema or shortness of breath. Patient states that she is feeling great. She is currently atrial fib in the 120s. Physical Exam Vital signs: Vital Signs 02/09/18 14:00 02/09/18 15:00 02/09/18 16:00 Temperature 98.5 F Pulse Rate 116 H 109 H 122 H Respiratory Rate 26 H 21 31 H Blood Pressure 113/67 105/61 106/72 Pulse Oximetry 100 99 97 02/09/18 16:01 02/09/18 17:00 02/09/18 18:00 Temperature Pulse Rate 111 H 121 H 134 H Respiratory Rate 31 H 24 25 H Blood Pressure 106/72 97/71 L Pulse Oximetry 98 96 91 L 02/09/18 18:01 02/09/18 19:00 02/09/18 20:00 Temperature 98.6 F Pulse Rate 132 H 121 H 127 H Respiratory Rate 27 H 20 35 H Blood Pressure 109/81 110/81 120/83 Pulse Oximetry 80 L 99 94 L 02/09/18 21:00 02/09/18 21:53 02/09/18 22:00 Temperature Pulse Rate 115 H 123 H 123 H Respiratory Rate 25 H 24 21 Blood Pressure 115/77 115/77 115/76 Pulse Oximetry 98 98 98 02/09/18 23:00 02/10/18 00:00 02/10/18 01:00 Temperature 98.2 F 98.1 F Pulse Rate 125 H 128 H 123 H Respiratory Rate 20 34 H 27 H Blood Pressure 118/80 83/50 L 115/73 Pulse Oximetry 98 96 95 02/10/18 01:44 02/10/18 02:00 02/10/18 03:00 Temperature Pulse Rate 120 H 114 H 116 H Respiratory Rate 20 25 H 25 H Blood Pressure 115/73 100/69 113/77 Pulse Oximetry 96 97 98 02/10/18 04:00 02/10/18 05:00 02/10/18 05:54 Temperature Pulse Rate 122 H 116 H 110 H Respiratory Rate 24 25 H 24 Blood Pressure 110/76 105/73 105/73 Pulse Oximetry 99 98 94 L 02/10/18 06:00 02/10/18 07:00 02/10/18 08:00 Temperature 97.0 F L Pulse Rate 107 H 102 H 117 H Respiratory Rate 23 26 H 27 H Blood Pressure 103/71 107/79 124/87 Pulse Oximetry 97 95 87 L 02/10/18 09:00 02/10/18 09:35 02/10/18 10:00 Temperature Pulse Rate 123 H 116 H 123 H Respiratory Rate 32 H 23 23 Blood Pressure 117/89 96/64 L Pulse Oximetry 83 L 97 93 L 02/10/18 11:00 02/10/18 11:01 02/10/18 12:00 Temperature 96.8 F L Pulse Rate 106 H 109 H 107 H Respiratory Rate 22 26 H 23 Blood Pressure 78/56 L 84/67 L 89/50 L Pulse Oximetry 95 95 97 02/10/18 13:00 Temperature Pulse Rate 108 H Respiratory Rate 29 H Blood Pressure Pulse Oximetry 80 L Intake & Output 02/09/18 02/10/18 02/10/18 18:59 06:59 18:59 Intake Total 580 / 580 Balance 580 / 580 Weight 48.3 kg Intake: IV 100 / 100 Rocephin Inj 1,000 MG In NS Inj 100 / 100 100 ML @ 200 mls/hr IV.SIG Q24H [facility] Rx#:[id number] Oral 480 / 480 Other: # Voids 4 6 Date of Last Bowel Movement 02/09/18 02/09/18 02/09/18 # Bowel Movements 2 1 - Constitutional no acute distress - Routine HEENT Exam Head: Present: normocephalic Eye: Present: PERRL ENT: Present: mucous membranes moist - Routine Neck Exam Present: full ROM - Routine Respiratory Exam Present: CTA bilaterally - Routine Cardiovascular Exam Present: irregular rhythm. Absent: gallop, rubs - Routine Abdominal Exam Present: soft - Routine Extremities Exam Present: full ROM, pulses intact, normal capillary refill. Absent: cyanosis, clubbing, edema - Routine Skin Exam Present: intact - Routine Neurological Exam Present: oriented X3 - Detailed Neurological Exam: Coma Scale Eye Opening: Spontaneous Verbal Response: Oriented Motor Response: Obey commands [place] Coma Scale Total: 15 - Routine Psychiatric Exam Present: normal affect - Urinary Catheter Management Straight Cath placed during this visit: no Assessment and Plan - Assessment (1) Hypotension Code(s): I95.9 - Hypotension, unspecified Status: Resolved (2) History of aortic valve replacement Code(s): Z95.2 - Presence of prosthetic heart valve Status: Chronic (3) Acute kidney injury Code(s): N17.9 - Acute kidney failure, unspecified Status: Acute - Plan Currently loading patient with amiodarone 400 mg p.o. twice daily. Continue to increase activity with physical therapy. Continue with current cardiac treatment plan and adjust as needed. Will follow patient during hospitalization and follow-up in office post discharge. Patient was seen and evaluated by Dr. Abrams who participated in care, management and decision-making. <Eliel Abrams - Last Filed: 02/10/18 13:56> Physical Exam Vital signs: Vital Signs 02/09/18 14:00 02/09/18 15:00 02/09/18 16:00 Temperature 98.5 F Pulse Rate 116 H 109 H 122 H Respiratory Rate 26 H 21 31 H Blood Pressure 113/67 105/61 106/72 Pulse Oximetry 100 99 97 02/09/18 16:01 02/09/18 17:00 02/09/18 18:00 Temperature Pulse Rate 111 H 121 H 134 H Respiratory Rate 31 H 24 25 H Blood Pressure 106/72 97/71 L Pulse Oximetry 98 96 91 L 02/09/18 18:01 02/09/18 19:00 02/09/18 20:00 Temperature 98.6 F Pulse Rate 132 H 121 H 127 H Respiratory Rate 27 H 20 35 H Blood Pressure 109/81 110/81 120/83 Pulse Oximetry 80 L 99 94 L 02/09/18 21:00 02/09/18 21:53 02/09/18 22:00 Temperature Pulse Rate 115 H 123 H 123 H Respiratory Rate 25 H 24 21 Blood Pressure 115/77 115/77 115/76 Pulse Oximetry 98 98 98 02/09/18 23:00 02/10/18 00:00 02/10/18 01:00 Temperature 98.2 F 98.1 F Pulse Rate 125 H 128 H 123 H Respiratory Rate 20 34 H 27 H Blood Pressure 118/80 83/50 L 115/73 Pulse Oximetry 98 96 95 02/10/18 01:44 02/10/18 02:00 02/10/18 03:00 Temperature Pulse Rate 120 H 114 H 116 H Respiratory Rate 20 25 H 25 H Blood Pressure 115/73 100/69 113/77 Pulse Oximetry 96 97 98 02/10/18 04:00 02/10/18 05:00 02/10/18 05:54 Temperature Pulse Rate 122 H 116 H 110 H Respiratory Rate 24 25 H 24 Blood Pressure 110/76 105/73 105/73 Pulse Oximetry 99 98 94 L 02/10/18 06:00 02/10/18 07:00 02/10/18 08:00 Temperature 97.0 F L Pulse Rate 107 H 102 H 117 H Respiratory Rate 23 26 H 27 H Blood Pressure 103/71 107/79 124/87 Pulse Oximetry 97 95 87 L 02/10/18 09:00 02/10/18 09:35 02/10/18 10:00 Temperature Pulse Rate 123 H 116 H 123 H Respiratory Rate 32 H 23 23 Blood Pressure 117/89 96/64 L Pulse Oximetry 83 L 97 93 L 02/10/18 11:00 02/10/18 11:01 02/10/18 12:00 Temperature 96.8 F L Pulse Rate 106 H 109 H 107 H Respiratory Rate 22 26 H 23 Blood Pressure 78/56 L 84/67 L 89/50 L Pulse Oximetry 95 95 97 02/10/18 13:00 Temperature Pulse Rate 108 H Respiratory Rate 29 H Blood Pressure Pulse Oximetry 80 L Intake & Output 02/09/18 02/10/18 02/10/18 18:59 06:59 18:59 Intake Total 580 / 580 Balance 580 / 580 Weight 106 lb 7.732 oz Intake: IV 100 / 100 Rocephin Inj 1,000 MG In NS Inj 100 / 100 100 ML @ 200 mls/hr IV.SIG Q24H [facility] Rx#:[id number] Oral 480 / 480 Other: # Voids 4 6 Date of Last Bowel Movement 02/09/18 02/09/18 02/09/18 # Bowel Movements 2 1 - Urinary Catheter Management Straight Cath placed during this visit: no Assessment and Plan - Assessment (1) Hypotension Code(s): I95.9 - Hypotension, unspecified Status: Resolved (2) History of aortic valve replacement Code(s): Z95.2 - Presence of prosthetic heart valve Status: Chronic (3) Acute kidney injury Code(s): N17.9 - Acute kidney failure, unspecified Status: Acute - Attending Attestation Patient seen and examined. I reviewed and agree with the evaluation and plan as presented. Continue amio reloading. Continue and titrate HR control. Increase activity, PT.
[2018-02-10] MEDS: Digoxin 125 MCG Tablet PO SCH (15:00)
--- NOTE | 2018-02-10 18:37 | P.PN ---
Subjective Interval history: No new complaints. On o2 2 L. HR at 100 to 120. CXR shows basal infiltrates Physical Exam Vital signs: Vital Signs 02/09/18 19:00 02/09/18 20:00 02/09/18 21:00 Temperature 98.6 F Pulse Rate 121 H 127 H 115 H Respiratory Rate 20 35 H 25 H Blood Pressure 110/81 120/83 115/77 Pulse Oximetry 99 94 L 98 02/09/18 21:53 02/09/18 22:00 02/09/18 23:00 Temperature 98.2 F Pulse Rate 123 H 123 H 125 H Respiratory Rate 24 21 20 Blood Pressure 115/77 115/76 118/80 Pulse Oximetry 98 98 98 02/10/18 00:00 02/10/18 01:00 02/10/18 01:44 Temperature 98.1 F Pulse Rate 128 H 123 H 120 H Respiratory Rate 34 H 27 H 20 Blood Pressure 83/50 L 115/73 115/73 Pulse Oximetry 96 95 96 02/10/18 02:00 02/10/18 03:00 02/10/18 04:00 Temperature Pulse Rate 114 H 116 H 122 H Respiratory Rate 25 H 25 H 24 Blood Pressure 100/69 113/77 110/76 Pulse Oximetry 97 98 99 02/10/18 05:00 02/10/18 05:54 02/10/18 06:00 Temperature Pulse Rate 116 H 110 H 107 H Respiratory Rate 25 H 24 23 Blood Pressure 105/73 105/73 103/71 Pulse Oximetry 98 94 L 97 02/10/18 07:00 02/10/18 08:00 02/10/18 09:00 Temperature 97.0 F L Pulse Rate 102 H 117 H 123 H Respiratory Rate 26 H 27 H 32 H Blood Pressure 107/79 124/87 117/89 Pulse Oximetry 95 87 L 83 L 02/10/18 09:35 02/10/18 10:00 02/10/18 11:00 Temperature Pulse Rate 116 H 123 H 106 H Respiratory Rate 23 23 22 Blood Pressure 96/64 L 78/56 L Pulse Oximetry 97 93 L 95 02/10/18 11:01 02/10/18 12:00 02/10/18 13:00 Temperature 96.8 F L Pulse Rate 109 H 107 H 108 H Respiratory Rate 26 H 23 29 H Blood Pressure 84/67 L 89/50 L Pulse Oximetry 95 97 80 L 02/10/18 13:01 02/10/18 14:00 02/10/18 14:01 Temperature Pulse Rate 104 H 104 H 111 H Respiratory Rate 36 H 32 H 37 H Blood Pressure 109/72 97/71 L Pulse Oximetry 80 L 87 L 89 L 02/10/18 15:00 02/10/18 16:00 02/10/18 16:06 Temperature 97.2 F L Pulse Rate 110 H 115 H 107 H Respiratory Rate 30 H 26 H 23 Blood Pressure 86/70 L 173/116 H 173/116 H Pulse Oximetry 86 L 85 L 83 L 02/10/18 16:08 02/10/18 17:00 02/10/18 18:00 Temperature Pulse Rate 104 H 102 H 107 H Respiratory Rate 23 19 24 Blood Pressure 103/67 117/71 111/80 Pulse Oximetry 95 97 95 Intake & Output 02/09/18 02/10/18 02/10/18 18:59 06:59 18:59 Intake Total 580 / 580 820 / 820 Output Total 800 / 800 Balance 580 / 580 / 20 Weight 48.3 kg Intake: IV 100 / 100 100 / 100 Rocephin Inj 1,000 MG In NS Inj 100 / 100 100 / 100 100 ML @ 200 mls/hr IV.SIG Q24H [facility] Rx#:[id number] Oral 480 / 480 720 / 720 Output: Urine 800 / 800 Other: # Voids 4 6 Date of Last Bowel Movement 02/09/18 02/09/18 02/10/18 # Bowel Movements 2 1 2 Narrative: GENERAL: This is a well-nourished, elderly female patient, in no apparent distress. HEENT: Head is atraumatic and normocephalic. Neck is supple without lymphadenopathy and trachea is midline. No JVD or carotid bruits. CARDIOVASCULAR: Irregularly irregular, and without murmurs, gallops, or rubs. RESPIRATORY: Breath sounds equal bilaterally. Occ wheeze . No use of accessory muscles. GASTROINTESTINAL: Abdomen is nontender, nondistended. No organomegaly. Abdomen soft. No CVA tenderness. Strong femoral pulses bilaterally. Normal bowel sounds in all quadrants. MUSCULOSKELETAL: Patient is moving upper and lower extremities freely. No calf tenderness or edema. NEUROLOGICAL: Patient is alert and oriented. No focal deficits and speech is clear. SKIN: No rash and turgor is normal. - Urinary Catheter Management Straight Cath placed during this visit: no Results - Labs CBC & Chem 7: 02/09/18 15:43 02/09/18 15:43 Laboratory Results - last 24 hr 02/09/18 02/10/18 02/10/18 19:59 07:38 11:48 POC Glucose 103 97 140 H 02/10/18 16:13 POC Glucose 101 Assessment and Plan - Assessment (1) Hyperventilation Code(s): R06.4 - Hyperventilation Status: Acute (2) Acute respiratory distress Code(s): R06.03 - Acute respiratory distress Status: Acute (3) Hypotension Code(s): I95.9 - Hypotension, unspecified Status: Resolved (4) History of aortic valve replacement Code(s): Z95.2 - Presence of prosthetic heart valve Status: Chronic (5) Acute kidney injury Code(s): N17.9 - Acute kidney failure, unspecified Status: Acute (6) Atrial fibrillation with rapid ventricular response Code(s): I48.91 - Unspecified atrial fibrillation Status: Acute (7) Pulmonary embolism Code(s): I26.99 - Other pulmonary embolism without acute cor pulmonale Status : Acute (8) CAD (coronary artery disease) Code(s): I25.10 - Atherosclerotic heart disease of [place] coronary artery without angina pectoris Status: Acute (9) HTN (hypertension) Code(s): I10 - Essential (primary) hypertension Status: Acute (10) Pneumonia Code(s): J18.9 - Pneumonia, unspecified organism Status: Acute - Plan 1. Continue O2 2 L PRN 2. Rocephin 1 G IV daily X 5 3. Lasix 20 mg daily 4. Continue ASA and Effient 5. Amiodarone 400 mg BID 6. Chest Xray , CBC in am
[2018-02-11] MEDS: Insulin NovoLIN Regular Correctional Sugar Inj SQ SCH ×5 (05:37→20:05)
[2018-02-11] MEDS: Levothyroxine 50 MCG Tablet PO SCH (05:38)
--- NOTE | 2018-02-11 06:55 | P.PNFP ---
Subjective Interval history: Patient found in bed, states she is feeling good Denies CP, SOB, palpations Results - Labs Result diagrams: 02/09/18 15:43 02/09/18 15:43 Abnormal lab results 02/10/18 02/10/18 Range/Units 11:48 20:59 POC Glucose 140 H 112 H (68-110) mg/dl Physical Exam Vital signs: Vital Signs 02/10/18 07:00 02/10/18 08:00 02/10/18 09:00 Temperature 97.0 F L Pulse Rate 102 H 117 H 123 H Respiratory Rate 26 H 27 H 32 H Blood Pressure 107/79 124/87 117/89 Pulse Oximetry 95 87 L 83 L 02/10/18 09:35 02/10/18 10:00 02/10/18 11:00 Temperature Pulse Rate 116 H 123 H 106 H Respiratory Rate 23 23 22 Blood Pressure 96/64 L 78/56 L Pulse Oximetry 97 93 L 95 02/10/18 11:01 02/10/18 12:00 02/10/18 13:00 Temperature 96.8 F L Pulse Rate 109 H 107 H 108 H Respiratory Rate 26 H 23 29 H Blood Pressure 84/67 L 89/50 L Pulse Oximetry 95 97 80 L 02/10/18 13:01 02/10/18 14:00 02/10/18 14:01 Temperature Pulse Rate 104 H 104 H 111 H Respiratory Rate 36 H 32 H 37 H Blood Pressure 109/72 97/71 L Pulse Oximetry 80 L 87 L 89 L 02/10/18 15:00 02/10/18 16:00 02/10/18 16:06 Temperature 97.2 F L Pulse Rate 110 H 115 H 107 H Respiratory Rate 30 H 26 H 23 Blood Pressure 86/70 L 173/116 H 173/116 H Pulse Oximetry 86 L 85 L 83 L 02/10/18 16:08 02/10/18 17:00 02/10/18 18:00 Temperature Pulse Rate 104 H 102 H 107 H Respiratory Rate 23 19 24 Blood Pressure 103/67 117/71 111/80 Pulse Oximetry 95 97 95 02/10/18 19:00 02/10/18 20:00 02/10/18 21:00 Temperature 98 F Pulse Rate 115 H 105 H 119 H Respiratory Rate 33 H 24 35 H Blood Pressure 123/70 116/86 109/56 L Pulse Oximetry 90 L 96 87 L 02/10/18 22:00 02/10/18 22:40 02/10/18 23:00 Temperature Pulse Rate 113 H 116 H Respiratory Rate 20 24 Blood Pressure 104/74 106/68 Pulse Oximetry 100 96 100 02/11/18 00:00 02/11/18 01:00 02/11/18 02:00 Temperature Pulse Rate 114 H 111 H 103 H Respiratory Rate 24 25 H 25 H Blood Pressure 120/75 102/69 100/63 Pulse Oximetry 98 95 02/11/18 03:00 02/11/18 04:00 02/11/18 05:00 Temperature 97.9 F Pulse Rate 103 H 101 H 106 H Respiratory Rate 22 25 H 21 Blood Pressure 100/69 100/70 98/66 L Pulse Oximetry 99 99 100 02/11/18 06:00 Temperature Pulse Rate 99 H Respiratory Rate 26 H Blood Pressure 106/80 Pulse Oximetry 99 Intake & Output 02/10/18 02/10/18 02/11/18 06:59 18:59 06:59 Intake Total 580 / 580 820 / 820 200 / 200 Output Total 800 / 800 Balance 580 / 580 20 / 20 200 / 200 Weight 48.3 kg 47.9 kg Intake: IV 100 / 100 100 / 100 Rocephin Inj 1,000 MG In NS Inj 100 / 100 100 / 100 100 ML @ 200 mls/hr IV.SIG Q24H [facility] Rx#:[id number] Oral 480 / 480 720 / 720 200 / 200 Output: Urine 800 / 800 Other: # Voids 6 5 Date of Last Bowel Movement 02/09/18 02/10/18 02/10/18 # Bowel Movements 1 2 2 - Constitutional no acute distress - Routine HEENT Exam Eye: Present: PERRL ENT: Present: mucous membranes moist - Routine Neck Exam Present: supple - Routine Respiratory Exam Present: CTA bilaterally, rhonchi - Routine Cardiovascular Exam Present: S1, S2, irregular rhythm - Routine Abdominal Exam Present: soft, normoactive bowel sounds - Routine Skin Exam Present: intact - Routine Neurological Exam Present: alert, oriented X3 - Routine Psychiatric Exam Present: cooperative - Urinary Catheter Management Straight Cath placed during this visit: no Assessment and Plan - Assessment (1) Acute respiratory distress Code(s): R06.03 - Acute respiratory distress Status: Acute Plan: Sat's maintained on ra, Cont w/ bronchodilators, Pulmonary on case, follow rec's. S/P PE and Heme consult noted with no new recommendations. (2) A-fib Code(s): I48.91 - Unspecified atrial fibrillation Plan: Followed by Cardiology Amiodarone,Lopressor, Digoxin- Back in AF currently. Rate 99-100 on asa (3) History of aortic valve replacement Code(s): Z95.2 - Presence of prosthetic heart valve Status: Chronic Plan: Cardiology on case (4) CAD (coronary artery disease) Code(s): I25.10 - Atherosclerotic heart disease of [place] coronary artery without angina pectoris Status: Acute Plan: Hx of stents, cardiology following, on Effient, asa (5) HTN (hypertension) Code(s): I10 - Essential (primary) hypertension Status: Acute Plan: Cont home medications, Monitor, titrate as needed. BP down again in AF but remains asymptomatic - Assessment and Plan Cont to F/U recommendations from Cards, Hematology and Pulmonary. She is back in AF and Cards aware. Will monitor closely and make no changes in her regimen here today. 02/09/18- Seen this am, patient voices she feels good, would like to be able to move oob. She has flipped back to Afib, HR 120-130. cardiology in room as well and will adjust Amiodarone, Cxr completed today unchanged pleural effusion, and bibasilar infiltrates. Will cont with O2 support and bronchodilators. PT activity ordered. 02/10/18- Seen this am, Remains in Afib HR 120's, amiodarone increased yesterday , rec's to continue on Effient and asa, as adding anything else would increase risk of bleeding. Being followed by Pulmonary, cont with O2 support, Bronchodilators,and Iv Rocephin. Transfer from ICU once cleared by Cardiology. 02/11/18- Voices she is feeling good, sat's maintained on 2 liters. A-fib rate in 90-100's. Transfer to medical floor if ok with cardiology. Referral to CM for Rehab placement. She was at [facility], she will need cardiac monitoring and they are able to provide.
[2018-02-11] MEDS: Amiodarone 200 MG Tablet PO SCH ×2 (08:15→20:00)
[2018-02-11] MEDS: Digoxin 125 MCG Tablet PO SCH (08:16)
[2018-02-11] MEDS: Furosemide 20 MG Tablet PO SCH (08:16)
--- NOTE | 2018-02-11 11:04 | XR ---
EXAM DATE: 02/11/2018 10:47 AM EDT AGE/SEX: 82 years / Female INDICATIONS: . Short of breath. CLINICAL DATA: This is the patient's subsequent encounter. Patient reports that signs and symptoms h ave been present for 1 week and indicates a pain score of 0/10. MEDICAL/SURGICAL HISTORY: . Cardiovascular disease. None. COMPARISON: C, CHEST 1V SINGLE AP, 02/09/2018. . FINDINGS: Sternal wires from previous bypass are noted. Cardiac silhouette is appropriate. Moderate bibasilar p arenchymal changes without interstitial edema. The portion of the bony skeleton visualized is unremar kable. CONCLUSION: Stable moderate bibasilar parenchymal changes. Electronically signed by: Uriel Guzman MD 02/11/2018 11:03 AM EDT
--- NOTE | 2018-02-11 11:59 | P.PNONC ---
Subjective Interval history: Patient awake and alert, lying in bed, in no acute distress. She denies shortness of breath, states she had one episode of a "coughing fit" prior to this she reports that her cough was decreasing. She has no complaints at this time. Objective Vital Signs/Intake & Output: Vital Signs 02/10/18 12:00 02/10/18 13:00 02/10/18 13:01 Temperature 96.8 F L Pulse Rate 107 H 108 H 104 H Respiratory Rate 23 29 H 36 H Blood Pressure 89/50 L 109/72 Pulse Oximetry 97 80 L 80 L 02/10/18 14:00 02/10/18 14:01 02/10/18 15:00 Temperature Pulse Rate 104 H 111 H 110 H Respiratory Rate 32 H 37 H 30 H Blood Pressure 97/71 L 86/70 L Pulse Oximetry 87 L 89 L 86 L 02/10/18 16:00 02/10/18 16:06 02/10/18 16:08 Temperature 97.2 F L Pulse Rate 115 H 107 H 104 H Respiratory Rate 26 H 23 23 Blood Pressure 173/116 H 173/116 H 103/67 Pulse Oximetry 85 L 83 L 95 02/10/18 17:00 02/10/18 18:00 02/10/18 19:00 Temperature Pulse Rate 102 H 107 H 115 H Respiratory Rate 19 24 33 H Blood Pressure 117/71 111/80 123/70 Pulse Oximetry 97 95 90 L 02/10/18 20:00 02/10/18 21:00 02/10/18 22:00 Temperature 98 F Pulse Rate 105 H 119 H 113 H Respiratory Rate 24 35 H 20 Blood Pressure 116/86 109/56 L 104/74 Pulse Oximetry 96 87 L 100 02/10/18 22:40 02/10/18 23:00 02/11/18 00:00 Temperature Pulse Rate 116 H 114 H Respiratory Rate 24 24 Blood Pressure 106/68 120/75 Pulse Oximetry 96 100 98 02/11/18 01:00 02/11/18 02:00 02/11/18 03:00 Temperature Pulse Rate 111 H 103 H 103 H Respiratory Rate 25 H 25 H 22 Blood Pressure 102/69 100/63 100/69 Pulse Oximetry 95 99 02/11/18 04:00 02/11/18 05:00 02/11/18 06:00 Temperature 97.9 F Pulse Rate 101 H 106 H 99 H Respiratory Rate 25 H 21 26 H Blood Pressure 100/70 98/66 L 106/80 Pulse Oximetry 99 100 99 02/11/18 07:00 02/11/18 08:00 02/11/18 08:54 Temperature 97.9 F Pulse Rate 108 H 103 H Respiratory Rate 20 18 Blood Pressure 111/67 116/61 Pulse Oximetry 99 99 100 02/11/18 09:00 02/11/18 10:00 02/11/18 11:00 Temperature 97.9 F Pulse Rate 112 H 102 H 98 H Respiratory Rate 18 16 17 Blood Pressure 183/84 H 103/65 97/64 L Pulse Oximetry 98 99 99 Intake & Output 02/10/18 02/11/18 02/11/18 18:59 06:59 18:59 Intake Total 820 / 820 200 / 200 Output Total 800 / 800 Balance 200 / 200 Weight 47.9 kg Intake: IV 100 / 100 Rocephin Inj 1,000 MG In NS Inj 100 / 100 100 ML @ 200 mls/hr IV.SIG Q24H [facility] Rx#:[id number] Oral 720 / 720 200 / 200 Output: Urine 800 / 800 Other: # Voids 5 Date of Last Bowel Movement 02/10/18 02/10/18 02/09/18 # Bowel Movements 2 2 Result Diagrams: 02/09/18 15:43 02/09/18 15:43 Laboratory Results: Laboratory Results - last 24 hr 02/10/18 02/10/18 02/11/18 16:13 20:59 08:36 POC Glucose 101 112 H 80 Imaging Studies: Impressions Chest X-Ray 02/11/18 00:00 CONCLUSION: Stable moderate bibasilar parenchymal changes. Medications: Active Medications Generic Name Dose Route Start Last Admin Trade Name Freq PRN Reason Stop Dose Admin Al Hydroxide/Mg Hydroxide 30 ml 02/02/18 13:48 02/05/18 06:44 Milk Of Magnesia Liq PO 30 ml Q12H PRN Administration Mild Constipation Albuterol 1 ampul 02/02/18 13:48 02/10/18 09:34 Duoneb Neb (Prn) NEB 1 ampul Q2HR NEB PRN Administration DYSPNEA Amiodarone HCl 400 mg 02/09/18 21:00 02/11/18 08:15 Cordarone PO 02/13/18 20:59 400 mg Q12HR TAL Administration Aspirin 81 mg 02/02/18 16:00 02/11/18 08:16 Ecotrin PO 81 mg DAILY TAL Administration Bisacodyl 10 mg 02/02/18 13:48 02/05/18 10:00 Dulcolax Supp RECTAL 10 mg DAILY PRN Administration SEVERE CONSITIPATION Cyanocobalamin 1,000 mcg 02/08/18 09:00 02/11/18 08:16 Vitamin B12 PO 1,000 mcg DAILY TAL Administration Digoxin 125 mcg 02/10/18 14:30 02/11/18 08:16 Lanoxin PO 125 mcg DAILY TAL Administration Furosemide 20 mg 02/06/18 09:00 02/11/18 08:16 Lasix PO 20 mg DAILY TAL Administration Ceftriaxone Sodium 1,000 mg/ 100 mls @ 200 mls/hr 02/09/18 13:00 02/10/18 13: 00 Sodium Chloride IV.SIG Infused Q24H [facility] Infusion Insulin Human Regular 0 units 02/05/18 21:00 02/11/18 08:49 Novolin R Correctional Sugar Inj SQ Not Given ACHS [facility] Protocol Lactulose 30 ml 02/02/18 13:48 02/05/18 10:00 Lactulose Liq PO 30 ml DAILY PRN Administration SEVERE CONSITIPATION Levothyroxine Sodium 50 mcg 02/06/18 06:00 02/11/18 05:38 Synthroid PO 50 mcg DAILY@0600 TAL Administration Potassium Chloride 10 meq 02/06/18 09:00 02/11/18 08:16 Klor-Con 10 PO 10 meq BID TAL Administration Prasugrel 5 mg 02/02/18 15:15 02/11/18 08:16 Effient PO 5 mg DAILY TAL Administration Pravastatin Sodium 20 mg 02/05/18 21:00 02/10/18 20:49 Pravachol PO 20 mg HS TAL Administration Sennosides 17.2 mg 02/02/18 13:48 02/05/18 06:44 Senokot PO 17.2 mg Q12H PRN Administration Moderate Constipation Objective Remarks: GENERAL: Elderly female patient, lying in bed, in no acute distress. SKIN: Pale, warm and dry. HEAD: Normocephalic. EYES: No scleral icterus. No injection or drainage. NECK: Supple, trachea midline. No JVD. CARDIOVASCULAR: Irregularly irregular rhythm, controlled rate. ECG monitor A. fib heart rate 98. RESPIRATORY: Anterior breath sounds clear, equal bilaterally. No accessory muscle use. GASTROINTESTINAL: Abdomen soft, non-tender, nondistended. EXTREMITIES: No cyanosis, or edema. MUSCULOSKELETAL: Adequate muscle tone. NEUROLOGICAL: No obvious focal deficit. Awake, alert, and oriented x3. PSYCHIATRIC: Appropriate mood and affect; insight and judgment normal. Assessment/Plan (1) Pulmonary embolism Code(s): I26.99 - Other pulmonary embolism without acute cor pulmonale Status : Acute - Plan 82-year-old female admitted with progressive fatigue, weight loss and dizziness admitted with a small burden pulmonary embolism. She also has some pancytopenia. 1. Intermittent cough, chest x-ray today showed stable moderate bibasilar parenchymal changes. Continues on ceftriaxone once daily. Blood cultures no growth times 5 days. 2. Continue anticoagulation with aspirin and Effient. 3. Monitor CBC. 4. Continue supportive care.
--- NOTE | 2018-02-11 14:07 | P.PNCA ---
Subjective Interval history: Patient sitting up in chair states that she is feeling very good today. Patient denies any chest pain, pressure, palpitations, dizziness, edema or shortness of breath. Physical Exam Vital signs: Vital Signs 02/10/18 15:00 02/10/18 16:00 02/10/18 16:06 Temperature 97.2 F L Pulse Rate 110 H 115 H 107 H Respiratory Rate 30 H 26 H 23 Blood Pressure 86/70 L 173/116 H 173/116 H Pulse Oximetry 86 L 85 L 83 L 02/10/18 16:08 02/10/18 17:00 02/10/18 18:00 Temperature Pulse Rate 104 H 102 H 107 H Respiratory Rate 23 19 24 Blood Pressure 103/67 117/71 111/80 Pulse Oximetry 95 97 95 02/10/18 19:00 02/10/18 20:00 02/10/18 21:00 Temperature 98 F Pulse Rate 115 H 105 H 119 H Respiratory Rate 33 H 24 35 H Blood Pressure 123/70 116/86 109/56 L Pulse Oximetry 90 L 96 87 L 02/10/18 22:00 02/10/18 22:40 02/10/18 23:00 Temperature Pulse Rate 113 H 116 H Respiratory Rate 20 24 Blood Pressure 104/74 106/68 Pulse Oximetry 100 96 100 02/11/18 00:00 02/11/18 01:00 02/11/18 02:00 Temperature Pulse Rate 114 H 111 H 103 H Respiratory Rate 24 25 H 25 H Blood Pressure 120/75 102/69 100/63 Pulse Oximetry 98 95 02/11/18 03:00 02/11/18 04:00 02/11/18 05:00 Temperature 97.9 F Pulse Rate 103 H 101 H 106 H Respiratory Rate 22 25 H 21 Blood Pressure 100/69 100/70 98/66 L Pulse Oximetry 99 99 100 02/11/18 06:00 02/11/18 07:00 02/11/18 08:00 Temperature 97.9 F Pulse Rate 99 H 108 H 103 H Respiratory Rate 26 H 20 18 Blood Pressure 106/80 111/67 116/61 Pulse Oximetry 99 99 99 02/11/18 08:54 02/11/18 09:00 02/11/18 10:00 Temperature Pulse Rate 112 H 102 H Respiratory Rate 18 16 Blood Pressure 183/84 H 103/65 Pulse Oximetry 100 98 99 02/11/18 11:00 Temperature 97.9 F Pulse Rate 98 H Respiratory Rate 17 Blood Pressure 97/64 L Pulse Oximetry 99 Intake & Output 02/10/18 02/11/18 02/11/18 18:59 06:59 18:59 Intake Total 820 / 820 200 / 200 Output Total 800 / 800 Balance / 20 200 / 200 Weight 47.9 kg Intake: IV 100 / 100 Rocephin Inj 1,000 MG In NS Inj 100 / 100 100 ML @ 200 mls/hr IV.SIG Q24H [facility]AL Rx#:[id number] Oral 720 / 720 200 / 200 Output: Urine 800 / 800 Other: # Voids 5 Date of Last Bowel Movement 02/10/18 02/10/18 02/09/18 # Bowel Movements 2 2 - Constitutional no acute distress - Routine HEENT Exam Head: Present: normocephalic Eye: Present: PERRL ENT: Present: mucous membranes moist - Routine Neck Exam Present: full ROM - Routine Respiratory Exam Present: crackles Comments: Bilateral lower lobes - Routine Cardiovascular Exam Present: S1, S2, irregular rhythm. Absent: murmur, gallop - Routine Abdominal Exam Present: soft - Routine Extremities Exam Present: full ROM, pulses intact, normal capillary refill. Absent: cyanosis, clubbing, edema - Routine Skin Exam Present: intact - Routine Neurological Exam Present: oriented X3 - Detailed Neurological Exam: Coma Scale Eye Opening: Spontaneous Verbal Response: Oriented Motor Response: Obey commands [place] Coma Scale Total: 15 - Routine Psychiatric Exam Present: normal affect - Urinary Catheter Management Straight Cath placed during this visit: no Assessment and Plan - Assessment (1) Hypotension Code(s): I95.9 - Hypotension, unspecified Status: Resolved (2) History of aortic valve replacement Code(s): Z95.2 - Presence of prosthetic heart valve Status: Chronic (3) Acute kidney injury Code(s): N17.9 - Acute kidney failure, unspecified Status: Acute - Plan Recheck BMP for K+ level and kidney function. Continue rate control and amiodarone. Continue to increase activity with physical therapy. Continue with current cardiac treatment plan and adjust as needed. Will follow patient during hospitalization and follow-up in office post discharge. Patient was seen and evaluated by Dr. Abrams who participated in care, management and decision-making. - Attending Attestation Patient seen and examined. I reviewed and agree with the evaluation and plan as presented. Continue rate control and amiodarone tx for AF.
[2018-02-11 17:35] LABS: Calcium 8.1 mg/dL (8.5-10.1); Carbon Dioxide 24.5 meq/L (21.0-32.0); Potassium 3.6 meq/L (3.5-5.1)
--- NOTE | 2018-02-11 17:51 | P.PN ---
Subjective Interval history: She is better. Still on O2 2 L. HR now 80. C/O some cough and no fever Physical Exam Vital signs: Vital Signs 02/10/18 18:00 02/10/18 19:00 02/10/18 20:00 Temperature 98 F Pulse Rate 107 H 115 H 105 H Respiratory Rate 24 33 H 24 Blood Pressure 111/80 123/70 116/86 Pulse Oximetry 95 90 L 96 02/10/18 21:00 02/10/18 22:00 02/10/18 22:40 Temperature Pulse Rate 119 H 113 H Respiratory Rate 35 H 20 Blood Pressure 109/56 L 104/74 Pulse Oximetry 87 L 100 96 02/10/18 23:00 02/11/18 00:00 02/11/18 01:00 Temperature Pulse Rate 116 H 114 H 111 H Respiratory Rate 24 24 25 H Blood Pressure 106/68 120/75 102/69 Pulse Oximetry 100 98 95 02/11/18 02:00 02/11/18 03:00 02/11/18 04:00 Temperature 97.9 F Pulse Rate 103 H 103 H 101 H Respiratory Rate 25 H 22 25 H Blood Pressure 100/63 100/69 100/70 Pulse Oximetry 99 99 02/11/18 05:00 02/11/18 06:00 02/11/18 07:00 Temperature 97.9 F Pulse Rate 106 H 99 H 108 H Respiratory Rate 21 26 H 20 Blood Pressure 98/66 L 106/80 111/67 Pulse Oximetry 100 99 99 02/11/18 08:00 02/11/18 08:54 02/11/18 09:00 Temperature Pulse Rate 103 H 112 H Respiratory Rate 18 18 Blood Pressure 116/61 183/84 H Pulse Oximetry 99 100 98 02/11/18 10:00 02/11/18 11:00 02/11/18 12:00 Temperature 97.9 F 97.8 F Pulse Rate 102 H 98 H 88 Respiratory Rate 16 17 16 Blood Pressure 103/65 97/64 L 97/62 L Pulse Oximetry 99 99 99 02/11/18 13:00 02/11/18 14:00 02/11/18 15:00 Temperature Pulse Rate 95 H 87 96 H Respiratory Rate 16 15 16 Blood Pressure 105/70 106/65 110/70 Pulse Oximetry 96 98 99 02/11/18 16:00 Temperature 97.9 F Pulse Rate 94 H Respiratory Rate 15 Blood Pressure 98/59 L Pulse Oximetry 95 Intake & Output 02/10/18 02/11/18 02/11/18 18:59 06:59 18:59 Intake Total 820 / 820 200 / 200 100 / 100 Output Total 800 / 800 Balance 200 / 200 100 / 100 Weight 47.9 kg Intake: IV 100 / 100 100 / 100 Rocephin Inj 1,000 MG In NS Inj 100 / 100 100 / 100 100 ML @ 200 mls/hr IV.SIG Q24H [facility]AL Rx#:[id number] Oral 720 / 720 200 / 200 Output: Urine 800 / 800 Other: # Voids 5 Date of Last Bowel Movement 02/10/18 02/10/18 02/09/18 # Bowel Movements 2 2 Narrative: GENERAL: This is a well-nourished, elderly female patient, in no apparent distress. HEENT: Head is atraumatic and normocephalic. Neck is supple without lymphadenopathy and trachea is midline. No JVD or carotid bruits. CARDIOVASCULAR: Irregularly irregular, and without murmurs, gallops, or rubs. RESPIRATORY: Breath sounds equal bilaterally. Occ wheeze bilateral . No use of accessory muscles. GASTROINTESTINAL: Abdomen is nontender, nondistended. No organomegaly. Abdomen soft. No CVA tenderness. Strong femoral pulses bilaterally. Normal bowel sounds in all quadrants. MUSCULOSKELETAL: Patient is moving upper and lower extremities . No calf tenderness or edema. NEUROLOGICAL: Patient is alert and oriented. No focal deficits and speech is clear. SKIN: No rash and turgor is normal. - Urinary Catheter Management Straight Cath placed during this visit: no Results - Labs CBC & Chem 7: 02/09/18 15:43 02/11/18 16:40 Laboratory Results - last 24 hr 02/10/18 02/11/18 02/11/18 20:59 08:36 12:39 Sodium Potassium Chloride Carbon Dioxide Anion Gap BUN Creatinine Estimated GFR POC Glucose 112 H 80 91 Random Glucose Calcium 02/11/18 16:40 Sodium 138 Potassium 3.6 Chloride 104 Carbon Dioxide 24.5 Anion Gap 10 BUN 19 H Creatinine 1.02 H Estimated GFR 52 L POC Glucose Random Glucose 93 Calcium 8.1 L - Imaging Impressions Chest X-Ray 02/11/18 00:00 CONCLUSION: Stable moderate bibasilar parenchymal changes. Assessment and Plan - Assessment (1) Hyperventilation Code(s): R06.4 - Hyperventilation Status: Acute (2) Acute respiratory distress Code(s): R06.03 - Acute respiratory distress Status: Acute (3) Hypotension Code(s): I95.9 - Hypotension, unspecified Status: Resolved (4) History of aortic valve replacement Code(s): Z95.2 - Presence of prosthetic heart valve Status: Chronic (5) Acute kidney injury Code(s): N17.9 - Acute kidney failure, unspecified Status: Acute (6) Atrial fibrillation with rapid ventricular response Code(s): I48.91 - Unspecified atrial fibrillation Status: Acute (7) Pulmonary embolism Code(s): I26.99 - Other pulmonary embolism without acute cor pulmonale Status : Acute (8) CAD (coronary artery disease) Code(s): I25.10 - Atherosclerotic heart disease of [place] coronary artery without angina pectoris Status: Acute (9) HTN (hypertension) Code(s): I10 - Essential (primary) hypertension Status: Acute (10) Pneumonia Code(s): J18.9 - Pneumonia, unspecified organism Status: Acute - Plan 1. D/C O2if sats >92 on RA 2. Rocephin 1 G IV daily X 3 3. Lasix 20 mg daily 4. Continue ASA and Effient 5. Amiodarone 400 mg BID 6. BMP , CBC in am 7. Transfer to [facility].
[2018-02-12] MEDS: Levothyroxine 50 MCG Tablet PO SCH (06:16)
[2018-02-12] MEDS: Insulin NovoLIN Regular Correctional Sugar Inj SQ SCH ×4 (09:29→20:22)
[2018-02-12] MEDS: Amiodarone 200 MG Tablet PO SCH ×2 (09:29→20:19)
[2018-02-12] MEDS: Furosemide 20 MG Tablet PO SCH (09:30)
[2018-02-12] MEDS: Digoxin 125 MCG Tablet PO SCH (09:30)
--- NOTE | 2018-02-12 09:43 | P.PNFP ---
Subjective Interval history: Feeling good, does not want to go to rehab, wants to go home. On room air, denies CP, SOB Spouse at bedside Results - Labs Result diagrams: 02/09/18 15:43 02/11/18 16:40 Abnormal lab results 02/11/18 02/11/18 Range/Units 16:40 20:04 BUN 19 H (7-18) mg/dL Creatinine 1.02 H (0.50-1.00) mg/dL Estimated GFR 52 L (>89) mL/min POC Glucose 172 H (68-110) mg/dl Calcium 8.1 L (8.5-10.1) mg/dL BMP 02/11/18 16:40 Sodium 138 Potassium 3.6 Chloride 104 Carbon Dioxide 24.5 BUN 19 H Creatinine 1.02 H Calcium 8.1 L - Imaging Impressions Chest X-Ray 02/11/18 00:00 CONCLUSION: Stable moderate bibasilar parenchymal changes. Physical Exam Vital signs: Vital Signs 02/11/18 10:00 02/11/18 11:00 02/11/18 12:00 Temperature 97.9 F 97.8 F Pulse Rate 102 H 98 H 88 Respiratory Rate 16 17 16 Blood Pressure 103/65 97/64 L 97/62 L Pulse Oximetry 99 99 99 02/11/18 13:00 02/11/18 14:00 02/11/18 15:00 Temperature Pulse Rate 95 H 87 96 H Respiratory Rate 16 15 16 Blood Pressure 105/70 106/65 110/70 Pulse Oximetry 96 98 99 02/11/18 16:00 02/11/18 17:00 02/11/18 18:00 Temperature 97.9 F Pulse Rate 94 H 90 93 H Respiratory Rate 15 16 15 Blood Pressure 98/59 L 99/70 L 114/79 Pulse Oximetry 95 96 98 02/11/18 19:00 02/11/18 20:00 02/11/18 21:00 Temperature 97.8 F Pulse Rate 99 H 98 H 92 H Respiratory Rate 20 25 H 17 Blood Pressure 115/77 108/74 104/72 Pulse Oximetry 99 95 02/11/18 22:00 02/12/18 00:00 02/12/18 04:00 Temperature 98.2 F 98.2 F Pulse Rate 99 H 98 H 87 Respiratory Rate 16 16 Blood Pressure 107/72 110/62 Pulse Oximetry 100 100 Intake & Output 02/11/18 02/12/18 02/12/18 18:59 06:59 18:59 Intake Total 800 / 800 0 / 0 Output Total 100 / 100 Balance 800 / 800 -100 / -100 Weight 47.4 kg Intake: IV 100 / 100 Rocephin Inj 1,000 MG In NS Inj 100 / 100 100 ML @ 200 mls/hr IV.SIG Q24H [facility]AL Rx#:[id number] Oral 700 / 700 0 / 0 Output: Urine 100 / 100 Other: # Voids 5 Date of Last Bowel Movement 02/09/18 02/09/18 # Bowel Movements 0 0 Weight On Admission 47 kg - Constitutional no acute distress - Routine HEENT Exam Eye: Present: PERRL ENT: Present: mucous membranes moist - Routine Neck Exam Present: supple - Routine Respiratory Exam Present: CTA bilaterally - Routine Cardiovascular Exam Present: S1, S2, irregular rhythm - Routine Abdominal Exam Present: soft, normoactive bowel sounds - Routine Skin Exam Present: intact, dry, warm - Routine Neurological Exam Present: alert, oriented X3 - Routine Psychiatric Exam Present: cooperative - Urinary Catheter Management Straight Cath placed during this visit: no Assessment and Plan - Assessment (1) Acute respiratory distress Code(s): R06.03 - Acute respiratory distress Status: Acute Plan: Sat's maintained on ra, Cont w/ bronchodilators, Pulmonary following (2) A-fib Code(s): I48.91 - Unspecified atrial fibrillation Plan: Followed by Cardiology Amiodarone,Lopressor, Digoxin- Back in AF currently. Rate 99-100 on asa (3) History of aortic valve replacement Code(s): Z95.2 - Presence of prosthetic heart valve Status: Chronic Plan: Cardiology on case (4) CAD (coronary artery disease) Code(s): I25.10 - Atherosclerotic heart disease of [place] coronary artery without angina pectoris Status: Acute Plan: Hx of stents, cardiology following, on Effient, asa (5) HTN (hypertension) Code(s): I10 - Essential (primary) hypertension Status: Acute Plan: Cont home medications, Monitor, titrate as needed - Assessment and Plan Cont to F/U recommendations from Cards, Hematology and Pulmonary. She is back in AF and Cards aware. Will monitor closely and make no changes in her regimen here today. 02/09/18- Seen this am, patient voices she feels good, would like to be able to move oob. She has flipped back to Afib, HR 120-130. cardiology in room as well and will adjust Amiodarone, Cxr completed today unchanged pleural effusion, and bibasilar infiltrates. Will cont with O2 support and bronchodilators. PT activity ordered. 02/10/18- Seen this am, Remains in Afib HR 120's, amiodarone increased yesterday , rec's to continue on Effient and asa, as adding anything else would increase risk of bleeding. Being followed by Pulmonary, cont with O2 support, Bronchodilators,and Iv Rocephin. Transfer from ICU once cleared by Cardiology. 02/11/18- Voices she is feeling good, sat's maintained on 2 liters. A-fib rate in 90-100's. Transfer to medical floor if ok with cardiology. Referral to for Rehab placement. She was at [facility], she will need cardiac monitoring and they are able to provide. 02/12/18- Transferred to medical floor. Sitting in bed on room air. She voices she wants to go home. Afib on monitor Hr controlled. Will dc home with if ok with cardiology and Pulmonary.
--- NOTE | 2018-02-12 09:49 | P.DCO ---
- Physical Therapy Order: Evaluate and treat - Home Health Nursing Order: Signs/symptoms of disease process - Certification I have seen patient Mary Mcgill on 02/12/18. My clinical findings support the need for the requested home health care services because: Monitor and educate on s/s of afib Patient has SOB, Deconditioned with increased weakness I certify that my clinical findings support that this patient is homebound because: Hx COPD - exertion dyspnea/weakness
--- NOTE | 2018-02-12 10:14 | P.PNCA ---
Subjective Interval history: Patient appears to be in very good spirits this morning. She denies any chest pain, pressure, dizziness, palpitations, edema or shortness of breath. Has been is at bedside. Physical Exam Vital signs: Vital Signs 02/11/18 11:00 02/11/18 12:00 02/11/18 13:00 Temperature 97.9 F 97.8 F Pulse Rate 98 H 88 95 H Respiratory Rate 17 16 16 Blood Pressure 97/64 L 97/62 L 105/70 Pulse Oximetry 99 99 96 02/11/18 14:00 02/11/18 15:00 02/11/18 16:00 Temperature 97.9 F Pulse Rate 87 96 H 94 H Respiratory Rate 15 16 15 Blood Pressure 106/65 110/70 98/59 L Pulse Oximetry 98 99 95 02/11/18 17:00 02/11/18 18:00 02/11/18 19:00 Temperature 97.8 F Pulse Rate 90 93 H 99 H Respiratory Rate 16 15 20 Blood Pressure 99/70 L 114/79 115/77 Pulse Oximetry 96 98 99 02/11/18 20:00 02/11/18 21:00 02/11/18 22:00 Temperature 98.2 F Pulse Rate 98 H 92 H 99 H Respiratory Rate 25 H 17 16 Blood Pressure 108/74 104/72 107/72 Pulse Oximetry 95 100 02/12/18 00:00 02/12/18 04:00 02/12/18 08:00 Temperature 98.2 F 97.4 F L Pulse Rate 98 H 87 86 Respiratory Rate 16 16 Blood Pressure 110/62 106/59 L Pulse Oximetry 100 95 Intake & Output 02/11/18 02/12/18 02/12/18 18:59 06:59 18:59 Intake Total 800 / 800 0 / 0 Output Total 100 / 100 Balance 800 / 800 -100 / -100 Weight 47.4 kg Intake: IV 100 / 100 Rocephin Inj 1,000 MG In NS Inj 100 / 100 100 ML @ 200 mls/hr IV.SIG Q24H TAL Rx#:[id number] Oral 700 / 700 0 / 0 Output: Urine 100 / 100 Other: # Voids 5 Date of Last Bowel Movement 02/09/18 02/09/18 # Bowel Movements 0 0 Weight On Admission 47 kg - Constitutional no acute distress - Routine HEENT Exam Head: Present: normocephalic Eye: Present: PERRL ENT: Present: mucous membranes moist - Routine Neck Exam Present: full ROM. Absent: JVD, carotid bruit - Routine Respiratory Exam Present: CTA bilaterally - Routine Cardiovascular Exam Present: S1, S2, irregular rhythm. Absent: murmur, gallop, rubs - Routine Abdominal Exam Present: soft - Routine Extremities Exam Present: full ROM, pulses intact, normal capillary refill. Absent: cyanosis, clubbing, edema - Routine Skin Exam Present: intact - Routine Neurological Exam Present: oriented X3 - Detailed Neurological Exam: Coma Scale Eye Opening: Spontaneous Verbal Response: Oriented Motor Response: Obey commands [facility] Coma Scale Total: 15 - Routine Psychiatric Exam Present: normal affect - Urinary Catheter Management Straight Cath placed during this visit: no Assessment and Plan - Assessment (1) Hypotension Code(s): I95.9 - Hypotension, unspecified Status: Resolved (2) History of aortic valve replacement Code(s): Z95.2 - Presence of prosthetic heart valve Status: Chronic (3) Acute kidney injury Code(s): N17.9 - Acute kidney failure, unspecified Status: Acute - Plan Kidney function slightly improved. Potassium 3.6 patient is on potassium replacement protocol. Increase activity with physical therapy. Continue amiodarone for atrial fibrillation. Continue current cardiac treatment plan and adjust as needed. Will follow patient during hospitalization and follow-up in office post discharge. Patient was seen and evaluated by Dr. Abrams who participated in care, management and decision-making. - Attending Attestation Patient seen and examined. I reviewed and agree with the evaluation and plan as presented. Continue rate control and tx with amiodarone. Continue monitoring. Increase activity, PT.
[2018-02-12 11:02] LABS: Hematocrit 36.3 % (35.0-46.0); Hemoglobin 12.2 gm/dL (11.6-15.3); Mean Corpuscular HGB Conc 33.5 % (32.0-36.0); Mean Corpuscular Hemoglobin 30.3 pg (27.0-34.0); Mean Corpuscular Volume 90.5 fL (80.0-100.0); Mean Platelet Volume 9.1 fL (7.0-11.0); Platelet Count 156 th/mm3 (150-450); Red Blood Count 4.01 mil/mm3 (4.00-5.30); Red Cell Distribution Width 15.1 % (11.6-17.2); White Blood Count 2.8 th/mm3 (4.0-11.0)
[2018-02-12 11:29] LABS: Carbon Dioxide 26.5 meq/L (21.0-32.0); Potassium 3.3 meq/L (3.5-5.1)
--- NOTE | 2018-02-12 19:05 | P.PN ---
Subjective Interval history: She is better. Off O2 sat 95. CXR is stable. No cough but has some wheeze. HR is better. Physical Exam Vital signs: Vital Signs 02/11/18 20:00 02/11/18 21:00 02/11/18 22:00 Temperature 98.2 F Pulse Rate 98 H 92 H 99 H Respiratory Rate 25 H 17 16 Blood Pressure 108/74 104/72 107/72 Pulse Oximetry 95 100 02/12/18 00:00 02/12/18 04:00 02/12/18 08:00 Temperature 98.2 F 97.4 F L Pulse Rate 98 H 87 93 H Respiratory Rate 16 16 Blood Pressure 110/62 106/59 L Pulse Oximetry 100 95 02/12/18 12:00 02/12/18 16:00 Temperature 97.2 F L 97.6 F Pulse Rate 80 86 Respiratory Rate 16 16 Blood Pressure 109/65 101/71 Pulse Oximetry 96 96 Intake & Output 02/12/18 02/12/18 02/13/18 06:59 18:59 06:59 Intake Total 0 / 0 940 / 940 Output Total 100 / 100 350 / 350 Balance -100 / -100 590 / 590 Weight 47.4 kg Intake: IV 100 / 100 Rocephin Inj 1,000 MG In NS Inj 100 / 100 100 ML @ 200 mls/hr IV.SIG Q24H TAL Rx#:[id number] Oral 0 / 0 840 / 840 Output: Urine 100 / 100 350 / 350 Other: Date of Last Bowel Movement 02/09/18 # Bowel Movements 0 1 Weight On Admission 47 kg Narrative: GENERAL: This is a well-nourished, elderly female patient, in no apparent distress. HEENT: Head is atraumatic and normocephalic. Neck is supple without lymphadenopathy and trachea is midline. No JVD or carotid bruits. CARDIOVASCULAR: Irregularly irregular, and without murmurs, gallops, or rubs. RESPIRATORY: Breath sounds equal bilaterally. Occ wheeze bilateral . Few basal crackles. GASTROINTESTINAL: Abdomen is nontender, nondistended. No organomegaly. Abdomen soft. No CVA tenderness. Strong femoral pulses bilaterally. Normal bowel sounds in all quadrants. MUSCULOSKELETAL: Patient is moving upper and lower extremities . No calf tenderness or edema. NEUROLOGICAL: Patient is alert and oriented. No focal deficits and speech is clear. SKIN: No rash and turgor is normal. - Urinary Catheter Management Straight Cath placed during this visit: no Results - Labs CBC & Chem 7: 02/12/18 09:59 02/12/18 09:59 Laboratory Results - last 24 hr 02/11/18 02/12/18 02/12/18 20:04 07:41 09:59 WBC 2.8 L RBC 4.01 Hgb 12.2 Hct 36.3 MCV 90.5 MCH 30.3 MCHC 33.5 RDW 15.1 Plt Count 156 MPV 9.1 Sodium Potassium Chloride Carbon Dioxide Anion Gap BUN Creatinine Estimated GFR POC Glucose 172 H 82 Random Glucose Calcium 02/12/18 02/12/18 02/12/18 09:59 11:47 16:56 WBC RBC Hgb Hct MCV MCH MCHC RDW Plt Count MPV Sodium 140 Potassium 3.3 L Chloride 105 Carbon Dioxide 26.5 Anion Gap 9 BUN 18 Creatinine 1.08 H Estimated GFR 48 L POC Glucose 116 H 109 Random Glucose 105 Calcium 8.0 L Assessment and Plan - Assessment (1) Hyperventilation Code(s): R06.4 - Hyperventilation Status: Acute (2) Acute respiratory distress Code(s): R06.03 - Acute respiratory distress Status: Acute (3) Hypotension Code(s): I95.9 - Hypotension, unspecified Status: Resolved (4) History of aortic valve replacement Code(s): Z95.2 - Presence of prosthetic heart valve Status: Chronic (5) Acute kidney injury Code(s): N17.9 - Acute kidney failure, unspecified Status: Acute (6) Atrial fibrillation with rapid ventricular response Code(s): I48.91 - Unspecified atrial fibrillation Status: Acute (7) Pulmonary embolism Code(s): I26.99 - Other pulmonary embolism without acute cor pulmonale Status : Acute (8) CAD (coronary artery disease) Code(s): I25.10 - Atherosclerotic heart disease of [place] coronary artery without angina pectoris Status: Acute (9) HTN (hypertension) Code(s): I10 - Essential (primary) hypertension Status: Acute (10) Pneumonia Code(s): J18.9 - Pneumonia, unspecified organism Status: Acute - Plan 1. D/C O2. 2. D/C Rocephin 3. Lasix 20 mg daily 4. Continue ASA and Effient 5. Cont Amiodarone 400 mg BID 6. Add Ceftin 500 mg BID X5 days 7. Transfer to rehab / home..
[2018-02-13] MEDS: Levothyroxine 50 MCG Tablet PO SCH (07:03)
[2018-02-13] MEDS: Amiodarone 200 MG Tablet PO SCH (08:55)
[2018-02-13] MEDS: Furosemide 20 MG Tablet PO SCH (08:55)
[2018-02-13] MEDS: Digoxin 125 MCG Tablet PO SCH (08:55)
[2018-02-13] MEDS: Insulin NovoLIN Regular Correctional Sugar Inj SQ SCH (08:56)
--- NOTE | 2018-02-13 08:58 | P.DS ---
Date of admission: 02/02/18 13:40 Primary care physician: Diomedes Hall DO Brief History from admission: Patient presents to the emergency department with a 2 day history of shortness of breath. Patient was at a routine cardiology appointment and was sent down from the cardiology clinic secondary to dyspnea hypoxia. Had one episode of vomiting b DS: Diagnosis - Discharge Diagnosis (1) Acute respiratory distress Status: Acute (2) A-fib (3) History of aortic valve replacement Status: Chronic (4) CAD (coronary artery disease) Status: Acute (5) HTN (hypertension) Status: Acute DS: Medications - Discharge Medications Prescriptions: cefuroxime axetil 500 mg PO Q12HR #10 tab DS: Summary Hospital Course: Presented to ER sent from cardiology follow up for for Sob, admitted to ICU for resp failure, placed on Bipap. CT angiogram of the chest, which showed eccentric focal-filling defect and isolated left lower lobe proximal subsegmental pulmonary artery branch consistent with subacute chronic etiology , moderate coronary artery calcifications, and severe T8 compression fracture with unknown chronicity. Echo completed which shows EF 45-50% moderate mitral valve regurgitation, mild to moderate tricuspid regurgitation, and a bioprosthetic valve. PFT on 02/04- Mild to moderate restrictive disease with No significant change following use of bronchodilator. 02/05/1802/05: patient had Episode of atrial fibrillation with rapid ventricular response after bowel movement. ABG revealed an acute respiratory alkalosis. Hematology consulted- pancytopenia, recommend following CBC and continue current treatment. She is ASA and Effient s/p stent, afib. 02/04/18- Pulmonary consulted for Resp insufficiency, treated with Bronchodilators, Oxygen supplement continued to flip in Afib with rvr, medications adjusted per cardiology amiodarone increased to 400 mg daily, digoxin added, rate stabilized she was Transferred out of ICU on 02/11/18. - Time Spent with Patient Total time spent providing and/or coordinating discharge services: 30 Greater than 30 minutes - Quality: AMI Clinical Trial Participant: No - Quality: Stroke Symptom Onset Unknown: No - Quality: VTE Deep Vein Thrombosis/Pulmonary Embolism Present on Admission: No Exam Vital signs: Vital Signs 02/12/18 12:00 02/12/18 16:00 02/12/18 20:00 Temperature 97.2 F L 97.6 F 98.3 F Pulse Rate 80 86 80 Respiratory Rate 16 16 16 Blood Pressure 109/65 101/71 102/65 Pulse Oximetry 96 96 98 02/12/18 23:46 02/13/18 04:00 Temperature 98.2 F 97.8 F Pulse Rate 76 94 H Respiratory Rate 16 16 Blood Pressure 108/71 102/63 Pulse Oximetry 98 96 Intake & Output 02/12/18 02/13/18 02/13/18 18:59 06:59 18:59 Intake Total 940 / 940 0 / 0 Output Total 350 / 350 100 / 100 Balance 590 / 590 -100 / -100 Weight 48.9 kg Intake: IV 100 / 100 Rocephin Inj 1,000 MG In NS Inj 100 / 100 100 ML @ 200 mls/hr IV.SIG Q24H TAL Rx#:[id number] Oral 840 / 840 0 / 0 Output: Urine 350 / 350 100 / 100 Other: Date of Last Bowel Movement 02/11/18 # Bowel Movements 1 0 - Constitutional no acute distress - Routine HEENT Exam Eye: Present: PERRL ENT: Present: mucous membranes moist - Routine Neck Exam Present: supple - Routine Respiratory Exam Present: CTA bilaterally - Routine Cardiovascular Exam Present: S1, S2 - Routine Abdominal Exam Present: soft, normoactive bowel sounds - Routine Skin Exam Present: dry, warm - Routine Neurological Exam Present: alert, oriented X3 Results Procedures completed during hospitalization: no procedures Completed studies during hospitalization: . Labs on day of discharge: Labs from last 24 hours 02/13/18 02/12/18 02/12/18 07:36 19:29 16:56 WBC RBC Hgb Hct MCV MCH MCHC RDW Plt Count MPV Sodium Potassium Chloride Carbon Dioxide Anion Gap BUN Creatinine Estimated GFR POC Glucose 97 140 H 109 Random Glucose Calcium 02/12/18 02/12/18 02/12/18 11:47 09:59 09:59 WBC 2.8 L RBC 4.01 Hgb 12.2 Hct 36.3 MCV 90.5 MCH 30.3 MCHC 33.5 RDW 15.1 Plt Count 156 MPV 9.1 Sodium 140 Potassium 3.3 L Chloride 105 Carbon Dioxide 26.5 Anion Gap 9 BUN 18 Creatinine 1.08 H Estimated GFR 48 L POC Glucose 116 H Random Glucose 105 Calcium 8.0 L - Impressions ITS Impressions Venous Doppler Study 02/02/18 00:00 CONCLUSION: Negative exam. No sonographic or Doppler findings of deep venous thrombosis Chest CTA 02/02/18 13:38 CONCLUSION: 1. Eccentric focal filling defect in an isolated left lower lobe proximal subsegmental pulmonary artery branch, this is most consistent with a subacute to chronic etiology. 2. Mild positive fluid balance. 3. Moderate coronary artery calcifications. 4. Severe T8 compression fracture of unknown chronicity given lack of recent prior exams. Chest X-Ray 02/11/18 00:00 CONCLUSION: Stable moderate bibasilar parenchymal changes. Venous Doppler Study 02/02/18 00:00 CONCLUSION: Negative exam. No sonographic or Doppler findings of deep venous thrombosis Chest X-Ray 02/02/18 11:19 CONCLUSION: Negative for an acute process Chest CTA 02/02/18 13:38 CONCLUSION: 1. Eccentric focal filling defect in an isolated left lower lobe proximal subsegmental pulmonary artery branch, this is most consistent with a subacute to chronic etiology. 2. Mild positive fluid balance. 3. Moderate coronary artery calcifications. 4. Severe T8 compression fracture of unknown chronicity given lack of recent prior exams. Chest X-Ray 02/05/18 16:24 CONCLUSION: Bibasilar infiltrates and effusions. Chest X-Ray 02/09/18 00:00 CONCLUSION: Unchanged bilateral pleural effusions and bibasilar infiltrates. Chest X-Ray 02/11/18 00:00 CONCLUSION: Stable moderate bibasilar parenchymal changes. Discharge Plan - Discharge Disposition Patient Disposition: /Home Health Service - Discharge Condition Condition: Good - Discharge Order Discharge Orders: Discharge Order (Routine); Ordered 02/13/18 Ordered By: Kayleen Aranda - Discharge Details Anticipated Discharge Date: 02/13/18 Discharge Comment: CBC, BMP on friday to be drawn by [facility] - Physicians Team Primary Care Provider: Diomedes Hall Attending Provider: Diomedes Hall Other Providers: Eliel Abrams MD ; Gordy Bell MD ; Baljeet Smith MD ; Diomedes Hall DO ; [facility] ; Primitivo Piña MD
[2018-02-13 10:09] VITALS: BP 112/75; PULSE 90; RESP 18; TEMP 97.5; O2SAT 95
--- NOTE | 2018-02-13 11:24 | P.PNCA ---
Subjective Interval history: Patient denies any chest pain, pressure, palpitations, dizziness, edema or shortness of breath. Patient sitting up bedside states that she feels great. Physical Exam Vital signs: Vital Signs 02/12/18 12:00 02/12/18 16:00 02/12/18 20:00 Temperature 97.2 F L 97.6 F 98.3 F Pulse Rate 80 86 80 Respiratory Rate 16 16 16 Blood Pressure 109/65 101/71 102/65 Pulse Oximetry 96 96 98 02/12/18 23:46 02/13/18 04:00 02/13/18 08:00 Temperature 98.2 F 97.8 F 97.5 F L Pulse Rate 76 94 H 90 Respiratory Rate 16 16 18 Blood Pressure 108/71 102/63 112/75 Pulse Oximetry 98 96 95 Intake & Output 02/12/18 02/13/18 02/13/18 18:59 06:59 18:59 Intake Total 940 / 940 0 / 0 Output Total 350 / 350 100 / 100 Balance 590 / 590 -100 / -100 Weight 48.9 kg Intake: IV 100 / 100 Rocephin Inj 1,000 MG In NS Inj 100 / 100 100 ML @ 200 mls/hr IV.SIG Q24H TAL Rx#:[id number] Oral 840 / 840 0 / 0 Output: Urine 350 / 350 100 / 100 Other: Date of Last Bowel Movement 02/11/18 # Bowel Movements 1 0 - Constitutional no acute distress - Routine HEENT Exam Head: Present: normocephalic Eye: Present: PERRL ENT: Present: mucous membranes moist - Routine Neck Exam Present: supple - Routine Respiratory Exam Present: CTA bilaterally - Routine Cardiovascular Exam Present: S1, S2, irregular rhythm. Absent: murmur, gallop, rubs - Routine Abdominal Exam Present: soft - Routine Extremities Exam Present: full ROM, pulses intact, normal capillary refill. Absent: cyanosis, clubbing, edema - Routine Skin Exam Present: intact - Routine Neurological Exam Present: oriented X3 - Detailed Neurological Exam: Coma Scale Eye Opening: Spontaneous Verbal Response: Oriented Motor Response: Obey commands Leeann Coma Scale Total: 15 - Routine Psychiatric Exam Present: normal affect - Urinary Catheter Management Straight Cath placed during this visit: no Assessment and Plan - Assessment (1) Hypotension Code(s): I95.9 - Hypotension, unspecified Status: Resolved (2) History of aortic valve replacement Code(s): Z95.2 - Presence of prosthetic heart valve Status: Chronic (3) Acute kidney injury Code(s): N17.9 - Acute kidney failure, unspecified Status: Acute - Plan Continue amiodarone for atrial fibrillation. Continue current cardiac treatment plan. Patient cleared for discharge from cardiac standpoint. Discussed with patient and the current treatment plan. We will follow-up with patient in office in 2-3 weeks. Patient was seen and evaluated by Dr. Abrams who participated in care, management and decision-making. - Attending Attestation Patient seen and examined. I reviewed and agree with the evaluation and plan as presented. DC home. Continue amiodarone 200 mg daily. Will schedule f/u in our office after discharge. Progress Note: Quality - AMI Clinical Trial Participant: No
--- NOTE | 2018-02-13 18:01 | P.PN ---
Subjective Interval history: Doing well and off O2 . HR is better. Still in A Fib. Good output . Physical Exam Vital signs: Vital Signs 02/12/18 20:00 02/12/18 23:46 02/13/18 04:00 Temperature 98.3 F 98.2 F 97.8 F Pulse Rate 80 76 94 H Respiratory Rate 16 16 16 Blood Pressure 102/65 108/71 102/63 Pulse Oximetry 98 98 96 02/13/18 08:00 Temperature 97.5 F L Pulse Rate 90 Respiratory Rate 18 Blood Pressure 112/75 Pulse Oximetry 95 Intake & Output 02/12/18 02/13/18 02/13/18 18:59 06:59 18:59 Intake Total 940 / 940 0 / 0 Output Total 350 / 350 100 / 100 Balance 590 / 590 -100 / -100 Weight 48.9 kg Intake: IV 100 / 100 Rocephin Inj 1,000 MG In NS Inj 100 / 100 100 ML @ 200 mls/hr IV.SIG Q24H TAL Rx#:[id number] Oral 840 / 840 0 / 0 Output: Urine 350 / 350 100 / 100 Other: Date of Last Bowel Movement 02/11/18 # Bowel Movements 1 0 Narrative: GENERAL: This is a well-nourished, elderly female patient, in no apparent distress. HEENT: Head is atraumatic and normocephalic. Neck is supple without lymphadenopathy and trachea is midline. No JVD or carotid bruits. CARDIOVASCULAR: Irregularly irregular, and without murmurs, gallops, or rubs. RESPIRATORY: Breath sounds equal bilaterally. Occ wheeze bilateral and Few basal crackles. GASTROINTESTINAL: Abdomen is nontender, nondistended. No organomegaly. Abdomen soft. No CVA tenderness. Strong femoral pulses bilaterally. Normal bowel sounds in all quadrants. MUSCULOSKELETAL: Patient is moving upper and lower extremities . No calf tenderness or edema. NEUROLOGICAL: Patient is alert and oriented. No focal deficits and speech is clear. SKIN: No rash and turgor is normal. - Urinary Catheter Management Straight Cath placed during this visit: no Results - Labs CBC & Chem 7: 02/12/18 09:59 02/12/18 09:59 Laboratory Results - last 24 hr 02/12/18 02/13/18 19:29 07:36 POC Glucose 140 H 97 - Procedures no procedures Assessment and Plan - Assessment (1) Hyperventilation Code(s): R06.4 - Hyperventilation Status: Acute (2) Acute respiratory distress Code(s): R06.03 - Acute respiratory distress Status: Acute (3) History of aortic valve replacement Code(s): Z95.2 - Presence of prosthetic heart valve Status: Chronic (4) Acute kidney injury Code(s): N17.9 - Acute kidney failure, unspecified Status: Acute (5) Atrial fibrillation with rapid ventricular response Code(s): I48.91 - Unspecified atrial fibrillation Status: Acute (6) Pulmonary embolism Code(s): I26.99 - Other pulmonary embolism without acute cor pulmonale Status : Acute (7) CAD (coronary artery disease) Code(s): I25.10 - Atherosclerotic heart disease of [place] coronary artery without angina pectoris Status: Acute (8) HTN (hypertension) Code(s): I10 - Essential (primary) hypertension Status: Acute (9) Pneumonia Code(s): J18.9 - Pneumonia, unspecified organism Status: Acute - Plan 1. Home today .Will see as OP in 2 weeks 2. Ventolin HFA , 2 puffs qid prn 3. Cont Lasix 20 mg daily 4. Continue ASA and Effient 5. Cont Amiodarone 400 mg BID 6. Add Ceftin 500 mg BID X4 days Progress Note: Quality - AMI Clinical Trial Participant: No
== END 2018-02-13 13:45 | disposition home health service (06) ==
LOC: NEPE 11:04 → NEDA 13:40 → HIMC 15:18 → N04 02-11 22:02
PROVIDERS: ADMIT Family Medicine; ATTEND Family Medicine

== ENCOUNTER 2018-02-20 19:24 | Observation (INO) ==
[2018-02-20 22:14] LABS: Baso % (Auto) 0.7 % (0.0-2.0); Eos # (Auto) 0.1 th/mm3 (0.0-0.4); Eos % (Auto) 1.7 % (0.0-4.0); Hematocrit 27.8 % (35.0-46.0); Hemoglobin 8.8 gm/dL (11.6-15.3); Lymph # (Auto) 0.5 th/mm3 (1.0-4.8); Mean Corpuscular HGB Conc 31.7 % (32.0-36.0); Mean Corpuscular Hemoglobin 29.3 pg (27.0-34.0); Mean Corpuscular Volume 92.5 fL (80.0-100.0); Mean Platelet Volume 9.2 fL (7.0-11.0); Mono # (Auto) 0.4 th/mm3 (0.0-0.9); Neut # (Auto) 2.4 th/mm3 (1.8-7.7); Neut % (Auto) 70.6 % (16.0-70.0); Platelet Count 121 th/mm3 (150-450); Red Cell Distribution Width 15.1 % (11.6-17.2); White Blood Count 3.5 th/mm3 (4.0-11.0)
--- NOTE | 2018-02-20 22:28 | XR ---
EXAM DATE: 02/20/2018 9:54 PM EDT AGE/SEX: 82 years / Female INDICATIONS: Shortness of breath. CLINICAL DATA: This is the patient's initial encounter. Patient reports that signs and symptoms have been present for 1 day and indicates a pain score of 0/10. MEDICAL/SURGICAL HISTORY: None. . Cardiac stents. [place] [facility] [place]. . FINDINGS: The patient is status post sternotomy. The heart size is normal. There is increased density at the le ft base with silhouetting of the left hemidiaphragm. There is blunting of the left costophrenic angle . The right lung is grossly clear. CONCLUSION: Left lower lobe consolidation/atelectasis with a suspected mild left pleural effusion. Electronically signed by: Baljeet Todd MD 02/20/2018 10:26 PM EDT
[2018-02-20] MEDS ORDERED: Sod Chloride 0.9% Inj 1,000 ML IV.SIG SCH (22:30)
[2018-02-20 22:40] LABS: Alkaline Phosphatase 117 U/L (45-117); Total Protein 6.3 g/dL (6.4-8.2); Troponin I 0.04 ng/mL (0.02-0.05)
--- NOTE | 2018-02-20 22:43 | ED ---
HPI General Chief Complaint: Dizziness Stated Complaint: Medical Time Seen by Provider: 02/20/18 21:31 Source: patient and EMS Mode of arrival: EMS Limitations: no limitations History of Present Illness HPI Narrative: 81-year-old female that presents to the ED for evaluation of dizzy spell and nausea. Patient states that she was eating dinner when all of a sudden she felt nauseous and vomited once. She started feeling very dizzy afterwards. They call ambulance and she was brought here for evaluation. Patient was recently released from the hospital secondary to respiratory failure. Patient was admitted and was also found to have a PE as well as runs of A. fib. She currently takes antibiotic as well as blood thinner. She denies any pain or any symptoms at this time. Per patient she feels fine at this time. She does not feel weakness. Denies any blurred vision or double vision. No headache. No palpitations. No chest pain or shortness of breath at all. No urinary or bowel movement issues. No other medical issues. Related Data Home Medications Medication Instructions Recorded Confirmed carvedilol [Coreg] 6.25 mg PO BID 02/02/18 02/20/18 furosemide [Lasix] 20 mg PO DAILY 02/02/18 02/20/18 hydrochlorothiazide 12.5 mg PO DAILY 02/02/18 02/20/18 levothyroxine 50 mcg PO DAILY 02/02/18 02/20/18 lisinopril 5 mg PO DAILY 02/02/18 02/20/18 pravastatin 20 mg PO BID 02/02/18 02/20/18 trazodone 50 mg PO DAILY 02/02/18 02/20/18 aspirin 81 mg PO DAILY 02/20/18 02/20/18 cefuroxime axetil 500 mg PO Q12H 02/20/18 02/20/18 mirtazapine 15 mg PO DAILY 02/20/18 02/20/18 Previous Rx's Medication Instructions Recorded amiodarone 200 mg PO BID #60 tab 02/13/18 Allergies Allergy/AdvReac Type Severity Reaction Status Date / Time No Known Allergies Allergy Verified 02/20/18 21:30 Review of Systems ROS: all other systems reviewed are negative COUNTS INCLUDE 234 BEDS AT THE [facility] Medical History Medical History Atrial fibrillation (Acute) Cataract (Acute) Chest pain (Acute) High cholesterol (Acute) Hypothyroidism (Acute) Macular degeneration (Acute) Mitral regurgitation (Acute) Surgical History Surgical History Bioprosthetic aortic valve replacement during current hospitalization (Acute) H/O mitral valve repair (Acute) History of coronary artery stent placement (Acute) Family History Family History Father Family history of acute myocardial infarction Social History Social History Substance History: No History of Abuse Second Hand Smoke Exposure: Yes Smoking Status: Never smoker Tobacco Type: Cigarettes How Often Do You Have a Drink Containing Alcohol: Monthly or less Recent Travel in [facility] [place] within the Last 8 Weeks: No Recent Out of Country Travel within the Last 8 Weeks: No Immunization History Tetanus Immunization: <5 Years Hx Influenza Vaccine This Season: Yes Exam Narrative Exam Narrative: GENERAL: Well appearing. SKIN: Focused skin assessment warm/dry. HEAD: Atraumatic. Normocephalic. EYES: Pupils equal and round. No scleral icterus. No injection or drainage. ENT: No nasal bleeding or discharge. Mucous membranes pink and moist. Tongue is midline. No uvula deviation. NECK: Trachea midline. No JVD. CARDIOVASCULAR: Regular rate and rhythm. No murmur appreciated. RESPIRATORY: No accessory muscle use. Clear to auscultation. Breath sounds equal bilaterally. GASTROINTESTINAL: Abdomen soft, non-tender, nondistended. Hepatic and splenic margins not palpable. MUSCULOSKELETAL: No obvious deformities. No clubbing. No cyanosis. No edema. Full range of motion of the upper and lower extremities bilaterally. 2+ pulses bilaterally. NEUROLOGICAL: Awake and alert. No obvious cranial nerve deficits. Motor grossly within normal limits. Normal speech. PSYCHIATRIC: Appropriate mood and affect; insight and judgment normal. Procedures Hemaprompt Stool Procedural Steps Taken: specimen placed in appropriate test area, developer placed on specimen and control areas and controls appropriately positive and negative Hemaprompt Stool Result: positive Course Initial Documented Vital Signs Temperature 98.7 F 02/20/18 21:22 Pulse Rate 80 02/20/18 21:22 Respiratory Rate 18 02/20/18 21:22 Blood Pressure 86/55 L 02/20/18 21:22 Pulse Oximetry 100 02/20/18 21:22 Last Documented Vital Signs Temperature 98.7 F 02/20/18 21:22 Pulse Rate 72 02/20/18 23:30 Respiratory Rate 18 02/20/18 23:30 Blood Pressure 102/58 L 02/20/18 23:30 Pulse Oximetry 100 02/20/18 23:30 Medical Decision Making MDM Narrative Medical decision making narrative: 81-year-old female that presents to the ED for evaluation of dizziness and nausea and vomiting. Patient was properly examined and was found to have signs and symptoms of unclear etiology. Patient was admitted for almost a week here for respiratory distress. She has a history of pulmonary embolism as well as what appears to be pneumonia and fluid in her lung. Labs and imaging were ordered. Case will be sent to my attending pending disposition. Patient was found to be somewhat hypotensive here. 80s systolic. Patient feels asymptomatic at this time. Per patient she does run low in the 90s systolic most of the time. Patient was admitted to [facility] Dr Magdalena maria further evaluation and treatment Medical Screen Exam Complete: Yes Emergency Medical Condition: Yes Differential Diagnosis Differential Diagnosis: Hypotension versus ACS versus pneumonia versus sepsis versus nausea and vomiting versus dizziness Medical Records Medical records reviewed: Yes I reviewed the patient's medical records. Lab Data Result diagrams: 02/20/18 22:05 02/20/18 22:05 Lab Results 02/20/18 02/20/18 02/20/18 Range/Units 00:17 22:05 22:05 WBC 3.5 L (4.0-11.0) th/mm3 RBC 3.00 L (4.00-5.30) mil/mm3 Hgb 8.8 L (11.6-15.3) gm/dL Hct 27.8 L (35.0-46.0) % MCV 92.5 (80.0-100.0) fL MCH 29.3 (27.0-34.0) pg MCHC 31.7 L (32.0-36.0) % RDW 15.1 (11.6-17.2) % Plt Count 121 L (150-450) th/mm3 MPV 9.2 (7.0-11.0) fL Neut % (Auto) 70.6 H (16.0-70.0) % Lymph % (Auto) 15.0 (9.0-44.0) % Jessamine % (Auto) 12.0 H (0.0-8.0) % Eos % (Auto) 1.7 (0.0-4.0) % Baso % (Auto) 0.7 (0.0-2.0) % Neut # (Auto) 2.4 (1.8-7.7) th/mm3 Lymph # (Auto) 0.5 L (1.0-4.8) th/mm3 Jessamine # (Auto) 0.4 (0.0-0.9) th/mm3 Eos # (Auto) 0.1 (0.0-0.4) th/mm3 Baso # (Auto) 0.0 (0.0-0.2) th/mm3 WBC Differential . Differential Comment Auto diff final PT 10.7 (9.8-11.6) sec INR 1.1 Ratio Sodium 141 (136-145) meq/L Potassium 5.1 (3.5-5.1) meq/L Chloride 107 (98-107) meq/L Carbon Dioxide 25.7 (21.0-32.0) meq/L Anion Gap 8 (5-15) meq/L BUN 25 H (7-18) mg/dL Creatinine 1.14 H (0.50-1.00) mg/dL Estimated GFR 46 L (>89) mL/min Random Glucose 116 H (74-106) mg/dL Lactic Acid (0.4-2.0) mmol/L Calcium 8.1 L (8.5-10.1) mg/dL Total Bilirubin 0.4 (0.2-1.0) mg/dL AST 43 H (15-37) U/L ALT 20 (10-53) U/L Alkaline Phosphatase 117 (45-117) U/L Total Creatine Kinase (26-192) U/L Troponin I 0.04 (0.02-0.05) ng/mL Total Protein 6.3 L (6.4-8.2) g/dL Albumin 2.6 L (3.4-5.0) g/dL 02/20/18 02/20/18 Range/Units 22:05 23:05 WBC (4.0-11.0) th/mm3 RBC (4.00-5.30) mil/mm3 Hgb (11.6-15.3) gm/dL Hct (35.0-46.0) % MCV (80.0-100.0) fL MCH (27.0-34.0) pg MCHC (32.0-36.0) % RDW (11.6-17.2) % Plt Count (150-450) th/mm3 MPV (7.0-11.0) fL Neut % (Auto) (16.0-70.0) % Lymph % (Auto) (9.0-44.0) % Jessamine % (Auto) (0.0-8.0) % Eos % (Auto) (0.0-4.0) % Baso % (Auto) (0.0-2.0) % Neut # (Auto) (1.8-7.7) th/mm3 Lymph # (Auto) (1.0-4.8) th/mm3 Jessamine # (Auto) (0.0-0.9) th/mm3 Eos # (Auto) (0.0-0.4) th/mm3 Baso # (Auto) (0.0-0.2) th/mm3 WBC Differential Differential Comment PT (9.8-11.6) sec INR Ratio Sodium (136-145) meq/L Potassium (3.5-5.1) meq/L Chloride (98-107) meq/L Carbon Dioxide (21.0-32.0) meq/L Anion Gap (5-15) meq/L BUN (7-18) mg/dL Creatinine (0.50-1.00) mg/dL Estimated GFR (>89) mL/min Random Glucose (74-106) mg/dL Lactic Acid 1.5 (0.4-2.0) mmol/L Calcium (8.5-10.1) mg/dL Total Bilirubin (0.2-1.0) mg/dL AST (15-37) U/L ALT (10-53) U/L Alkaline Phosphatase (45-117) U/L Total Creatine Kinase 65 (26-192) U/L Troponin I (0.02-0.05) ng/mL Total Protein (6.4-8.2) g/dL Albumin (3.4-5.0) g/dL Imaging Data Radiologist's impression: Chest X-Ray 02/20/18 21:31 CONCLUSION: Left lower lobe consolidation/atelectasis with a suspected mild left pleural effusion. Head CT 02/20/18 22:21 CONCLUSION: 1. No acute intracranial abnormality. 2. Atrophy and chronic small vessel ischemic change. . Discharge Plan Discharge Disposition Patient Disposition: 30 Still Patient Discharge Condition Condition: Stable Discharge Details Diagnosis: Anemia Physicians Team ED Provider: Thad Mello ED Midlevel Provider: Jose David Tubbs Primary Care Provider: Diomedes Hall Attending Provider: Ximena Nichols Other Providers: Sabine Ortiz Status ED Status: Admitted Patient
[2018-02-20 23:20] LABS: Alanine Aminotransferase 20 U/L (10-53); Albumin 2.6 g/dL (3.4-5.0); Anion Gap 8 meq/L (5-15); Aspartate Aminotransferase 43 U/L (15-37); Blood Urea Nitrogen 25 mg/dL (7-18); Calcium 8.1 mg/dL (8.5-10.1); Carbon Dioxide 25.7 meq/L (21.0-32.0); Chloride 107 meq/L (98-107); Glomerular Filtration Rate 46 mL/min (>89); Glucose,Random 116 mg/dL (74-106); Potassium 5.1 meq/L (3.5-5.1); Sodium 141 meq/L (136-145)
--- NOTE | 2018-02-20 23:33 | CT ---
EXAM DATE: 02/20/2018 11:29 PM EDT AGE/SEX: 82 years / Female INDICATIONS: Dizziness. CLINICAL DATA: This is the patient's initial encounter. Patient reports that signs and symptoms have been present for 1 day and indicates a pain score of 0/10. MEDICAL/SURGICAL HISTORY: Cardiovascular disease. None. RADIATION DOSE: 56.35 CTDI (mGy) COMPARISON: [facility] [place], CT BRAIN W/O CONTRAST, 11/11/2017. . TECHNIQUE: CT of the head without contrast. Using automated exposure control and adjustment of the mA and/or kV according to patient size, radiation dose was kept as low as reasonably achievable to ob tain optimal diagnostic quality images. DICOM format image data is available electronically for revi ew and comparison. FINDINGS: Cerebrum: Atrophy. Periventricular low attenuation change involving both cerebral hemispheres. The v entricles are normal for age. No evidence of midline shift, mass lesion, hemorrhage or acute infarct ion. No extraaxial fluid collections are seen. Posterior Fossa: The cerebellum and brainstem are intact. The 4th ventricle is midline. The cerebe llopontine angle is unremarkable. Extracranial: The visualized portion of the orbits is intact. Skull: The calvaria is intact. No evidence of skull fracture. CONCLUSION: 1. No acute intracranial abnormality. 2. Atrophy and chronic small vessel ischemic change. . Electronically signed by: Franki Diamond MD 02/20/2018 11:32 PM EDT
[2018-02-21 00:42] LABS: INR 1.1 Ratio; Prothrombin Time 10.7 sec (9.8-11.6)
[2018-02-21] MEDS ORDERED: Bisacodyl 10 MG Supp RECTAL PRN (03:24)
[2018-02-21] MEDS ORDERED: Acetaminophen 325 MG Tablet PO PRN (03:24)
--- NOTE | 2018-02-21 03:47 | P.HPIM ---
History of Present Illness Primary Care Physician: Diomedes Hall DO History of Present Illness: This is an 82-year-old female with a PMH of HTN, Hyperlipidemia, A. fib/PE on ASA/Effient, Pancytopenia and h/o AVR who presented to the ER for near syncopal event. Recent admit 02/02-02/13/18 for Acute Respiratory Failure, found to have small PE, A-fib w/ RVR, PNA and Pancytopenia. S/p eval by Pulmonology, Cardiology and Heme/Onc, d/c'd on ASA/Effient, Amiodarone increased to 400mg bid and started on Digoxin per review of records. States she's had ongoing fatigue and dizziness since discharge with associated decreased PO intake. Today had episode of dizziness w/ near syncope in addition to one episode of vomiting. Denies fever, chills, cough, diarrhea or sick contacts. On arrival, BP 86/55, HR 80, O2 sat 100% on RA, Afebrile. WBC 3.5, hemoglobin 8.8, platelets 121, previously WBC 2.8, hemoglobin 12.2 and platelets 156 on 2017. INR 1.1. Creatinine 1.14, previously 1.08 on 02/12/2018. Lactic Acid normal. CXR with left lower lobe consolidation/atelectasis with suspected mild left pleural effusion. CT Head with no acute findings. Hemoccult negative on exam. - Diagnosis (1) Near syncope (2) Pancytopenia (3) Renal insufficiency (4) Chronic anticoagulation Inpatient Certification: I certify that the inpatient services were ordered in accordance with Medicare regulations governing the order. This includes certification that hospital inpatient services are reasonable and necessary and in the case of services not specified as inpatient-only under 42 CFR 419.22(n), that they are appropriately provided as inpatient services in accordance to with the 2-midnight benchmark under 43 CFR 412.3(e) Review of Systems PAST FAMILY HISTORY: Reviewed. No h/o DM or CAD All other systems reviewed negative except as stated in HPI PMFSH - History History Provided By: Patient - Medical History Medical History: Medical History (Last Reviewed 02/20/18 @ 22:41 by LYLA Sanford) Atrial fibrillation Cataract Chest pain High cholesterol Hypothyroidism Macular degeneration Mitral regurgitation - Surgical History Surgical History: Surgical History (Last Reviewed 02/20/18 @ 22:41 by LYLA Sanford) Bioprosthetic aortic valve replacement during current hospitalization H/O mitral valve repair History of coronary artery stent placement - Family History Family History: Family History (Last Reviewed 02/20/18 @ 22:41 by LYLA Sanford) Father Family history of acute myocardial infarction - Tobacco History Second Hand Smoke Exposure: Yes Smoking Status: Never smoker Tobacco Type: Cigarettes - Alcohol History How Often Do You Have a Drink Containing Alcohol: Monthly or less - Substance Use History Substance History: No History of Abuse - Travel History Recent Travel in the [place] Within the Last 8 Weeks: No Recent Travel Out of the Country Within the Last 8 Weeks: No - Immunization History Tetanus Immunization: <5 Years Hx Influenza Vaccine This Season: Yes Medications and Allergies Active Medications: Active Medications Acetaminophen (Tylenol) 650 mg PO Q4H PRN PRN Reason: Temp > 100.4 Al Hydroxide/Mg Hydroxide (Milk Of Magnesia Liq) 30 ml PO Q12H PRN PRN Reason: Mild Constipation Bisacodyl (Dulcolax Supp) 10 mg RECTAL DAILY PRN PRN Reason: SEVERE CONSITIPATION Sodium Chloride (Ns Inj) 1,000 mls @ 0 mls/hr IV.SIG BOLUS TAL Last Admin: 02/20/18 23:12 Dose: 1,000 mls/hr Sodium Chloride (Ns Inj) 1,000 mls @ 100 mls/hr IV.CONT .Q10H TAL Lactulose (Lactulose Liq) 30 ml PO DAILY PRN PRN Reason: SEVERE CONSITIPATION Ondansetron HCl (Zofran Inj) 4 mg IV.PUSH Q6H PRN PRN Reason: NAUSEA OR VOMITING Senna/Docusate Sodium (Coretta-Colace) 1 tab PO BID TAL Sennosides (Senokot) 17.2 mg PO Q12H PRN PRN Reason: Moderate Constipation Allergies Allergy/AdvReac Type Severity Reaction Status Date / Time No Known Allergies Allergy Verified 02/20/18 21:30 Home Medications Medication Instructions Recorded Confirmed Type carvedilol [Coreg] 6.25 mg PO BID 02/02/18 02/20/18 History furosemide [Lasix] 20 mg PO DAILY 02/02/18 02/20/18 History hydrochlorothiazide 12.5 mg PO DAILY 02/02/18 02/20/18 History levothyroxine 50 mcg PO DAILY 02/02/18 02/20/18 History lisinopril 5 mg PO DAILY 02/02/18 02/20/18 History pravastatin 20 mg PO BID 02/02/18 02/20/18 History trazodone 50 mg PO DAILY 02/02/18 02/20/18 History aspirin 81 mg PO DAILY 02/20/18 02/20/18 History cefuroxime axetil 500 mg PO Q12H 02/20/18 02/20/18 History mirtazapine 15 mg PO DAILY 02/20/18 02/20/18 History Exam Vital signs: Vital Signs 02/20/18 21:22 02/20/18 21:29 02/20/18 23:30 Temperature 98.7 F Pulse Rate 80 79 72 Respiratory Rate 18 Blood Pressure 86/55 L 85/51 L 102/58 L Pulse Oximetry 100 100 100 Intake & Output 02/20/18 02/20/18 02/21/18 06:59 18:59 06:59 Intake Total 100 / 100 Balance 100 / 100 Weight 49.442 kg Intake: IV 100 / 100 Rocephin Inj 1,000 MG In NS Inj 100 / 100 100 ML @ 200 mls/hr IV.SIG ONCE ONE Rx#:[id number] Narrative: PE: GENERAL: Very pleasant thin elderly white female in no acute distress. SKIN: Focused skin assessment warm and dry. HEENT: PERRLA, EOMI. No scleral icterus or conjunctival pallor. No lid lag or facial droop. CARDIOVASCULAR: Regular rate and rhythm. No obvious murmurs to auscultation. No chest tenderness to palpation. RESPIRATORY: No obvious rhonchi or wheezing. Clear to auscultation. Breath sounds equal bilaterally. GASTROINTESTINAL: Abdomen soft, non-tender, nondistended. BS normal. MUSCULOSKELETAL: Extremities without clubbing, cyanosis, or edema. No obvious deformities. NEUROLOGICAL: Awake, alert and oriented x4. No focal neurologic deficits. Moving both upper and lower extremities spontaneously. PSYCHIATRIC: Appropriate mood and affect. Insight and judgment normal. Results - Labs CBC & Chem 7: 02/20/18 22:05 02/20/18 22:05 Labs: Short CBC 02/20/18 Range/Units 22:05 WBC 3.5 L (4.0-11.0) th/mm3 Hgb 8.8 L (11.6-15.3) gm/dL Hct 27.8 L (35.0-46.0) % Plt Count 121 L (150-450) th/mm3 BMP 02/20/18 22:05 Sodium 141 Potassium 5.1 Chloride 107 Carbon Dioxide 25.7 BUN 25 H Creatinine 1.14 H Calcium 8.1 L Cardiac Enzymes 02/20/18 02/20/18 Range/Units 22:05 22:05 Total Creatine Kinase 65 (26-192) U/L Troponin I 0.04 (0.02-0.05) ng/mL Liver Function 02/20/18 Range/Units 22:05 Total Bilirubin 0.4 (0.2-1.0) mg/dL AST 43 H (15-37) U/L ALT 20 (10-53) U/L Alkaline Phosphatase 117 (45-117) U/L Albumin 2.6 L (3.4-5.0) g/dL - Imaging Impressions Chest X-Ray 02/20/18 21:31 CONCLUSION: Left lower lobe consolidation/atelectasis with a suspected mild left pleural effusion. Head CT 02/20/18 22:21 CONCLUSION: 1. No acute intracranial abnormality. 2. Atrophy and chronic small vessel ischemic change. . Caprini VTE Risk Assessment Caprini VTE Risk Assessment: Moderate/High Risk (score >= 2) Caprini Risk Assessment Model: Point Value = 1 Point Value = 2 Point Value = 3 Point Value = 5 Age 41-60 Minor surgery BMI > 25 kg/m2 Swollen legs Varicose veins or History of unexplained or recurrent spontaneous Oral contraceptives or hormone replacement Sepsis (< 1 month) Serious lung disease, including pneumonia (< 1 month) Abnormal pulmonary function Acute myocardial infarction Congestive heart failure (< 1 month) History of inflammatory bowel disease Medical patient at bed rest Age 61-74 Arthroscopic surgery Major open surgery (> 45 min) Laparoscopic surgery (> 45 min) Malignancy Confined to bed (> 72 hours) Immobilizing plaster cast Central venous access Age >= 75 History of VTE Family history of VTE Factor V Leiden Prothrombin [id number] Lupus anticoagulant Anticardiolipin antibodies Elevated serum homocysteine Heparin-induced thrombocytopenia Other congenital or acquired thrombophilia Stroke (< 1 month) Elective arthroplasty Hip, pelvis, or leg fracture Acute spinal cord injury (< 1 month) Prophylaxis Regimen: Total Risk Factor Score Risk Level Prophylaxis Regimen 0-1 Low Early ambulation 2 Moderate Order ONE of the following: *Sequential Compression Device (SCD) *Heparin 5000 units SQ BID 3-4 Higher Order ONE of the following medications: *Heparin 5000 units SQ TID *Enoxaparin/Lovenox 40 mg SQ daily (WT < 150 kg, CrCl > 30 mL/min) *Enoxaparin/Lovenox 30 mg SQ daily (WT < 150 kg, CrCl > 10-29 mL/min) *Enoxaparin/Lovenox 30 mg SQ BID (WT < 150 kg, CrCl > 30 mL/min) AND/OR *Sequential Compression Device (SCD) 5 or more Highest Order ONE of the following medications: *Heparin 5000 units SQ TID (Preferred with Epidurals) *Enoxaparin/Lovenox 40 mg SQ daily (WT < 150 kg, CrCl > 30 mL/min) *Enoxaparin/Lovenox 30 mg SQ daily (WT < 150 kg, CrCl > 10-29 mL/min) *Enoxaparin/Lovenox 30 mg SQ BID (WT < 150 kg, CrCl > 30 mL/min) AND *Sequential Compression Device (SCD) Assessment and Plan - Assessment (1) Near syncope Code(s): R55 - Syncope and collapse Status: Acute (2) Pancytopenia Code(s): D61.818 - Other pancytopenia Status: Acute (3) Renal insufficiency Code(s): N28.9 - Disorder of kidney and ureter, unspecified Status: Acute (4) Chronic anticoagulation Code(s): Z79.01 - intermediate (current) use of anticoagulants Status: Acute - Plan A/P: 1. Near Syncope: w/ associated dizziness, likely secondary to fatigue/ decreased PO intake. CT Head w/ no acute findings, images reviewed. PT for eval/tx. 2. Pancytopenia: Recent admit 02/02-02/13/18, found to have Pancytopenia, s/p eval by Dr. Bell w/ plans for outpatient follow-up, WBC 3.5, hgb 8.8, Platelets 121, previously WBC 2.8, Hgb 12.2 and platelets 156 on 02/12/18. Hemoccult negative. Will Type & Screen, repeat labs for possible pRBC transfusion, consult Dr. Bell for further eval/recommendations in light of ASA/ Effient therapy. 3. Renal Insufficiency: Creatinine 1.14, previously 1.08 on 02/12/18, check U/a , IVF for hydration, monitor I/O, repeat labs in am. 4. Chronic Anticoagulation: on ASA/Effient for h/o A-fib, found to have small PE on last admit, caution w/ pancytopenia, will await Heme/Onc recommendations regarding continuation of anticoagulation. 5. DVT Prophylaxis: SCD/Teds 6. Social work for d/c planning as needed 7. Case discussed w/ ER physician at length, labs/records/imaging reviewed by me.
[2018-02-21] MEDS: Sod Chloride 0.9% Inj 1,000 ML IV.CONT SCH ×2 (05:41→14:55)
[2018-02-21] MEDS ORDERED: Amiodarone 200 MG Tablet PO SCH ×2 (09:00)
[2018-02-21] MEDS: Senna/Docusate Sodium 8.6/50 MG Tablet PO SCH ×2 (09:14→23:02)
[2018-02-21] MEDS: Amiodarone 200 MG Tablet PO SCH ×2 (09:14→23:02)
[2018-02-21] MEDS: Carvedilol 6.25 MG Tablet PO SCH ×2 (09:14→23:02)
--- NOTE | 2018-02-21 10:44 | P.PN ---
Subjective Interval history: Follow-up visit acute kidney injury, A. fib, PE, anemia. Patient seen and examined today. at bedside. Patient states that he is doing okay. Patient states she has anemia long time ago and was placed on iron pills but states that she stopped taking it. Patient also states that she does not drinking or hydrating herself at home. Otherwise, denies pain and discomfort. Denies SOB/ dyspnea. Denies chest pain, palpitations, headaches, dizziness. Denies fevers, chills, n/v/d. Denies dysuria. Physical Exam Vital signs: Vital Signs 02/20/18 21:22 02/20/18 21:29 02/20/18 23:30 Temperature 98.7 F Pulse Rate 80 79 72 Respiratory Rate 18 18 18 Blood Pressure 86/55 L 85/51 L 102/58 L Pulse Oximetry 100 100 100 02/21/18 04:16 02/21/18 05:06 02/21/18 05:27 Temperature 97.9 F Pulse Rate 71 94 H Respiratory Rate 18 16 Blood Pressure 95/57 L 111/61 103/56 L Pulse Oximetry 100 100 02/21/18 07:37 02/21/18 08:00 Temperature 99.1 F Pulse Rate 75 96 H Respiratory Rate 14 Blood Pressure 111/76 Pulse Oximetry 100 Intake & Output 02/20/18 02/21/18 02/21/18 18:59 06:59 18:59 Intake Total 1100 / 1100 Balance 1100 / 1100 Weight 49.442 kg Intake: IV 1100 / 1100 NS Inj 1,000 ML @ Wide Open IV. 1000 / 1000 SIG BOLUS TAL Rx#:[id number] Rocephin Inj 1,000 MG In NS Inj 100 / 100 100 ML @ 200 mls/hr IV.SIG ONCE ONE Rx#:[id number] Other: Weight On Admission 49.442 kg Narrative: GENERAL: This is a thin appearing, elderly patient, in no apparent distress. SKIN: Warm and dry. Pale. HEENT: Normocephalic. Pupils equal round and reactive. Nose without bleeding. Airway patent. NECK: Trachea midline. Supple. CARDIOVASCULAR: Regular rate and rhythm without murmurs, gallops, or rubs. RESPIRATORY: Diminished bases. No wheezes, rales, or rhonchi. GASTROINTESTINAL: Abdomen soft, non-tender, nondistended. Bowel Sounds normoactive x4. MUSCULOSKELETAL: Extremities without clubbing, cyanosis, or edema. NEUROLOGICAL: Awake and alert. No focal neuro deficit. Moves all extremities. Normal speech. Results - Labs CBC & Chem 7: 02/20/18 22:05 02/21/18 12:46 Laboratory Results - last 24 hr 02/20/18 02/20/18 02/20/18 00:17 22:05 22:05 WBC 3.5 L RBC 3.00 L Hgb 8.8 L Hct 27.8 L MCV 92.5 MCH 29.3 MCHC 31.7 L RDW 15.1 Plt Count 121 L MPV 9.2 Neut % (Auto) 70.6 H Lymph % (Auto) 15.0 Bledsoe % (Auto) 12.0 H Eos % (Auto) 1.7 Baso % (Auto) 0.7 Neut # (Auto) 2.4 Lymph # (Auto) 0.5 L Bledsoe # (Auto) 0.4 Eos # (Auto) 0.1 Baso # (Auto) 0.0 WBC Differential . Differential Comment Auto diff final PT 10.7 INR 1.1 Sodium 141 Potassium 5.1 Chloride 107 Carbon Dioxide 25.7 Anion Gap 8 BUN 25 H Creatinine 1.14 H Estimated GFR 46 L Random Glucose 116 H Lactic Acid Calcium 8.1 L Total Bilirubin 0.4 AST 43 H ALT 20 Alkaline Phosphatase 117 Total Creatine Kinase Troponin I 0.04 Total Protein 6.3 L Albumin 2.6 L Blood Type Blood Type Recheck Antibody Screen 02/20/18 02/20/18 02/21/18 22:05 23:05 04:16 WBC RBC Hgb Hct MCV MCH MCHC RDW Plt Count MPV Neut % (Auto) Lymph % (Auto) Bledsoe % (Auto) Eos % (Auto) Baso % (Auto) Neut # (Auto) Lymph # (Auto) Bledsoe # (Auto) Eos # (Auto) Baso # (Auto) WBC Differential Differential Comment PT INR Sodium Potassium Chloride Carbon Dioxide Anion Gap BUN Creatinine Estimated GFR Random Glucose Lactic Acid 1.5 Calcium Total Bilirubin AST ALT Alkaline Phosphatase Total Creatine Kinase 65 Troponin I Total Protein Albumin Blood Type AB Negative Blood Type Recheck Required Antibody Screen Negative - Imaging Impressions Chest X-Ray 02/20/18 21:31 CONCLUSION: Left lower lobe consolidation/atelectasis with a suspected mild left pleural effusion. Head CT 02/20/18 22:21 CONCLUSION: 1. No acute intracranial abnormality. 2. Atrophy and chronic small vessel ischemic change. . Assessment and Plan - Assessment (1) Near syncope Code(s): R55 - Syncope and collapse Status: Acute (2) Pancytopenia Code(s): D61.818 - Other pancytopenia Status: Acute (3) Renal insufficiency Code(s): N28.9 - Disorder of kidney and ureter, unspecified Status: Acute (4) Chronic anticoagulation Code(s): Z79.01 - MCFP (current) use of anticoagulants Status: Acute - Plan 82-year-old female with a PMH of HTN, Hyperlipidemia, A. fib/PE on ASA/Effient, Pancytopenia and h/o AVR who presented to the ER for near syncopal event Near Syncope: w/ associated dizziness, likely secondary to fatigue/decreased PO intake. -CT Head w/ no acute findings -PT for eval/tx. Pancytopenia: Recent admit 02/02-02/13/18, found to have Pancytopenia -Previously evaluated by Dr. Bell w/ plans for outpatient follow-up, -WBC 3.5, hgb 8.8, Platelets 121, previously WBC 2.8, Hgb 12.2 and platelets 156 on 02/12/18. -Hemoccult negative. Will Type & Screen, repeat labs for possible pRBC transfusion -Hematology consult for further eval/recommendations in light of ASA/Effient therapy, appreciate recommendation. Consulted cardiology for further evaluation possible cardiac issue. Started on Lovenox subcu every 12 hours. -Dr. Ross saw patient, recommend to continue aspirin, Effient -2D echo -Continue to monitor CBC Renal Insufficiency: Creatinine 1.14, previously 1.08 on 02/12/18 -check U/a -IVF for hydration -monitor I/O, repeat labs in am Chronic Anticoagulation: on ASA/Effient for h/o A-fib, found to have small PE on last admit -Caution w/ pancytopenia -Heme/Onc recommends low molecular weight heparin for now. 5DVT Prophylaxis: SCD/Teds Code Status: Full code Discussed Condition With: Patient, nursing Discharge Planning: Plan to DC home when clinically improved, cleared by hematology.
[2018-02-21] MEDS: Enoxaparin Inj 40 MG/0.4 ML Syringe SQ SCH ×2 (11:27→23:08)
[2018-02-21 13:35] LABS: Alanine Aminotransferase 18 U/L (10-53); Albumin 2.5 g/dL (3.4-5.0); Alkaline Phosphatase 105 U/L (45-117); Anion Gap 11 meq/L (5-15); Aspartate Aminotransferase 24 U/L (15-37); Blood Urea Nitrogen 23 mg/dL (7-18); Calcium 8.1 mg/dL (8.5-10.1); Carbon Dioxide 21.5 meq/L (21.0-32.0); Chloride 108 meq/L (98-107); Glomerular Filtration Rate 51 mL/min (>89); Glucose,Random 85 mg/dL (74-106); Potassium 4.2 meq/L (3.5-5.1); Sodium 140 meq/L (136-145); Total Protein 6.6 g/dL (6.4-8.2); Troponin I 0.03 ng/mL (0.02-0.05)
--- NOTE | 2018-02-21 14:55 | MB ---
cc: Sabine Ortiz MD,Uriel Ardon DO DATE: 02/21/2018 REFERRING PHYSICIAN: Uriel Early DO CHIEF COMPLAINT: Dr. Early requested consultation for Mrs. Mcgill regarding a history of pulmonary embolism and near-syncopal episode presentation. HISTORY OF PRESENT ILLNESS: Mrs. Mcgill is an 82-year-old woman, well known patient to my partner, Dr. Gordy Bell, and Dr. 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 She was recently admitted to the hospital mid January with shortness of breath, dyspnea. She was sent in from the galley stripper's office. She has chronic, rate controlled atrial fibrillation. She reports being on Effient and aspirin at the time of presentation on her initial admission mid January. CT angiogram showed a left lower extremity, proximal subsegmental pulmonary artery, pulmonary embolism. Echo did not show any right heart strain. She was seen by Cardiology and supported. She was seen by my partner, Dr. Gordy Bell. Ultimately, she was discharged home to continue on the Eliquis. She was ultimately discharged home on her Effient and aspirin as treatment for her atrial fibrillation and low volume pulmonary embolism. She comes in today via ambulance. Her supplements her story. Apparently, she was going about it and got dizzy. She suddenly felt nauseous and vomited once. She almost passed out. She was brought in to the hospital and CT of the head was negative. EKG evaluation was performed. She denies any acute shortness of breath. She denies any headaches or vision changes. She has no chest pain. Chest x-ray, however, showed a left lower lobe consolidation and atelectasis with mild left pleural effusion that was new compared to 2 weeks ago. Hematology/Oncology is consulted for anticoagulant therapy for pulmonary embolism. PAST MEDICAL HISTORY: Atrial fibrillation, hypercholesterolemia, hypothyroidism, macular degeneration, mitral regurgitation. PAST SURGICAL HISTORY: Bioprosthetic aortic valve replacement, history of mitral valve repair, coronary stent placement. FAMILY HISTORY: Significant for father with myocardial infarction. SOCIAL HISTORY: She is a former smoker. Lives with her . Denies any alcohol or illicit drug use. ALLERGIES: NO KNOWN DRUG ALLERGIES. CURRENT MEDICATIONS: Include Carvedilol, Lasix, hydrochlorothiazide, levothyroxine, lisinopril, Pravastatin, trazodone, aspirin, cefuroxime, mirtazapine. PHYSICAL EXAMINATION: VITAL SIGNS: Temperature 99.1, heart rate 96, respiratory rate 14, blood pressure 111/76. GENERAL: Mrs. Mcgill is an elderly, well-developed, kyphotic woman. She looks her stated age. She looks tired. HEENT: Pupils are round, reactive to light and accommodation. Oropharynx is dry. NECK: Supple. LUNGS: Clear. CARDIOVASCULAR: Reveals irregular rhythm, rate controlled. ABDOMEN: Benign. EXTREMITY: Lower extremities with no edema. LABORATORY DATA: Significant for worsening anemia with hemoglobin of 8.8. Previous hemoglobin 12.2 on 02/12/2018, platelet count 121, WBC 3.5. Chemistry significant for renal insufficiency with a BUN of 25, creatinine 1.14, glucose is mildly elevated. AST is mildly elevated. Troponin I is normal. ASSESSMENT AND PLAN: Mrs. Mcgill is an 82-year-old woman with multiple medical problems described above. She was recently admitted for shortness of breath and was found to have a small volume pulmonary embolism on the left. She was discharged home on Effient and aspirin. On further questioning, it is not clear if the patient is indeed taking her Effient. I have shown them the pill pictures. She thinks she is on it at home. Her will confirm. They believe that they were on aspirin and Effient at the time of development of her pulmonary embolism. She does not have any shortness of breath, but she had a near-syncopal episode. It is not clear if there is progression of her pulmonary embolism, which is suspected. She had no clot of the lower extremity at the time of her initial diagnosis in mid January. I defer from repeating a CT angiogram in light of her renal insufficiency. As a surrogate, I will obtain an echo to look at her right-sided pressures. Chest x-ray shows an infiltrate in the left lower lung. She is being followed. She has a low-grade temperature. We will continue to monitor. Infectious etiology may be the cause of her syncopal episode. Cardiology will be consulted. She is well known to Dr. Abrams. According to Dr. Abrams, should be on aspirin and Effient. We will confirm if cardiology recommendations. I had a lengthy discussion about options for anticoagulant therapy for pulmonary embolism. I am concerned about progression on antiplatelet therapy alone that may have led to the syncopal episode. For now, I will place her on low molecular weight heparin twice a day. I am mostly concerned about the decrease in hemoglobin. We will monitor closely for any bleeding events. A CBC repeat will be performed. I defer from using new oral anticoagulant in the hospital as there is no readily available reversal agent and its half life is quite long. We need to monitor her tolerability of anticoagulant therapy in light of the fact that she needs to be on antiplatelet therapy altogether. Hoping Cardiology may be able to shed some light about the near-syncopal episode that prompted her admission this time. Dr. Bell will resume her care when he returns on Friday. MD JEANINE Pena/[place]/brandon , 10:59 AM , 11:15 AM
--- NOTE | 2018-02-21 15:33 | ECG ---
Date Performed: 02/20/2018 Time Performed: 21:38:50 PTAGE: 82 years EKG: ATRIAL FIBRILLATION LEFT ANTERIOR FASCICULAR BLOCK ANTEROLATERAL MYOCARDIAL INFARCTION NONS PECIFIC T-WAVE CHANGE ABNORMAL ECG Compared to PREVIOUS TRACING , the ventricular response to the atrial fibrillation is much slower. Ot herwise no significant change. PREVIOUS TRACIN02/05/2018 16.12 DOCTOR: Jack Moore Interpretating Date/Time 02/21/2018 15:32:38
[2018-02-21 18:16] LABS: Baso % (Auto) 0.9 % (0.0-2.0); Eos % (Auto) 1.7 % (0.0-4.0); Hematocrit 28.9 % (35.0-46.0); Hemoglobin 9.8 gm/dL (11.6-15.3); Lymph # (Auto) 0.5 th/mm3 (1.0-4.8); Mean Corpuscular HGB Conc 33.9 % (32.0-36.0); Mean Corpuscular Hemoglobin 30.4 pg (27.0-34.0); Mean Corpuscular Volume 89.5 fL (80.0-100.0); Mean Platelet Volume 9.1 fL (7.0-11.0); Mono # (Auto) 0.3 th/mm3 (0.0-0.9); Mono % (Auto) 11.7 % (0.0-8.0); Neut # (Auto) 1.8 th/mm3 (1.8-7.7); Neut % (Auto) 67.7 % (16.0-70.0); Platelet Count 122 th/mm3 (150-450); Red Blood Count 3.22 mil/mm3 (4.00-5.30); Red Cell Distribution Width 14.9 % (11.6-17.2); White Blood Count 2.6 th/mm3 (4.0-11.0)
--- NOTE | 2018-02-21 21:12 | MB ---
cc: Jimmie Ross MD, [place] MD Barettella,Jimmie Osuna MD DATE: 02/21/2018 REASON FOR CONSULTATION: Weakness and lightheadedness. HISTORY OF PRESENT ILLNESS: Ms. Mcgill is an 82-year-old white female with a history of ASHD, paroxysmal atrial fibrillation, pulmonary embolus, prior non-ST elevation myocardial infarction, who presented to the emergency room because of lightheadedness and weakness. The patient denies any loss of consciousness. She says she has been feeling weak and has had a poor appetite over the past week or so. She has been having some intermittent episodes of palpitations and paroxysmal atrial fibrillation. She had 2 episodes of vomiting she says yesterday, but denies any diarrhea. On arrival, she was mildly hypotensive. She is found in atrial fibrillation with a controlled ventricular response. She is currently lying in bed, comfortable and in no distress. Her memory is poor and most of the details are obtained from the current chart. PAST MEDICAL HISTORY: Significant for paroxysmal atrial fibrillation, ASHD, angina, hypercholesterolemia, hypothyroidism, pulmonary embolism, macular degeneration, mitral regurgitation, aortic valve disease, status post aortic valve replacement. Non-ST elevation myocardial infarction due to stent thrombosis back in 10/2017. PAST SURGICAL HISTORY: Includes PCI here in 10/2014 urgently for a subacute stent thrombosis of the LAD with successful recanalization by Dr. Abrams. Prior to that, she had initial drug-eluting stent implant to the LAD at [facility]. The patient cannot remember exactly how long prior to that event here that was initially placed. She has known mild left ventricular dysfunction, ejection fraction of 45%-50%. She has a bioprosthetic valve, aortic valve and a history of mitral valve repair. All the dates of those surgeries are uncertain. FAMILY HISTORY: Noncontributory. ALLERGIES: NONE KNOWN. MEDICATIONS: 1. Tylenol p.r.n. 2. Amiodarone 200 mg b.i.d. 3. Carvedilol 6.25 mg b.i.d. 4. Lovenox 40 mg subcutaneous every 12 hours. 5. Pravastatin 20 mg b.i.d. 6. She was given one dose of ceftriaxone 1 g prior to admission. HOME MEDICATIONS: Listed in the ER medication rec include: 1. Carvedilol 6.25 mg b.i.d. 2. Furosemide 20 mg daily. 3. Hydrochlorothiazide 12.5 mg daily. 4. Levothyroxine 50 mcg daily. 5. Lisinopril 5 mg daily. 6. Pravastatin 20 mg b.i.d. 7. Trazodone 50 mg daily. 8. Aspirin 81 mg daily. 9. Cefuroxime 500 mg moreno 12 hours. 10. Mirtazapine 15 mg daily. 11. Amiodarone 200 mg daily. SOCIAL HISTORY: Denies tobacco, alcohol or illicit drug use. REVIEW OF SYSTEMS: Otherwise negative, except for that mentioned in the HPI, a complete 14-point review of systems is negative. PHYSICAL EXAMINATION: GENERAL: Reveals an elderly, thin, weak-appearing white female in no distress. VITAL SIGNS: Blood pressure 100/60 mmHg, heart rate is 71 and irregular, respiratory rate 12, temperature 97.6, oxygen saturation 100%. HEENT: Her head is normocephalic and atraumatic. Pupils equal, round, reactive to light. Sclerae are anicteric. Extraocular movements intact. NECK: Supple. There is no adenopathy. There is no jugular venous distention at 30 degrees. Carotid upstrokes are normal. There are no bruits. LUNGS: Clear. Decreased breath sounds bilaterally. HEART: PMI is not displaced. S1, S2 are irregular. No murmurs, gallops, clicks or rubs. ABDOMEN: Benign. EXTREMITIES: No cyanosis, clubbing or edema. PERFUSION: Adequate. EKG from last night shows atrial fibrillation with a ventricular response of 71 beats per minute. There is poor R-wave progression, nonspecific IVCD, consider anterolateral infarct, abnormal EKG. LABORATORY DATA: CBC: White count 3.5, hemoglobin 8.8, hematocrit 27.8, platelet count 121,000. Coags are normal. Chemistries and electrolytes are normal. BUN 25, creatinine 1.14. AST 43. Troponin I 0.04, CPK 65. Chest x-ray: Left lower lobe consolidation with suspected mild left pleural effusion. IMPRESSION: 1. Paroxysmal atrial fibrillation, rate currently controlled and asymptomatic. 2. History of atherosclerotic heart disease, status post myocardial infarction. 3. History of a drug-eluting stent, left anterior descending artery, in early 2017. 4. Left anterior descending artery stent thrombosis in 10/2017 requiring emergency intervention. 5. History of pulmonary embolism. 6. Thrombocytopenia and anemia. 7. Generalized weakness and fatigue. RECOMMENDATIONS: The patient has complicated medical issues. She is at increased risk of bleeding due to low platelet count, but because of her atrial fibrillation and previous stent thrombosis, is at increased risk for stroke and recurrent stent thrombosis. I reviewed the medications she is on, on discharge back in October, and since I do not have any updated information about her outpatient medications and office records, I will restart her on Prasugrel 5 mg daily and we will use Lovenox subcutaneous for now and if she is stable, will likely need to be discharged on anticoagulation therapy, probably in the form of Eliquis. Her other cardiac medications will be reviewed and restarted as tolerated. I will follow her with you. Thank you for allowing me to participate in the care of this patient. MD DESIRE Jessica/jl , 02:31 PM , 02:49 PM
[2018-02-22 00:54] LABS: Bacteria,Urine Rare /hpf; Bilirubin,Urine Negative (Negative); Clarity,Urine Hazy (Clear); Color,Urine Yellow (Yellw/Straw); Glucose,Urine (UA) Negative (Negative); Leukocyte Esterase,Urine Trace (Negative); Mucus,Urine Few /lpf (Occasional); Nitrite,Urine Negative (Negative); Specific Gravity,Urine 1.017 (1.002-1.035); Squamous Epithelial Cell,Urine <1 /hpf (0-5)
[2018-02-22] MEDS: Sod Chloride 0.9% Inj 1,000 ML IV.CONT SCH ×2 (01:10→11:14)
[2018-02-22 05:32] LABS: Baso % (Auto) 0.9 % (0.0-2.0); Eos # (Auto) 0.1 th/mm3 (0.0-0.4); Eos % (Auto) 3.7 % (0.0-4.0); Hematocrit 28.4 % (35.0-46.0); Hemoglobin 9.6 gm/dL (11.6-15.3); Lymph # (Auto) 0.7 th/mm3 (1.0-4.8); Lymph % (Auto) 24.5 % (9.0-44.0); Mean Corpuscular HGB Conc 33.8 % (32.0-36.0); Mean Corpuscular Hemoglobin 29.9 pg (27.0-34.0); Mean Corpuscular Volume 88.6 fL (80.0-100.0); Mean Platelet Volume 8.9 fL (7.0-11.0); Mono # (Auto) 0.4 th/mm3 (0.0-0.9); Mono % (Auto) 12.2 % (0.0-8.0); Neut # (Auto) 1.7 th/mm3 (1.8-7.7); Neut % (Auto) 58.7 % (16.0-70.0); Platelet Count 126 th/mm3 (150-450); Red Blood Count 3.21 mil/mm3 (4.00-5.30); Red Cell Distribution Width 14.8 % (11.6-17.2)
[2018-02-22 06:01] LABS: Calcium 7.2 mg/dL (8.5-10.1); Carbon Dioxide 23.3 meq/L (21.0-32.0); Potassium 3.8 meq/L (3.5-5.1)
[2018-02-22 06:16] LABS: Total Protein 5.2 g/dL (6.4-8.2)
--- NOTE | 2018-02-22 08:18 | P.PNCA ---
Subjective Interval history: Feeling much better. No lightheadedness, CP or SOB. Physical Exam Vital signs: Vital Signs 02/21/18 11:40 02/21/18 11:54 02/21/18 15:58 Temperature 97.6 F 99.7 F H Pulse Rate 71 72 92 H Respiratory Rate 12 12 Blood Pressure 100/60 98/66 L Pulse Oximetry 100 95 02/21/18 19:11 02/21/18 20:00 02/21/18 22:29 Temperature 98.8 F Pulse Rate 82 82 77 Respiratory Rate 16 18 Blood Pressure 88/52 L 90/60 L Pulse Oximetry 97 97 02/21/18 23:36 02/22/18 03:18 02/22/18 07:13 Temperature 98.2 F 98.7 F Pulse Rate 81 79 76 Respiratory Rate 16 18 Blood Pressure 96/51 L 95/57 L Pulse Oximetry 97 96 02/22/18 08:08 Temperature 97.9 F Pulse Rate 68 Respiratory Rate 20 Blood Pressure 110/62 Pulse Oximetry 18 L Intake & Output 02/21/18 02/22/18 02/22/18 18:59 06:59 18:59 Intake Total 1000 / 1000 1000 / 1000 Output Total 400 / 400 Balance 600 / 600 1000 / 1000 Intake: IV 1000 / 1000 1000 / 1000 NS Inj 1,000 ML @ 100 mls/hr IV 1000 / 1000 1000 / 1000 .CONT .Q10H TAL Rx#:[id number] Output: Urine 400 / 400 Other: # Voids 2 Date of Last Bowel Movement 02/21/18 # Bowel Movements 0 - Constitutional no acute distress - Routine Respiratory Exam Present: CTA bilaterally - Routine Cardiovascular Exam Present: RRR, S1, S2, murmur - Routine Neurological Exam Present: alert, oriented X3 Assessment and Plan - Assessment (1) History of aortic valve replacement Code(s): Z95.2 - Presence of prosthetic heart valve Status: Chronic (2) Pulmonary embolism Code(s): I26.99 - Other pulmonary embolism without acute cor pulmonale Status : Acute (3) A-fib Code(s): I48.91 - Unspecified atrial fibrillation Status: Acute (4) CAD (coronary artery disease) Code(s): I25.10 - Atherosclerotic heart disease of [place] coronary artery without angina pectoris Status: Acute (5) HTN (hypertension) Code(s): I10 - Essential (primary) hypertension Status: Acute (6) Near syncope Code(s): R55 - Syncope and collapse Status: Acute Plan: No LOC. Likely due to orthostatic hyopotension. Improved with fluids. Med adjustments. (7) S/P coronary artery stent placement Code(s): Z95.5 - Presence of coronary angioplasty implant and graft Status: Acute Plan: Continue Effient 5mg and ASA 81 md daily. - Plan Doing well. Will reduce Coreg 3.125 mg BID to avoid hypotension. Dr. Chaparro consultation reviewed. Will need to continue Effient /ASA after discharge. Also needs anticoagulat for CVA/PE prophylaxis. Eliquis or defer to Dr. Ortiz on this.
[2018-02-22] MEDS: Amiodarone 200 MG Tablet PO SCH ×2 (08:55→20:26)
[2018-02-22] MEDS: Enoxaparin Inj 40 MG/0.4 ML Syringe SQ SCH ×2 (08:55→20:26)
[2018-02-22] MEDS: Senna/Docusate Sodium 8.6/50 MG Tablet PO SCH ×2 (08:56→20:26)
--- NOTE | 2018-02-22 09:45 | P.PN ---
Subjective Interval history: Follow-up visit acute kidney injury, A. fib, PE, anemia. Patient seen and examined today. Reports she is doing okay. Patient was assisted to get out of bed to chair. Denies pain and discomfort. Denies SOB/ dyspnea. Denies chest pain, palpitations, headaches, dizziness. Denies fevers, chills, n/v/d. Denies hematuria, dysuria. Physical Exam Vital signs: Vital Signs 02/21/18 11:40 02/21/18 11:54 02/21/18 15:58 Temperature 97.6 F 99.7 F H Pulse Rate 71 72 92 H Respiratory Rate 12 12 Blood Pressure 100/60 98/66 L Pulse Oximetry 100 95 02/21/18 19:11 02/21/18 20:00 02/21/18 22:29 Temperature 98.8 F Pulse Rate 82 82 77 Respiratory Rate 16 18 Blood Pressure 88/52 L 90/60 L Pulse Oximetry 97 97 02/21/18 23:36 02/22/18 03:18 02/22/18 07:13 Temperature 98.2 F 98.7 F Pulse Rate 81 79 76 Respiratory Rate 16 18 Blood Pressure 96/51 L 95/57 L Pulse Oximetry 97 96 02/22/18 08:08 Temperature 97.9 F Pulse Rate 68 Respiratory Rate 20 Blood Pressure 110/62 Pulse Oximetry 18 L Intake & Output 02/21/18 02/22/18 02/22/18 18:59 06:59 18:59 Intake Total 1000 / 1000 1000 / 1000 Output Total 400 / 400 Balance 600 / 600 1000 / 1000 Intake: IV 1000 / 1000 1000 / 1000 NS Inj 1,000 ML @ 100 mls/hr IV 1000 / 1000 1000 / 1000 .CONT .Q10H [facility] Rx#:[id number] Output: Urine 400 / 400 Other: # Voids 2 Date of Last Bowel Movement 02/21/18 # Bowel Movements 0 Narrative: GENERAL: This is a thin appearing, elderly patient, in no apparent distress. SKIN: Warm and dry. Pale. HEENT: Normocephalic. Pupils equal round and reactive. Nose without bleeding. Airway patent. NECK: Trachea midline. Supple. CARDIOVASCULAR: Irregular and rhythm without murmurs, gallops, or rubs. RESPIRATORY: Diminished bases. No wheezes, rales, or rhonchi. GASTROINTESTINAL: Abdomen soft, non-tender, nondistended. Bowel Sounds normoactive x4. MUSCULOSKELETAL: Extremities without clubbing, cyanosis, or edema. NEUROLOGICAL: Awake and alert. No focal neuro deficit. Moves all extremities. Normal speech. Results - Labs CBC & Chem 7: 02/22/18 04:45 02/22/18 04:45 Laboratory Results - last 24 hr 02/20/18 02/21/18 02/21/18 23:50 12:46 17:09 WBC 2.6 L RBC 3.22 L Hgb 9.8 L Hct 28.9 L MCV 89.5 MCH 30.4 MCHC 33.9 RDW 14.9 Plt Count 122 L MPV 9.1 Neut % (Auto) 67.7 Lymph % (Auto) 18.0 [place] % (Auto) 11.7 H Eos % (Auto) 1.7 Baso % (Auto) 0.9 Neut # (Auto) 1.8 Lymph # (Auto) 0.5 L [place] # (Auto) 0.3 Eos # (Auto) 0.0 Baso # (Auto) 0.0 WBC Differential . Differential Comment Auto diff final Sodium 140 Potassium 4.2 D Chloride 108 H Carbon Dioxide 21.5 Anion Gap 11 BUN 23 H Creatinine 1.04 H Estimated GFR 51 L Random Glucose 85 Calcium 8.1 L Prot Corrected Calcium Total Bilirubin 0.6 AST 24 ALT 18 Alkaline Phosphatase 105 Troponin I 0.03 Total Protein 6.6 Albumin 2.5 L Urine Color Yellow Urine Clarity Hazy H Urine pH 5.0 Ur Specific [place] 1.017 Urine Protein Negative Urine Glucose (UA) Negative Urine Ketones Negative Urine Occult Blood Negative Urine Nitrate Negative Urine Bilirubin Negative Urine Urobilinogen Less than 2 Ur Leukocyte Esterase Trace H Urine RBC Less than 1 Urine WBC 4 Ur Squamous Epith Cells <1 Urine Bacteria Rare H Urine Mucus Few H Micro UA Comment Culture not ind Ur Microscopic Review Not Reportable Urine Culture Comments Culture not ind 02/22/18 02/22/18 04:45 04:45 WBC 3.0 L RBC 3.21 L Hgb 9.6 L Hct 28.4 L MCV 88.6 MCH 29.9 MCHC 33.8 RDW 14.8 Plt Count 126 L MPV 8.9 Neut % (Auto) 58.7 Lymph % (Auto) 24.5 [place] % (Auto) 12.2 H Eos % (Auto) 3.7 Baso % (Auto) 0.9 Neut # (Auto) 1.7 L Lymph # (Auto) 0.7 L [place] # (Auto) 0.4 Eos # (Auto) 0.1 Baso # (Auto) 0.0 WBC Differential . Differential Comment Auto diff final Sodium 144 Potassium 3.8 Chloride 111 H Carbon Dioxide 23.3 Anion Gap 10 BUN 22 H Creatinine 0.93 Estimated GFR 58 L Random Glucose 81 Calcium 7.2 L* D Prot Corrected Calcium 8.2 L Total Bilirubin AST ALT Alkaline Phosphatase Troponin I Total Protein 5.2 L D Albumin Urine Color Urine Clarity Urine pH Ur Specific [place] Urine Protein Urine Glucose (UA) Urine Ketones Urine Occult Blood Urine Nitrate Urine Bilirubin Urine Urobilinogen Ur Leukocyte Esterase Urine RBC Urine WBC Ur Squamous Epith Cells Urine Bacteria Urine Mucus Micro UA Comment Ur Microscopic Review Urine Culture Comments Assessment and Plan - Assessment (1) Near syncope Code(s): R55 - Syncope and collapse Status: Acute (2) Pancytopenia Code(s): D61.818 - Other pancytopenia Status: Acute (3) Renal insufficiency Code(s): N28.9 - Disorder of kidney and ureter, unspecified Status: Acute (4) Chronic anticoagulation Code(s): Z79.01 - [employer] (current) use of anticoagulants Status: Acute - Plan 82-year-old female with a PMH of HTN, Hyperlipidemia, A. fib/PE on ASA/Effient, Pancytopenia and h/o AVR who presented to the ER for near syncopal event Near Syncope: w/ associated dizziness, likely secondary to fatigue/decreased PO intake. -CT Head w/ no acute findings -PT for eval/tx. Pancytopenia: Recent admit 02/02-02/13/18, found to have Pancytopenia -Previously evaluated by Dr. Bell w/ plans for outpatient follow-up, -WBC 3.5, hgb 8.8, Platelets 121, previously WBC 2.8, Hgb 12.2 and platelets 156 on 02/12/18. -Hemoccult negative. Will Type & Screen, repeat labs for possible pRBC transfusion -Hematology consult for further eval/recommendations in light of ASA/Effient therapy, appreciate recommendation. Consulted cardiology for further evaluation possible cardiac issue. Started on Lovenox subcu every 12 hours. -Dr. Barettella saw patient, recommend to continue aspirin, Effient and possible Eliquis on DC -Cont Lovenox now -2D echo pending -Continue to monitor CBC, stable for now Renal Insufficiency: Creatinine 1.14, previously 1.08 on 02/12/18 -check U/a -IVF for hydration -monitor I/O, repeat labs in am Chronic Anticoagulation: on ASA/Effient for h/o A-fib, found to have small PE on last admit -Caution w/ pancytopenia -Heme/Onc recommends low molecular weight heparin for now. -Possible Eliquis on DC to transition Hypotension -Decrease Coreg per cardiology 5DVT Prophylaxis: SCD/Teds Code Status: Full Code Discussed Condition With: Patient, nursing Discharge Planning: Plan to DC home when clinically improved, cleared by hematology.
--- NOTE | 2018-02-22 12:06 | P.PNONC ---
Subjective Interval history: Afebrile Had some shortness of breath with activity this morning No further dizziness or syncopal episodes Reports she just brushed her teeth and did not have any bleeding of her gums Objective Vital Signs/Intake & Output: Vital Signs 02/21/18 15:58 02/21/18 19:11 02/21/18 20:00 Temperature 99.7 F H 98.8 F Pulse Rate 92 H 82 82 Respiratory Rate 12 16 Blood Pressure 98/66 L 88/52 L Pulse Oximetry 95 97 02/21/18 22:29 02/21/18 23:36 02/22/18 03:18 Temperature 98.2 F 98.7 F Pulse Rate 77 81 79 Respiratory Rate 18 16 18 Blood Pressure 90/60 L 96/51 L 95/57 L Pulse Oximetry 97 97 96 02/22/18 07:13 02/22/18 08:08 Temperature 97.9 F Pulse Rate 76 68 Respiratory Rate 20 Blood Pressure 110/62 Pulse Oximetry 18 L Intake & Output 02/21/18 02/22/18 02/22/18 18:59 06:59 18:59 Intake Total 1000 / 1000 1000 / 1000 1000 / 1000 Output Total 400 / 400 Balance 600 / 600 1000 / 1000 1000 / 1000 Intake: IV 1000 / 1000 1000 / 1000 1000 / 1000 NS Inj 1,000 ML @ 100 mls/hr IV 1000 / 1000 1000 / 1000 1000 / 1000 .CONT .Q10H [facility] Rx#:[id number] Output: Urine 400 / 400 Other: # Voids 2 Date of Last Bowel Movement 02/21/18 # Bowel Movements 0 Result Diagrams: 02/22/18 04:45 02/22/18 04:45 Laboratory Results: Laboratory Results - last 24 hr 02/20/18 02/21/18 02/21/18 23:50 12:46 17:09 WBC 2.6 L RBC 3.22 L Hgb 9.8 L Hct 28.9 L MCV 89.5 MCH 30.4 MCHC 33.9 RDW 14.9 Plt Count 122 L MPV 9.1 Neut % (Auto) 67.7 Lymph % (Auto) 18.0 [place] % (Auto) 11.7 H Eos % (Auto) 1.7 Baso % (Auto) 0.9 Neut # (Auto) 1.8 Lymph # (Auto) 0.5 L [place] # (Auto) 0.3 Eos # (Auto) 0.0 Baso # (Auto) 0.0 WBC Differential . Differential Comment Auto diff final Sodium 140 Potassium 4.2 D Chloride 108 H Carbon Dioxide 21.5 Anion Gap 11 BUN 23 H Creatinine 1.04 H Estimated GFR 51 L Random Glucose 85 Calcium 8.1 L Prot Corrected Calcium Total Bilirubin 0.6 AST 24 ALT 18 Alkaline Phosphatase 105 Troponin I 0.03 Total Protein 6.6 Albumin 2.5 L Urine Color Yellow Urine Clarity Hazy H Urine pH 5.0 Ur Specific [employer] 1.017 Urine Protein Negative Urine Glucose (UA) Negative Urine Ketones Negative Urine Occult Blood Negative Urine Nitrate Negative Urine Bilirubin Negative Urine Urobilinogen Less than 2 Ur Leukocyte Esterase Trace H Urine RBC Less than 1 Urine WBC 4 Ur Squamous Epith Cells <1 Urine Bacteria Rare H Urine Mucus Few H Micro UA Comment Culture not ind Ur Microscopic Review Not Reportable Urine Culture Comments Culture not ind 02/22/18 02/22/18 04:45 04:45 WBC 3.0 L RBC 3.21 L Hgb 9.6 L Hct 28.4 L MCV 88.6 MCH 29.9 MCHC 33.8 RDW 14.8 Plt Count 126 L MPV 8.9 Neut % (Auto) 58.7 Lymph % (Auto) 24.5 [place] % (Auto) 12.2 H Eos % (Auto) 3.7 Baso % (Auto) 0.9 Neut # (Auto) 1.7 L Lymph # (Auto) 0.7 L [place] # (Auto) 0.4 Eos # (Auto) 0.1 Baso # (Auto) 0.0 WBC Differential . Differential Comment Auto diff final Sodium 144 Potassium 3.8 Chloride 111 H Carbon Dioxide 23.3 Anion Gap 10 BUN 22 H Creatinine 0.93 Estimated GFR 58 L Random Glucose 81 Calcium 7.2 L* D Prot Corrected Calcium 8.2 L Total Bilirubin AST ALT Alkaline Phosphatase Troponin I Total Protein 5.2 L D Albumin Urine Color Urine Clarity Urine pH Ur Specific [employer] Urine Protein Urine Glucose (UA) Urine Ketones Urine Occult Blood Urine Nitrate Urine Bilirubin Urine Urobilinogen Ur Leukocyte Esterase Urine RBC Urine WBC Ur Squamous Epith Cells Urine Bacteria Urine Mucus Micro UA Comment Ur Microscopic Review Urine Culture Comments Medications: Active Medications Generic Name Dose Route Start Last Admin Trade Name Freq PRN Reason Stop Dose Admin Amiodarone HCl 200 mg 02/21/18 09:00 02/22/18 08:55 Cordarone PO 200 mg BID [facility] Administration Aspirin 81 mg 02/22/18 09:00 02/22/18 08:56 Ecotrin PO 81 mg DAILY TAL Administration Carvedilol 3.125 mg 02/22/18 09:00 02/22/18 08:56 Coreg PO 3.125 mg BID TAL Administration Enoxaparin Sodium 40 mg 02/21/18 11:00 02/22/18 08:55 Lovenox Inj SQ 40 mg Q12HR [facility] Administration Sodium Chloride 1,000 mls @ 0 mls/hr 02/20/18 22:30 02/21/18 05:16 Ns Inj IV.SIG Infused BOLUS TAL Infusion Wide Open Sodium Chloride 1,000 mls @ 100 mls/hr 02/21/18 03:30 02/22/18 11:14 Ns Inj IV.CONT 100 mls/hr .Q10H [facility] Administration Prasugrel 5 mg 02/21/18 14:45 02/22/18 08:55 Effient PO 5 mg DAILY TAL Administration Pravastatin Sodium 20 mg 02/21/18 09:00 02/22/18 08:56 Pravachol PO 20 mg BID TAL Administration Senna/Docusate Sodium 1 tab 02/21/18 09:00 02/22/18 08:56 Coretta-Colace PO 1 tab BID TAL Administration Objective Remarks: GENERAL: Thin elderly female resting in bed in no obvious distress. She is speaking in easy conversation. SKIN: Warm and dry. HEAD: Normocephalic. EYES: No scleral icterus. No injection or drainage. NECK: Supple, trachea midline. No JVD or lymphadenopathy. CARDIOVASCULAR: Regular rate and rhythm without murmurs. RESPIRATORY: Breath sounds equal bilaterally. No accessory muscle use. GASTROINTESTINAL: Abdomen soft, non-tender, nondistended. EXTREMITIES: No cyanosis, or edema. MUSCULOSKELETAL: Adequate muscle tone. NEUROLOGICAL: No obvious focal deficit. Awake, alert, and oriented x3. Assessment/Plan - Plan 82-year-old female admitted with progressive fatigue, weight loss and dizziness recently found to have pulmonary embolism; readmitted after she had syncopal episode 1. Patient tolerating Lovenox. No bleeding. 2. Likely transition her to new oral anticoagulant. Reviewed Dr. oRss's note who recommends Eliquis. 3. Monitor CBC. - Attending Statement The exam, history, and the medical decision-making described in the above note were completed with the assistance of the mid-level provider. I reviewed and agree with the findings presented. I attest that I had a [id number] encounter with the patient on the same day, and personally performed and documented my assessment and findings in the medical record. Echo still pending. Appreciate cardiology consultation. Effient and aspirin continues. There is good rationale for continuing this in light of her high risk coronary artery disease as described by Dr. Ross. She is tolerating Lovenox so far. Case management will be consulted to answer the patient's question of how much Eliquis is going to cost. In light of her age older than 79 and her renal insufficiency I recommend a dose of Eliquis to be 2.5 mg twice daily which she can start at discharge. CBC shows a stable hemoglobin. There is no evidence of bleeding. She is improved clinically.
[2018-02-22] MEDS: Sodium Chloride 0.45 % Inj 1,000 ML IV.CONT SCH (15:27)
[2018-02-23] MEDS: Sodium Chloride 0.45 % Inj 1,000 ML IV.CONT SCH (01:30)
[2018-02-23 06:43] LABS: Eos # (Auto) 0.1 th/mm3 (0.0-0.4); Eos % (Auto) 3.6 % (0.0-4.0); Hematocrit 29.7 % (35.0-46.0); Lymph # (Auto) 0.8 th/mm3 (1.0-4.8); Lymph % (Auto) 23.7 % (9.0-44.0); Mean Corpuscular HGB Conc 33.7 % (32.0-36.0); Mean Corpuscular Hemoglobin 30.5 pg (27.0-34.0); Mean Corpuscular Volume 90.6 fL (80.0-100.0); Mono # (Auto) 0.3 th/mm3 (0.0-0.9); Mono % (Auto) 9.8 % (0.0-8.0); Neut # (Auto) 2.1 th/mm3 (1.8-7.7); Neut % (Auto) 61.9 % (16.0-70.0); Platelet Count 122 th/mm3 (150-450); Red Blood Count 3.28 mil/mm3 (4.00-5.30); Red Cell Distribution Width 14.9 % (11.6-17.2); White Blood Count 3.4 th/mm3 (4.0-11.0)
[2018-02-23] MEDS: Enoxaparin Inj 40 MG/0.4 ML Syringe SQ SCH ×2 (08:31→20:46)
[2018-02-23] MEDS: Amiodarone 200 MG Tablet PO SCH ×2 (08:31→20:46)
[2018-02-23] MEDS: Senna/Docusate Sodium 8.6/50 MG Tablet PO SCH ×2 (08:31→20:46)
--- NOTE | 2018-02-23 09:01 | P.PNCA ---
Subjective Interval history: No complaints. Poor appetite. ELLIS. Ambulating with PT Physical Exam Vital signs: Vital Signs 02/22/18 12:09 02/22/18 12:36 02/22/18 15:42 Temperature 98.2 F Pulse Rate 69 70 74 Respiratory Rate 20 Blood Pressure 90/50 L Pulse Oximetry 98 02/22/18 16:28 02/22/18 20:00 02/22/18 23:41 Temperature 98.6 F 98.1 F 98.2 F Pulse Rate 73 81 77 Respiratory Rate 18 16 16 Blood Pressure 89/50 L 108/75 109/72 Pulse Oximetry 96 98 97 02/23/18 00:50 02/23/18 03:52 02/23/18 07:48 Temperature 98.2 F 97.6 F Pulse Rate 75 76 77 Respiratory Rate 17 16 Blood Pressure 105/69 120/71 Pulse Oximetry 95 100 Intake & Output 02/22/18 02/23/18 02/23/18 18:59 06:59 18:59 Intake Total 1999 1000 / 1000 Balance 1999 1000 / 1000 Intake: IV 1999 1000 / 1000 NS Inj 1,000 ML @ 100 mls/hr IV 1999 .CONT .Q10H [facility] Rx#:[id number] 1/2 Normal Saline Inj 1,000 ML 1000 / 1000 @ 100 mls/hr IV.CONT .Q10H [facility] Rx#:[id number] Other: # Voids 3 2 Date of Last Bowel Movement 02/22/18 02/22/18 02/22/18 # Bowel Movements 1 1 - Constitutional no acute distress - Routine Respiratory Exam Present: CTA bilaterally - Routine Cardiovascular Exam Present: RRR, S1, S2, murmur Assessment and Plan - Assessment (1) History of aortic valve replacement Code(s): Z95.2 - Presence of prosthetic heart valve Status: Chronic (2) Pulmonary embolism Code(s): I26.99 - Other pulmonary embolism without acute cor pulmonale Status : Acute (3) A-fib Code(s): I48.91 - Unspecified atrial fibrillation Status: Acute (4) CAD (coronary artery disease) Code(s): I25.10 - Atherosclerotic heart disease of [place] coronary artery without angina pectoris Status: Acute (5) HTN (hypertension) Code(s): I10 - Essential (primary) hypertension Status: Acute (6) Near syncope Code(s): R55 - Syncope and collapse Status: Acute Plan: No LOC. Likely due to orthostatic hyopotension. Improved with fluids. Med adjustments. (7) S/P coronary artery stent placement Code(s): Z95.5 - Presence of coronary angioplasty implant and graft Status: Acute Plan: Continue Effient 5mg and ASA 81 md daily. - Plan Doing well. D/C IVF. Continue Coreg 3.125 mg BID to avoid hypotension. Dr. Chaparro' note reviewed. Plans for Eliquis 2.5 mg BID upon discharge. Will need to continue Effient /ASA after discharge. Dr. Vera back tomorrow
--- NOTE | 2018-02-23 11:05 | P.PN ---
Subjective Interval history: Follow-up visit acute kidney injury, A. fib, PE, anemia. Patient seen and examined today. Reports she is doing okay. Denies pain and discomfort. Denies SOB/ dyspnea. Denies chest pain, palpitations, headaches, dizziness. Denies fevers, chills, n/v/d. Denies hematuria, dysuria. Physical Exam Vital signs: Vital Signs 02/22/18 12:09 02/22/18 12:36 02/22/18 15:42 Temperature 98.2 F Pulse Rate 69 70 74 Respiratory Rate 20 Blood Pressure 90/50 L Pulse Oximetry 98 02/22/18 16:28 02/22/18 20:00 02/22/18 23:41 Temperature 98.6 F 98.1 F 98.2 F Pulse Rate 73 81 77 Respiratory Rate 18 16 16 Blood Pressure 89/50 L 108/75 109/72 Pulse Oximetry 96 98 97 02/23/18 00:50 02/23/18 03:52 02/23/18 07:48 Temperature 98.2 F 97.6 F Pulse Rate 75 76 77 Respiratory Rate 17 16 Blood Pressure 105/69 120/71 Pulse Oximetry 95 100 02/23/18 10:07 Temperature Pulse Rate 74 Respiratory Rate Blood Pressure Pulse Oximetry Intake & Output 02/22/18 02/23/18 02/23/18 18:59 06:59 18:59 Intake Total 1999 1000 / 1000 Balance 1999 1000 / 1000 Intake: IV 1999 1000 / 1000 NS Inj 1,000 ML @ 100 mls/hr IV 1999 .CONT .Q10H [facility] Rx#:[id number] / Normal Saline Inj 1,000 ML 1000 / 1000 @ 100 mls/hr IV.CONT .Q10H [facility] Rx#:[id number] Other: # Voids 3 2 Date of Last Bowel Movement 02/22/18 02/22/18 02/22/18 # Bowel Movements 1 1 Narrative: GENERAL: This is a thin appearing, elderly patient, in no apparent distress. SKIN: Warm and dry. Pale. HEENT: Normocephalic. Pupils equal round and reactive. Nose without bleeding. Airway patent. NECK: Trachea midline. Supple. CARDIOVASCULAR: Irregular and rhythm without murmurs, gallops, or rubs. RESPIRATORY: Diminished bases. No wheezes, rales, or rhonchi. GASTROINTESTINAL: Abdomen soft, non-tender, nondistended. Bowel Sounds normoactive x4. MUSCULOSKELETAL: Extremities without clubbing, cyanosis, or edema. NEUROLOGICAL: Awake and alert. No focal neuro deficit. Moves all extremities. Normal speech. Results - Labs CBC & Chem 7: 02/23/18 05:52 02/22/18 04:45 Laboratory Results - last 24 hr 02/23/18 05:52 WBC 3.4 L RBC 3.28 L Hgb 10.0 L Hct 29.7 L MCV 90.6 MCH 30.5 MCHC 33.7 RDW 14.9 Plt Count 122 L MPV 9.0 Neut % (Auto) 61.9 Lymph % (Auto) 23.7 [place] % (Auto) 9.8 H Eos % (Auto) 3.6 Baso % (Auto) 1.0 Neut # (Auto) 2.1 Lymph # (Auto) 0.8 L [place] # (Auto) 0.3 Eos # (Auto) 0.1 Baso # (Auto) 0.0 WBC Differential . Differential Comment Auto diff final Assessment and Plan - Assessment (1) Near syncope Code(s): R55 - Syncope and collapse Status: Acute (2) Pancytopenia Code(s): D61.818 - Other pancytopenia Status: Acute (3) Renal insufficiency Code(s): N28.9 - Disorder of kidney and ureter, unspecified Status: Acute (4) Chronic anticoagulation Code(s): Z79.01 - retirement (current) use of anticoagulants Status: Acute - Plan 82-year-old female with a PMH of HTN, Hyperlipidemia, A. fib/PE on ASA/Effient, Pancytopenia and h/o AVR who presented to the ER for near syncopal event Near Syncope: w/ associated dizziness, likely secondary to fatigue/decreased PO intake. -CT Head w/ no acute findings -PT for eval/tx. PE, small Pancytopenia: Recent admit 02/02-02/13/18, found to have Pancytopenia -Previously evaluated by Dr. Bell w/ plans for outpatient follow-up, -WBC 3.5, hgb 8.8, Platelets 121, previously WBC 2.8, Hgb 12.2 and platelets 156 on 02/12/18. -Hemoccult negative. Will Type & Screen, repeat labs for possible pRBC transfusion -Hematology consult for further eval/recommendations in light of ASA/Effient therapy, appreciate recommendation. Consulted cardiology for further evaluation possible cardiac issue. Started on Lovenox subcu every 12 hours. -Dr. Ross saw patient, recommend to continue aspirin, Effient and Eliquis 2.5mg on DC -Cont Lovenox now -2D echo today -Continue to monitor CBC, stable for now Renal Insufficiency: Creatinine 1.14, previously 1.08 on 02/12/18 -DC IVF -monitor I/O -Improved Chronic Anticoagulation: on ASA/Effient for h/o A-fib, found to have small PE on last admit -Caution w/ pancytopenia -Heme/Onc recommends low molecular weight heparin for now. -Possible Eliquis on DC to transition Hypotension -Decrease Coreg per cardiology DVT Prophylaxis: SCD/Teds Code Status: Full Code Discussed Condition With: Patient, nursing Discharge Planning: Plan to DC home with C when cleared by hematology.
--- NOTE | 2018-02-23 11:06 | P.DCO ---
- Physical Therapy Order: Evaluate and treat - Occupational Therapy Order: Evaluate and treat - Home Health Nursing Order: Medical education, Signs/symptoms of disease process, Medication education-adverse effect, Nursing assessment with vital signs - Certification I have seen patient Mary Mcgill on 02/23/18. My clinical findings support the need for the requested home health care services because: Limited mobility due to disease progression, Deconditioned with increased weakness I certify that my clinical findings support that this patient is homebound because: Unsteady gait/balance, Poor cardiac reserve
[2018-02-23] MEDS: Levothyroxine 50 MCG Tablet PO SCH (14:53)
--- NOTE | 2018-02-23 17:40 | ECHRPT ---
Indication: A FIB FLUTTER CONCLUSIONS Mildly dilated left ventricle. Wall thickness is normal. The left ventricular systolic function is severely reduced with an estimated ejection fraction in th e range of 20-25%. There is hypokinesis with distinct regional wall motion abnormalities. moderate to severe mitral valve regurgitation. mild aortic valve regurgitation. Aortic valve mean gradient is 11 mmHg. aortic valve prosthesis is noted There is severe tricuspid valve regurgitation. There is estimated severe pulmonary hypertension present ( 80 mmHg). A large left sided pleural effusion is noted. BP: / HR: Rhythm: MEASUREMENTS (Male / Female) Normal Values Technical Quality: 2D ECHO LV Diastolic Diameter PLAX 5.1 cm 4.2 - 5.9 / 3.9 - 5.3 cm LV Systolic Diameter PLAX 4.6 cm IVS Diastolic Thickness 1.0 cm 0.6 - 1.0 / 0.6 - 0.9 cm LVPW Diastolic Thickness 0.9 cm 0.6 - 1.0 / 0.6 - 0.9 cm LV Relative Wall Thickness 0.4 LVOT Diameter 1.8 cm LA Systolic Diameter LX 3.2 cm 3.0 - 4.0 / 2.7 - 3.8 cm DOPPLER AV Peak Velocity 216.3 cm/s AV Peak Gradient 18.7 mmHg AV Mean Gradient 11.3 mmHg AV Velocity Time Integral 40.7 cm AI Peak Velocity 329.5 cm/s AI Peak Gradient 43.4 mmHg AI Pressure Half Time 494.0 ms LVOT Peak Velocity 148.0 cm/s LVOT Peak Gradient 8.8 mmHg AV Area Cont Eq pk 1.7 cm Mitral E Point Velocity 82.1 cm/s LV E' Lateral Velocity 12.2 cm/s Mitral E to LV E' Lateral Ratio 6.7 LV E' Septal Velocity 4.3 cm/s Mitral E to LV E' Septal Ratio 19.1 TR Peak Velocity 410.0 cm/s TR Peak Gradient 67.2 mmHg Right Atrial Pressure 15.0 mmHg Pulmonary Artery Systolic Pressu 82.2 mmHg Right Ventricular Systolic Press 82.2 mmHg PV Peak Velocity 151.0 cm/s PV Peak Gradient 9.1 mmHg FINDINGS LEFT VENTRICLE Mildly dilated left ventricle. Wall thickness is normal. The left ventricular systolic function is severely reduced with an estimated ejection fraction in th e range of 20-25%. There is hypokinesis with distinct regional wall motion abnormalities. RIGHT VENTRICLE Normal right ventricular size and systolic function. LEFT ATRIUM The left atrial size is normal. RIGHT ATRIUM The right atrial size is normal. ATRIAL SEPTUM Normal atrial septal thickness without atrial level shunting by limited color doppler interrogation. AORTA The aortic root and proximal ascending aorta are normal in size on limited imaging. MITRAL VALVE Trace mitral valve regurgitation. AORTIC VALVE Trace aortic valve regurgitation. Aortic valve mean gradient is 11 mmHg. aortic valve prosthesis is noted TRICUSPID VALVE There is mild tricuspid valve regurgitation. There is estimated severe pulmonary hypertension present ( 80 mmHg). PULMONARY VALVE No pulmonary valve regurgitation or stenosis. VESSELS The inferior vena cava is normal in size. PERICARDIUM A large left sided pleural effusion is noted. Manish Becker MD, FACC, FSCAI (Electronically Signed) Final Date:23 February 2018 17:38
[2018-02-24 00:24] VITALS: RESP 16
[2018-02-24] MEDS: Levothyroxine 50 MCG Tablet PO SCH (05:59)
[2018-02-24 07:35] VITALS: O2SAT 100
--- NOTE | 2018-02-24 07:57 | P.PNONC ---
Subjective Interval history: Patient seen and examined, vital signs, labs, medications, admission notes and workday consultant notes reviewed. Subjectively; patient reports feeling well, she denies having residual symptoms of dizziness, she denies nausea or lightheadedness. She specifically denies difficulty breathing, chest pain or orthopnea. She also denies having overt bleeding. She does report some bruising on her belly at the site of Lovenox injection. Objective Vital Signs/Intake & Output: Vital Signs 02/23/18 07:48 02/23/18 10:07 02/23/18 16:00 Temperature 97.6 F 97.6 F Pulse Rate 77 74 76 Respiratory Rate 16 16 Blood Pressure 120/71 122/78 Pulse Oximetry 100 100 02/23/18 19:57 02/24/18 00:00 02/24/18 03:59 Temperature 98.5 F 98.5 F 98.2 F Pulse Rate 77 72 74 Respiratory Rate 17 16 16 Blood Pressure 114/76 109/70 114/78 Pulse Oximetry 96 99 98 02/24/18 05:22 02/24/18 07:32 02/24/18 07:39 Temperature 97.5 F L Pulse Rate 76 73 70 Respiratory Rate 16 Blood Pressure 115/77 Pulse Oximetry 100 Intake & Output 02/23/18 02/24/18 02/24/18 18:59 06:59 18:59 Other: # Voids 2 Date of Last Bowel Movement 02/22/18 02/23/18 # Bowel Movements 1 Result Diagrams: 02/23/18 05:52 02/22/18 04:45 Medications: Active Medications Generic Name Dose Route Start Last Admin Trade Name Yves PRN Reason Stop Dose Admin Amiodarone HCl 200 mg 02/21/18 09:00 02/23/18 20:46 Cordarone PO 200 mg BID TAL Administration Aspirin 81 mg 02/22/18 09:00 02/23/18 08:31 Ecotrin PO 81 mg DAILY TAL Administration Carvedilol 3.125 mg 02/22/18 09:00 02/23/18 20:48 Coreg PO 3.125 mg BID TAL Administration Enoxaparin Sodium 40 mg 02/21/18 11:00 02/23/18 20:46 Lovenox Inj SQ 40 mg Q12HR TAL Administration Sodium Chloride 1,000 mls @ 0 mls/hr 02/20/18 22:30 02/21/18 05:16 Ns Inj IV.SIG Infused BOLUS TAL Infusion Wide Open Levothyroxine Sodium 50 mcg 02/23/18 14:00 02/24/18 05:59 Synthroid PO 50 mcg DAILY@0600 TAL Administration Mirtazapine 15 mg 02/23/18 15:00 02/23/18 14:53 Remeron Soltab Odt PO 15 mg DAILY TAL Administration Prasugrel 5 mg 02/21/18 14:45 02/23/18 08:31 Effient PO 5 mg DAILY TAL Administration Pravastatin Sodium 20 mg 02/21/18 09:00 02/23/18 20:46 Pravachol PO 20 mg BID TAL Administration Senna/Docusate Sodium 1 tab 02/21/18 09:00 02/23/18 20:46 Coretta-Colace PO Not Given BID TAL Objective Remarks: GENERAL: Elderly lady, laying in bed, awake, alert, conversant she appears to be oriented. SKIN: Warm and dry, bruising noted over the forearms and on the legs anteriorly. HEAD: Normocephalic. EYES: No scleral icterus. No injection or drainage. NECK: Supple, trachea midline. No JVD or lymphadenopathy. LYMPHATIC: No adenopathy. CARDIOVASCULAR: Regular rate and rhythm without murmurs. RESPIRATORY: Good air movement bilaterally, decreased bibasilar breath sounds, no wheezes or rhonchi. GASTROINTESTINAL: Abdomen soft, non-tender, nondistended. EXTREMITIES: No cyanosis, or edema. MUSCULOSKELETAL: Adequate muscle tone. NEUROLOGICAL: No obvious focal deficit. Awake, alert, and oriented x3. PSYCHIATRIC: Appropriate mood and affect; insight and judgment normal. Assessment/Plan - Plan 82-year-old female admitted to this facility with progressive fatigue, dizziness and nausea. She was diagnosed in January 2018 with a small volume pulmonary embolus involving a second order branch of the left lower lobe pulmonary artery. She does have significant history of coronary artery disease with an in stent thrombosis which was discovered earlier this year when the patient presented to this facility with acute coronary syndrome. She was found to have complete occlusion of a proximal LAD stent which had originally been placed in 2016. The patient was at that time on Plavix as an antiplatelet agent. After the occluded stent was revascularized and a new stent was placed the patient was initiated on dual antiplatelet therapy with Effient plus aspirin. She has to date not had recurrent acute coronary syndrome. Last month this lady presented to this facility with symptoms of hypotension, tachycardia, difficulty breathing and low-grade fever. She was admitted to the intensive care unit and was managed for sepsis. As a part of the initial workup she underwent a CT angiogram which revealed a small volume pulmonary embolus which was likely not contributing to her initial presentation. Ultrasound Doppler studies of the lower extremities were negative for deep venous thromboses. The initial reaction was to initiate therapeutic anticoagulation. However, upon extensive discussion with the patient's primary supervisor customer complaint service Dr. Abrams ( who had performed the patient's most recent intra-coronary intervention and stent placement earlier this year) we discussed the significantly increased risk of bleeding if the patient were to remain on dual antiplatelet therapy and if the patient was to be initiated on therapeutic anticoagulation. Based on Dr. Abrams's observation of the in-stent thrombosis the patient's assessed risk of recurrent in-stent thrombosis was unacceptably high should antiplatelet therapy be de-escalated to allow administration of anti-coagulation. Therefore , considering the relatively low pulmonary embolus volume and the relative lack of symptoms associated with this pulmonary embolus a decision was made to continue dual antiplatelet therapy to prevent recurrent in-stent thrombosis of 1 of her coronary artery stents. Recurrent in-stent thrombosis would likely prove to be fatal for this patient. We decided at the conclusion of the patient's most recent hospitalization to continue her on dual antiplatelet therapy. "Triple therapy "with Effient, aspirin and an anticoagulant such as Eliquis, Xarelto or Lovenox or warfarin for that matter was avoided due to the unacceptably high risk of bleeding in this elderly frail lady. For for these reasons I would advise not anticoagulating this patient given her unique set of circumstances which include her age, her coronary artery issues and relatively low clot burden associated with the pulmonary embolus. It would therefore be my recommendation to Effient and aspirin alone and to avoid a third agent for anticoagulation. Please note this case has been extensively discussed with the patient's primary supervisor customer complaint service in the past. As to her recent symptoms of dizziness, I am not certain what caused these but the patient associates these with nausea and an upset stomach. It is possible that this patient was simply dehydrated upon her presentation. Her pulmonary embolus may have had little to do with her present presentation to this facility.
[2018-02-24] MEDS: Amiodarone 200 MG Tablet PO SCH (08:13)
[2018-02-24] MEDS: Enoxaparin Inj 40 MG/0.4 ML Syringe SQ SCH (08:16)
[2018-02-24] MEDS: Senna/Docusate Sodium 8.6/50 MG Tablet PO SCH (08:16)
--- NOTE | 2018-02-24 10:08 | P.PNIM ---
Subjective Interval history: No dizziness or lightheadedness, no chest pain or shortness of breath. Discussed the plan about keeping Effient and aspirin and no anticoagulation. Patient and agrees. They are moving to [place] in a few days. Physical Exam Vital signs: Vital Signs 02/23/18 16:00 02/23/18 19:57 02/24/18 00:00 Temperature 97.6 F 98.5 F 98.5 F Pulse Rate 76 77 72 Respiratory Rate 16 17 16 Blood Pressure 122/78 114/76 109/70 Pulse Oximetry 100 96 99 02/24/18 03:59 02/24/18 05:22 02/24/18 07:32 Temperature 98.2 F 97.5 F L Pulse Rate 74 76 73 Respiratory Rate 16 16 Blood Pressure 114/78 115/77 Pulse Oximetry 98 100 02/24/18 07:39 Temperature Pulse Rate 70 Respiratory Rate Blood Pressure Pulse Oximetry Intake & Output 02/23/18 02/24/18 02/24/18 18:59 06:59 18:59 Other: # Voids 2 Date of Last Bowel Movement 02/22/18 02/23/18 # Bowel Movements 1 Narrative: GENERAL: This is a thin appearing, elderly patient, in no apparent distress. SKIN: Warm and dry. Pale. HEENT: Normocephalic. Pupils equal round and reactive. Nose without bleeding. Airway patent. NECK: Trachea midline. Supple. CARDIOVASCULAR: Irregular and rhythm without murmurs, gallops, or rubs. RESPIRATORY: Diminished bases. No wheezes, rales, or rhonchi. GASTROINTESTINAL: Abdomen soft, non-tender, nondistended. Bowel Sounds normoactive x4. MUSCULOSKELETAL: Extremities without clubbing, cyanosis, or edema. NEUROLOGICAL: Awake and alert. No focal neuro deficit. Moves all extremities. Normal speech. Results - Labs CBC & Chem 7: 02/23/18 05:52 02/22/18 04:45 Assessment and Plan - Assessment (1) Near syncope Code(s): R55 - Syncope and collapse Status: Acute (2) Pancytopenia Code(s): D61.818 - Other pancytopenia Status: Acute (3) Renal insufficiency Code(s): N28.9 - Disorder of kidney and ureter, unspecified Status: Acute (4) Chronic anticoagulation Code(s): Z79.01 - ferry terminal agent (current) use of anticoagulants Status: Acute - Plan 82-year-old female with a PMH of HTN, Hyperlipidemia, A. fib/PE on ASA/Effient, Pancytopenia and h/o AVR who presented to the ER for near syncopal event Near Syncope: w/ associated dizziness, likely secondary to fatigue/decreased PO intake. CT Head w/ no acute findings. PT for eval/tx. Could be from orthostasis/hypotension, Lasix, hydrochlorothiazide and lisinopril stopped. PE, small with Pancytopenia: Recent admit 02/02-02/13/18, found to have Pancytopenia -Hematology consult for further eval/recommendations in light of ASA/Effient therapy, appreciate recommendation. Consulted cardiology for further evaluation possible cardiac issue. Dr. Ross saw patient, recommend to continue aspirin, Effient and Eliquis 2.5mg on DC. Echocardiogram showed an ejection fraction of 20-25%, no aortic stenosis, no thrombus. This is not new, she has a known history of left ventricular dysfunction and previous aortic valve replacement. EF was 40-45% in January though. Awaiting input from Dr. Abrams? - Patient initially placed on Lovenox for anticoagulation, after patient was seen by Dr. Bell, he spoke to Dr. pompa. Decision was made to keep the patient on antiplatelets: Aspirin and Effient and discontinue anticoagulation with Eliquis since patient is high risk for bleeding and previous pulmonary embolism volume is too small. This is because of the risk of bleeding is too high on 2 antiplatelets and anticoagulation. Renal Insufficiency: Creatinine 1.14, previously 1.08 on 02/12/18 -DC IVF -monitor I/O, Improved Chronic Anticoagulation for aortic valve replacement: on ASA/Effient for h/o A- fib, found to have small PE on last admit -Caution w/ pancytopenia, please see anticoagulation as above. Hypotension -Decrease Coreg per cardiology DVT Prophylaxis: SCD/Teds Plan to DC home with [facility] when cleared by cardiology. Patient cleared by hematology for discharge on aspirin and Effient.
[2018-02-24 11:48] VITALS: BP 106/73; PULSE 68; TEMP 96.2
--- NOTE | 2018-02-24 13:03 | P.DS ---
Date of admission: 02/21/18 03:22 Primary care physician: Diomedes Hall DO Brief History from admission: This is an 82-year-old female with a PMH of HTN, Hyperlipidemia, A. fib/PE on ASA/Effient, Pancytopenia and h/o AVR who presented to the ER for near syncopal event. Recent admit 02/02-02/13/18 for Acute Respiratory Failure, found to have small PE, A-fib w/ RVR, PNA and Pancytopenia. S/p eval by Pulmonology, Cardiology and Heme/Onc, d/c'd on ASA/Effient, Amiodarone increased to 400mg bid and started on Digoxin per review of records. States she's had ongoing fatigue and dizziness since discharge with associated decreased PO intake. Today had episode of dizziness w/ near syncope in addition to one episode of vomiting. Denies fever, chills, cough, diarrhea or sick contacts. On arrival, BP 86/55, HR 80, O2 sat 100% on RA, Afebrile. WBC 3.5, hemoglobin 8.8, platelets 121, previously WBC 2.8, hemoglobin 12.2 and platelets 156 on 2017. INR 1.1. Creatinine 1.14, previously 1.08 on 02/12/2018. Lactic Acid normal. CXR with left lower lobe consolidation/atelectasis with suspected mild left pleural effusion. CT Head with no acute findings. Hemoccult negative on exam. DS: Diagnosis - Discharge Diagnosis (1) Near syncope Status: Acute (2) Pancytopenia Status: Acute (3) Renal insufficiency Status: Acute (4) Chronic anticoagulation Status: Acute DS: Medications - Discharge Medications Prescriptions: apixaban [Eliquis] 2.5 mg PO BID #60 tab carvedilol [Coreg] 3.125 mg PO BID #60 tab furosemide [Lasix] 20 mg PO DAILY 30 Days tab prasugrel [Effient] 5 mg PO DAILY #30 tab DS: Summary Hospital Course: 82-year-old female with a PMH of HTN, Hyperlipidemia, A. fib/PE on ASA/Effient, Pancytopenia and h/o AVR who presented to the ER for near syncopal event w/ associated dizziness, likely secondary to fatigue/decreased PO intake and ortostasis. CT Head w/ no acute findings. Hydrochlorothiazide and lisinopril stopped. Patient also has a history of pulmonary embolism and pancytopenia. Hematology was consulted for further eval/recommendations in light of ASA/Effient therapy. Consulted cardiology for further evaluation possible cardiac issue. Dr. Ross saw patient, recommend to continue aspirin, Effient and Eliquis 2.5mg on DC. Echocardiogram showed an ejection fraction of 20-25%, no aortic stenosis, no thrombus. This is not new, she has a known history of left ventricular dysfunction and previous aortic valve replacement. EF was 40-45% in January though. Patient initially placed on Lovenox for anticoagulation, after patient was seen by Dr. Bell, he spoke to Dr. pompa. Decision was made to keep the patient on antiplatelets: Aspirin and Effient and discontinue anticoagulation with Eliquis since patient is high risk for bleeding and previous pulmonary embolism volume is too small. This is because of the risk of bleeding is too high on 2 antiplatelets and anticoagulation. Patient also had acute renal failure which improved with volume resuscitation. Creatinine was normal on discharge. Echocardiogram was done which showed an ejection fraction of 20-25%. Discussed with cardiology Dr. Baljeet Ibarra who is covering for Dr. pompa, he cleared the patient for discharge to follow-up with Dr. pompa in 2-3 days. He recommends restarting Lasix. Patient will be discharge on room air to follow-up with Dr. pompa on or Friday. She will only be on aspirin and Effient. Eliquis was crossed out using a pen on her medication list. - Time Spent with Patient Total time spent providing and/or coordinating discharge services: Greater than 30 minutes - Quality: VTE Deep Vein Thrombosis/Pulmonary Embolism Present on Admission: No Exam Vital signs: Vital Signs 02/23/18 16:00 02/23/18 19:57 02/24/18 00:00 Temperature 97.6 F 98.5 F 98.5 F Pulse Rate 76 77 72 Respiratory Rate 16 17 16 Blood Pressure 122/78 114/76 109/70 Pulse Oximetry 100 96 99 02/24/18 03:59 02/24/18 05:22 02/24/18 07:32 Temperature 98.2 F 97.5 F L Pulse Rate 74 76 73 Respiratory Rate 16 16 Blood Pressure 114/78 115/77 Pulse Oximetry 98 100 02/24/18 07:39 02/24/18 11:45 Temperature 96.2 F L Pulse Rate 70 68 Respiratory Rate 16 Blood Pressure 106/73 Pulse Oximetry 100 Intake & Output 02/23/18 02/24/18 02/24/18 18:59 06:59 18:59 Intake Total 1000 / 1000 Balance 1000 / 1000 Intake: IV 1000 / 1000 Other: # Voids 2 Date of Last Bowel Movement 02/22/18 02/23/18 # Bowel Movements 1 Narrative: none Results Procedures completed during hospitalization: none - Impressions ITS Impressions Chest X-Ray 02/20/18 21:31 CONCLUSION: Left lower lobe consolidation/atelectasis with a suspected mild left pleural effusion. Head CT 02/20/18 22:21 CONCLUSION: 1. No acute intracranial abnormality. 2. Atrophy and chronic small vessel ischemic change. . Discharge Plan - Discharge Disposition Patient Disposition: /Home Health Service - Discharge Condition Condition: Stable - Discharge Order Discharge Orders: Discharge Order (Routine); Ordered 02/24/18 Ordered By: Derrell Jones - Discharge Details Anticipated Discharge Date: 02/24/18 - Physicians Team Primary Care Provider: Diomedes Hall Attending Provider: Derrell Jones Other Providers: Gordy Bell MD ; Jimmie Ross MD
== END 2018-02-24 13:36 | disposition home health service (06) ==
LOC: NEPC 19:24 → NEDA 02-21 03:22 → INTOOBSV 02-21 03:22 → NEPGCP 02-21 04:50
PROVIDERS: ADMIT Hospitalist; ATTEND Hospitalist